=== PATIENT | male | born 1940 | race Hispanic/Latino ===

== ENCOUNTER 2016-12-11 08:50 | Inpatient (IN) | payer BC, MEDICARE ==
[2016-12-11 08:55] VITALS: BMI 28.0
[2016-12-11] MEDS ORDERED: Sodium Chloride 0.9% 1,000 ML IV ONE (08:59)
[2016-12-11] MEDS ORDERED: Vancomycin 1gm in NS 250ml 250 ML IVPB STA (08:59)
[2016-12-11] MEDS ORDERED: Cefepime IV 2 gm in NS 100 ML IVPB STA (08:59)
[2016-12-11] MEDS ORDERED: Piperacill/Tazo 4.5gm in NS 100 ML IVPB STA (08:59)
--- NOTE | 2016-12-11 09:01 | ED PDOC ---
Arrival/HPI - General Time Seen by Provider: 12/11/16 08:55 Historian: EMS - History of Present Illness Narrative History of Present Illness (Text): 12/11/16 08:55 A 76 year old male brought into the emergency department by EMS complaining of progressively worsening shortness of breath for the past few days. History obtained through EMS. Patient was intubated for respiratory protection in the field due to hypoxia and tachypnea. HPI and ROS limited. Previous records reviewed, patient has a history of CAD with stents, hypertension and hyperlipidemia. PMD: Dr. Morales Time/Duration: Prior to Arrival Symptom Course: Unchanged Quality: Other Context: Other Past Medical History - Provider Review Nursing Documentation Reviewed: Yes - Infectious Disease Hx of Infectious Diseases: None - Tetanus Immunization Tetanus Immunization: Unknown - Cardiac Hx Cardiac Disorders: Yes Hx Hypertension: Yes - Pulmonary Hx Respiratory Disorders: Yes Hx Chronic Obstructive Pulmonary Disease (COPD): Yes - Neurological Hx Neurological Disorder: No - HEENT Hx HEENT Disorder: No - Renal Hx Renal Disorder: No - Endocrine/Metabolic Hx Endocrine Disorders: No - Hematological/Oncological Hx Blood Disorders: Yes Hx Hepatitis C: Yes - Integumentary Hx Dermatological Disorder: No - Musculoskeletal/Rheumatological Hx Musculoskeletal Disorders: No Hx Falls: No - Gastrointestinal Hx Gastrointestinal Disorders: Yes Hx Gastroesophageal Reflux: Yes - Genitourinary/Gynecological Hx Genitourinary Disorders: No - Psychiatric Hx Psychophysiologic Disorder: No Hx Substance Use: Yes - Surgical History Hx Appendectomy: Yes Hx Cardiac Catheterization: Yes Hx Coronary Stent: Yes - Anesthesia Hx Anesthesia: Yes Hx Anesthesia Reactions: No Hx Malignant Hyperthermia: No - Suicidal Assessment Feels Threatened In Home Enviroment: No Family/Social History - Physician Review Nursing Documentation Reviewed: Yes Family/Social History: No Known Family HX Smoking Status: Former Smoker Hx Alcohol Use: No Hx Substance Use: Yes Hx Substance Use Treatment: No Allergies/Home Meds Allergies/Adverse Reactions: Allergies No Known Allergies Allergy (Verified 12/11/16 13:56) Home Medications: Home Meds Medication Instructions Recorded Confirmed Aspirin [Aspir 81] 81 mg PO DAILY 03/17/13 12/11/16 Isosorbide Mononitrate [Isosorbide 30 mg PO QAM 08/15/13 12/11/16 Mononitrate ER] Albuterol 0.042% [Albuterol 0.042% 3 ml IH QID PRN 12/11/16 12/11/16 Inhal Tish (1.25mg/3ml) UD] Atorvastatin [Lipitor] 10 mg PO DIN 12/11/16 12/11/16 Budesonide/Formoterol Fumarate 2 aer IH BID 12/11/16 12/11/16 [Symbicort] Furosemide [Lasix] 40 mg PO DAILY 12/11/16 12/11/16 Gabapentin [Neurontin] 300 mg PO BID 12/11/16 12/11/16 Levocetirizine Dihydrochloride 5 mg PO DAILY 12/11/16 12/11/16 [Xyzal] Metoprolol Tartrate [Lopressor] 25 mg PO BID 12/11/16 12/11/16 Naproxen [Naprosyn Tab] 375 mg PO BID 12/11/16 12/11/16 Potassium Chloride [Klor-Con M20] 20 meq PO DAILY 12/11/16 12/11/16 Zolpidem [Ambien] 10 mg PO HS 12/11/16 12/11/16 Review of Systems - Review of Systems Systems not reviewed;Unavailable: Intubated (Unresponsive) Physical Exam - Physical Exam Narrative Physical Exam (Text): Physical exam - Systems Exam Head: Present: Atraumatic, Normocephalic Pupils: Present: PERRL Conjunctiva: Present: Normal Respiratory/Chest: Present: ET tube placement confirmed with bilateral breath sounds, absence of stomach gurgling. Cardiovascular: Present: Regular Rate and Rhythm, Normal S1, S2, Peripheral Pulses Present. No: Murmurs Abdomen: bowel sounds present, soft, non-tender Back: Present: Normal Inspection. No: Midline Tenderness, Paraspinal Tenderness Lower Extremity: Present: +1 pitting edema. No asymmetry. Skin: Present: Warm, Dry, Normal Color. No: Rashes Physical Exam Limitations: Other (intubated) Vital Signs Reviewed: Yes Vital Signs Temp Pulse Resp BP Pulse Ox 12/11/16 12:16 79 18 169/86 H 100 12/11/16 11:58 169/86 H 12/11/16 10:20 91 H 18 114/90 99 12/11/16 09:00 98.1 F 89 18 105/39 L 98 Temperature: Afebrile Blood Pressure: Hypotensive Pulse: Regular Respiratory Rate: Normal Pain Distress: None Medical Decision Making ED Course and Treatment: 12/11/16 08:55 Impression: A 76 year old male brought in for progressively worsening shortness of breath. Patient intubated in the field. Limited history and physical exam. Plan: -- Chest xray -- EKG -- Labs -- Blood and Urine culture -- Urinalysis -- Maxipime, IV fluids, Vancomycin and Zosyn -- Reassess and disposition Prior Visits: Notes and results from previous visits were reviewed. Patient admitted for chest pain on 09/15/16. He had a stress test the same day which showed a left ventricular ejection fraction of 69%. Progress Notes: Stereo Equipment Installer paged. Awaiting call back. EKG shows sinus tachycardia at [address]-segment depressions in V2-V3, no ST-segment elevations. Interpreted by me. 12/11/16 09:36 Chest X-ray read and interpreted by me, which shows ET tube above the kathy, bilateral infiltrates, right sided pleura effusion. 12/11/16 09:[address] Denton, who accepts admission under his service. 12/11/16 10:[address] Baldomero Morales, who is aware of and agrees with plan. Requests Dr. Huntley, physician office rep, for consult. pt's family aware of plan - Critical Care Critical Care Minutes: 30 minutes - Lab Interpretations Lab Results: 12/11/16 09:00 12/11/16 09:00 Lab Results 12/11/16 09:30: Urine Color Light yellow, Urine Appearance Sl cloudy, Urine pH 6.0, Ur Specific [place] >= 1.030, Urine Protein >=300 H, Urine Glucose (UA) Negative, Urine Ketones Negative, Urine Blood Large H, Urine Nitrate Negative, Urine Bilirubin Negative, Urine Urobilinogen 0.2, Ur Leukocyte Esterase Negative , Urine RBC 5 - 10, Urine WBC 0 - 2, Ur Epithelial Cells 0 - 2, Urine Bacteria Small, Hyaline Casts 0 - 2 12/11/16 09:00: WBC 12.0 H, RBC 3.76, Hgb 10.3 L, Hct 33.2 L, MCV 88.3, MCH 27.4 , MCHC 31.0, RDW 15.6 H, Plt Count 224, MPV 9.9, Gran % 84.7 H, Lymph % (Auto) 8.7 L, Angelina % (Auto) 5.2, Eos % (Auto) 1.2 L, Baso % (Auto) 0.2, Gran # 10.19 H , Lymph # 1.1 L, Angelina # 0.6, Eos # 0.2, Baso # 0.02, PT 11.3, INR 1.05, APTT 23.2 L, pO2 52, VBG pH 7.13 L*, VBG pCO2 102.0 H*, VBG HCO3 33.9 H, VBG Total CO2 37.0 H, VBG O2 Sat (Calc) 81.6 H, VBG Base Excess 1.4, VBG Potassium 5.7 H, Glucose 183 H, Lactate 0.9, FiO2 21.0, Sodium 142.0, Potassium 5.5 H, Chloride 109.0 H, Carbon Dioxide 31, Anion Gap 15, BUN 32 H, Creatinine 2.2 H, Est GFR ( Amer) 35, Est GFR (Non-Af Amer) 29, Random Glucose 176 H, Calcium 8.4, Phosphorus 5.4 H, Magnesium 1.6 L, Total Bilirubin 0.7, AST 30, ALT 24, Alkaline Phosphatase 52, Troponin I 0.05 D, NT-Pro-B Natriuret Pep 12457 H, Total Protein 6.5, Albumin 3.4, Globulin 3.1, Albumin/Globulin Ratio 1.1, Procalcitonin 0.13 L, Venous Blood Potassium 5.7 H I have reviewed the lab results: Yes - RAD Interpretation Radiology Orders: 12/11/16 09:00 CHEST PORTABLE [RAD] Stat - Medication Orders Current Medication Orders: Albuterol/Ipratropium (Duoneb 3 Mg/0.5 Mg (3 Ml) Ud) 3 ml IH [id number] Last Admin: 12/11/16 11:58 Dose: 3 ML Enoxaparin Sodium (Lovenox) 80 mg SC DAILY [facility] PRN Reason: Protocol Last Admin: 12/11/16 16:59 Dose: 80 MG Subcutaneous Administrations Document 12/11/16 16:59 CLA (Rec: 12/11/16 16:59 CLA [id number]) Injection Site MAR Injection Site Right Abdomen Charges for Administration # of Subcutaneous Administrations 1 Furosemide (Lasix) 40 mg IV DAILY [facility] Hydralazine HCl (Apresoline) 10 mg IVP Q6 PRN PRN Reason: For SBP>170 & Diastolic>100 Propofol (Diprivan) 100 mls @ 2.585 mls/hr IV .Q24H PRN; Protocol; 5 MCG/KG/MIN PRN Reason: TITRATE PER MD ORDER Last Titration: 12/11/16 14:00 Dose: 15 MCG/KG/MIN Titration Intervention Document 12/11/16 14:00 CLA (Rec: 12/11/16 17:00 CLA [id number]) Titration Dosing Titration Dose 15 IV Rate 7.756 Intake/Decrease Increase Piperacillin Sod/Tazobactam Sod (Zosyn 3.375 In Ns 100ml) 100 mls @ 200 mls/hr IVPB Q6 [facility] PRN Reason: Protocol Last Admin: 12/11/16 17:24 Dose: 200 MLS/HR eMAR Start Stop Document 12/11/16 17:24 CLA (Rec: 12/11/16 17:24 SAIGE [id number]) Intravenous Solution Start Date 12/11/16 Start Time 17:24 End Date 12/11/16 End time 18:25 Total Infusion Time 61 Vancomycin HCl (Vancomycin 1gm) 250 mls @ 167 mls/hr IVPB Q12H [facility] PRN Reason: Protocol Last Admin: 12/11/16 11:58 Dose: Methylprednisolone (Solu-Medrol) 40 mg IVP Q12 [facility] Last Admin: 12/11/16 11:58 Dose: 40 MG IVP Administration Document 12/11/16 11:58 MALKA (Rec: 12/11/16 11:58 REED [id number]) Charges for Administration # of IVP Administrations 1 Pantoprazole Sodium (Protonix Inj) 40 mg IVP DAILY [facility] Last Admin: 12/11/16 11:58 Dose: 40 MG IVP Administration Document 12/11/16 11:58 MALKA (Rec: 12/11/16 11:58 REED [id number]) Charges for Administration # of IVP Administrations 1 Discontinued Medications Furosemide (Lasix) 40 mg IVP STAT STA Stop: 12/11/16 10:54 Last Admin: 12/11/16 11:58 Dose: 40 MG MAR Blood Pressure Document 12/11/16 11:58 MALKA (Rec: 12/11/16 11:58 REED [id number]) Blood Pressure Blood Pressure (100/60-150/90 mm Hg) 169/86 IVP Administration Document 12/11/16 11:58 REED (Rec: 12/11/16 11:58 REED [id number]) Charges for Administration # of IVP Administrations 1 Furosemide (Lasix) 40 mg IVP ONCE ONE Stop: 12/11/16 18:01 Last Admin: 12/11/16 16:59 Dose: 40 MG MAR Blood Pressure Document 12/11/16 16:59 CLA (Rec: 12/11/16 16:59 [id number] Blood Pressure Blood Pressure (100/60-150/90 mm Hg) 175/69 IVP Administration Document 12/11/16 16:59 CLA (Rec: 12/11/16 16:59 CLA [id number]) Charges for Administration # of IVP Administrations 1 Cefepime HCl (Maxipime 2gm) 100 mls @ 100 mls/hr IVPB STAT STA PRN Reason: Protocol Stop: 12/11/16 09:58 Last Admin: 12/11/16 10:15 Dose: 100 MLS/HR eMAR Start Stop Document 12/11/16 10:15 REED (Rec: 12/11/16 11:35 REED [id number]) Intravenous Solution Start Date 12/11/16 Start Time 10:15 Sodium Chloride (Sodium Chloride 0.9%) 1,000 mls @ 2,000 mls/hr IV .Q30M ONE Stop: 12/11/16 09:28 Last Admin: 12/11/16 09:29 Dose: 2,000 MLS/HR eMAR Start Stop Document 12/11/16 09:29 REED (Rec: 12/11/16 09:29 REED [id number]) Intravenous Solution Start Date 12/11/16 Start Time 09:29 Piperacillin Sod/Tazobactam Sod (Zosyn 4.5 Gm In Ns 100ml) 100 mls @ 200 mls/ hr IVPB STAT STA PRN Reason: Protocol Stop: 12/11/16 09:28 Last Admin: 12/11/16 09:29 Dose: 200 MLS/HR eMAR Start Stop Document 12/11/16 09:29 REED (Rec: 12/11/16 09:29 REED [id number]) Intravenous Solution Start Date 12/11/16 Start Time 09:29 Vancomycin HCl (Vancomycin 1gm) 250 mls @ 167 mls/hr IVPB STAT STA PRN Reason: Protocol Stop: 12/11/16 10:28 Last Admin: 12/11/16 12:05 Dose: 167 MLS/HR eMAR Start Stop Document 12/11/16 12:05 REEDDutch (Rec: 12/11/16 12:06 REEDDutch [id number]) Intravenous Solution Start Date 12/11/16 Start Time 12:06 Magnesium Sulfate/Dextrose (Magnesium Sulfate 1 Gm/100 Ml D5w) 100 mls @ 100 mls/hr IVPB ONCE ONE Stop: 12/11/16 16:08 Magnesium Sulfate/Dextrose (Magnesium Sulfate 1 Gm/100 Ml D5w) 100 mls @ 100 mls/hr IVPB Q2 [facility] Stop: 12/11/16 18:59 Last Admin: 12/11/16 18:17 Dose: 100 MLS/HR eMAR Start Stop Document 12/11/16 18:17 CLA (Rec: 12/11/16 18:17 CLA [id number]) Intravenous Solution Start Date 12/11/16 Start Time 18:17 End Date 12/11/16 End time 19:18 Total Infusion Time 61 Influenza Virus Vaccine (Fluvirin) 45 mcg IM .ONCE ONE Stop: 12/11/16 17:43 Pneumococcal Polyvalent Vaccine (Pneumovax 23 Vaccine) 0.5 ml IM .ONCE ONE Stop: 12/11/16 17:43 - Scribe Statement The provider has reviewed the documentation as recorded by the Jeremiah Britt Provider Scribe Attestation: All medical record entries made by the Joseiblucy were at my direction and personally dictated by me. I have reviewed the chart and agree that the record accurately reflects my personal performance of the history, physical exam, medical decision making, and the department course for this patient. I have also personally directed, reviewed, and agree with the discharge instructions and disposition. Disposition/Present on Arrival - Present on Arrival Any Indicators Present on Arrival: No History of DVT/PE: No History of Uncontrolled Diabetes: No Urinary Catheter: No History Surgical Site Infection Following: None - Disposition Have Diagnosis and Disposition been Completed?: Yes Diagnosis: Respiratory failure Disposition: HOSPITALIZED Disposition Time: 08:55 Patient Plan: Admission Condition: CRITICAL
[2016-12-11 09:10] LABS: VENOUS BLOOD GAS BASE EXCESS 1.4 mmol/L (0.0-2.0)
[2016-12-11 09:12] LABS: ADD MANUAL DIFF? NO
[2016-12-11 09:22] LABS: VENOUS BLOOD PH 7.13 (7.32-7.43)
[2016-12-11 09:26] LABS: ALB/GLOB RATIO 1.1 (1.1-1.8); BILIRUBIN,TOTAL 0.7 mg/dL (0.2-1.3); CALCIUM 8.4 mg/dL (8.4-10.5); MAGNESIUM 1.6 mg/dL (1.7-2.2); PHOSPHOROUS 5.4 mg/dL (2.5-4.5); TOTAL PROTEIN 6.5 g/dL (5.8-8.3)
[2016-12-11 09:32] LABS: POTASSIUM 5.5 mmol/L (3.6-5.0)
[2016-12-11 09:37] LABS: TROPONIN I 0.05 ng/mL
[2016-12-11 09:42] LABS: BASO # 0.02 K/mm3 (0.0-2.0); BASO % 0.2 % (0.0-3.0); EOS # 0.2 (0.0-0.7); EOS % 1.2 % (1.5-5.0); GRAN # 10.19 (1.4-6.5); GRAN % 84.7 % (50.0-68.0); HEMATOCRIT 33.2 % (42.0-52.0); LYMPH # 1.1 (1.2-3.4); LYMPH % 8.7 % (22.0-35.0); MEAN CELL VOLUME 88.3 fL (80.0-105.0); MEAN CORPUSCULAR HEMOGLOBIN 27.4 pg (25.0-35.0); MEAN PLATELET VOLUME 9.9 fl (7.0-11.0); MONO # 0.6 (0.1-0.6); MONO % 5.2 % (1.0-6.0); PLATELET COUNT 224 10^3/uL (120.0-450.0); RED CELL DISTRIBUTION WIDTH 15.6 % (11.5-14.5)
[2016-12-11 09:50] LABS: URINE BILIRUBIN NEGATIVE (NEGATIVE); URINE BLOOD LARGE (NEGATIVE); URINE GLUCOSE (UA) NEGATIVE (NEGATIVE); URINE KETONE NEGATIVE (NEGATIVE); URINE LEUKOCYTE ESTERASE NEGATIVE Leu/uL (NEGATIVE); URINE PROTEIN >=300 mg/dL (<30 mg/dL); URINE UROBILINOGEN 0.2 E.U./dL (<1 E.U./dL)
[2016-12-11 09:50] LABS: ARTERIAL BLOOD GAS HCO3 29.1 mmol/L (21-28); ARTERIAL BLOOD GAS O2 CAPACITY 13.2 mL/dl (16-24); ARTERIAL BLOOD GAS O2 CONTENT 13.3 ML/dl (15-23); ARTERIAL BLOOD GAS PH 7.22 (7.35-7.45); ARTERIAL BLOOD HGB O2 SAT 97.1 % (95.0-98.0); CARBOXYHEMOGLOBIN 2.7 % (0.5-1.5); HHB -0.6 % (0-5); METHEMOGLOBIN 0.8 % (0.0-3.0)
[2016-12-11 09:53] LABS: INR 1.05 (0.93-1.08); PARTIAL THROMBOPLASTIN TIME 23.2 Seconds (23.7-30.8)
[2016-12-11 09:57] LABS: URINE APPEARANCE SL CLOUDY (CLEAR); URINE COLOR LIGHT YELLOW (YELLOW)
--- NOTE | 2016-12-11 10:38 | RAD ---
HISTORY: Sepsis Patient COMPARISON: 09/14/2016 FINDINGS: LUNGS: Extensive opacity in the mid right lower lung. Opacity at the left lung base. PLEURA: Small to moderate right pleural effusion. No evidence of left pleural effusion. No pneumothorax. CARDIOVASCULAR: Pulmonary vascular congestive change. Normal heart size. And approximately 5.4 cm above the tracheal shari. OSSEOUS STRUCTURES: No significant abnormalities. VISUALIZED UPPER ABDOMEN: Normal. OTHER FINDINGS: None. IMPRESSION: Bilateral pulmonary opacities with small to moderate right pleural effusion. Congestive change. ET tube.
[2016-12-11 10:56] LABS: URINE BACTERIA SMALL (NEG); URINE EPITHELIAL CELLS 0 - 2 /hpf (0-5); URINE WBC 0 - 2 /hpf (0-6)
[2016-12-11] MEDS ORDERED: Vancomycin 1gm in NS 250ml 250 ML IVPB ONE (11:07)
--- NOTE | 2016-12-11 11:33 | CP.CCUPN ---
<Jennifer Whittaker - Last Filed: 12/11/16 15:02> CCU Subjective - Physician Review Events Since Last Encounter (Free Text): 12/11/16 13:49 CC: SOB C/S: Resp failure, intubated by EMS HPI: 76 yo male w h/o CAD s/p stenting, HTN, HLD and asthma presented to ER intubated in the field by EMS. Patient is currently intubated and unable to provide any history. History is obtained from the ER records and the patient's . According to his , the patient has been progressively more SOB for the past 3-4 weeks, using his Albuterol inhaler with intermittent relief. He went to his PMD 11/07/2016 for swelling and erythema in BL LEs and was given a 7- day course of doxycycline, which he finished and erythema, edema resolved. Patient had reportedly not been complaining of any cough, CP, diarrhea, constipation, fevers, chills, abdominal pain, loss of appetite, weight loss. He did have one episode of emesis this morning while sitting after he started gasping for air, telling his daughter he could not breathe. EMS was called and the patient was intubated en route to the ER. According to the patient's patient has been essentially non-ambulatory since his August admission for CP with negative exercise nuclear stress test. PMHx: CAD s/p coronary stents x4 (2011 and 2012), HTN, HLD, asthma PSHx: Coronary stents x 4, sebaceous cysts removal FamilyHx: Noncontributory SocialHx: Former smoker. 35 years 2ppd smoker. Quit 20 years ago. No h/o EtOH or drug abuse. Allergies: NKDA Home Meds: Albuterol HFA, Ambien, Gabapentin, ASA, isorbide mononitrate, Klor- con M20, lopressor, naproxen, neurontin, ultram, zyxal Critical Care Time Spent (in minutes): 50 CCU Objective - Physical Exam Head: Positive for: Atraumatic, Other (intubated) Pupils: Positive for: PERRL Conjunctiva: Positive for: Normal Ears: Positive for: Normal Mouth: Positive for: Moist Mucous Membranes Nose (Internal): Positive for: Normal Inspection Respiratory/Chest: Positive for: Rhonchi (BL), Other (intubated). Negative for : Clear to Auscultation, Good Air Exchange (poor air movement), Respiratory Distress Abdomen: Positive for: Normal Bowel Sounds. Negative for: Tenderness, Distention, Rebound, Guarding Upper Extremity: Negative for: Edema Lower Extremity: Positive for: Edema (trace BL LE). Negative for: Normal Inspection (erythema right anterior bunch, dry, flaky skin. R lateral 1cm ankle ulcer. L medial ankle ulcer. Ulceration between Left 2nd and third toes. Onycomycosis) Neurological: Positive for: Other. Negative for: GCS=15 Skin: Positive for: Warm, Dry Psychiatric: Negative for: Alert, Oriented x 3 (sedated on propofol, intubated) - Medications Active Medications: Active Medications Generic Name Dose Route Start Last Admin Trade Name Freq PRN Reason Stop Dose Admin Albuterol/Ipratropium 3 ml 12/11/16 11:30 Duoneb 3 Mg/0.5 Mg (3 Ml) Ud IH [id number] [facility] Heparin Sodium (Porcine) 5,000 units 12/11/16 22:00 Heparin SC Q12 [facility] Propofol 100 mls @ 2.585 mls/hr 12/11/16 09:07 12/11/16 09:29 Diprivan IV 2.585 mls/hr .Q24H PRN Administration TITRATE PER MD ORDER Protocol 5 MCG/KG/MIN Piperacillin Sod/Tazobactam Sod 100 mls @ 200 mls/hr 12/11/16 12:00 Zosyn 3.375 In Ns 100ml IVPB Q6 [facility] Protocol Vancomycin HCl 250 mls @ 167 mls/hr 12/11/16 11:30 Vancomycin 1gm IVPB Q12H [facility] Protocol Methylprednisolone 40 mg 12/11/16 11:30 Solu-Medrol IVP Q12 [facility] Pantoprazole Sodium 40 mg 12/11/16 11:30 Protonix Inj IVP DAILY [facility] - Patient Studies Lab Studies: Lab Studies 12/11/16 Range/Units 09:47 pCO2 71 H* (35-45) mm/Hg pO2 371.0 H (80-100) mm/Hg HCO3 29.1 H (21-28) mmol/L ABG pH 7.22 L (7.35-7.45) ABG Total CO2 31.3 H (22-28) mmol.L ABG O2 Saturation 100.6 H (95-98) % ABG O2 Content 13.3 L (15-23) ML/dl ABG Base Excess 0.5 (-2.0-3.0) mmol/L ABG Hemoglobin 9.0 L (11.7-17.4) g/dL ABG Carboxyhemoglobin 2.7 H (0.5-1.5) % POC ABG HHb (Measured) -0.6 L (0-5) % ABG Methemoglobin 0.8 (0.0-3.0) % ABG O2 Capacity 13.2 L (16-24) mL/dl Hgb O2 Saturation 97.1 (95.0-98.0) % FiO2 100.0 % Laboratory Results - last 24 hr 12/11/16 09:47 pCO2 71 H* pO2 371.0 H HCO3 29.1 H ABG pH 7.22 L ABG Total CO2 31.3 H ABG O2 Saturation 100.6 H ABG O2 Content 13.3 L ABG Base Excess 0.5 ABG Hemoglobin 9.0 L ABG Carboxyhemoglobin 2.7 H POC ABG HHb (Measured) -0.6 L ABG Methemoglobin 0.8 ABG O2 Capacity 13.2 L Hgb O2 Saturation 97.1 FiO2 100.0 Review of Systems - Review of Systems Systems not reviewed;Unavailable: Intubated Critical Care Progress Note - Ventilator Checklist PUD Prophalyxis: Yes DVT Prophylaxis: Yes - Vent Settings MODE:: PRVC TIDAL VOLUME:: 450 RESP RATE:: 22 FIO2:: 50 PEEP:: 5 Assessment/Plan - Assessment and Plan (Free Text) Assessment: 76 yo M w h/o CAD, HTN, HLD and asthma admitted with hypoxic, hypercapnic RF intubated by EMS, found to have BL infiltrates and pulm vascular congestion on CXR Plan: Neuro: Sedated on propofol. Maintain sedation to RAAS -3 while on PRVC. Daily weaning trial. Daily CXR and ABG while intubated Maintain normothermia Pulm: Acute on chronic resp acidosis on ABG with partial metabolic compensation Asthma vs obstructive lung disease given extensive smoking history Probable PNA - Vanc and Zosyn. Procalcitonin pending Solumedrol 40mg IV Q12hr PRVC 450/22/50%/5. Repeat ABG on new setting and adjust as needed to maintain PaO2>60, SpO2>90 Duonebs Q4hr Protective lung ventilation strategy. HOB >35 degree. Aspiration precautions. Recommend outpatient PFTs when acute events are resolved and patient is medically stable Pulmonary consult noted and sincerely appreciated CV: BNP [id number]. Gave 40mg IV lasix. Monitor I&Os, renal function EKG shows new ST depression in V2, V3, slightly prolonged QTc at 469ms Continue to trend troponins Cardiac consult pending. Recs appreciated Renal: Cr 2.2, stable since August 2016. Uncertain if new baseline. Will gently diurese based on clinical picture and monitor renal function, I&Os GI: GI ppx, NPO Endo: No acute issues. Accuchecks ACHS. Maintain euglycemia 140-180 ID: Mild leukocytosis 12, BL pulmonary opacities on CXR, probable PNA Urine and blood cultures pending. Will also send sputum cultures S/p vanc, zosyn and cefepime in ER. Continue Vanc and zosyn pending cultures Wound care for LE chronic wounds Heme: Mild normocytic anemia. No signs of bleeding. Continue to monitor FEN: Hypomagnesemia 1.6 - replace. Recheck AM labs DVT/GI ppx: SQH, Protonix, NPO Dispo: Admit to ICU - Date & Time Date: 12/11/16 Time: 14:31 <Bertin CANDELARIA,Trinity H - Last Filed: 12/11/16 16:10> CCU Objective - Vital Signs / Intake & Output Vital Signs (Last 4 hours): Vital Signs Pulse Resp BP Pulse Ox 12/11/16 12:16 79 18 169/86 H 100 - Medications Active Medications: Active Medications Generic Name Dose Route Start Last Admin Trade Name Freq PRN Reason Stop Dose Admin Albuterol/Ipratropium 3 ml 12/11/16 11:30 12/11/16 11:58 Duoneb 3 Mg/0.5 Mg (3 Ml) Ud IH 3 ml [id number] [facility] Administration Enoxaparin Sodium 80 mg 12/11/16 15:30 Lovenox SC DAILY [facility] Protocol Furosemide 40 mg 12/11/16 18:00 Lasix IVP 12/11/16 18:01 ONCE ONE Furosemide 40 mg 12/12/16 10:00 Lasix IV DAILY [facility] Hydralazine HCl 10 mg 12/11/16 15:30 Apresoline IVP Q6 PRN For SBP>170 & Diastolic>100 Propofol 100 mls @ 2.585 mls/hr 12/11/16 09:07 12/11/16 09:29 Diprivan IV 2.585 mls/hr .Q24H PRN Administration TITRATE PER MD ORDER Protocol 5 MCG/KG/MIN Piperacillin Sod/Tazobactam Sod 100 mls @ 200 mls/hr 12/11/16 12:00 Zosyn 3.375 In Ns 100ml IVPB Q6 [facility] Protocol Vancomycin HCl 250 mls @ 167 mls/hr 12/11/16 11:30 12/11/16 11:58 Vancomycin 1gm IVPB Not Given Q12H [facility] Protocol Magnesium Sulfate/Dextrose 100 mls @ 100 mls/hr 12/11/16 16:00 Magnesium Sulfate 1 Gm/100 Ml D5w IVPB 12/11/16 18:59 Q2 [facility] Methylprednisolone 40 mg 12/11/16 11:30 12/11/16 11:58 Solu-Medrol IVP 40 mg Q12 [facility] Administration Pantoprazole Sodium 40 mg 12/11/16 11:30 12/11/16 11:58 Protonix Inj IVP 40 mg DAILY [facility] Administration - Patient Studies Lab Studies: Lab Studies 12/11/16 12/11/16 Range/Units 15:15 09:47 pCO2 71 H* (35-45) mm/Hg pO2 371.0 H (80-100) mm/Hg HCO3 29.1 H (21-28) mmol/L ABG pH 7.22 L (7.35-7.45) ABG Total CO2 31.3 H (22-28) mmol.L ABG O2 Saturation 100.6 H (95-98) % ABG O2 Content 13.3 L (15-23) ML/dl ABG Base Excess 0.5 (-2.0-3.0) mmol/L ABG Hemoglobin 9.0 L (11.7-17.4) g/dL ABG Carboxyhemoglobin 2.7 H (0.5-1.5) % POC ABG HHb (Measured) -0.6 L (0-5) % ABG Methemoglobin 0.8 (0.0-3.0) % ABG O2 Capacity 13.2 L (16-24) mL/dl Hgb O2 Saturation 97.1 (95.0-98.0) % FiO2 100.0 % Troponin I 0.26 H* D ng/mL Laboratory Results - last 24 hr 12/11/16 12/11/16 09:47 15:15 pCO2 71 H* pO2 371.0 H HCO3 29.1 H ABG pH 7.22 L ABG Total CO2 31.3 H ABG O2 Saturation 100.6 H ABG O2 Content 13.3 L ABG Base Excess 0.5 ABG Hemoglobin 9.0 L ABG Carboxyhemoglobin 2.7 H POC ABG HHb (Measured) -0.6 L ABG Methemoglobin 0.8 ABG O2 Capacity 13.2 L Hgb O2 Saturation 97.1 FiO2 100.0 Troponin I 0.26 H* D EKG/Cardiology Studies: Cardiology / EKG Studies 12/12/16 06:00 EKG [ELECTROCARDIOGRAM] DAILY Comment: Reason For Exam: followup Attending/Attestation - Attestation I have personally seen and examined this patient.: Yes I have fully participated in the care of the patient.: Yes I have reviewed all pertinent clinical information: Yes Notes (Text): 12/11/16 16:04 76 y/o M w/ Acute hypercapneic resp failure Pt currently not moving much air, Solumedrol, b-agonist given . Repeat ABG pending to hope for co2 removal. Keep ph > 7.3 CXR shows minimal PVC with b/l R>L consolidation . Lasix 40 mg given due to PVC. Trend troponins due to previous CAD stent hx. Cardiology consult placed and possible need for cath depending on ECHO etc. Keep PAo2> 60 . vt 6ml/kg Empiric abx started , rocephin continued . cx pending cc time 65 min
[2016-12-11] MEDS: Albuterol-Ipratrop 3 mg / 0.5 (3 ml) UD IH SCH ×3 (11:58→23:40)
[2016-12-11] MEDS: MethylPREDNISolone 40 mg Vial IVP SCH ×2 (11:58→22:04)
[2016-12-11] MEDS: Vancomycin 1gm in NS 250ml 250 ML IVPB SCH ×2 (11:58→23:03)
--- NOTE | 2016-12-11 12:45 | CON ---
DATE: 12/11/2016 REASON FOR CONSULTATION: Respiratory failure. REFERRING PHYSICIAN: Dr. Morales History is obtained via extensive discussion with Dr. Kahn (Emergency Room) . I also discussed the case with the at length. I have also reviewed the chart at length. The patient is a 76-year-old male with past medical history significant for coronary artery disease, status post multiple cardiac stents, chronic obstructive pulmonary disease, hypertension, hyperlipidemia, who presents to [facility] with worsening shortness of breath at rest and dyspnea on exertion for the past 4 days. The denies cough or sputum production. There is also no history of chest pain, coughing up of blood, or chest pain -- made worse with deep respirations. There is no history of temperatures, chills or infectious exposure. There is also no history of night sweats, weight loss or appetite change prior to the above events. No history of leg or calf pains. No history of syncope or diaphoresis. No history of recent travel or trauma. REVIEW OF SYSTEMS: No history of nausea, vomiting or diarrhea. No acute urinary symptoms. No new musculoskeletal or neurologic complaints. Rest of the review of systems negative. ALLERGIES: No known allergies. SOCIAL HISTORY: Positive for tobacco, negative for alcohol. FAMILY HISTORY: No inheritable diseases. HOME MEDICATIONS: Include Neurontin, Naprosyn, Ambien, Ultram, doxycycline, Lopressor, isosorbide mononitrate, and aspirin. PHYSICAL EXAMINATION: GENERAL: The patient is currently intubated and sedated. VITAL SIGNS: Temperature is 98.1. Pulse is 91. Respirations 18/16. blood pressure is 114/90. HEENT: Normocephalic, atraumatic. No JVD. CARDIOVASCULAR: Systolic ejection murmur at the lower left sternal border. Positive S3 gallop. LUNGS: Crackles at both bases. Minimal bilateral rhonchi. No wheezing. EXTREMITIES: Positive for edema. No cyanosis, no clubbing. GASTROINTESTINAL: Abdomen is soft, nondistended. Bowel sounds are positive. SKIN: No acute rash. NEUROLOGIC: Limited at the present time. PERTINENT LABORATORY DATA: Chest x-ray was done and reviewed. There are bilateral pulmonary infiltrates (right worse than left). There are also some small bilateral pleural effusions. Arterial blood gas was done on 16/400/100% oxygen/ventilator. Results are: PH of 7.22, pCO2 of 71, pO2 of 371. CBC: White count 12.0, hemoglobin 10.3, hematocrit 33.2, platelets of 224. Complete metabolic profile: Potassium 5.5, BUN 32, creatinine 2.2, glucose 176, phosphorus 5.4, magnesium 1.6, troponin 0.05. B-type natriuretic peptide 40893. Rest of the metabolic profile is within normal limits. IMPRESSION: 1. Respiratory failure. 2. Rule out bilateral pneumonia. 3. Congestive heart failure. 4. Chronic obstructive pulmonary disease. 5. Coronary artery disease. 6. Renal insufficiency. PLAN: Again, I did discuss the case with the Emergency Room physician (Dr. Kahn) at length. I also discussed the case with the at length. Apparently, the patient has been experiencing increasing shortness of breath at rest and dyspnea on exertion for the past 4 days. The offers no other pulmonary symptoms. When the patient arrived to the Emergency Room, he was in respiratory distress. He was subsequently intubated for ventilation and airway protection. I did review the chest x-ray as above. The x-ray reveals bilateral pulmonary infiltrates (right worse than left). The x-ray also reveals small bilateral pleural effusions. I have also reviewed the arterial blood gas. The arterial blood gas is consistent with a severe respiratory acidosis, with an increase in the alveolar arterial gradient. I will discuss ventilator management with the ICU team in the next few moments. The patient has been pancultured and placed on antibiotic therapy. A procalcitonin has been ordered. Cardiology evaluation with Dr. Yeung has also been ordered. Additional labs and x-ray will be ordered and followed. I will discuss the above with the entire ICU team again in the next few moments. I will also discuss the above with Dr. Morales. The patient is obviously critically ill at the present time. Thank you very much for the pulmonary consultation. Sebastian Huntley MD cc: [id number] TT: 12/11/2016 12:45:16 Confirmation # [id number] Dictation # [id number] HANSEL
--- NOTE | 2016-12-11 13:00 | CARD ---
APPROVED REPORT EKG Measurement Heart [id number] <Conclusion> Sinus rhythm Nonspecific T wave abnormality Prolonged QT Abnormal ECG
--- NOTE | 2016-12-11 15:55 | CON ---
DATE: 12/11/2016 REASON FOR CONSULTATION: Cardiac evaluation, admitted with shortness of breath , status post respiratory failure, history of coronary artery disease. BRIEF CLINICAL HISTORY: This is a 76-year-old male with past medical history significant for coronary artery disease status post PTCA in the past, history of a stent in the past in 2012 and 2010 possibly. Came in with complaint of progressive worsening shortness of breath, history of hypertension, hyperlipidemia, to the point got more short of breath requiring intubation. Currently being intubated in the ER, going to ICU. PAST HISTORY: Significant for coronary artery disease status post cardiac catheterization before 06/28/2000, nonobstructive coronary artery disease. Recently admitted with a fgd-MP-buaiqar myocardial infarction, anemia, right- sided pneumonia. 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 After being stabilized, patient underwent cardiac catheterization in 04/2013 and subsequently put 3 bare metal stents in LAD and one bare metal stent in ramus. Bare metal was done because of duration of the continuation of long-term dual antiplatelet therapy was doubtful because of the underlying comorbidity, because of noncompliance with medications and history of GI bleed. Stent was done on 05/19/2013. After that, the patient lost followup and now I heard that patient is mostly bedbound. PREVIOUS CARDIAC WORKUP: As follows: The patient had a stress test 09/15/2016 that shows essentially normal myocardial perfusion study, fixed defect inferior due to diaphragmatic attenuation, dated 09/15/2016. SOCIAL HISTORY: History of tobacco abuse, history of negative for alcohol abuse. FAMILY HISTORY: Not obtainable. CURRENT MEDICATIONS: The patient at home is taking tramadol, zolpidem, Naprosyn , metoprolol, levothyroxine, gabapentin, aspirin. REVIEW OF SYSTEMS: As per HPI. PHYSICAL EXAMINATION: As follows: VITAL SIGNS: Temperature afebrile, heart rate 79, blood pressure 169/86. HEENT: PERRLA, intact. NECK: Supple. No carotid bruits. No thyromegaly. CHEST: Clear to auscultation. HEART: S1, S2 regular. ABDOMEN: Soft. EXTREMITIES: Clubbing and cyanosis negative. EKG shows normal sinus, no acute ST-T changes noted. BLOOD WORKUP: As follows: WBC 12, hemoglobin 10.3, hematocrit 33.2, platelet count 224. Chemistry shows sodium 143, potassium 5.5, chloride 103, carbon dioxide 31, anion gap of 15, creatinine 2.2. Magnesium 1.6. BNP 10,900. Troponin 0.09. IMPRESSION: Acute respiratory failure, diabetes, hypertension, hyperlipidemia, renal insufficiency, history of coronary artery disease status post 3 bare metal stents in left anterior descending and one bare metal stent in ramus intermedius. Recent stress test in 08/2016 is normal fixed defect, no reversible ischemia, ejection fraction 69%. Chest x-ray shows possibly right lower lobe pneumonia. Possible right lower lobe pneumonia, sepsis, respiratory failure, renal insufficiency, diabetes, hypertension, hyperlipidemia. We will get echo to assess left ventricular function. Most likely this acute event is contributed by pneumonia and sepsis. Discussed with vaccine manager Dr. Denton. Consideration of PE will be considered, but if the oxygen saturation does not improve, he would consider V/Q versus CT. Interim, we will put Lovenox renal adjusted dose, antibiotic. Echo to assess left ventricular function, lipid profile, TSH, hemoglobin A1c. Follow serial CPK, troponin. Further recommendation, depending upon hospital course. We will follow with you. Thank you, Dr. Morales, for providing us the opportunity in taking care of the patient. Noel Bowling MD cc: Samm Morales MD [phone] TT: 12/11/2016 15:54:33 Confirmation # [id number] Dictation # [id number] [facility] Township[facility]
[2016-12-11 16:14] LABS: ABG MECHANICAL RATE 22; ARTERIAL BLOOD GAS HCO3 23.6 mmol/L (21-28); ARTERIAL BLOOD GAS PH 7.49 (7.35-7.45); ATERIAL BLOOD GAS PEEP 5
[2016-12-11] MEDS: Enoxaparin 80 mg Syringe SC SCH (16:59)
[2016-12-11] MEDS: Piperacillin/Tazobact 3.375 gm 100 ML IVPB SCH ×2 (17:24→23:01)
[2016-12-11] MEDS ORDERED: Influenza Vaccine 45 MCG/0.5 ml IM ONE (17:42)
[2016-12-11] MEDS ORDERED: Pneumococcal 23-Valent Vaccine IM ONE (17:42)
--- NOTE | 2016-12-11 20:51 | CARD ---
APPROVED REPORT EKG Measurement Heart [id number] 128P0 [id number] <Conclusion> Sinus bradycardia Nonspecific T wave abnormality Abnormal ECG
[2016-12-12] MEDS: Albuterol-Ipratrop 3 mg / 0.5 (3 ml) UD IH SCH ×6 (04:35→22:43)
[2016-12-12] MEDS: Piperacillin/Tazobact 3.375 gm 100 ML IVPB SCH ×3 (06:06→17:19)
[2016-12-12 06:14] LABS: ARTERIAL BLOOD GAS HCO3 27.8 mmol/L (21-28); ARTERIAL BLOOD GAS PH 7.39 (7.35-7.45)
[2016-12-12 06:22] LABS: ADD MANUAL DIFF? NO
[2016-12-12 06:36] LABS: GRAN # 8.75 (1.4-6.5); GRAN % 91.6 % (50.0-68.0); HEMATOCRIT 28.6 % (42.0-52.0); LYMPH # 0.7 (1.2-3.4); MEAN CELL VOLUME 84.9 fL (80.0-105.0); MEAN CORPUSCULAR HEMOGLOBIN 26.4 pg (25.0-35.0); MEAN CORPUSCULAR HGB CONC 31.1 g/dl (31.0-37.0); MEAN PLATELET VOLUME 10.1 fl (7.0-11.0); MONO # 0.1 (0.1-0.6); MONO % 1.4 % (1.0-6.0); PLATELET COUNT 188 10^3/uL (120.0-450.0); RED CELL DISTRIBUTION WIDTH 15.9 % (11.5-14.5); WHITE BLOOD COUNT 9.6 10^3/ul (4.5-11.0)
[2016-12-12 07:16] LABS: BILIRUBIN,TOTAL 0.7 mg/dL (0.2-1.3); PHOSPHOROUS 4.5 mg/dL (2.5-4.5); TOTAL PROTEIN 6.1 g/dL (5.8-8.3)
[2016-12-12 07:24] LABS: CALCIUM 8.3 mg/dL (8.4-10.5); MAGNESIUM 2.4 mg/dL (1.7-2.2); POTASSIUM 4.4 mmol/L (3.6-5.0)
[2016-12-12 07:44] LABS: TROPONIN I 0.18 ng/mL
--- NOTE | 2016-12-12 10:29 | PN ---
DATE: 12/12/2016 SUBJECTIVE: The patient remains on the ventilator. He is currently sedated. PHYSICAL EXAMINATION: VITAL SIGNS: Temperature is 98.4, pulse is 70, respirations 16/16, blood pressure 162/70. HEENT: Normocephalic, atraumatic. No JVD. CARDIOVASCULAR: Systolic ejection murmur at the lower left sternal border. Positive S3 gallop. LUNGS: Crackles at both bases. Less rhonchi. No wheezing. EXTREMITIES: Positive for edema. No cyanosis, no clubbing. GASTROINTESTINAL: Abdomen is soft, nondistended. Bowel sounds are positive. SKIN: No acute rash. NEUROLOGIC: Limited at the present time. PERTINENT LABORATORY DATA: Chest x-ray was done this morning and reviewed. The x-ray is somewhat improved with decreased pulmonary infiltrates. Arterial blood gas was done on assist control 16, tidal volume 450, FiO2 40%. Results are: PH 7.39, pCO2 46, pO2 of 96. Repeat troponin over the past 24 hours 0.26. Procalcitonin done yesterday -- negative -- 0.13. IMPRESSION: 1. Respiratory failure. 2. Rule out bilateral pneumonia. 3. Congestive heart failure. 4. Acute myocardial infarction. 5. Chronic obstructive pulmonary disease. 6. Renal insufficiency. PLAN: The patient remains on the ventilator. He is currently sedated. I did discuss the case with the night nurse and respiratory therapist at length. The night nurse and the respiratory therapist stated that the patient is doing well over the past shift. I did review the x-ray as above. The x-ray is improved with decreased pulmonary infiltrates. I have also reviewed the arterial blood. The arterial blood gas is also improved with a decrease in the alveolar- arterial gradient. As noted above, peak troponin is now 0.26. Cardiology evaluation with Dr. Bowling is noted. The patient remains on Lasix/afterload reduction. In spite of the negative procalcitonin, I would continue with the antibiotic coverage for now. There are no temperatures noted. The leukocytosis is now resolved. There is also less bronchospasm on physical exam. I will continue with the current nebulizer treatments and low-dose intravenous steroids for now. Clinical status of this patient is certainly improved -- compared to yesterday. However, the overall status/prognosis of this patient remains very guarded. I will discuss the above with the entire ICU team and the attending physician later this morning. Sebastian Huntley MD cc: [id number] TT: 12/12/2016 10:28:50 Confirmation # [id number] Dictation # [id number] mn HANSEL
[2016-12-12] MEDS: MethylPREDNISolone 40 mg Vial IVP SCH ×2 (11:00→21:51)
[2016-12-12] MEDS: Vancomycin 1gm in NS 250ml 250 ML IVPB SCH (11:00)
[2016-12-12] MEDS: Enoxaparin 80 mg Syringe SC SCH (11:01)
--- NOTE | 2016-12-12 11:27 | RAD ---
HISTORY: f/u COMPARISON: Comparison is made to the previous study dated 12/11/2016 FINDINGS: LUNGS: Interval mild improvement in the lungs particularly in the right compared to the previous exam. PLEURA: Blunting of both costophrenic angles suggestive of bilateral pleural effusion larger on the right. CARDIOVASCULAR: The cardiac silhouette is mildly enlarged. OSSEOUS STRUCTURES: No significant abnormalities. VISUALIZED UPPER ABDOMEN: Normal. OTHER FINDINGS: None. IMPRESSION: Interval mild improvement in the lungs. Otherwise no significant change.
--- NOTE | 2016-12-12 11:47 | PN ---
DATE: 12/12/2016 REASON FOR CONSULTATION AND FOLLOWUP: Cardiac evaluation with shortness of breath, status post respi ratory failure, history of coronary artery disease. BRIEF CLINICAL HISTORY: This is a 76-year-old male with past medical history significant for coronar y artery disease, status post PTCA in the past, history of stent in 04/2013 with 3 bare metal stents in the LAD and 1 bare metal stent in the ramus intermedius; history of noncompliance, history of GI b leejean-claude, admitted with shortness of breath, intubated, possible pneumonia. Currently, the patient is on vent. PHYSICAL EXAMINATION: VITAL SIGNS: Temperature afebrile, heart rate 65, blood pressure 125/41. HEENT: PERRLA. Extraocular muscles intact. NECK: Supple. No carotid bruits. No thyromegaly. CHEST: Clear to auscultation. HEART: S1, S2 regular. ABDOMEN: Soft. EXTREMITIES: Clubbing and cyanosis negative. LABORATORY DATA: WBC 9.6, hemoglobin 8.9, hematocrit 28.6, platelet count 188. Chemistry shows sodi um 141, potassium 4.4, chloride 104, carbon dioxide ____, anion gap of 20, BUN 42, creatinine 2.2. T roponin 0.05 then 0.26. Now, the trend is 0.18. IMPRESSION: Coronary artery disease, status post 4 bare metal stents in 04/2013; three in left anter ior descending and one in ramus. Recent stress test 09/15/2016: Essentially normal myocardial perfu ese study, fixed defect, diaphragmatic attenuation. Positive troponin this time is secondary to eit her hemodynamic instability versus true hip-JD-arjkstj myocardial infarction versus patient has basel ine renal insufficiency with creatinine clearance 15-20 mL. Doubt this is myocardial infarction, but cannot rule out for sure because the patient had underlying coronary artery disease with bare metal stents. Respiratory failure, intubated, rule out pneumonia, chronic obstructive pulmonary disease, r enal insufficiency. RECOMMENDATION: Continue the renally adjusted dose for Lovenox. Continue broad-spectrum antibiotic. Continue Lasix. Follow up ____ broad spectrum antibiotic. Once the patient gets extubated, will r eassess. Depending upon the troponin trend and the renal function, consider cardiac catheterization possibly. As the patient had a stress test in 08/2016 that was negative, so no need to do a stress t est. Either whether to treat medically or consider cardiac catheterization, depending upon the renal function and the patient status post extubation. Will follow with you. Thank you, Dr. Morales, for providing the opportunity in taking care of the patient. Noel Bowling MD cc: [id number] TT: 12/12/2016 11:46:34 Confirmation # [id number] Dictation # [id number] mn
--- NOTE | 2016-12-12 12:00 | PN ---
DATE: 12/12/2016 The patient seen and examined at bedside. He is comfortable. 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 He is on pressure support 5/5 with FIO2 40%. He is pulling about 600 mL of tidal volume and his rapid shallow breathing index is 17. PHYSICAL EXAMINATION: VITAL SIGNS: On that setting, his blood pressure 140/94, heart rate 75, oxygen saturation 98%, end-tidal CO2 on the monitor of 41. Propofol was just stopped. HEAD AND NECK: Atraumatic. LUNGS: Clear to auscultation bilaterally. HEART: Regular rate and rhythm. S1, S2 normal. ABDOMEN: Soft, nontender, nondistended. MUSCULOSKELETAL: No C/C/E. NEUROLOGIC: The patient moves all extremities spontaneously. SKIN: Moist. PSYCHIATRIC: The patient is alert and awake. LABORATORY DATA: WBC 9.6, hemoglobin 8.9, platelet 188. Sodium 141, potassium 4.4, chloride 104, carbon dioxide 21, BUN 42, creatinine 2.2, glucose 132. AST 27, ALT 20, troponin 0.8, 0.22. Procalcitonin 0.15. MEDICATIONS: Hydralazine p.r.n., DuoNeb every 4 hours, Lasix 40 mg IV daily, Lovenox 40 mg subQ daily, Protonix daily, Solu-Medrol 40 mg IV q. 12, vancomycin , Zosyn. ASSESSMENT AND PLAN: This is a 76-year-old gentleman who presented with acute hypercapnic respiratory failure, most likely secondary to chronic obstructive pulmonary disease exacerbation in the setting of ber-OY-fxkwdeug myocardial infarction vs demand/supply mismatch ischemia. The patient was seen by cardiology and private pulmonary service. Cardiology service started the patient on therapeutic anticoagulation and Lasix. The patient was started on bronchodilators, steroid taper, antibiotics. Today, the patient is doing very well. He tolerated pressure support trial and will be extubated to BiPAP. We will continue to target euvolemia, euglycemia, normothermia and oxygen saturation more than 90%. We will continue with conservative fluid and oxygen management. We will continue with gastrointestinal prophylaxis. ccm time 40 mn Artur B Litinski MD cc: [id number] TT: 12/12/2016 11:59:30 Confirmation # [id number] Dictation # [id number] tn MTDD
--- NOTE | 2016-12-12 15:14 | HP ---
HISTORY OF PRESENT ILLNESS: The patient is a 76-year-old male with a past history positive for COPD who presented to the Emergency Room with shortness of breath. He was diagnosed with COPD exacerbatio n, pneumonia, possible sepsis and congestive heart failure. He was intubated in the Emergency Room a nd is admitted to the intensive care unit. The patient was recently treated for cellulitis of the lo wer extremities. According to the patient's this had recovered and he was doing well over the eekend. However, on the morning of admission he seemed to be acutely short of breath. He was sittin g up in bed just complaining that he could not catch his breath and could not breathe. Therefore, th e squad was called. The patient was transported to the Emergency Room where he was evaluated, intuba wanda and admitted. PAST MEDICAL HISTORY: He is known to have hypertension, COPD. He is positive for hepatitis C; gastr oesophageal reflux, peptic ulcer disease, status post appendectomy, status post PTCA. SOCIAL HISTORY: He is a former smoker and nonalcoholic user. He did have a problem with overuse of pain medicines in the past; however, has been doing well avoiding this in the more recent past. MEDICATIONS: At the time of admission include aspirin 81 mg, isosorbide mononitrate 30 mg, nebulizer treatments with albuterol, Lipitor 10 mg, Symbicort twice a day, Lasix 40 mg, Neurontin 300 mg twice a day for peripheral neuropathy, 5 mg once a day, Lopressor 25 mg twice a day, Naprosyn 375 mg twice a day, Klor-Con 20 mEq daily, and zolpidem 10 mg at bedtime. When seen, the patient in intubated. He is in the intensive care unit. His is present who told me the story of his symptoms at home prior to hospitalization. PHYSICAL EXAMINATION: VITAL SIGNS: His blood pressure is 170/70, heart rate is 57. LUNGS: Clear anteriorly. HEART: Regular. LABORATORY STUDIES: Chest x-ray is consistent with congestive heart failure. EKG shows regular sinu s rhythm with prolonged QT intervals. His white blood cell count is 12.0. Hemoglobin and hematocrit are 10.3 and 33.2 respectively. Sodium is 143, potassium is 5.5, BUN is 32, creatinine is 2.2. Glu cose is 176. Troponins are 0.05. BNP is 10,900. Procalcitonin is low at 0.13. The patient is intubated in the intensive care unit. Cardiology and pulmonary consultations have bee n requested and we will be following the patient closely. Baldomero Morales MD cc: [id number] TT: 12/12/2016 15:14:00 mn
[2016-12-12] MEDS ORDERED: Metoprolol 1 mg/ml Inj IVP PRN (17:04)
--- NOTE | 2016-12-12 18:03 | CARD ---
APPROVED REPORT EKG Measurement Heart [id number] 124P12 [id number] <Conclusion> Normal sinus rhythm Nonspecific T wave abnormality Prolonged QT Abnormal ECG
[2016-12-12] MEDS ORDERED: DiphenhydrAMINE 50 mg/ml Inj IVP STA (22:32)
[2016-12-13] MEDS: Albuterol-Ipratrop 3 mg / 0.5 (3 ml) UD IH SCH ×7 (04:21→23:59)
[2016-12-13 05:32] LABS: ARTERIAL BLOOD GAS HCO3 27.2 mmol/L (21-28); ARTERIAL BLOOD GAS O2 CAPACITY 11.8 mL/dl (16-24); ARTERIAL BLOOD GAS O2 CONTENT 11.7 ML/dl (15-23); ARTERIAL BLOOD GAS PH 7.39 (7.35-7.45); ARTERIAL BLOOD HGB O2 SAT 96.4 % (95.0-98.0); CARBOXYHEMOGLOBIN 1.8 % (0.5-1.5); METHEMOGLOBIN 0.8 % (0.0-3.0)
[2016-12-13 05:32] LABS: ADD MANUAL DIFF? NO
[2016-12-13 05:39] LABS: GRAN # 9.69 (1.4-6.5); GRAN % 89.2 % (50.0-68.0); HEMATOCRIT 27.2 % (42.0-52.0); LYMPH # 0.9 (1.2-3.4); LYMPH % 7.9 % (22.0-35.0); MEAN CELL VOLUME 86.1 fL (80.0-105.0); MEAN CORPUSCULAR HEMOGLOBIN 26.9 pg (25.0-35.0); MEAN CORPUSCULAR HGB CONC 31.3 g/dl (31.0-37.0); MEAN PLATELET VOLUME 10.7 fl (7.0-11.0); MONO # 0.3 (0.1-0.6); MONO % 2.9 % (1.0-6.0); PLATELET COUNT 176 10^3/uL (120.0-450.0); RED CELL DISTRIBUTION WIDTH 16.7 % (11.5-14.5); WHITE BLOOD COUNT 10.9 10^3/ul (4.5-11.0)
[2016-12-13 05:57] LABS: ALB/GLOB RATIO 1.1 (1.1-1.8); BILIRUBIN,TOTAL 0.5 mg/dL (0.2-1.3); CALCIUM 9.1 mg/dL (8.4-10.5); MAGNESIUM 2.7 mg/dL (1.7-2.2); PHOSPHOROUS 6.4 mg/dL (2.5-4.5); POTASSIUM 4.6 mmol/L (3.6-5.0); TOTAL PROTEIN 6.1 g/dL (5.8-8.3)
[2016-12-13] MEDS: Piperacillin/Tazobact 3.375 gm 100 ML IVPB SCH ×5 (06:03→23:52)
[2016-12-13 07:15] LABS: TROPONIN I 0.65 ng/mL
--- NOTE | 2016-12-13 08:38 | RAD ---
HISTORY: f/u COMPARISON: Comparison chest 12/12/2016 FINDINGS: LUNGS: Status post removal ETT the Central pulmonary vasculature is slightly increased. Bilateral opacities may represent some combination of atelectasis/ infiltrate and bilateral effusions. Slight increased central pulmonary vasculature. PLEURA: No pneumothorax apparent. CARDIOVASCULAR: Cardiomegaly. OSSEOUS STRUCTURES: No significant abnormalities. VISUALIZED UPPER ABDOMEN: Normal. OTHER FINDINGS: None. IMPRESSION: Status post removal ETT. Bibasilar opacities could represent the some combination of atelectasis/ infiltrate and bilateral effusions. Slight increased central pulmonary vasculature. .
--- NOTE | 2016-12-13 08:39 | PN ---
DATE: 12/13/2016 PULMONARY NOTE SUBJECTIVE: The patient is now extubated and on nasal cannula. He is resting comfortably. PHYSICAL EXAMINATION: VITAL SIGNS: Temperature is 97.9, pulse 80, respirations 14, blood pressure 170 /68. Oxygen saturation on nasal cannula is 100%. HEENT: Normocephalic, atraumatic. No JVD. CARDIOVASCULAR: Systolic ejection murmur at the lower left sternal border. Positive S3 gallop. LUNGS: Less crackles at the bases. Less rhonchi. No wheezing. EXTREMITIES: Positive for edema. No cyanosis, no clubbing. Calves are nontender to palpation. GASTROINTESTINAL: Abdomen is soft, nontender, nondistended. Bowel sounds are positive. SKIN: No acute rash. NEUROLOGIC: Limited at the present time. PERTINENT LABORATORY DATA: Chest x-ray was done this morning and reviewed. The x-ray is improved with decreased pulmonary infiltrates and decreased pleural effusions. Arterial blood gas was done on nasal cannula. Results are: pH 7.39, pCO2 of 45, pO2 of 99. IMPRESSION: 1. Respiratory failure. 2. Rule out bilateral pneumonia. 3. Congestive heart failure. 4. Acute myocardial infarction. 5. Chronic obstructive pulmonary disease. 6. Renal insufficiency. PLAN: The patient is now extubated and on nasal cannula. He is currently comfortable with an oxygen saturation of 100%. I did review the x-ray as above. The x-ray continues to improve with decreased pulmonary infiltrates and decreased pleural effusions. I have also reviewed the arterial blood gas. The arterial blood gas has also significantly improved - with a decrease in the alveolar arterial gradient. I would continue with the treatment for congestive heart failure and acute myocardial infarction, as per cardiology. Input by Dr. Bowling is noted. On physical exam, there is certainly less bronchospasm noted. I will continue with the current nebulizer treatments and decrease the intravenous steroids this morning. I would also like the patient out of bed as much as possible. I did discuss this issue with the patient and nurse at length. Clinical status of the patient is significantly improved overall. I will discuss the above with the entire ICU team and the attending physician later this morning. Sebastian Huntley MD cc: [id number] TT: 12/13/2016 08:39:02 Confirmation # [id number] Dictation # [id number] jn HANSEL
[2016-12-13] MEDS: Enoxaparin 80 mg Syringe SC SCH (09:36)
[2016-12-13] MEDS: MethylPREDNISolone 40 mg Vial IVP SCH ×2 (09:37→21:36)
--- NOTE | 2016-12-13 12:13 | PN ---
DATE: 12/13/2016 The patient seen and examined at bedside. He is comfortable. He talks full sentences. He is sitting in the chair. He just ate breakfast. He is not in respiratory or otherwise distress. PHYSICAL EXAMINATION: VITAL SIGNS: Heart rate 76, blood pressure 166/73, respiratory rate 20. HEAD AND NECK: Atraumatic. LUNGS: Clear to auscultation bilaterally. HEART: Regular rate and rhythm. S1, S2 normal. ABDOMEN: Soft, nontender, nondistended. MUSCULOSKELETAL: No C/C/E. NEUROLOGIC: The patient moves all extremities spontaneously. SKIN: Moist. PSYCHIATRIC: The patient was alert and oriented x 3. LABORATORY DATA: WBC 10.9, hemoglobin 8.5, platelet count 176. Sodium 146, potassium 4.6, chloride 106, carbon dioxide 28, BUN 52, creatinine 2.7, glucose 144. Troponin 0.65, up from 0.18 (it does correspond slightly to the increasing creatinine though. The patient does not have chest pain or shortness of breath). ABG today shows 7.39/45/99. MEDICATIONS: Hydralazine p.r.n., DuoNeb every 4, isosorbide mononitrate, Lasix 40 mg IV daily, Lopressor p.r.n., metoprolol, Lovenox 80 mg subQ daily, Protonix , Solu-Medrol 40 mg IV q. 12, vancomycin 1 gram given yesterday. ASSESSMENT AND PLAN: This is a 76-year-old gentleman who initially presented with hypercarbic respiratory failure requiring intubation. At present time, patient is extubated. He did well overnight. He is off of BiPAP. He is not in respiratory or otherwise distress. He is speaking in full sentences. The patient has acute kidney injury. At present time, I would be careful with aggressive diuresis in the setting of worsening RIVERA and, especially as cardiology service is considering cardiac catheterization at some point after initial stabilization. I would get nephrology service onboard. I would avoid nephrotoxic medication, but not at the expense of treating underlying disease. Would continue with Abx, steroids taper and bronchodilators. I will continue with euvolemia and euglycemia for additional nephroprotection. DVT/GI prophylaxis. Troponin rise may also be related to worsening of a renal function as patient doesnt have chest pain. Upon d/c from ICU he would benefit from BPAP at night, OOB to chair, pulm rehab, infection prophylaxis with vaccination, "triple" inhaler therapy, pulm follow up ccm time 40 min Artur Naranjo MD cc: [id number] TT: 12/13/2016 12:13:13 Confirmation # [id number] Dictation # [id number] helen HAMM
--- NOTE | 2016-12-13 13:58 | CP.CCUPN ---
<Jennifer Whittaker - Last Filed: 12/13/16 16:15> CCU Subjective - Physician Review Events Since Last Encounter (Free Text): 12/13/16 13:55 Patient seen and examined bedside. No acute events overnight. S/p extubation yesterday to BiPAP currently comfortable on NC. Satting high 90s-100%. Patient denies CP, SOB, abd pain, n/v. States his SOB is resolved and feels at baseline. 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 States he usually has to strain to urinate and it takes him a long time to do so. Critical Care Time Spent (in minutes): 40 CCU Objective - Vital Signs / Intake & Output Vital Signs (Last 4 hours): Vital Signs Temp Pulse Resp BP Pulse Ox 12/13/16 12:00 98.3 F 87 32 H 12/13/16 11:42 79 21 12/13/16 11:00 76 15 166/73 H 97 12/13/16 10:00 77 16 164/68 H 96 Intake and Output (Last 8hrs): Intake & Output 12/12/16 12/13/16 12/13/16 22:59 06:59 14:59 Intake Total 450 450 Output Total 1100 850 Balance -650 -400 Weight 190 lb Intake: IV 200 Right Wrist 200 Oral 250 Other 450 Output: Urine 1100 850 Urethral (Brody) 1100 850 Other: Voiding Method Indwelling Catheter Indwelling Catheter # Bowel Movements 0 - Physical Exam Head: Positive for: Atraumatic, Normocephalic Pupils: Positive for: PERRL Extroacular Muscles: Positive for: EOMI Conjunctiva: Positive for: Normal Ears: Positive for: Normal Mouth: Positive for: Moist Mucous Membranes Respiratory/Chest: Positive for: Clear to Auscultation. Negative for: Respiratory Distress Abdomen: Positive for: Normal Bowel Sounds. Negative for: Tenderness, Distention, Rebound, Guarding Upper Extremity: Negative for: Normal Inspection (chronic venous stasis, PVD changes), Edema Lower Extremity: Negative for: Normal Inspection (erythema right anterior bunch, dry, flaky skin. R lateral 1cm ankle ulcer. L medial ankle ulcer. Ulceration between Left 2nd and third toes. Onycomycosis), CALF TENDERNESS Neurological: Positive for: CN II-XII Intact, Speech Normal, Other. Negative for: GCS=15 Skin: Positive for: Warm, Dry Psychiatric: Positive for: Oriented x 3, Normal Concentration. Negative for: Alert - Medications Active Medications: Active Medications Generic Name Dose Route Start Last Admin Trade Name Freq PRN Reason Stop Dose Admin Albuterol/Ipratropium 3 ml 12/11/16 11:30 12/13/16 11:21 Duoneb 3 Mg/0.5 Mg (3 Ml) Ud IH 3 ml [id number] DULCE Administration Enoxaparin Sodium 80 mg 12/11/16 15:30 12/13/16 09:36 Lovenox SC 80 mg DAILY DULCE Administration Protocol Hydralazine HCl 10 mg 12/11/16 15:30 12/12/16 14:12 Apresoline IVP 10 mg Q6 PRN Administration For SBP>170 & Diastolic>100 Piperacillin Sod/Tazobactam Sod 100 mls @ 200 mls/hr 12/11/16 12:00 12/13/16 12 :12 Zosyn 3.375 In Ns 100ml IVPB 200 mls/hr Q6 DULCE Administration Protocol Isosorbide Mononitrate 30 mg 12/13/16 10:00 12/13/16 09:35 Imdur PO 30 mg QAM DULCE Administration Methylprednisolone 30 mg 12/13/16 10:00 12/13/16 09:37 Solu-Medrol IVP 30 mg Q12 DULCE Administration Metoprolol Tartrate 5 mg 12/12/16 17:04 12/12/16 17:19 Lopressor IVP 5 mg Q6 PRN Administration bp Metoprolol Tartrate 25 mg 12/13/16 10:00 12/13/16 09:36 Lopressor PO 25 mg BID DULCE Administration Pantoprazole Sodium 40 mg 12/11/16 11:30 12/13/16 09:36 Protonix Inj IVP 40 mg DAILY DULCE Administration - Patient Studies Lab Studies: Lab Studies 12/13/16 12/13/16 12/12/16 Range/Units 05:30 05:00 21:57 WBC 10.9 (4.5-11.0) 10^3/ul RBC 3.16 L (3.5-6.1) 10^6/uL Hgb 8.5 L (14.0-18.0) gm/dL Hct 27.2 L (42.0-52.0) % MCV 86.1 (80.0-105.0) fL MCH 26.9 (25.0-35.0) pg MCHC 31.3 (31.0-37.0) g/dl RDW 16.7 H (11.5-14.5) % Plt Count 176 (120.0-450.0) 10^3/uL MPV 10.7 (7.0-11.0) fl Gran % 89.2 H (50.0-68.0) % Lymph % (Auto) 7.9 L (22.0-35.0) % [place] % (Auto) 2.9 (1.0-6.0) % Eos % (Auto) 0.0 L (1.5-5.0) % Baso % (Auto) 0.0 (0.0-3.0) % Gran # 9.69 H (1.4-6.5) Lymph # 0.9 L (1.2-3.4) [place] # 0.3 (0.1-0.6) Eos # 0.0 (0.0-0.7) Baso # 0.00 (0.0-2.0) K/mm3 pCO2 45 (35-45) mm/Hg pO2 99.0 (80-100) mm/Hg HCO3 27.2 (21-28) mmol/L ABG pH 7.39 (7.35-7.45) ABG Total CO2 28.6 H (22-28) mmol.L ABG O2 Saturation 99.0 H (95-98) % ABG O2 Content 11.7 L (15-23) ML/dl ABG Base Excess 1.9 (-2.0-3.0) mmol/L ABG Hemoglobin 8.5 L (11.7-17.4) g/dL ABG Carboxyhemoglobin 1.8 H (0.5-1.5) % POC ABG HHb (Measured) 1.0 (0-5) % ABG Methemoglobin 0.8 (0.0-3.0) % ABG O2 Capacity 11.8 L (16-24) mL/dl Hgb O2 Saturation 96.4 (95.0-98.0) % FiO2 32.0 % Sodium 146 (132-148) mmol/L Potassium 4.6 (3.6-5.0) mmol/L Chloride 106 (98-107) mmol/L Carbon Dioxide 28 (21-33) mmol/L Anion Gap 17 (10-20) BUN 52 H (7-21) mg/dL Creatinine 2.7 H (0.5-1.4) mg/dL Est GFR ( Amer) 28 Est GFR (Non-Af Amer) 23 POC Glucose (mg/dL) 180 H (65-110) mg/dL Random Glucose 144 H (70-110) mg/dL Calcium 9.1 (8.4-10.5) mg/dL Phosphorus 6.4 H (2.5-4.5) mg/dL Magnesium 2.7 H (1.7-2.2) mg/dL Total Bilirubin 0.5 (0.2-1.3) mg/dL AST 25 (15-59) U/L ALT 21 (7-56) U/L Alkaline Phosphatase 35 L (38-133) U/L Lactate Dehydrogenase 455 (333-699) U/L Total Creatine Kinase 70 (35-230) U/L Troponin I 0.65 H* D ng/mL Total Protein 6.1 (5.8-8.3) g/dL Albumin 3.2 (3.0-4.8) g/dL Globulin 2.9 gm/dL Albumin/Globulin Ratio 1.1 (1.1-1.8) 12/12/16 Range/Units 16:22 WBC (4.5-11.0) 10^3/ul RBC (3.5-6.1) 10^6/uL Hgb (14.0-18.0) gm/dL Hct (42.0-52.0) % MCV (80.0-105.0) fL MCH (25.0-35.0) pg MCHC (31.0-37.0) g/dl RDW (11.5-14.5) % Plt Count (120.0-450.0) 10^3/uL MPV (7.0-11.0) fl Gran % (50.0-68.0) % Lymph % (Auto) (22.0-35.0) % [place] % (Auto) (1.0-6.0) % Eos % (Auto) (1.5-5.0) % Baso % (Auto) (0.0-3.0) % Gran # (1.4-6.5) Lymph # (1.2-3.4) [place] # (0.1-0.6) Eos # (0.0-0.7) Baso # (0.0-2.0) K/mm3 pCO2 (35-45) mm/Hg pO2 (80-100) mm/Hg HCO3 (21-28) mmol/L ABG pH (7.35-7.45) ABG Total CO2 (22-28) mmol.L ABG O2 Saturation (95-98) % ABG O2 Content (15-23) ML/dl ABG Base Excess (-2.0-3.0) mmol/L ABG Hemoglobin (11.7-17.4) g/dL ABG Carboxyhemoglobin (0.5-1.5) % POC ABG HHb (Measured) (0-5) % ABG Methemoglobin (0.0-3.0) % ABG O2 Capacity (16-24) mL/dl Hgb O2 Saturation (95.0-98.0) % FiO2 % Sodium (132-148) mmol/L Potassium (3.6-5.0) mmol/L Chloride (98-107) mmol/L Carbon Dioxide (21-33) mmol/L Anion Gap (10-20) BUN (7-21) mg/dL Creatinine (0.5-1.4) mg/dL Est GFR ( Amer) Est GFR (Non-Af Amer) POC Glucose (mg/dL) 151 H (65-110) mg/dL Random Glucose (70-110) mg/dL Calcium (8.4-10.5) mg/dL Phosphorus (2.5-4.5) mg/dL Magnesium (1.7-2.2) mg/dL Total Bilirubin (0.2-1.3) mg/dL AST (15-59) U/L ALT (7-56) U/L Alkaline Phosphatase (38-133) U/L Lactate Dehydrogenase (333-699) U/L Total Creatine Kinase (35-230) U/L Troponin I ng/mL Total Protein (5.8-8.3) g/dL Albumin (3.0-4.8) g/dL Globulin gm/dL Albumin/Globulin Ratio (1.1-1.8) Laboratory Results - last 24 hr 12/12/16 12/12/16 12/13/16 16:22 21:57 05:00 WBC RBC Hgb Hct MCV MCH MCHC RDW Plt Count MPV Gran % Lymph % (Auto) [place] % (Auto) Eos % (Auto) Baso % (Auto) Gran # Lymph # [place] # Eos # Baso # pCO2 45 pO2 99.0 HCO3 27.2 ABG pH 7.39 ABG Total CO2 28.6 H ABG O2 Saturation 99.0 H ABG O2 Content 11.7 L ABG Base Excess 1.9 ABG Hemoglobin 8.5 L ABG Carboxyhemoglobin 1.8 H POC ABG HHb (Measured) 1.0 ABG Methemoglobin 0.8 ABG O2 Capacity 11.8 L Hgb O2 Saturation 96.4 FiO2 32.0 Sodium Potassium Chloride Carbon Dioxide Anion Gap BUN Creatinine Est GFR ( Amer) Est GFR (Non-Af Amer) POC Glucose (mg/dL) 151 H 180 H Random Glucose Calcium Phosphorus Magnesium Total Bilirubin AST ALT Alkaline Phosphatase Lactate Dehydrogenase Total Creatine Kinase Troponin I Total Protein Albumin Globulin Albumin/Globulin Ratio 12/13/16 05:30 WBC 10.9 RBC 3.16 L Hgb 8.5 L Hct 27.2 L MCV 86.1 MCH 26.9 MCHC 31.3 RDW 16.7 H Plt Count 176 MPV 10.7 Gran % 89.2 H Lymph % (Auto) 7.9 L [place] % (Auto) 2.9 Eos % (Auto) 0.0 L Baso % (Auto) 0.0 Gran # 9.69 H Lymph # 0.9 L [place] # 0.3 Eos # 0.0 Baso # 0.00 pCO2 pO2 HCO3 ABG pH ABG Total CO2 ABG O2 Saturation ABG O2 Content ABG Base Excess ABG Hemoglobin ABG Carboxyhemoglobin POC ABG HHb (Measured) ABG Methemoglobin ABG O2 Capacity Hgb O2 Saturation FiO2 Sodium 146 Potassium 4.6 Chloride 106 Carbon Dioxide 28 Anion Gap 17 BUN 52 H Creatinine 2.7 H Est GFR ( Amer) 28 Est GFR (Non-Af Amer) 23 POC Glucose (mg/dL) Random Glucose 144 H Calcium 9.1 Phosphorus 6.4 H Magnesium 2.7 H Total Bilirubin 0.5 AST 25 ALT 21 Alkaline Phosphatase 35 L Lactate Dehydrogenase 455 Total Creatine Kinase 70 Troponin I 0.65 H* D Total Protein 6.1 Albumin 3.2 Globulin 2.9 Albumin/Globulin Ratio 1.1 EKG/Cardiology Studies: Cardiology / EKG Studies 12/13/16 EKG [ELECTROCARDIOGRAM] Routine Comment: Reason For Exam: followup, new trop elev Fingerstick Blood Sugar Results: 170 Review of Systems - Constitutional Constitutional: absent: Fever, Chills - EENT Eyes: absent: Blurred Vision, Change in Vision, Diplopia Ears: absent: Dizziness - Cardiovascular Cardiovascular: absent: Chest Pain, Dyspnea - Respiratory Respiratory: absent: Cough, Dyspnea, Pain on Inspiration - Gastrointestinal Gastrointestinal: absent: Abdominal Pain, Diarrhea, Nausea, Vomiting - Genitourinary Genitourinary: absent: Dysuria - Neurological Neurological: absent: Dizziness, Headaches Critical Care Progress Note - Ventilator Checklist PUD Prophalyxis: Yes DVT Prophylaxis: Yes - Prophylaxis GI Prophylaxis GI: PPI - Prophylaxis DVT Prophylaxis DVT: Lovenox - Nutrition Nutrition: Nutrition Category Date Time Status Heart Healthy Diet [DIET] Diets 12/12/16 Dinner Ordered Assessment/Plan - Assessment and Plan (Free Text) Assessment: 76 yo M w h/o CAD s/o cardiac stens, CAD, HTN, HLD, asthma, probable COPD admitted to ICU with hypercarbic RF 2/2 AECOPD, VDRF s/p successful extubation to BiPAP now comfortable on NC. Plan: Neuro: AAOx3, NAD. Able to protect airway. Speaking full sentences, No active issues Maintain normothermia Pulm: s/p extubation. Tolerating NC. Saturating in high 90s-100%. Maintain spo2> 90%. Duonebs Q4hr Acute on chronic resp acidosis on ABG resolved Asthma vs obstructive lung disease given extensive smoking history Possible PNA on CXR. Procalcitonin negative. Zosyn as per pulm. s/p one dose vanc Solumedrol 30mg IV Q12hr as per pulmonary service Recommend outpatient PFTs for official assessment of COPD CV: ST depressions seen on EKG in ER resolved on second EKG. Troponins repeaked at 0.65 this AM - likely Type 2 [place]. Therapeutic SubQ Lovenox as per cardio Renal: RIVERA. DC Lasix. Nephro consult pending. Recs appreciated Cr 2.2 at admission since August 2016. Uncertain if new baseline Hypomagnesemia resolved s/p replacement GI: GI ppx, NPO Endo: No acute issues. Accuchecks ACHS. Maintain euglycemia 140-180 ID: Mild leukocytosis 12 resolved Blood cultures negative at 48 hours Zosyn as per ID Wound care for LE chronic wounds Heme: 2-point drop in Hb since admission. Patient has not received significant amount of fluids. Does, however, have large blood on UA and h/o difficulty urinating. Urology consult as per primary team DVT/GI ppx: SQH, Protonix, HHD Dispo: Transfer to telemetry - Date & Time Date: 12/13/16 Time: 13:58 <Artur Naranjo - Last Filed: 12/13/16 19:28> CCU Objective - Vital Signs / Intake & Output Vital Signs (Last 4 hours): Vital Signs Temp Pulse Resp BP 12/13/16 18:00 69 12/13/16 17:42 66 164/67 H 12/13/16 16:00 97.6 F 73 24 Intake and Output (Last 8hrs): Intake & Output 12/13/16 12/13/16 12/13/16 06:59 14:59 22:59 Intake Total 450 920 Output Total 850 700 Balance -400 220 Weight 190 lb Intake: IV 200 200 Right Wrist 200 200 Oral 250 720 Output: Urine 850 700 Urethral (Brody) 850 500 Urine, Voided 200 Other: Voiding Method Indwelling Catheter # Voids Urine, Voided 1 # Bowel Movements 1 - Medications Active Medications: Active Medications Generic Name Dose Route Start Last Admin Trade Name Freq PRN Reason Stop Dose Admin Albuterol/Ipratropium 3 ml 12/11/16 11:30 12/13/16 15:32 Duoneb 3 Mg/0.5 Mg (3 Ml) Ud IH 3 ml [id number] DULCE Administration Enoxaparin Sodium 80 mg 12/11/16 15:30 12/13/16 09:36 Lovenox SC 80 mg DAILY DULCE Administration Protocol Hydralazine HCl 10 mg 12/11/16 15:30 12/12/16 14:12 Apresoline IVP 10 mg Q6 PRN Administration For SBP>170 & Diastolic>100 Piperacillin Sod/Tazobactam Sod 100 mls @ 200 mls/hr 12/11/16 12:00 12/13/16 17 :44 Zosyn 3.375 In Ns 100ml IVPB 200 mls/hr Q6 DULCE Administration Protocol Isosorbide Mononitrate 30 mg 12/13/16 10:00 12/13/16 09:35 Imdur PO 30 mg QAM DULCE Administration Methylprednisolone 30 mg 12/13/16 10:00 12/13/16 09:37 Solu-Medrol IVP 30 mg Q12 DULCE Administration Metoprolol Tartrate 25 mg 12/13/16 10:00 12/13/16 17:42 Lopressor PO 25 mg BID DULCE Administration Pantoprazole Sodium 40 mg 12/11/16 11:30 12/13/16 09:36 Protonix Inj IVP 40 mg DAILY DULCE Administration - Patient Studies Lab Studies: Microbiology Studies 12/11/16 14:40 MRSA Culture (Admit) - Final Naris MRSA NOT DETECTED Lab Studies 12/13/16 12/13/16 12/13/16 Range/Units 07:14 05:30 05:00 WBC 10.9 (4.5-11.0) 10^3/ul RBC 3.16 L (3.5-6.1) 10^6/uL Hgb 8.5 L (14.0-18.0) gm/dL Hct 27.2 L (42.0-52.0) % MCV 86.1 (80.0-105.0) fL MCH 26.9 (25.0-35.0) pg MCHC 31.3 (31.0-37.0) g/dl RDW 16.7 H (11.5-14.5) % Plt Count 176 (120.0-450.0) 10^3/uL MPV 10.7 (7.0-11.0) fl Gran % 89.2 H (50.0-68.0) % Lymph % (Auto) 7.9 L (22.0-35.0) % [place] % (Auto) 2.9 (1.0-6.0) % Eos % (Auto) 0.0 L (1.5-5.0) % Baso % (Auto) 0.0 (0.0-3.0) % Gran # 9.69 H (1.4-6.5) Lymph # 0.9 L (1.2-3.4) [place] # 0.3 (0.1-0.6) Eos # 0.0 (0.0-0.7) Baso # 0.00 (0.0-2.0) K/mm3 pCO2 45 (35-45) mm/Hg pO2 99.0 (80-100) mm/Hg HCO3 27.2 (21-28) mmol/L ABG pH 7.39 (7.35-7.45) ABG Total CO2 28.6 H (22-28) mmol.L ABG O2 Saturation 99.0 H (95-98) % ABG O2 Content 11.7 L (15-23) ML/dl ABG Base Excess 1.9 (-2.0-3.0) mmol/L ABG Hemoglobin 8.5 L (11.7-17.4) g/dL ABG Carboxyhemoglobin 1.8 H (0.5-1.5) % POC ABG HHb (Measured) 1.0 (0-5) % ABG Methemoglobin 0.8 (0.0-3.0) % ABG O2 Capacity 11.8 L (16-24) mL/dl Hgb O2 Saturation 96.4 (95.0-98.0) % FiO2 32.0 % Sodium 146 (132-148) mmol/L Potassium 4.6 (3.6-5.0) mmol/L Chloride 106 (98-107) mmol/L Carbon Dioxide 28 (21-33) mmol/L Anion Gap 17 (10-20) BUN 52 H (7-21) mg/dL Creatinine 2.7 H (0.5-1.4) mg/dL Est GFR ( Amer) 28 Est GFR (Non-Af Amer) 23 POC Glucose (mg/dL) 170 H (65-110) mg/dL Random Glucose 144 H (70-110) mg/dL Calcium 9.1 (8.4-10.5) mg/dL Phosphorus 6.4 H (2.5-4.5) mg/dL Magnesium 2.7 H (1.7-2.2) mg/dL Total Bilirubin 0.5 (0.2-1.3) mg/dL AST 25 (15-59) U/L ALT 21 (7-56) U/L Alkaline Phosphatase 35 L (38-133) U/L Lactate Dehydrogenase 455 (333-699) U/L Total Creatine Kinase 70 (35-230) U/L Troponin I 0.65 H* D ng/mL Total Protein 6.1 (5.8-8.3) g/dL Albumin 3.2 (3.0-4.8) g/dL Globulin 2.9 gm/dL Albumin/Globulin Ratio 1.1 (1.1-1.8) 12/12/16 12/12/16 Range/Units 21:57 12:56 WBC (4.5-11.0) 10^3/ul RBC (3.5-6.1) 10^6/uL Hgb (14.0-18.0) gm/dL Hct (42.0-52.0) % MCV (80.0-105.0) fL MCH (25.0-35.0) pg MCHC (31.0-37.0) g/dl RDW (11.5-14.5) % Plt Count (120.0-450.0) 10^3/uL MPV (7.0-11.0) fl Gran % (50.0-68.0) % Lymph % (Auto) (22.0-35.0) % [place] % (Auto) (1.0-6.0) % Eos % (Auto) (1.5-5.0) % Baso % (Auto) (0.0-3.0) % Gran # (1.4-6.5) Lymph # (1.2-3.4) [place] # (0.1-0.6) Eos # (0.0-0.7) Baso # (0.0-2.0) K/mm3 pCO2 (35-45) mm/Hg pO2 (80-100) mm/Hg HCO3 (21-28) mmol/L ABG pH (7.35-7.45) ABG Total CO2 (22-28) mmol.L ABG O2 Saturation (95-98) % ABG O2 Content (15-23) ML/dl ABG Base Excess (-2.0-3.0) mmol/L ABG Hemoglobin (11.7-17.4) g/dL ABG Carboxyhemoglobin (0.5-1.5) % POC ABG HHb (Measured) (0-5) % ABG Methemoglobin (0.0-3.0) % ABG O2 Capacity (16-24) mL/dl Hgb O2 Saturation (95.0-98.0) % FiO2 % Sodium (132-148) mmol/L Potassium (3.6-5.0) mmol/L Chloride (98-107) mmol/L Carbon Dioxide (21-33) mmol/L Anion Gap (10-20) BUN (7-21) mg/dL Creatinine (0.5-1.4) mg/dL Est GFR ( Amer) Est GFR (Non-Af Amer) POC Glucose (mg/dL) 180 H 153 H (65-110) mg/dL Random Glucose (70-110) mg/dL Calcium (8.4-10.5) mg/dL Phosphorus (2.5-4.5) mg/dL Magnesium (1.7-2.2) mg/dL Total Bilirubin (0.2-1.3) mg/dL AST (15-59) U/L ALT (7-56) U/L Alkaline Phosphatase (38-133) U/L Lactate Dehydrogenase (333-699) U/L Total Creatine Kinase (35-230) U/L Troponin I ng/mL Total Protein (5.8-8.3) g/dL Albumin (3.0-4.8) g/dL Globulin gm/dL Albumin/Globulin Ratio (1.1-1.8) Laboratory Results - last 24 hr 12/12/16 12/12/16 12/13/16 12:56 21:57 05:00 WBC RBC Hgb Hct MCV MCH MCHC RDW Plt Count MPV Gran % Lymph % (Auto) [place] % (Auto) Eos % (Auto) Baso % (Auto) Gran # Lymph # [place] # Eos # Baso # pCO2 45 pO2 99.0 HCO3 27.2 ABG pH 7.39 ABG Total CO2 28.6 H ABG O2 Saturation 99.0 H ABG O2 Content 11.7 L ABG Base Excess 1.9 ABG Hemoglobin 8.5 L ABG Carboxyhemoglobin 1.8 H POC ABG HHb (Measured) 1.0 ABG Methemoglobin 0.8 ABG O2 Capacity 11.8 L Hgb O2 Saturation 96.4 FiO2 32.0 Sodium Potassium Chloride Carbon Dioxide Anion Gap BUN Creatinine Est GFR ( Amer) Est GFR (Non-Af Amer) POC Glucose (mg/dL) 153 H 180 H Random Glucose Calcium Phosphorus Magnesium Total Bilirubin AST ALT Alkaline Phosphatase Lactate Dehydrogenase Total Creatine Kinase Troponin I Total Protein Albumin Globulin Albumin/Globulin Ratio 12/13/16 12/13/16 05:30 07:14 WBC 10.9 RBC 3.16 L Hgb 8.5 L Hct 27.2 L MCV 86.1 MCH 26.9 MCHC 31.3 RDW 16.7 H Plt Count 176 MPV 10.7 Gran % 89.2 H Lymph % (Auto) 7.9 L [place] % (Auto) 2.9 Eos % (Auto) 0.0 L Baso % (Auto) 0.0 Gran # 9.69 H Lymph # 0.9 L [place] # 0.3 Eos # 0.0 Baso # 0.00 pCO2 pO2 HCO3 ABG pH ABG Total CO2 ABG O2 Saturation ABG O2 Content ABG Base Excess ABG Hemoglobin ABG Carboxyhemoglobin POC ABG HHb (Measured) ABG Methemoglobin ABG O2 Capacity Hgb O2 Saturation FiO2 Sodium 146 Potassium 4.6 Chloride 106 Carbon Dioxide 28 Anion Gap 17 BUN 52 H Creatinine 2.7 H Est GFR ( Amer) 28 Est GFR (Non-Af Amer) 23 POC Glucose (mg/dL) 170 H Random Glucose 144 H Calcium 9.1 Phosphorus 6.4 H Magnesium 2.7 H Total Bilirubin 0.5 AST 25 ALT 21 Alkaline Phosphatase 35 L Lactate Dehydrogenase 455 Total Creatine Kinase 70 Troponin I 0.65 H* D Total Protein 6.1 Albumin 3.2 Globulin 2.9 Albumin/Globulin Ratio 1.1 EKG/Cardiology Studies: Cardiology / EKG Studies 12/13/16 EKG [ELECTROCARDIOGRAM] Routine Comment: Reason For Exam: followup, new trop [facility] Critical Care Progress Note - Nutrition Nutrition: Nutrition Category Date Time Status Heart Healthy Diet [DIET] Diets 12/12/16 Dinner Ordered Addendum Addendum: 12/13/16 19:28 patient was seen and examined at bedside with Dr. Whittaker. Please see Dr. Naranjo note
--- NOTE | 2016-12-13 18:55 | CARD ---
APPROVED REPORT EXAM: Two-dimensional and M-mode echocardiogram with Doppler and color Doppler. INDICATION RESP. FAILURE 2D DIMENSIONS Left Atrium (2D)4.5 (1.6-4.0cm)IVSd1.0 (0.7-1.1cm) LVDd5.7 (3.9-5.9cm)LVOT Diameter1.9 (1.8-2.4cm) PWd1.1 (0.7-1.1cm)LVDs4.0 (2.5-4.0cm) FS (%) 28.5 %LVEF (%)54.3 (>50%) M-Mode DIMENSIONS Aortic Root2.90 (2.2-3.7cm)Aortic Cusp Exc.1.10 (1.5-2.0cm) Aortic Valve AoV Peak Xdzjejxb986.0cm/sAoV VTI40.5cmAO Peak GR.24mmHg LVOT Peak Zcbbavdg876.0cm/sLVOT VTI21.00cmAO Mean GR.11mmHg SY (VMAX)1.18bx7EIT (VTI)1.47cm2 Mitral Valve MV E Rbtkvqyx63.8cm/sMV A Gbtjhlww870.0cm/sMV EER60qf E/A ratio0.7MVA (PHT)2.93cm2 TDI E/Lateral E'0.0E/Medial E'0.0 Tricuspid Valve TR Peak Popewpvt800fp/sRAP BLXOSHIU48syMzXG Peak Gr.52mmHg [id number] LEFT VENTRICLE The left ventricle is normal size. There is borderline concentric left ventricular hypertrophy. The systolic function is mildly impaired.EF35-40% There is mild to moderate hypokinesis in the apical anterior wall. Transmitral Doppler flow pattern is Grade II-pseudonormal filling dynamics. No left ventricle thrombus noted on this study. There is no ventricular septal defect visualized. RIGHT VENTRICLE The right ventricle is mildly dilated. There is normal right ventricular wall thickness. Systolic function is mildly reduced. ATRIA The left atrium is moderately dilated. The right atrium is borderline dilated. The interatrial septum is intact with no evidence for an atrial septal defect. AORTIC VALVE The aortic valve is thickened but opens well. There is trace aortic regurgitation. There is no aortic valvular stenosis. There is no aortic valvular vegetation. MITRAL VALVE The mitral valve is thickened but opens well. Mitral regurgitation is moderate. There is no mitral valve stenosis. There is no evidence of mitral valve prolapse. TRICUSPID VALVE The tricuspid valve leaflets are thickened , but open well. There is moderate tricuspid regurgitation.RVSP-62 mmof hg. There is moderate pulmonary hypertension. There is no tricuspid valve stenosis. There is no tricuspid valve prolapse or vegetation. PULMONIC VALVE The pulmonic valve is mildly thickened. There is trace to mild pulmonic valvular regurgitation. There is no pulmonic valvular stenosis. GREAT VESSELS The aortic root is normal in size. The ascending aorta is normal in size. The pulmonary artery is normal. The IVC is dilated. PERICARDIAL EFFUSION There is no pleural effusion. There is a trace pericardial effusion. <Conclusion> The left ventricle is normal size. There is borderline concentric left ventricular hypertrophy. The systolic function is mildly impaired.EF35-40% There is trace aortic regurgitation. Mitral regurgitation is moderate. There is moderate tricuspid regurgitation.RVSP-62 mmof hg. There is moderate pulmonary hypertension. There is trace to mild pulmonic valvular regurgitation. The IVC is dilated. There is a trace pericardial effusion.
--- NOTE | 2016-12-13 19:18 | PN ---
DATE: 12/13/2016 REASON FOR CONSULTATION AND FOLLOWUP: Cardiac evaluation, shortness of breath, status post respirato ry failure, coronary artery disease, [id number] myocardial infarction. BRIEF CLINICAL HISTORY: A 76-year-old male with past medical history significant for coronary artery disease, status post PTCA in the past, history of 3 bare metal stents in LAD and 1 bare metal stent in the ramus intermedius in 04/2013, history of noncompliance, history of GI bleed, admitted with shor tness of breath, multilobar pneumonia, intubated, hypercapnia, now patient successfully extubated, no w patient has acute kidney injury, admitted with a creatinine 2.2. Denies any chest pain, shortness of breath, any palpitation. Awake and alert. Discussed with the patient ____ cardiac catheterizatio n when the patient stabilizes. PHYSICAL EXAMINATION: VITAL SIGNS: Temperature afebrile, heart rate 65, blood pressure 147/61. HEENT: PERRLA. Extraocular muscles intact. NECK: Supple. No carotid bruits. No thyromegaly. CHEST: Clear to auscultation. HEART: S1, S2 regular. ABDOMEN: Soft. EXTREMITIES: Clubbing and cyanosis negative. LABORATORY DATA: Blood workup as follows: WBC 10.8, hemoglobin ____, hematocrit 27.2, platelet coun t 176. Chemistry shows sodium ____, potassium 4.6, chloride 106, carbon dioxide 28, anion gap of 17, BUN 52, creatinine 2.7. IMPRESSION AND PLAN: Worsening renal insufficiency, acute kidney injury, chronic renal insufficiency , non-ST myocardial infarction, status post respiratory failure, intubated and now successfully extub ated, multilobar pneumonia, history of coronary artery disease, gastrointestinal bleed, history of 3 bare metal stents in LAD and 1 bare metal stent in the ramus intermedius in 04/2013. This little leak of troponin could be secondary to hemodynamic instability as well as worsening of renal insufficienc y, acute kidney injury, but cannot rule out underlying coronary artery disease versus true non-ST-seg ment myocardial infarction. Continue renally adjusted dose of Lovenox. Avoid nephrotoxic medication . Monitor renal function closely, broad spectrum antibiotic, p.r.n. diuretics, consider cardiac cath eterization when the patient stabilizes and renal function remains stable. The patient's last cardia c catheterization in 08/2016 was negative, so no need to do further stress test. Either will treat p atient medically or do the cardiac catheterization. Follow up echo. Will start aspirin. Will lilliana nue Plavix. Continue Lovenox. We will start aspirin, Plavix, continue beta-fortino. We will follow with you. Possibly by Sunday, cardiac catheterization. Avoid nephrotoxic medication. Continue beta fortino fo r now. Follow up echo once it is done. We will follow with you. Discussed with the patient ____ ca rdiac catheterization once the patient is stable. Thank you, Dr. Morales, for providing the opportunity in taking care of this patient. Noel Bowling MD cc: [id number] TT: 12/13/2016 19:17:46 Confirmation # [id number] Dictation # [id number] bill
--- NOTE | 2016-12-13 19:59 | CARD ---
APPROVED REPORT EKG Measurement Heart [id number] <Conclusion> Normal sinus rhythm Nonspecific T wave abnormality Prolonged QT Abnormal ECG
[2016-12-14] MEDS: Albuterol-Ipratrop 3 mg / 0.5 (3 ml) UD IH SCH ×4 (03:58→20:05)
[2016-12-14 05:36] LABS: ARTERIAL BLOOD GAS HCO3 27.7 mmol/L (21-28); ARTERIAL BLOOD GAS O2 CAPACITY 11.4 mL/dl (16-24); ARTERIAL BLOOD GAS O2 CONTENT 11.3 ML/dl (15-23); ARTERIAL BLOOD GAS PH 7.36 (7.35-7.45); ARTERIAL BLOOD HGB O2 SAT 96.5 % (95.0-98.0); CARBOXYHEMOGLOBIN 1.9 % (0.5-1.5); HHB 0.7 % (0-5); METHEMOGLOBIN 0.9 % (0.0-3.0)
[2016-12-14] MEDS: Piperacillin/Tazobact 3.375 gm 100 ML IVPB SCH ×4 (05:50→23:38)
[2016-12-14 06:40] LABS: ADD MANUAL DIFF? NO
[2016-12-14 06:48] LABS: BASO # 0.01 K/mm3 (0.0-2.0); BASO % 0.1 % (0.0-3.0); GRAN # 12.96 (1.4-6.5); GRAN % 88.7 % (50.0-68.0); HEMATOCRIT 29.2 % (42.0-52.0); LYMPH # 1.1 (1.2-3.4); LYMPH % 7.4 % (22.0-35.0); MEAN CORPUSCULAR HEMOGLOBIN 27.1 pg (25.0-35.0); MEAN CORPUSCULAR HGB CONC 30.8 g/dl (31.0-37.0); MEAN PLATELET VOLUME 10.8 fl (7.0-11.0); MONO # 0.6 (0.1-0.6); MONO % 3.8 % (1.0-6.0); PLATELET COUNT 219 10^3/uL (120.0-450.0); RED CELL DISTRIBUTION WIDTH 16.7 % (11.5-14.5); WHITE BLOOD COUNT 14.6 10^3/ul (4.5-11.0)
[2016-12-14 07:04] LABS: ALB/GLOB RATIO 1.1 (1.1-1.8); BILIRUBIN,TOTAL 0.4 mg/dL (0.2-1.3); CALCIUM 8.9 mg/dL (8.4-10.5); MAGNESIUM 2.3 mg/dL (1.7-2.2); POTASSIUM 4.7 mmol/L (3.6-5.0); TOTAL PROTEIN 6.5 g/dL (5.8-8.3)
[2016-12-14 07:22] LABS: TROPONIN I 0.47 ng/mL
--- NOTE | 2016-12-14 08:54 | CON ---
DATE: 12/13/2016 CONSULTATION REQUESTED BY: Dr. Samm Morales. REASON FOR CONSULTATION: Acute renal failure, anemia, acute coronary syndrome, uncontrolled hyperten ese. HISTORY OF PRESENT ILLNESS: This is a patient previously unknown to me. This 76-year-old gentleman was brought to [facility]'s Emergency Department by EMS on 12/11/2016 with a complaint of increasing shortness of breath for several days. Of note, in the field he required intubation becau se of hypoxia with tachypnea, and the patient was subsequently admitted to the intensive care unit. On arrival, he was noted to have a blood pressure of 105/39 with a heart rate of 89, breathing at 18 breaths per minute. Oxygen saturation had initially been 98% with an oral temperature of 98.1 degree s. EKG had revealed sinus tachycardia at 95 beats per minute with ST depressions in the precordial l mare of V2 to V3 without any ST segment elevations. Chest x-ray performed after the patient had been intubated revealed bilateral pulmonary opacities with a moderate right-sided pleural effusion and co ngestive changes. The patient had mild leukocytosis of 12,000 with 85% neutrophils, and on presentat ion his venous pH was 7.13 with a pCO2 of 102. Lactic acid level had been within normal limits. Jacquelin soumya panel on presentation had a BUN/creatinine of 32/2.2 with an elevated potassium of 5.5, N-term inal proBNP of 10,900, and a troponin-I that increased from 0.05 to 0.26 later in the day. In review ing the patient's prior labs, it is noted that his baseline creatinine appears to be in the low 2's, corresponding to stage IV chronic kidney disease. While hospitalized, the patient was placed on intr avenous diuretics such that he was able to be extubated; however, his creatinine is noted to have inc reased up to 2.7 this morning. A review of his vital signs show that his blood pressure was as high as 201/72 yesterday, but since then has decreased somewhat. He is uncertain what his baseline blood pressure is. He does admit, however, to having numerous dietary indiscretions with respect to salty foods prior to admission, and it is unclear how compliant he had been with his outpatient medications . Of note, prior to admission he was supposed to be on furosemide but was not on any prescribed EFRAÍN inhibitor or angiotensin receptor fortino. He was also taking naproxen on a twice daily basis for pa in associated with degenerative joint disease. He denied any decreased oral intake and he also denie d any diarrhea. Since having been admitted, the patient has not had any IV contrast studies. At pre sent, he is extubated and mentating and has no complaints. REVIEW OF SYSTEMS: Taken across all 10 systems and 14 points and is negative unless stated otherwise above. PAST MEDICAL HISTORY: Significant for hepatitis C, gastroesophageal reflux disease with peptic ulcer disease, hypertension, history of percutaneous coronary intervention as well as COPD. He did have a stress test in 2016 that was essentially normal. MEDICATIONS: That the patient had been taking at home and prior to admission included Ambien 10 mg o rally nightly, Klor-Con 20 mEq orally daily, naproxen 375 mg orally twice daily, metoprolol tartrate 25 mg orally twice daily, Xyzal 5 mg orally daily, isosorbide mononitrate 30 mg orally daily, gabapen tin 300 mg orally twice daily, furosemide 40 mg orally daily, Symbicort inhaled twice daily, atorvast atin 10 mg orally daily, aspirin 81 mg orally daily. ALLERGIES: The patient had no known drug allergies. SOCIAL HISTORY: Notable for the patient having been a smoker in the past, although he no longer smok es. He has a prior history of opiate abuse; however, he no longer does this either. There is no his tory of alcohol abuse. There is no illicit drug use at present. FAMILY HISTORY: Negative for any inheritable renal or electrolyte disorders and was otherwise noncon tributory. PHYSICAL EXAMINATION: GENERAL APPEARANCE: I saw the patient in the intensive care unit. He appeared to be fairly comforta ble and was mentating well and able to carry on a conversation without difficulty. VITAL SIGNS: Blood pressure is 161/60 with a minimum blood pressure of approximately 138/78 in the l ast 24-hour period and a maximum of 201/72. Heart rate is currently 70, but has ranged from the 70s to approximately 93 beats per minute in the last 24-hour period with monitoring showing sinus rhythm. Oral temperature is 97.6 degrees and the patient has been afebrile for the last 24-hour period. Re spiratory rate is 16, but has ranged from 14-32 breaths per minute in the last 24-hour period. Oxyge n saturation is 98%, but has ranged from 97-100% in the last 24-hour period on 3 liters via nasal can nula. I's and O's are documented as 1300/1500. HEENT: The patient was normocephalic and atraumatic. There was no sinus tenderness. Conjunctivae a ppear to be mildly pale. NECK: He did have some jugular venous distention. CHEST: Lung lópez on my exam had some faint rales at both bases, but breath sounds were distant. T here was no wheezing or rhonchi. Diaphragmatic excursion as well as airflow into both lungs lópez a ppeared to be bilaterally symmetrical. CARDIAC: Had a regular rate and rhythm without any rubs or gallops. There were no heaves, and the P LA did not appear to be displaced. ABDOMEN: Soft, centrally obese, distended, but nontender. There was no rebounding, guarding or rigi dity. There was no hepatosplenomegaly that I could appreciate. There were no masses, pulsatile or o therwise. GENITOURINARY: Did not have any suprapubic tenderness, nor was there any CVA tenderness. EXTREMITIES: Had chronic stasis changes over both lower extremities. NEUROLOGIC: He was nonfocal. LABORATORY STUDIES: White count today is 10.9, H and H is 8.5/27.2 with a platelet count of 176,000. There are 89% neutrophils, 8% lymphocytes, 3% monocytes. ABG today had a pH of 7.39 with a pCO2 of 45, PaO2 of 99 and an oxygen saturation of 99%. Sodium today is 146, potassium 4.6, chloride 106, b icarbonate 28, BUN/creatinine is 52/2.7 with glucose 144. Hemoglobin A1c was noted to be 6%. Total protein/albumin is 6.1/3.2, calcium is 9.1, phosphorus is elevated at 6.4, magnesium is 2.7. CPK is 70. Troponin-I had increased to 0.65 today. Urinalysis was light yellow, slightly cloudy with a pH of 6, specific gravity of greater than 1.030, protein of greater than 300 with large blood but only 5 -10 RBCs per high power field. Of note, CPK has been measured twice and is normal on both occasions. Chest x-ray from today, post extubation, revealed bibasilar opacities as well as slightly increased p ulmonary vasculature. Echocardiogram from yesterday revealed borderline LVH with decreased left vent ricular systolic function of 35-40%, moderate pulmonary hypertension and a dilated inferior vena cava as well as trace pericardial effusion. IMPRESSION AND PLAN: The patient is 76-year-old gentleman with a prior history of tobacco use and op iate dependence, coronary artery disease with 4 prior stents but noncompliant with therapy, history o f gastroesophageal reflux disease also with peptic ulcer disease and a fungal esophageal ulceration, and also with stage IV chronic kidney disease and a baseline creatinine in the low 2's, originally ad mitted with shortness of breath for which he is intubated. He was noted to have mild leukocytosis on presentation with slight neutrophilia, although procalcitonin level was not elevated despite the pre sence of chronic kidney disease. Of note, urinalysis revealed both proteinuria as well as microscopi c hematuria, and since having been admitted the patient has developed stage I acute kidney injury sup erimposed on his early stage IV chronic kidney disease. With respect to his acute kidney injury, in reviewing the patient's ins and outs, it does not seem that he has been in markedly negative fluid ba beltran to suspect that he was over diuresed. Initial N-terminal proBNP was 10,900, and we will rechec k it tomorrow with the knowledge, however, that it may be higher because the patient has acute kidney injury and, thus, will have decreased clearance of BNP rather than representing worsening heart fail ure. Given the bilateral infiltrates on his chest x-ray, however, as well as a urinalysis with prote inuria as well as microscopic hematuria and acute kidney injury, it would be prudent to rule out pulm onary renal syndrome and so we will check ANCA on this patient including anti-proteinase 3 and anti-m yeloperoxidase antibodies as well. Because he is also noted to have trace pericardial effusion on ec hocardiography, I will also check an CLAYTON as well as complements (C3 and C4) and anti-double stranded DNA with his next labs as well. For now, given the fact that the patient appears to have an acute co ronary syndrome as marked by the increase in his troponin and his known history of coronary artery di sease, he is on dual antiplatelet therapy with aspirin as well as clopidogrel and also Lovenox at a d ose of 1 mg/kg subcutaneously daily, and I agree with this dosing since the patient does have acute k idney injury. Additionally, he is on metoprolol as well and, given his known history of coronary art vladislav disease as well as the fact that he had been on atorvastatin prior to admission, we will resume a torvastatin also at high intensity strength (40 mg daily). Since having been admitted, the patient's hemoglobin has decreased from 10.3 to 8.5 and his platelets have decreased from 224 to 176. There i s no a priori reason why the patient would have thrombotic microangiopathy but, since he does also seymour ve acute kidney injury, we will also check haptoglobin and LDH with his next set of labs as well. Co ntributing to his current presentation of acute kidney injury is likely the fact that he was on Napro syn prior to admission also, and we will avoid any further use of NSAIDs in this patient. It is inte resting that his urinalysis does reveal "large" blood, but only 5-10 RBCs per high power field, and kristin hudson this accounts for the "large blood" without a large number of RBCs in the urine and this too j ustifies checking labs for LDH and haptoglobin to rule out hemolysis. Infectious disease followup is also appreciated in this patient and for possible multilobar pneumonia (although procalcitonin level is low in the setting of chronic kidney disease and acute kidney injury). He is currently on Zosyn. For possible chronic obstructive pulmonary disease exacerbation, he remains on Solu-Medrol and sinc e he is on Lovenox and Solu-Medrol for gastrointestinal prophylaxis, we will continue pantoprazole. Blood pressure has been noted to be elevated; however, since then it has decreased somewhat, but cert ainly, given the fact that he has an acute coronary syndrome, we can increase his beta fortino therap y and place him on standing hydralazine given his decreased left ventricular systolic function. Sinc e he has acute kidney injury and since he was admitted with hyperkalemia, I would not add an EFRAÍN inhi bitor or an angiotensin receptor fortino at this time, despite the fact that he has decreased left ve ntricular systolic function. I will be following this complex patient closely for the above complex medical problems. More than 35 minutes were spent in the care of this ICU patient today. Hipolito Hayes MD cc: [id number] TT: 12/14/2016 08:53:11 Confirmation # [id number] Dictation # [id number] mn
--- NOTE | 2016-12-14 09:24 | PN ---
DATE: 12/14/2016 SUBJECTIVE: The patient appears very comfortable this morning. He is not short of breath at rest. PHYSICAL EXAMINATION: VITAL SIGNS: Temperature is 97.7, pulse 90, respirations 14/16, blood pressure 179/88. Oxygen saturation on nasal cannula is 98%. HEENT: Normocephalic, atraumatic. No JVD. CARDIOVASCULAR: Systolic ejection murmur at the lower left sternal border. Positive S3 gallop. LUNGS: Minimal/less crackles at the bases. Minimal/less rhonchi. No wheezing. EXTREMITIES: Positive for edema. No cyanosis, no clubbing. Calves are nontender to palpation. GASTROINTESTINAL: Abdomen is soft, nontender, nondistended. Bowel sounds are positive. SKIN: No acute rash. NEUROLOGIC: Limited at the present time. PERTINENT LABORATORY DATA: Chest x-ray was done this morning and reviewed. There is continued improvement with decreased pulmonary infiltrates and decreased pleural effusions. Arterial blood gas was also done on nasal cannula. Results are: pH 7.36, pCO2 of 49, pO2 of 104. Peak troponin over the past 24 hours 0.65. IMPRESSION: 1. Respiratory failure. 2. Rule out underlying pneumonia. 3. Congestive heart failure. 4. Acute myocardial infarction. 5. Chronic obstructive pulmonary disease. 6. Renal insufficiency. PLAN: The patient remains extubated. He is very comfortable this morning and not short of breath at rest. He states he is feeling much better overall. Oxygen saturation on nasal cannula is now 98%. I did review the x-ray as above. The x-ray shows continued improvement with decreased pulmonary infiltrates. I have also reviewed the arterial blood gas. The arterial blood gas reveals a very mild respiratory acidosis with a decrease in the alveolar arterial gradient. I will continue with the current nebulizer treatments and low-dose intravenous steroids for now. I would continue with the treatment for acute myocardial infarction and congestive heart failure as per cardiology. Input by Dr. Bowling is noted. Clinical status of the patient is significantly improved -- compared to the initial presentation. However, again, the overall status/prognosis of this patient remains very guarded. I will discuss the above with the attending physician. Sebastian Huntley MD cc: [id number] TT: 12/14/2016 09:24:10 Confirmation # [id number] Dictation # [id number] jn HANSEL
--- NOTE | 2016-12-14 09:27 | RAD ---
HISTORY: f/u COMPARISON: Comparison is made to the previous study dated 12/13/2016 FINDINGS: LUNGS: Interval mild improvement in the mid and lower lungs since the previous exam. Persistent pulmonary vascular congestion and prominent lung markings. PLEURA: Bilateral pleural effusions are again noted. CARDIOVASCULAR: The cardiac silhouette is enlarged. OSSEOUS STRUCTURES: No significant abnormalities. VISUALIZED UPPER ABDOMEN: Normal. OTHER FINDINGS: None. IMPRESSION: Interval mild improvement in the mid and lower lungs since the previous exam. Otherwise no interval change.
[2016-12-14] MEDS: Enoxaparin 80 mg Syringe SC SCH (10:26)
[2016-12-14] MEDS: MethylPREDNISolone 40 mg Vial IVP SCH ×2 (10:27→21:02)
--- NOTE | 2016-12-14 12:43 | PN ---
DATE: 12/14/2016 REASON FOR CONSULTATION: Cardiac evaluation, pvq-PR-fmzwoxp myocardial infarction, status post respi ratory failure, pneumonia, history of coronary artery disease, 4 bare metal stents in the past. BRIEF CLINICAL HISTORY: A 76-year-old male with a past medical history significant for coronary maynor ry disease, status post PTCA in the past, history of 3 bare metal stents in LAD, 1 bare mental stent in the ramus intermedius in 04/2013, history of noncompliance, history of GI bleed, history of shortne ss of breath, multilobar pneumonia. Admitted with multilobar pneumonia, intubated, hypercapnia. Now , patient successfully extubated. Acute kidney injury, creatinine 2.2. Denies any chest pain, short ness of breath, any palpitation. Sitting at the bedside. PHYSICAL EXAMINATION: VITAL SIGNS: Temperature afebrile, heart rate 72, blood pressure 182/84. HEENT: PERRLA. Extraocular muscles intact. NECK: Supple. No carotid bruits. No thyromegaly. CHEST: Clear to auscultation. HEART: S1, S2 regular. ABDOMEN: Soft. EXTREMITIES: Clubbing, cyanosis negative. BLOOD WORKUP: WBC 14.6, hemoglobin 9, hematocrit 29.2, platelet count 219. Chemistry shows sodium _ ____, potassium 4.7, chloride 106, carbon dioxide 25, anion gap of 19, BUN 60, creatinine 2.4. Tropo tremaine 0.47. BNP 10,700. IMPRESSION: Ptq-PR-sealqpl myocardial infarction, renal insufficiency, stage III-IV chronic kidney d isease, coronary artery disease, status post bare metal stents, 3 in left anterior descending and 1 i n ramus in 04/2013, obesity, noncompliance with medication, gastrointestinal bleed, multilobar pneumon ia, rqa-[id number] myocardial infarction this admission, recent echo shows ejection fraction 35%-40%, ischemic cardiomyopathy, moderate tricuspid regurgitation, moderate pulmonary hypertension, trace to mild pulmonary insufficiency, moderate mitral and trace aortic regurgitation. RECOMMENDATION: Avoid nephrotoxic medication. Hypertension, continue hydralazine, continue atorvast atin, continue Imdur. We will start Norvasc 10 mg, first dose now and continue p.r.n. hydralazine. Continue renal adjusted dose for tjy-XC-klyujzz myocardial infarction. Monitor BUN and creatinine cl osely. Once the patient's respiratory status stabilizes, pneumonia improved, consider cardiac cathet erization, possibly on Sunday because now doing the cardiac catheterization is high risk of acute gaurang al failure when the patient has acute kidney injury. Let the kidney function improve as well as pneu monia improve, so patient can lie back possibly on Sunday. Discussed with the patient. We will foll ow with you. Chest x-ray shows interval improvement in the lungs. Chest x-ray consistent with mild congestive heart failure changes. We will continue to diurese, continue antibiotic. We will give 1 dose of Lasix. We will follow with you. Congestive heart failure secondary to acute on chronic, sec ondary to systolic dysfunction as well. We will follow with you. Noel Bowling MD cc: [id number] TT: 12/14/2016 12:43:12 Confirmation # [id number] Dictation # [id number] en
--- NOTE | 2016-12-15 00:25 | PN ---
DATE: 12/14/2016 SUBJECTIVE: The patient was seen in intensive care unit earlier today. Since then, he has been perales sferred to telemetry. OBJECTIVE: VITAL SIGNS: Blood pressure remains elevated and is now 167/69, heart rate is 65, respiratory rate i s 15, oxygen saturation was 98% on 2 liters via nasal cannula. HEENT: The patient is afebrile. I's and O's were documented as 1400/1650. The remainder of the exam was as follows. HEENT: The patient was normocephalic and atraumatic without any sinus tenderness. NECK: Supple with full range of motion. Trachea was midline and freely movable. Thyroid was nonten brigida nor was it enlarged. There was mild jugular venous distention, but this had decreased quite nice ly compared to yesterday. CHEST: Lungs lópez on my exam were grossly clear without any rales, rhonchi or wheezing. CARDIAC: Had a regular rate and rhythm without any rubs. ABDOMEN: Soft and distended, but nontender without any rebound, guarding or rigidity. EXTREMITIES: Trace edema with chronic stasis changes. NEUROLOGIC: The patient was nonfocal. VASCULAR: No bruits. SKIN: As described above. LABORATORY STUDIES: White count is 14.6, H and H is 9/29.2 with a platelet count of 219,000. There are 89% neutrophils, 7% lymphocytes, 4% monocytes. Sodium is 145, potassium is 4.7, chloride is 106, bicarbonate 25, BUN/creatinine 60/2.4 with a glucose of 117. Troponin I continues to trend down and is 0.47. N-terminal proBNP remains elevated at 10,700. There is no new microbiology data to report . Chest x-ray from today reveals mild improvement in the mid and lower lung since previous exam. Ec ho revealed an ejection fraction of 35% -40% with moderate mitral regurgitation, moderate pulmonary h ypertension. IMPRESSION AND PLAN: The patient is a 76-year-old gentleman with history of tobacco use and opiate d ependency with 4 prior stents, but noncompliant with therapy, history of gastroesophageal reflux dise ase with peptic ulcer disease and fungal esophageal ulceration, stage IV chronic kidney disease with a baseline creatinine in the low 2s, admitted with shortness of breath for which he was intubated. H e was diuresed and developed acute kidney injury. Of note, he was being treated for congestive heart failure, but was also noted to have bilateral infiltrates on chest x-ray as well. 1. Clinically, the patient appears fairly well compensated and his volume status is markedly improve d. His congestive heart failure is currently compensated in my opinion. 2. Given the fact that the patient has acute coronary syndrome, cardiac catheterization is being chantel nned for Sunday. In light of that, we will start the patient on Mucomyst 1200 mg orally twice daily for a total of 4 doses beginning on Sunday. We will determine whether the patient receives intraveno us fluids or diuretics on Sunday depending on his physical exam and volume status. 3. Since the patient did have acute kidney injury with infiltrates on chest x-ray, ANCA as well as A NA have been sent to rule out a pulmonary renal syndrome. 4. For the acute coronary syndrome, the patient remains on Lovenox renally dosed at 80 mg subcutaneo usly daily. 5. For the acute coronary syndrome, the patient also remains on dual antiplatelet therapy with aspir in, as well as clopidogrel and is also on atorvastatin and metoprolol. 6. Pulmonary followup is appreciated as well. The patient remains on nebulizer therapy as well as s teroids. 7. The patient may be more or less near his baseline renal function since his creatinine 3 months e arlier was also at approximately the current level and corresponds to early stage IV chronic kidney d isease. 8. Because the patient has been increasingly anemic and with acute kidney injury, LDH and haptoglobi n were checked to rule out thrombotic microangiopathy. The LDH is within normal limits, haptoglobin is still pending. 9. For the empiric treatment of his pneumonia, he remains on Zosyn as well. Review of systems, past medical history, social history and family history were all reviewed and ther e were no new changes. Hipolito Hayes MD cc: [id number] TT: 12/15/2016 00:25:05 Confirmation # [id number] Dictation # [id number] mn
[2016-12-15] MEDS: Albuterol-Ipratrop 3 mg / 0.5 (3 ml) UD IH SCH ×4 (01:41→20:14)
[2016-12-15] MEDS: Piperacillin/Tazobact 3.375 gm 100 ML IVPB SCH ×3 (05:22→17:39)
[2016-12-15 07:41] LABS: ADD MANUAL DIFF? NO
[2016-12-15 07:43] LABS: BASO # 0.01 K/mm3 (0.0-2.0); BASO % 0.1 % (0.0-3.0); GRAN # 11.32 (1.4-6.5); GRAN % 85.1 % (50.0-68.0); LYMPH # 1.5 (1.2-3.4); LYMPH % 10.9 % (22.0-35.0); MEAN CORPUSCULAR HEMOGLOBIN 26.6 pg (25.0-35.0); MEAN PLATELET VOLUME 10.2 fl (7.0-11.0); MONO # 0.5 (0.1-0.6); MONO % 3.9 % (1.0-6.0); PLATELET COUNT 219 10^3/uL (120.0-450.0); RED CELL DISTRIBUTION WIDTH 16.4 % (11.5-14.5); WHITE BLOOD COUNT 13.3 10^3/ul (4.5-11.0)
[2016-12-15 08:35] LABS: ALB/GLOB RATIO 1.1 (1.1-1.8); BILIRUBIN,TOTAL 0.5 mg/dL (0.2-1.3); CALCIUM 9.4 mg/dL (8.4-10.5); MAGNESIUM 2.3 mg/dL (1.7-2.2); PHOSPHOROUS 4.3 mg/dL (2.5-4.5); POTASSIUM 4.5 mmol/L (3.6-5.0); TOTAL PROTEIN 6.7 g/dL (5.8-8.3)
[2016-12-15] MEDS: MethylPREDNISolone 40 mg Vial IVP SCH ×2 (09:11→21:48)
[2016-12-15] MEDS: Enoxaparin 80 mg Syringe SC SCH (09:13)
[2016-12-15 09:22] LABS: TROPONIN I 0.28 ng/mL
--- NOTE | 2016-12-15 09:47 | PN ---
DATE: 12/15/2016 SUBJECTIVE: The patient appears comfortable this morning. He is not short of breath at rest. PHYSICAL EXAMINATION: VITAL SIGNS: Temperature is 98.3, pulse 68, respirations 18/20, blood pressure 155/69. Oxygen saturation on nasal cannula is 98%. HEENT: Normocephalic, atraumatic. No JVD. CARDIOVASCULAR: Systolic ejection murmur at the lower left sternal border. Positive S3 gallop. LUNGS: Minimal crackles at the bases. Much less rhonchi. No wheezing. EXTREMITIES: Positive for edema. No cyanosis, no clubbing. Calves are nontender to palpation. GASTROINTESTINAL: Abdomen is soft, nontender, nondistended. Bowel sounds are positive. SKIN: No acute rash. NEUROLOGIC: Limited at the present time. IMPRESSION: 1. Respiratory failure. 2. Rule out underlying pneumonia. 3. Congestive heart failure. 4. Acute myocardial infarction. 5. Chronic obstructive pulmonary disease. 6. Renal insufficiency. PLAN: The patient appears very comfortable this morning. He is not short of breath at rest. He states he is feeling much, much better overall. On physical exam, his bronchospasm is certainly less. In addition, there is no significant alveolar arterial gradient. Oxygen saturation on nasal cannula is now 98%. I will continue with the current nebulizer treatments and decrease the intravenous steroids this morning. I would continue with the treatment for congestive heart failure and acute myocardial infarction as per cardiology. Input by Dr. Bowling is noted. Input by Dr. Hayes (renal) is also noted. Clinical status of the patient is significantly improved -- compared to the initial presentation. However, again, the overall status/prognosis of this patient does remain guarded. I will discuss the above with Dr. Morales. Sebastian Huntley MD cc: [phone] TT: 12/15/2016 09:47:02 Confirmation # [id number] Dictation # [id number] tn MTDD
[2016-12-15] MEDS ORDERED: Acetylcysteine 20% Inhal Soln (4ml) PO SCH (10:00)
--- NOTE | 2016-12-15 10:42 | PN ---
DATE: 12/15/2016 REASON FOR CONSULTATION AND FOLLOWUP: Cardiac evaluation, [id number]-puuiapr myocardial infarction, stat us post respiratory failure, multilobar pneumonia, history of coronary artery disease, acute kidney i njury, status post 4 bare metal stents in the past. BRIEF CLINICAL HISTORY: This is a 76-year-old male with a past medical history significant for coron gera artery disease, status post PTCA in the past, 3 bare mental stents in LAD, 1 bare metal stent in the ramus intermedius in 04/2013, history of noncompliance, history of GI bleed. Admitted with shortn ess of breath, multilobar pneumonia, respiratory failure, acute kidney injury. Denies any chest pain , shortness of breath, any palpitation. PHYSICAL EXAMINATION: VITAL SIGNS: Temperature afebrile, heart rate 71, blood pressure 180/75. HEENT: PERRLA. Extraocular muscles intact. NECK: Supple. No carotid bruits. No thyromegaly. CHEST: Clear to auscultation. HEART: S1, S2 regular. ABDOMEN: Soft. EXTREMITIES: Clubbing, cyanosis negative. BLOOD WORKUP: WBC 13.3, hemoglobin 9. , hematocrit 30.0, platelet count 219. Chemistry shows so dium 143, potassium 4.5, chloride , carbon dioxide 17, BUN 58, creatinine 2.2. Troponin 0.28. BNP 12,100. IMPRESSION: Acute kidney injury, [id number]-thdnbxe myocardial infarction, multilobar pneumonia, coronar y artery disease, status post 4 bare metal stents in 04/2013, diabetes, hypertension, hyperlipidemia. The patient had echocardiography done that showed decreased left ventricular function, cardiomyopath y, ejection fraction 35%-40%, moderate mitral regurgitation, moderate tricuspid regurgitation, right ventricular systolic pressure 52. RECOMMENDATION: Avoid nephrotoxic medication. Aggressive control of blood pressure. We will change metoprolol to Coreg 25 mg b.i.d. Continue p.r.n. hydralazine. Continue Imdur. Continue gentle diu retics. We will follow with you. Continue Plavix. Monitor renal function. Possible cardiac cathet erization on Sunday depending upon the renal function. We will start hydrating on Sunday morning and give the Mucomyst from Sunday. We will follow with you. Thank you, Dr. Morales, for providing us the opportunity in taking care of the patient. The patien t is going Sunday for cardiac catheterization because patient can lie flat as well as renal function to improve. Now, high risk of going into renal failure while the patient's kidney is still recoverin g, so we will try renal function improves better before the cardiac catheterization, before the dye load. Noel Bowling MD cc: [id number] TT: 12/15/2016 10:41:51 Confirmation # [id number] Dictation # [id number] en
--- NOTE | 2016-12-15 22:14 | PN ---
DATE: 12/14/2016 The patient remains in intensive care unit, bed 2. Extubated just 2 days ago on CPAP, and continues to improve slowly. He is being treated with antibiotics. He is being followed by pulmonary, as wel l as by the hospital store protection specialist. His breathing is better. He is out of bed today, and hopefully wi ll be transferred to the med/surg floor, or a monitored bed tomorrow. Samm Morales MD cc: [phone] TT: 12/15/2016 22:13:49 Confirmation # [id number] Dictation # [id number] jn
--- NOTE | 2016-12-15 22:32 | PN ---
DATE: 12/15/2016 The patient was seen this Sunday morning in room 269, bed 1. He is sitting up in bed, awake, alert, clear, comfortable, and in good spirits. He was seen earlier by pulmonology customer care voice consultant, Dr. Huntley, who was pleased with his progress so. He is afebrile. Labs are acceptable. Ambulatory, in good sp irits. On physical exam: HEAD AND NECK: Unremarkable. Conjunctivae are pink. Mucous membranes are moist. Neck: Supple wit hout masses. LUNGS: Show good aeration, right and left, with a few scattered wheezes, but overall markedly improv ed from his initial presentation. HEART: Irregular, but not tachycardic. ABDOMEN: Soft, nontender. EXTREMITIES: Show minimal trace ankle edema. I spoke with patient at length. He was very concerned at the time having heard that he may need a ca rdiac catheterization and stent placement, and was uncertain as to why and when this would happened. I reassured him that it would not happen now in the setting of his acute pneumonia, as he would need time to recover. I will talk with Dr. Bowling about this in greater detail. As I mentioned, this woul d mostly be related to his positive troponin at the time of admission, but note well that the patient has been asymptomatic with no history of angina or chest pain with exertion. PLAN: Will continue antibiotics and aerosol treatments for now. I explained to patient there is a s mall chance that he would be ready for discharge to home as early as tomorrow, or more likely on . Will follow closely. Check with pulmonary and cardiology in the later today. Case was discussed with Dr. Huntley, who is pleased with the patient's progress, and he is near ready for discharge to home with continued aerosol treatments and low dose of oral prednisone until follow up in the office in a week or so. Samm Morales MD cc: [phone] TT: 12/15/2016 22:31:02 Confirmation # [id number] Dictation # [id number] dwain
[2016-12-16] MEDS: Piperacillin/Tazobact 3.375 gm 100 ML IVPB SCH ×5 (00:14→17:39)
[2016-12-16] MEDS: Albuterol-Ipratrop 3 mg / 0.5 (3 ml) UD IH SCH ×4 (02:02→19:25)
--- NOTE | 2016-12-16 07:47 | PN ---
DATE: 12/16/2016 SUBJECTIVE: The patient is very comfortable at rest. He is not short of breath. PHYSICAL EXAMINATION: VITAL SIGNS: Temperature is 97.5, pulse 62, respirations 18/20, blood pressure 156/72. Oxygen saturation on nasal cannula is 99%. HEENT: Normocephalic, atraumatic. No JVD. CARDIOVASCULAR: Systolic ejection murmur at the lower left sternal border. Positive S3 gallop. LUNGS: Minimal crackles at the bases. Minimal/less rhonchi. No wheezing. EXTREMITIES: Less edema. No cyanosis, no clubbing. Calves are nontender to palpation. GASTROINTESTINAL: Abdomen is soft, nontender, nondistended. Bowel sounds are positive. SKIN: No acute rash. NEUROLOGIC: Limited at the present time. IMPRESSION: 1. Respiratory failure. 2. Rule out underlying pneumonia. 3. Congestive heart failure. 4. Acute myocardial infarction. 5. Chronic obstructive pulmonary disease. 6. Renal insufficiency. PLAN: The patient appears very comfortable this morning. He is not short of breath at rest. He states to feeling much, much better overall. On physical exam, his bronchospasm continues to resolve. In addition, the alveolar arterial gradient also continues to resolve. Oxygen saturation on nasal cannula is now 99%. I will continue with the current nebulizer treatments and low-dose intravenous steroids (decreased yesterday) for now. I would continue with the current antibiotic therapy for now. I would continue with the treatment for congestive heart failure and acute myocardial infarction as per cardiology. Input by Dr. Bowling is noted. Clinical status of the patient is significantly improved overall--compared to last week. However, the patient's future status status/prognosis does remain guarded. I did discuss the case with Dr. Morales at length yesterday. I will discuss the above with the attending physician this morning. Sebastian Huntley MD cc: [phone] TT: 12/16/2016 07:47:00 Confirmation # [id number] Dictation # [id number] tena HAMM
[2016-12-16] MEDS: MethylPREDNISolone 40 mg Vial IVP SCH ×2 (09:43→21:08)
[2016-12-16] MEDS: Enoxaparin 80 mg Syringe SC SCH (09:43)
--- NOTE | 2016-12-16 15:49 | PN ---
DATE: 12/16/2016 The patient was seen this Sunday morning in room 269, bed 1 with his son and at the bedside. The patient is awake, alert, clear, and appropriate, very much wanting to go home and not understandi ng why he is being recommended for him to go for cardiac catheterization on Sunday. He denies chest pain, shortness of breath, but somewhat uncomfortable with movement about the bed and prolonged speak ing. He said he has been out of bed, walking to the bathroom about the room on his own with no compl aints. PHYSICAL EXAMINATION: LUNGS: Show good aeration, right and left, with decreased breath sounds of COPD. There is really mi nimal crackles or rales to noted. HEART: Regular, not tachycardic. EXTREMITIES: Show +1 chronic brawny edema of the lower extremities. IMPRESSION: 1. Respiratory failure. 2. Congestive heart failure. 3. Pleural effusions 4. Suspected pneumonia. 5. Chronic obstructive pulmonary disease. 6. Known history of coronary artery disease. 7. Status post coronary stent placement several years ago. PLAN: I spoke with the patient at length. I too am concerned about his chronic renal insufficiency and dye load from a cardiac catheterization, I am also concerned about this recent episode of CHF and his going for catheterization as early as Sunday. We will discuss with cardiology later today or to cyndi and then with the patient. Because of a small amount of worsening CHF, I would tend to increa se his diuresis to IV Lasix 40 mg twice a day, but since we may be hydrating him tomorrow and proceed ing with catheterization I will hold off and discuss with cardiology. Samm Morales MD cc: 439 TT: 12/16/2016 15:48:19 Confirmation # [id number] Dictation # [id number] dwain
[2016-12-16] MEDS: Silver Sulfadiazine 1% Cream (20 gm) TOP SCH (18:21)
[2016-12-17] MEDS: Piperacillin/Tazobact 3.375 gm 100 ML IVPB SCH ×3 (00:15→12:44)
[2016-12-17] MEDS: Albuterol-Ipratrop 3 mg / 0.5 (3 ml) UD IH SCH ×4 (01:14→20:20)
--- NOTE | 2016-12-17 06:44 | PN ---
DATE: 12/17/2016 SUBJECTIVE: The patient appears comfortable this morning. He is not short of breath at rest. OBJECTIVE: VITAL SIGNS: Temperature is 98.4, pulse 61, respirations 19, blood pressure 169 /71. Oxygen saturation on nasal cannula is 98%. HEENT: Normocephalic, atraumatic. No JVD. CARDIOVASCULAR: Systolic ejection murmur at the lower left sternal border. Positive S3 gallop. LUNGS: Minimal crackles at the bases. Minimal, less rhonchi. No wheezing. EXTREMITIES: Minimal edema. No cyanosis, no clubbing. Calves are nontender to palpation. GASTROINTESTINAL: Abdomen is soft, nontender, nondistended. Bowel sounds are positive. SKIN: No acute rash. NEUROLOGIC: Limited at the present time. IMPRESSION: 1. Respiratory failure. 2. Rule out underlying pneumonia. 3. Congestive heart failure. 4. Acute myocardial infarction. 5. Chronic obstructive pulmonary disease. 6. Renal insufficiency. PLAN: The patient appears very comfortable this morning. He is not short of breath at rest. He states he is feeling much, much better overall. On physical exam, his bronchospasm continues to resolve. In addition, the alveolar arterial gradient also continues to resolve. Oxygen saturation on nasal cannula is now 98%. I will continue with the current nebulizer treatments and low-dose intravenous steroids for now. The patient remains on antibiotic therapy. There are no temperatures noted. The leukocytosis is decreased. I would continue with the treatment for acute congestive heart failure and acute myocardial infarction as per cardiology. Their input is noted. Clinical status of the patient is significantly improved -- compared to last week. However, again, the patient's future status status/prognosis status does remain guarded. I will discuss the above with the attending physician. Sebastian Huntley MD cc: [phone] TT: 12/17/2016 06:43:21 Confirmation # [id number] Dictation # [id number] jn HANSEL
[2016-12-17 08:03] LABS: ADD MANUAL DIFF? NO
[2016-12-17 08:06] LABS: BASO # 0.01 K/mm3 (0.0-2.0); BASO % 0.1 % (0.0-3.0); GRAN % 81.5 % (50.0-68.0); HEMATOCRIT 28.5 % (42.0-52.0); LYMPH # 1.3 (1.2-3.4); LYMPH % 13.2 % (22.0-35.0); MEAN CELL VOLUME 87.4 fL (80.0-105.0); MEAN CORPUSCULAR HEMOGLOBIN 26.7 pg (25.0-35.0); MEAN CORPUSCULAR HGB CONC 30.5 g/dl (31.0-37.0); MONO # 0.5 (0.1-0.6); MONO % 5.2 % (1.0-6.0); PLATELET COUNT 182 10^3/uL (120.0-450.0); RED CELL DISTRIBUTION WIDTH 16.1 % (11.5-14.5); WHITE BLOOD COUNT 9.7 10^3/ul (4.5-11.0)
[2016-12-17 08:24] LABS: POTASSIUM 4.4 mmol/L (3.6-5.0)
[2016-12-17] MEDS ORDERED: Acetylcysteine 20% Inhal Sol (30ml) PO SCH (10:00)
[2016-12-17] MEDS: MethylPREDNISolone 40 mg Vial IVP SCH ×2 (10:57→21:36)
[2016-12-17] MEDS: Enoxaparin 80 mg Syringe SC SCH (11:03)
--- NOTE | 2016-12-17 12:12 | RAD ---
HISTORY: f/u on chf, effusion, ?infiltrate COMPARISON: 09/14/2016 TECHNIQUE: Chest PA and lateral FINDINGS: LUNGS: There is bilateral lower lobe airspace disease, dense on the right.The lungs are hyperinflated and there is peribronchial thickening with chronic changes in both lungs. PLEURA: There are probable bilateral pleural effusions. No pneumothorax apparent. CARDIOVASCULAR: Normal. OSSEOUS STRUCTURES: There is diffuse bone demineralization and multilevel degenerative changes in the spine. VISUALIZED UPPER ABDOMEN: Normal. OTHER FINDINGS: None. IMPRESSION: Suspect bilateral lower lobe pneumonia and pleural effusions. Follow-up to resolution is advised. COPD.
[2016-12-17] MEDS: Silver Sulfadiazine 1% Cream (20 gm) TOP SCH (12:46)
[2016-12-17] MEDS: Acetylcysteine 20% Inhal Soln (4ml) PO SCH ×2 (17:20→20:13)
--- NOTE | 2016-12-17 23:27 | PN ---
DATE: 12/15/2016 SUBJECTIVE: The patient was seen on telemetry. He had no complaints. There was no chest pain, shor tness of breath or palpitations. He was trying his best to ambulate more than he had in the past. OBJECTIVE: VITAL SIGNS: Blood pressure 156/70, heart rate 55, oral temperature 98 degrees, respiratory rate is 18, oxygen saturation 97% on 2 liters via nasal cannula. I's and O's in the last 24-hour period are 600/1100. HEENT: The patient is noted to be normocephalic, atraumatic without any sinus tenderness. NECK: He has only mild jugular venous distention on exam. CHEST: Lungs lópez were grossly clear to auscultation, but breath sounds were quite distant. CARDIAC: Had a regular rate and rhythm. There were no rubs or gallops. ABDOMEN: Soft, centrally obese, distended, but nontender. There was no rebounding, guarding or rigi dity. EXTREMITIES: Had greater than trace, but less than 1+ dependent edema with chronic stasis changes ov er both lower extremities. NEUROLOGIC: He was nonfocal. GENITOURINARY: Had no CVA tenderness. There was no suprapubic tenderness either. LABORATORY STUDIES: White count is 9.7, H and H is 8.7/28.5 with platelet count of 182,000. There a re 82% neutrophils, 13% lymphocytes, and 5% monocytes. Sodium is 142, potassium 4.4, chloride 104, b icarbonate 27, BUN/creatinine 65/2.2 with a glucose of 111. N-terminal proBNP was most recently 12,1 00 with a troponin-I of 0.28. Chest x-ray reveals bilateral lower lobe airspace disease, dense on th e right with suspected bilateral pleural effusions and bilateral lower lobe pneumonia. C4 is noted t o be low at less than 8. C3 is within normal limits. Anti-double stranded DNA is 1, ANCA are pendin g. IMPRESSION AND PLAN: The patient is a 76-year-old gentleman with history of tobacco use and opiate d ependency in the past, coronary artery disease with 4 prior stents, but noncompliant with therapy, hi story of gastroesophageal reflux disease with peptic ulcer disease and fungal esophageal ulcerations, stage IV chronic kidney disease with a baseline creatinine in the low 2s, was admitted with shortnes s of breath, for which he was intubated. After being appropriately diuresed, he developed acute kidn ey injury, which is now improved. He is noted to have bilateral infiltrates on chest x-ray as well. 1. For his acute coronary syndrome, the patient remains on dual antiplatelet therapy with aspirin, a s well as clopidogrel. He is also on atorvastatin 40 mg daily and carvedilol 25 mg orally twice sharif y. 2. For component of chronic obstructive pulmonary disease, given his smoking history, he also remain s on Solu-Medrol and, along with this, he is on gastrointestinal prophylaxis with pantoprazole, espec ially since he is also on dual antiplatelet therapy. 3. For his acute coronary syndrome, the patient is scheduled to undergo cardiac catheterization on M on and, therefore, was started on Mucomyst 1200 mg orally twice daily beginning today, as well as intravenous fluids and is receiving normal saline at 100 mL per hour. He is at his baseline renal fu nction. 4. For anticoagulation for his acute coronary syndrome, he remains on Lovenox 80 mg subcutaneously d aily. 5. Since he is to receive intra-arterial contrast tomorrow, he is not on an EFRAÍN inhibitor or an melissa otensin receptor fortino. 6. The patient is noted to have a low C4 level and we will check rheumatoid factor, cryoglobulins, A NA, as well as hepatitis C antibody to help work this up. Additionally, I will repeat his urinalysis since his last one had proteinuria as well as microscopic hematuria. He may ultimately require kidn ey biopsy, but we will see the results of the outstanding labs. A low C4 can be seen with cryoglobul inemic glomerulonephritis, as well as immune complex disease to the kidneys and his urine sediment is noted to be active. Review of systems, past medical history, social history and family history were all reviewed and ther e were no new changes. Hipolito Hayes MD cc: [id number] TT: 12/17/2016 23:26:44 Confirmation # [id number] Dictation # [id number] mn
[2016-12-18 00:20] VITALS: O2SAT 99
[2016-12-18] MEDS: Albuterol-Ipratrop 3 mg / 0.5 (3 ml) UD IH SCH ×2 (04:00→07:53)
[2016-12-18] MEDS ORDERED: Sodium Chloride 0.9% 1,000 ML IV SCH (06:00)
[2016-12-18 07:09] LABS: ADD MANUAL DIFF? NO
[2016-12-18 07:17] LABS: BASO # 0.01 K/mm3 (0.0-2.0); BASO % 0.1 % (0.0-3.0); GRAN # 8.46 (1.4-6.5); GRAN % 86.8 % (50.0-68.0); HEMATOCRIT 26.9 % (42.0-52.0); LYMPH % 9.8 % (22.0-35.0); MEAN CELL VOLUME 87.9 fL (80.0-105.0); MEAN CORPUSCULAR HEMOGLOBIN 27.1 pg (25.0-35.0); MEAN CORPUSCULAR HGB CONC 30.9 g/dl (31.0-37.0); MEAN PLATELET VOLUME 11.2 fl (7.0-11.0); MONO # 0.3 (0.1-0.6); MONO % 3.3 % (1.0-6.0); PLATELET COUNT 168 10^3/uL (120.0-450.0); RED CELL DISTRIBUTION WIDTH 16.3 % (11.5-14.5); WHITE BLOOD COUNT 9.7 10^3/ul (4.5-11.0)
[2016-12-18] MEDS ORDERED: Pantoprazole 40 mg EC Tab PO SCH (07:30)
[2016-12-18 07:58] LABS: ALB/GLOB RATIO 1.1 (1.1-1.8); BILIRUBIN,TOTAL 0.4 mg/dL (0.2-1.3); CALCIUM 8.8 mg/dL (8.4-10.5); POTASSIUM 4.7 mmol/L (3.6-5.0)
--- NOTE | 2016-12-18 08:25 | PN ---
DATE: 12/18/2016 SUBJECTIVE: The patient appears comfortable at rest. He is not short of breath. PHYSICAL EXAMINATION: VITAL SIGNS: Temperature is 97.9, pulse 64, respirations 18/20, blood pressure 126/58. Oxygen saturation on nasal cannula is 99%. HEENT: Normocephalic, atraumatic. No JVD. CARDIOVASCULAR: Systolic ejection murmur at the lower left sternal border. Positive S3 gallop. LUNGS: Minimal, less crackles at the bases. Very minimal/less rhonchi. No wheezing. EXTREMITIES: Minimal edema. No cyanosis, no clubbing. Calves are nontender to palpation. GASTROINTESTINAL: Abdomen is soft, nontender, nondistended. Bowel sounds are positive. SKIN: No acute rash. NEUROLOGIC: Limited at the present time. PERTINENT LABORATORY DATA: Chest x-ray was done yesterday and reviewed. There are bibasilar changes remaining. However, overall, the infiltrates are significantly decreased from the original films. IMPRESSION: 1. Respiratory failure. 2. Rule out underlying pneumonia. 3. Congestive heart failure. 4. Acute myocardial infarction. 5. Chronic obstructive pulmonary disease. 6. Renal insufficiency. PLAN: The patient appears very comfortable this morning. He is not short of breath at rest. He states he is feeling much better overall. On physical exam , his bronchospasm continues to resolve. In addition, the alveolar-arterial gradient also continues to resolve. Oxygen saturation on nasal cannula is now 99%. I will continue with the current nebulizer treatments and change to oral steroids this morning. I did review the last x-ray as above. Bibasilar changes remain. However, again, the infiltrates are significantly decreased -- from the original films. I will continue with the antibiotic therapy for now. I would continue with the treatment for congestive heart failure and acute myocardial infarction -- as per cardiology. Renal evaluation is also ongoing. Clinical status of the patient is significantly improved overall. However, again, the future status/prognosis of this patient does remain guarded. I would like to see him increase his activity as tolerated. I will discuss the above with Dr. Morales to this morning. Sebastian Huntley MD cc: [phone] TT: 12/18/2016 08:24:47 Confirmation # [id number] Dictation # [id number] MTDD
--- NOTE | 2016-12-18 08:34 | PN ---
DATE: 12/17/2016 The patient was seen this Sunday morning in room 269, bed 1. I spoke to him at length regarding his pending cardiac catheterization tomorrow as recommended by cardiology. The patient is very hesitant to proceed with catheterization fearing risks and concerns. My concern involves his elevated BUN and creatinine, now in the 65 and 2.6 range. The patient denies chest pain, shortness of breath, nausea , vomiting, dyspnea. He is ambulating about the room. PHYSICAL EXAMINATION: LUNGS: Show good aeration, right and left. HEART: Regular, not tachycardic. EXTREMITIES: There is soft +1 chronic brawny edema of the lower extremities. IMPRESSION: 1. Coronary artery disease. 2. Chronic obstructive pulmonary disease. 3. Renal insufficiency. 4. Positive troponin this hospitalization with congestive heart failure and respiratory failure. PLAN: Continue diuresis at this time with increase if leg edema worsens. We will discuss with james muniz in the morning regarding my concerns regarding risk of catheterization as well as the patient's fears. The other alternative would be discharge to home on medication regimens with close followup. The patient is agreeable to close weekly and then monthly followup in the office and perhaps outpat ient stress testing as an alternative to catheterization. Samm Morales MD cc: [id number] TT: 12/18/2016 08:33:02 Confirmation # [id number] Dictation # [id number]
[2016-12-18] MEDS ORDERED: cefTRIAXone 1 gm 100 ML IVPB SCH (10:00)
--- NOTE | 2016-12-18 10:00 | PN ---
DATE: 12/18/2016 REASON FOR CONSULTATION AND FOLLOWUP: Cardiac evaluation, orm-VI-sapwwxr myocardial infarction, status post respiratory failure, multilobar pneumonia, coronary artery disease, acute kidney disease, status post 4 bare metal stents in the past. BRIEF CLINICAL HISTORY: A 76-year-old male with a past medical history significant for coronary artery disease status post PTCA in the past, 3 bare metal stents in LAD and 1 bare metal stent in ramus intermedius in 04/2013, history of noncompliance, history of GI bleed. Admitted with shortness of breath, multilobar pneumonia requiring intubation, also acute kidney injury. Now, patient is successfully extubated. The patient is scheduled for cardiac catheterization today and was kept n.p.o., but patient was hesitant to go and reluctant initially. Now refused and wanted to come back as outpatient. The patient is asymptomatic. Discuss with Dr. Morales. PHYSICAL EXAMINATION: VITAL SIGNS: Temperature afebrile, heart rate 64, blood pressure 146/58. HEENT: PERRLA. Extraocular muscles intact. NECK: Supple. No carotid bruits. No thyromegaly. CHEST: Clear to auscultation. HEART: S1, S2 regular. ABDOMEN: Soft. EXTREMITIES: Clubbing, cyanosis negative. BLOOD WORKUP: WBC 9.7, hemoglobin 8.3, hematocrit 26.9, platelet count 168. Chemistry shows sodium 140, potassium 4, chloride 104, carbon dioxide 20, anion gap of 18, BUN 63, creatinine 2.1. IMPRESSION: Acute kidney injury, maximum troponin, ecf-AW-yarbeju myocardial infarction, maximum troponin 0.65, possible mlq-SO-auzasjk myocardial infarction versus secondary to hemodynamic instability. The patient denies any chest pain. Very noncompliant patient. Anemia, history of gastrointestinal bleed in the past. The patient was scheduled for cardiac catheterization, but patient was reluctant and now is refusing. Since the patient is asymptomatic, discussed with Dr. Morales and patient is opting for medical treatment for now , so we will discharge him today. Avoid nephrotoxic medication. Continue baby aspirin, continue Plavix. Discontinue Mucomyst as patient is not going. Discontinue IV fluid since the patient is not going for cardiac catheterization. Continue Coreg, continue aspirin, continue gentle Lasix, continue Imdur. Discontinue Lovenox and discontinue IV fluids as the patient is not going for cardiac cath.. Continue Imdur, continue beta-fortino, aspirin , Plavix and discharge home today possibly. Follow up in 1-2 weeks. Outpatient , monitor renal function. Consider stress test versus cardiac catheterization because the patient is reluctant to go for cardiac catheterization, is concerned and wanted to have a stress test before because he is concerned about renal failure. We will follow with you. We will discuss with Dr. Morales and possible discharge home today. Thank you, Dr. Morales, for providing us the opportunity in taking care of the patient. Again, we will discontinue IV fluid, discontinue Mucomyst and discontinue Lovenox . Noel Bowling MD cc: [id number] TT: 12/18/2016 09:59:43 Confirmation # [id number] Dictation # [id number] HAMM
[2016-12-18 12:45] VITALS: PULSE 84; RESP 19; TEMP 98.7
[2016-12-18 13:07] VITALS: BP 180/70
[2016-12-18] MEDS ORDERED: Pneumococcal 23-Valent Vaccine IM ONE (15:40)
== END 2016-12-18 17:50 | disposition home or self-care (01) | DRG 871 ==
LOC: ED 08:50 → ERH 09:45 → CCU 14:28 → 2RNO 12-14 21:15
PROVIDERS: ADMIT Internal Medicine; ATTEND Internal Medicine
PROC: 5A1935Z Respiratory Ventilation, Less than 24 Consecutive Hours (ICD-10-PCS; principal; 2016-12-11)
DX: A41.9 Sepsis, unspecified organism (principal); J96.01 Acute respiratory failure with hypoxia; I21.4 Non-ST elevation (NSTEMI) myocardial infarction; J18.9 Pneumonia, unspecified organism; I50.23 Acute on chronic systolic (congestive) heart failure; N18.4 Chronic kidney disease, stage 4 (severe); J96.02 Acute respiratory failure with hypercapnia; N17.9 Acute kidney failure, unspecified; E87.2 Acidosis; I13.0 Hypertensive heart and chronic kidney disease with heart failure and stage 1 through stage 4 chronic kidney disease, or unspecified chronic kidney disease; I27.2 Other secondary pulmonary hypertension; J44.0 Chronic obstructive pulmonary disease with (acute) lower respiratory infection; J44.1 Chronic obstructive pulmonary disease with (acute) exacerbation; L97.329 Non-pressure chronic ulcer of left ankle with unspecified severity; L97.319 Non-pressure chronic ulcer of right ankle with unspecified severity; E11.22 Type 2 diabetes mellitus with diabetic chronic kidney disease; I08.1 Rheumatic disorders of both mitral and tricuspid valves; E87.5 Hyperkalemia; D64.9 Anemia, unspecified; I25.10 Atherosclerotic heart disease of native coronary artery without angina pectoris; J45.909 Unspecified asthma, uncomplicated; E78.5 Hyperlipidemia, unspecified; I25.5 Ischemic cardiomyopathy; I49.3 Ventricular premature depolarization; K21.9 Gastro-esophageal reflux disease without esophagitis; M19.90 Unspecified osteoarthritis, unspecified site; R31.29 Other microscopic hematuria; Z77.090 Contact with and (suspected) exposure to asbestos; Z79.82 Long term (current) use of aspirin; Z79.899 Other long term (current) drug therapy; Z87.11 Personal history of peptic ulcer disease; Z87.19 Personal history of other diseases of the digestive system; Z87.891 Personal history of nicotine dependence; Z90.49 Acquired absence of other specified parts of digestive tract; Z91.14 Patient's other noncompliance with medication regimen; Z95.5 Presence of coronary angioplasty implant and graft; G62.9 Polyneuropathy, unspecified; Z74.01 Bed confinement status; B18.2 Chronic viral hepatitis C; E83.42 Hypomagnesemia; L97.529 Non-pressure chronic ulcer of other part of left foot with unspecified severity; R40.2413 Glasgow coma scale score 13-15, at hospital admission; Z78.1 Physical restraint status

== ENCOUNTER 2016-12-25 08:32 | Inpatient (IN) | payer BC, MEDICARE ==
[2016-12-25 08:33] VITALS: BMI 28.0
[2016-12-25] MEDS ORDERED: Albuterol-Ipratrop 3 mg / 0.5 (3 ml) UD IH STA (09:18)
--- NOTE | 2016-12-25 09:38 | RAD ---
HISTORY: Shortness of breath COMPARISON: 12/17/2016 FINDINGS: LUNGS: There is worsening pulmonary venous congestion and development of interstitial pulmonary edema. There is also right basilar airspace disease. PLEURA: There is a small right pleural effusion. No significant left pleural effusion identified, no pneumothorax apparent. CARDIOVASCULAR: Normal. OSSEOUS STRUCTURES: No significant abnormalities. VISUALIZED UPPER ABDOMEN: Normal. OTHER FINDINGS: None. IMPRESSION: Worsening pulmonary venous congestion, interstitial pulmonary edema and persistent small pleural effusion concerning for developing congestive heart failure. Suspect right basilar pneumonia.
--- NOTE | 2016-12-25 09:46 | ED PDOC ---
Arrival/HPI - General Chief Complaint: Shortness Of Breath Time Seen by Provider: 12/25/16 08:40 Historian: Patient - History of Present Illness Narrative History of Present Illness (Text): 12/25/16 09:04 A 76 year old male, whose past medical history hypertension, COPD, Hepatitis C, GERD, PUD, CAD with 4 stents, neuropathy, and appendectomy, presents to the emergency department complaining of worsening shortness of breath for the past week. Patient reports he has been experiencing the symptoms since being discharged from the hospital after being evaluated for pneumonia. Patient notes shortness of breath is worse on exertion and better at rest. Patient also has a productive cough. He states 2 days ago he had a brief pain to the chest but denies any fever, abdominal pain, nausea, vomiting or any other complaints at this time. PMD: Dr. Morales Time/Duration: > week (2 weeks) Symptom Onset: Gradual Symptom Course: Worsening Quality: Other Activities at Onset: Rest Context: Home Past Medical History - Provider Review Nursing Documentation Reviewed: Yes - Infectious Disease Hx of Infectious Diseases: None - Tetanus Immunization Tetanus Immunization: Unknown - Cardiac Hx Cardiac Disorders: Yes Hx Hypertension: Yes - Pulmonary Hx Chronic Obstructive Pulmonary Disease (COPD): Yes - Neurological Hx Neurological Disorder: No - HEENT Hx HEENT Disorder: No - Renal Hx Renal Disorder: No - Endocrine/Metabolic Hx Endocrine Disorders: No - Hematological/Oncological Hx Blood Disorders: Yes Hx Hepatitis C: Yes - Integumentary Hx Dermatological Disorder: No - Musculoskeletal/Rheumatological Hx Musculoskeletal Disorders: No Hx Falls: No - Gastrointestinal Hx Gastrointestinal Disorders: Yes Hx Gastroesophageal Reflux: Yes - Genitourinary/Gynecological Hx Genitourinary Disorders: No - Psychiatric Hx Psychophysiologic Disorder: No Hx Substance Use: Yes - Surgical History Hx Appendectomy: Yes Hx Cardiac Catheterization: Yes Hx Coronary Stent: Yes - Anesthesia Hx Anesthesia: Yes Hx Anesthesia Reactions: No Hx Malignant Hyperthermia: No - Suicidal Assessment Feels Threatened In Home Enviroment: No Family/Social History - Physician Review Nursing Documentation Reviewed: Yes Family/Social History: Unknown Family HX Smoking Status: Former Smoker Hx Alcohol Use: No Hx Substance Use: Yes Hx Substance Use Treatment: No Allergies/Home Meds Allergies/Adverse Reactions: Allergies No Known Allergies Allergy (Verified 12/11/16 13:56) Home Medications: Home Meds Medication Instructions Recorded Confirmed Aspirin [Aspir 81] 81 mg PO DAILY 03/17/13 12/11/16 Isosorbide Mononitrate [Isosorbide 30 mg PO QAM 08/15/13 12/11/16 Mononitrate ER] Albuterol 0.042% [Albuterol 0.042% 3 ml IH QID PRN 12/11/16 12/11/16 Inhal Tish (1.25mg/3ml) UD] Atorvastatin [Lipitor] 10 mg PO DIN 12/11/16 12/11/16 Budesonide/Formoterol Fumarate 2 aer IH BID 12/11/16 12/11/16 [Symbicort 160-4.5 Mcg Inhaler] Furosemide [Lasix] 40 mg PO DAILY 12/11/16 12/11/16 Gabapentin [Neurontin] 300 mg PO BID 12/11/16 12/11/16 Levocetirizine Dihydrochloride 5 mg PO DAILY 12/11/16 12/11/16 [Xyzal] Metoprolol Tartrate [Lopressor] 25 mg PO BID 12/11/16 12/11/16 Naproxen [Naprosyn Tab] 375 mg PO BID 12/11/16 12/11/16 Potassium Chloride [Klor-Con M20] 20 meq PO DAILY 12/11/16 12/11/16 Zolpidem [Ambien] 10 mg PO HS 12/11/16 12/11/16 Review of Systems - Physician Review All systems were reviewed & negative as marked: Yes - Review of Systems Constitutional: absent: Fevers Respiratory: SOB, Cough, Sputum Cardiovascular: Chest Pain, BYRNES Gastrointestinal: absent: Abdominal Pain, Nausea, Vomiting Physical Exam Vital Signs Reviewed: Yes Vital Signs Temp Pulse Resp BP Pulse Ox 12/25/16 11:12 79 155/71 H 98 12/25/16 09:01 18 12/25/16 08:57 98 F 85 16 168/76 H 98 12/25/16 08:40 98 F 85 16 168/76 H 98 Temperature: Afebrile Blood Pressure: Hypertensive Pulse: Regular Respiratory Rate: Normal Appearance: Positive for: Well-Appearing, Non-Toxic, Comfortable Pain Distress: None Mental Status: Positive for: Alert and Oriented X 3 - Systems Exam Head: Present: Atraumatic, Normocephalic Pupils: Present: PERRL Extroacular Muscles: Present: EOMI Conjunctiva: Present: Normal Mouth: Present: Moist Mucous Membranes Neck: Present: Normal Range of Motion Respiratory/Chest: Present: Decreased Breath Sounds (bilaterally). No: Respiratory Distress, Accessory Muscle Use, Wheezes, Rales, Rhonchi Cardiovascular: Present: Regular Rate and Rhythm, Normal S1, S2. No: Murmurs Abdomen: Present: Normal Bowel Sounds. No: Tenderness, Distention, Peritoneal Signs Back: Present: Normal Inspection Upper Extremity: Present: Normal Inspection. No: Cyanosis, Edema Lower Extremity: Present: Edema (2-3+ pitting edema bilaterally) Neurological: Present: GCS=15, CN II-XII Intact, Speech Normal Skin: Present: Warm, Dry, Normal Color. No: Rashes Psychiatric: Present: Alert, Oriented x 3, Normal Insight, Normal Concentration Medical Decision Making ED Course and Treatment: EKG: Ordered, reviewed, and independently interpreted the EKG. Rate : 89 BPM Rhythm : NSR Interpretation : Normal axis, normal interval, no acute ischemia. 12/25/16 09:40 Chest X-ray: Creator : Angle Jacobson MD FINDINGS: LUNGS: There is worsening pulmonary venous congestion and development of interstitial pulmonary edema. There is also right basilar airspace disease. PLEURA: There is a small right pleural effusion. No significant left pleural effusion identified, no pneumothorax apparent. CARDIOVASCULAR: Normal. OSSEOUS STRUCTURES: No significant abnormalities. VISUALIZED UPPER ABDOMEN: Normal. OTHER FINDINGS: None. IMPRESSION: Worsening pulmonary venous congestion, interstitial pulmonary edema and persistent small pleural effusion concerning for developing congestive heart failure. Suspect right basilar pneumonia. 12/25/16 11:08 Patient has an elevated D-Dimer. Will obtain VQ scan. 12/25/16 11:[address] Morales, who is aware and agrees with the plan to admit the patient to Med/Surg under his services for Pneumonia, COPD and CHF. I have discussed the results and plan with the patient, who expresses understanding. Patient given the opportunity to ask question, all questions were answered and there is agreement with the plan to be admitted to the hospital. - Lab Interpretations Lab Results: 12/25/16 05:30 12/25/16 05:30 Lab Results 12/25/16 09:18: D-Dimer, Quantitative 3.83 H 12/25/16 05:30: WBC 7.8, RBC 3.22 L, Hgb 8.7 L, Hct 27.7 L, MCV 86.0, MCH 27.0, MCHC 31.4, RDW 17.3 H, Plt Count 145, MPV 11.5 H, Gran % 89.9 H, Lymph % (Auto) 5.4 L, Rains % (Auto) 4.6, Eos % (Auto) 0.0 L, Baso % (Auto) 0.1, Gran # 6.98 H, Lymph # 0.4 L, Rains # 0.4, Eos # 0.0, Baso # 0.01, pO2 186 H, VBG pH 7.32, VBG pCO2 50.0, VBG HCO3 25.8, VBG Total CO2 27.3, VBG O2 Sat (Calc) 99.6 H, VBG Base Excess -0.9 L, VBG Potassium 4.8, Glucose 118 H, Lactate 1.8, FiO2 21.0, Sodium 143.0, Potassium 4.8, Chloride 113.0 H, Carbon Dioxide 26, Anion Gap 20, BUN 53 H, Creatinine 2.2 H, Est GFR ( Amer) 35, Est GFR (Non-Af Amer) 29 , Random Glucose 114 H, Calcium 9.0, Total Bilirubin 0.6, AST 30, ALT 33, Alkaline Phosphatase 46, Troponin I 0.08 D, NT-Pro-B Natriuret Pep 85942 H, Total Protein 6.4, Albumin 3.3, Globulin 3.1, Albumin/Globulin Ratio 1.1, Venous Blood Potassium 4.8 I have reviewed the lab results: Yes - RAD Interpretation Radiology Orders: 12/25/16 09:18 CHEST PORTABLE [RAD] Stat 12/25/16 11:08 LUNG PERF & VENT SCAN [NM] Stat - Medication Orders Current Medication Orders: Discontinued Medications Albuterol/Ipratropium (Duoneb 3 Mg/0.5 Mg (3 Ml) Ud) 3 ml IH ONCE STA Stop: 12/25/16 09:19 Last Admin: 12/25/16 10:10 Dose: 3 ML Azithromycin (Zithromax 500mg In Ns) 250 mls @ 167 mls/hr IVPB STAT STA PRN Reason: Protocol Stop: 12/25/16 12:54 Last Admin: 12/25/16 13:09 Dose: 167 MLS/HR eMAR Start Stop Document 12/25/16 13:09 HI (Rec: 12/25/16 13:10 HI [facility] [id number]) Intravenous Solution Start Date 12/25/16 Start Time 13:10 Ceftriaxone Sodium (Rocephin 1 Gram Ivpb) 100 mls @ 200 mls/hr IVPB STAT STA PRN Reason: Protocol Stop: 12/25/16 11:53 Last Admin: 12/25/16 12:00 Dose: 200 MLS/HR eMAR Start Stop Document 12/25/16 12:00 HI (Rec: 12/25/16 12:01 HI [facility] [id number]) Intravenous Solution Start Date 12/25/16 Start Time 12:00 Methylprednisolone (Solu-Medrol) 80 mg IVP STAT STA Stop: 12/25/16 09:19 Last Admin: 12/25/16 12:00 Dose: 80 MG IVP Administration Document 12/25/16 12:00 HI (Rec: 12/25/16 12:00 HI [facility] [id number]) Charges for Administration # of IVP Administrations 1 - Scribe Statement The provider has reviewed the documentation as recorded by the Jeremiah Soliman Provider Scribe Attestation: All medical record entries made by the Joseiblucy were at my direction and personally dictated by me. I have reviewed the chart and agree that the record accurately reflects my personal performance of the history, physical exam, medical decision making, and the department course for this patient. I have also personally directed, reviewed, and agree with the discharge instructions and disposition. Disposition/Present on Arrival - Present on Arrival Any Indicators Present on Arrival: No History of DVT/PE: No History of Uncontrolled Diabetes: No Urinary Catheter: No History of Decub. Ulcer: No History Surgical Site Infection Following: None - Disposition Have Diagnosis and Disposition been Completed?: Yes Diagnosis: Pneumonia, COPD (chronic obstructive pulmonary disease), CHF (congestive heart failure) Disposition: HOSPITALIZED Disposition Time: 11:27 Patient Problems: Current Active Problems Problem Status Diagnosed CHF (congestive heart failure) Acute COPD (chronic obstructive pulmonary disease) Acute Pneumonia Acute Condition: STABLE
[2016-12-25 10:16] LABS: ADD MANUAL DIFF? NO
[2016-12-25 10:19] LABS: VENOUS BLOOD GAS BASE EXCESS -0.9 mmol/L (0.0-2.0); VENOUS BLOOD PH 7.32 (7.32-7.43)
[2016-12-25 10:28] LABS: ALB/GLOB RATIO 1.1 (1.1-1.8); BASO # 0.01 K/mm3 (0.0-2.0); BASO % 0.1 % (0.0-3.0); BILIRUBIN,TOTAL 0.6 mg/dL (0.2-1.3); GRAN # 6.98 (1.4-6.5); GRAN % 89.9 % (50.0-68.0); HEMATOCRIT 27.7 % (42.0-52.0); LYMPH # 0.4 (1.2-3.4); LYMPH % 5.4 % (22.0-35.0); MEAN CORPUSCULAR HGB CONC 31.4 g/dl (31.0-37.0); MEAN PLATELET VOLUME 11.5 fl (7.0-11.0); MONO # 0.4 (0.1-0.6); MONO % 4.6 % (1.0-6.0); PLATELET COUNT 145 10^3/uL (120.0-450.0); POTASSIUM 4.8 mmol/L (3.6-5.0); RED CELL DISTRIBUTION WIDTH 17.3 % (11.5-14.5); TOTAL PROTEIN 6.4 g/dL (5.8-8.3); WHITE BLOOD COUNT 7.8 10^3/ul (4.5-11.0)
[2016-12-25 10:42] LABS: TROPONIN I 0.08 ng/mL
[2016-12-25] MEDS ORDERED: cefTRIAXone 1 gm 100 ML IVPB STA (11:24)
[2016-12-25] MEDS ORDERED: Azithromycin 500MG/NS 250ml 250 ML IVPB STA (11:25)
--- NOTE | 2016-12-25 18:31 | NM ---
COMPARISON: Comparison made with chest radiograph obtained earlier same day as well as prior CTA of the chest dated 12/06/2013. TECHNIQUE: 30 high doctors back for mCi technetium 99-m DTPA. 4.4 MCI technetium 99-m MAA administered intravenously. FINDINGS: VENTILATION COMPONENT: Significant clumping of radiotracer seen centrally within the hilar the and perihilar regions bilaterally on the left greater than right. Poor Um radiotracer seen throughout most of the remaining right lung and the left upper and left lower lobes consistent with significant centrilobular emphysematous changes right greater than left seen to better advantage on prior CT scan PERFUSION COMPONENT: . Diminished perfusion throughout the right lung particularly in the right lung base and peripherally. Better perfusion seen throughout the left lung. IMPRESSION: Significant changes related to emphysema on as above. Findings consistent with indeterminate probability for perfused pulmonary embolism. Consider followup CTA of the chest
--- NOTE | 2016-12-25 18:59 | CARD ---
APPROVED REPORT EKG Measurement Heart [id number] CT [id number] <Conclusion> Normal sinus rhythm Normal ECG
[2016-12-25] MEDS ORDERED: Morphine 2 mg/ml ISec IVP STA (19:08)
[2016-12-25] MEDS ORDERED: Morphine 4 mg/ml ISec IVP STA (19:08)
[2016-12-26] MEDS ORDERED: Labetalol 5 mg/ml Inj 20ML IV STA ×2 (01:07→05:32)
[2016-12-26] MEDS ORDERED: Morphine 4 mg/ml ISec IVP STA (01:07)
--- NOTE | 2016-12-26 01:39 | CP.PCM.PN ---
Subjective - Date & Time of Evaluation Date of Evaluation: 12/26/16 Time of Evaluation: 01:38 - Subjective Subjective: Nurse Anna informs me that BP is 222/105 mmHg. Patient is asymptomatic. Seen at bedside. Complains of both legs neuropathic pain. States that he received morphine 2 mg IV in the ER for same pain but it seems to have not helped for pain. Pertinent medical record was reviewed. This 76 year old white male was admitted COPD,PNA,Sepsis,CHF. Has PMH of HTN, COPD,Cellulitis of lower extremities, Hepatitis C,GERD, PUD, S/ P PTCA, appendectomy. Objective - Vital Signs/Intake and Output Vital Signs (last 24 hours): Temp Pulse Resp BP Pulse Ox 97.8 F 88 18 222/105 H 96 12/25/16 23:15 12/26/16 01:13 12/25/16 23:15 12/26/16 01:13 12/25/16 23:15 - Medications Medications: Current Medications Furosemide (Lasix) 40 mg IVP BID DULCE - Constitutional Appears: Well, In Acute Distress - Head Exam Head Exam: ATRAUMATIC, NORMAL INSPECTION, NORMOCEPHALIC - Eye Exam Eye Exam: Normal appearance - ENT Exam ENT Exam: Normal External Ear Exam - Neck Exam Neck Exam: Normal Inspection - Respiratory Exam Respiratory Exam: NORMAL BREATHING PATTERN - Cardiovascular Exam Cardiovascular Exam: absent: JVD - GI/Abdominal Exam GI & Abdominal Exam: absent: Distended - Rectal Exam Rectal Exam: Deferred - Extremities Exam Extremities Exam: Normal Inspection - Back Exam Back Exam: NORMAL INSPECTION - Neurological Exam Neurological Exam: Alert, Oriented x3 - Psychiatric Exam Psychiatric exam: Normal Affect, Normal Mood - Skin Skin Exam: Normal Color Assessment and Plan - Assessment and Plan (Free Text) Assessment: A/P:Hypertensive emergency. Neuropathic legs pain. HTN. COPD. Sepsis. CHF. Labetolol 20 mg IV x 1. Morphine sulfate 4 mg IV x 1. Continue present management.
--- NOTE | 2016-12-26 11:08 | HP ---
The patient is a 76-year-old male who presented to the Emergency Room complaining of shortness of belle ath and dyspnea on exertion. He is known to have a history of COPD, congestive heart failure, cabrera ry artery disease. He was recently discharged from the hospital after being in respiratory distress. He was intubated for a short time in the intensive care unit. During that hospitalization, he kale grant, did well, and was discharged about a week ago. However, this morning, he was short of breath once again. There was no relief from his medications. He, therefore, presented to the Emergency [facility], and once again is admitted. PAST MEDICAL HISTORY: Positive for hypertension, COPD, positive for hepatitis C, gastroesophageal re flux, peptic ulcer disease, status post appendectomy, coronary artery disease status post PTCA. He is a former smoker. He is a nonalcoholic drinker. He did have problem with overuse of opioid med ications in the past, however, had been doing well avoiding them over the past several years. He had no other complaints as far as chest pain, nausea, vomiting, diarrhea. ALLERGIES: He has no known medical allergies. MEDICATIONS: At the time of admission included aspirin 81 mg once a day, isosorbide mononitrate 30 m g once a day, albuterol via nebulizer 4 times a day as needed, Lipitor 10 mg with dinner, Symbicort 2 inhalations twice a day, Lasix 40 mg once a day, gabapentin 300 mg twice a day for peripheral neurop athy, Xyzal 5 mg once a day, Lopressor 25 mg twice a day, Naprosyn 375 mg twice a day, Klor-Con 20 mE q once a day, and zolpidem 10 mg at bedtime. SOCIAL HISTORY: He is . He has 1 son. REVIEW OF SYSTEMS: Otherwise, negative. PHYSICAL EXAMINATION: VITAL SIGNS: His blood pressure is 168/76. Heart rate is 85, and he is afebrile. HEAD, EYES, EARS, NOSE, AND THROAT: Unremarkable. NECK: Supple, with no lymphadenopathy, no goiter. LUNGS: On pulmonary auscultation, there are wheezes, rales, and rhonchi throughout both lung lópez. The patient appears to be in respiratory distress in the Emergency Room. HEART: Regular. No murmurs are appreciated. ABDOMEN: Flat, soft, nontender with no organomegaly. EXTREMITIES: Show +2 edema in the pretibial area bilaterally. NEUROLOGIC: He is awake, alert, and oriented. There are no focal neurological signs. SKIN: Warm and dry with no active lesions. EKG showed regular sinus rhythm. Chest x-ray showed worsening congestive heart failure. LABORATORY STUDIES: Show the white blood cell count to be 7.8. Hemoglobin and hematocrit are 8.7 an d 27.7 respectively. Platelet count is 145. Sodium is 147, potassium 4.8, blood urea nitrogen 53. Creatinine is 2.2. BNP is elevated at 16,900. D-dimers were elevated. Therefore, a VQ scan was req uested, and this was equivocal for pulmonary embolus. So the patient is admitted. This appears to be more congestive heart failure to me than and COPD. W e will be requesting consultation from cardiology as well as from pulmonology, and the patient will b e followed closely. Baldomero Morales MD cc: [phone] TT: 12/26/2016 11:07:40 jn
--- NOTE | 2016-12-26 12:28 | CON ---
DATE: 12/26/2016 REASON FOR CONSULTATION: Chronic obstructive pulmonary disease. REFERRING PHYSICIAN: Dr. MICHELLE Morales. HISTORY OF PRESENT ILLNESS: The patient is a 76-year-old male with past medical history significant for recent congestive heart failure, recent myocardial infarction, chronic obstructive pulmonary disease, renal insufficiency, status post recent episode of respiratory failure, who presents back to [facility] with increasing shortness of breath at rest, dyspnea on exertion, and cough for the past 4 days. The patient denies sputum production. The patient also denies chest pain, coughing up of blood or chest pain -- made worse with deep respirations. There is no history of temperatures , chills or infectious exposure. There is no history of night sweats, weight loss or appetite change prior to the above events. No history of leg or calf pains. No history of syncope or diaphoresis. No history of recent travel or trauma. REVIEW OF SYSTEMS: No history of nausea, vomiting or diarrhea. The patient does have occasional episodes of trouble urinating. No new musculoskeletal or neurologic complaints. Rest of review of systems negative. ALLERGIES: No known allergies. SOCIAL HISTORY: Positive for tobacco. Negative for alcohol. FAMILY HISTORY: No inheritable diseases. HOME MEDICATIONS: Include Xyzal, isosorbide mononitrate, Neurontin, Naprosyn, Lopressor, Lasix, Symbicort, Lipitor, aspirin, Ambien. PHYSICAL EXAMINATION: GENERAL: The patient appears comfortable at rest. He is not short of breath. VITAL SIGNS: Temperature is 97.4, pulse 65, respirations 18, blood pressure 187 /75. Oxygen saturation on nasal cannula is 97%. HEENT: Normocephalic, atraumatic. NECK: No JVD. CARDIOVASCULAR: Systolic ejection murmur at the lower left sternal border. Positive S3 gallop. LUNGS: Crackles at the bases. Minimal bilateral rhonchi. No wheezing. EXTREMITIES: Positive for edema. No cyanosis, no clubbing. Calves are nontender to palpation. GASTROINTESTINAL: Abdomen is soft, nontender, nondistended. Bowel sounds are positive. SKIN: No acute rash. NEUROLOGIC: Limited at the present time. PERTINENT LABORATORY DATA: Chest x-ray was done yesterday and reviewed. There is an increase in the pulmonary vascular congestive changes -- compared to the last film. There are chronic bibasilar changes -- unchanged from previous exams. CBC: White count 7.8, hemoglobin 8.7, hematocrit 27.7, platelets of 145. Complete metabolic profile: BUN 53, creatinine 2.2, glucose 114. Troponin 0.08. B-type natriuretic peptide 16,900. IMPRESSION: 1. Recurrent congestive heart failure. 2. Chronic obstructive pulmonary disease. 3. Recent myocardial infarction. 4. Renal insufficiency. 5. Anemia. PLAN: The patient presents to [facility] with a 4-day history of worsening pulmonary symptoms. I did review the chest x-ray as above. Compared to the previous film, there are increased pulmonary vascular congestive changes noted. Again, there are chronic basilar changes -- seen on many of the previous x-rays. I have also reviewed the laboratory data. Significant increase in the B-type natriuretic peptide is noted. The patient has been placed on Lasix therapy. Cardiology evaluation with Dr. Bowling has been ordered. On physical exam, there is only mild bronchospasm noted. In addition, there is no significant alveolar arterial gradient. Oxygen saturation on nasal cannula is 97%. I will start the patient on half strength Xopenex nebulizer treatments and budesonide. He is on Symbicort at home. Repeat a.m. labs are pending. The patient does feel better this morning, and is clinically improved. Additional pulmonary intervention will be based on the clinical status of the patient. I will discuss the above with Dr. Morales. Thank you very much for this pulmonary consultation. Sebastian Huntley MD cc: [phone] TT: 12/26/2016 12:27:31 Confirmation # [id number] Dictation # [id number] sn HAMM
[2016-12-26] MEDS: Levalbuterol 0.63 MG/3 ML Inhal Soln UD IH PRN (12:44)
[2016-12-26] MEDS ORDERED: MethylPREDNISolone 40 mg Vial ONE ×2 (12:46→12:47)
--- NOTE | 2016-12-26 12:46 | CON ---
DATE: 12/26/2016 REASON FOR CONSULTATION AND FOLLOWUP: Shortness of breath, cough. BRIEF CLINICAL HISTORY: A 76-year-old male with past medical history of hypertension, COPD, hepatiti s C, gastroesophageal reflux, peptic ulcer disease, coronary artery disease, status post 4 bare metal stents in the past, recently admitted with pneumonia and discharged home, scheduled for cardiac cath eterization, but patient opted for medical treatment and wanted to defer the cardiac catheterization for 4-6 weeks, admitted with a productive cough and shortness of breath. Denies any chest pain. PAST MEDICAL HISTORY: Significant for coronary artery disease, status post 4 bare metal stents done in 04/2013, 3 in LAD, 1 stent in ramus, history of GI bleed, history of multilobar pneumonia in the pa st, recently on 12/11, history of yqg-VC-tmmicyd myocardial infarction in the past. Cardiac workup as follows: The patient had echo done on 12/12/2016 that showed ejection fraction 35%- 40%, moderate mitral regurgitation, moderate tricuspid regurg, RV systolic pressure 62, moderate pulm onary hypertension, trace to mild pulmonary insufficiency, dilated IVC. The patient's stress test on 09/15/2016 was essentially normal myocardial perfusion, fixed defect, dated 09/15/2016. History of tobacco abuse, negative for alcohol abuse. FAMILY HISTORY: Noncontributory. CURRENT MEDICATIONS: The patient at home was taking Ambien, Naprosyn, metoprolol, isosorbide mononit rate, gabapentin, aspirin, albuterol inhaler. REVIEW OF SYSTEMS: As per HPI. PHYSICAL EXAMINATION: VITAL SIGNS: Temperature afebrile, heart rate ____, blood pressure 138/72. HEENT: PERRLA. Extraocular muscles intact. NECK: Supple. No carotid bruits. No thyromegaly. CHEST: Clear to auscultation. HEART: S1, S2 regular. ABDOMEN: Soft. EXTREMITIES: Clubbing and cyanosis negative. BLOOD WORKUP: WBC 7.8, hemoglobin 8.7, hematocrit 27.7, platelet count 145. Chemistry: Sodium 140, potassium ____, chloride 106, carbon dioxide 26, anion gap of 20, BUN ____, creatinine 2.2. IMPRESSION: Renal insufficiency, creatinine clearance 30 mL an hour, anemia, history of gastrointest inal bleed, history of peptic ulcer disease, history of multilobar pneumonia in the past, history of respiratory failure recently, history of 4 bare metal stents, 3 in LAD, 1 in ramus intermedius in 04/25 013, history of chronic kidney disease. Last admission, catheterization was offered, but patient ref used and opted for medical treatment, very noncompliant patient. Recurrent pneumonia. VQ scan, inte rmediate possibility. CAT scan was suggested for right lower lobe pneumonia. RECOMMENDATION: Continue aggressive medical treatment. Since stool guaiac, continue broad-spectrum antibiotic. Continue gentle diuretics. We will follow with you. Pulmonary evaluation to rule out a ny space occupying disease for recurrent pneumonia. We will follow with you. In the interim, continue IV Lasix. Continue broad spectrum antibiotic. We will follow with you. Wi ll adjust antihypertensive medication. Avoid nephrotoxic medication and avoid beta-fortino. Will pu t low dose of beta fortino. Thank you, Dr. Morales, for providing the opportunity in taking care of this patient. Noel Bowling MD cc: [id number] TT: 12/26/2016 12:45:33 Confirmation # [id number] Dictation # [id number] bill
[2016-12-26 13:06] LABS: ARTERIAL BLOOD GAS HCO3 29.1 mmol/L (21-28); ARTERIAL BLOOD GAS O2 CAPACITY 13.7 mL/dl (16-24); ARTERIAL BLOOD GAS O2 CONTENT 13.3 ML/dl (15-23); ARTERIAL BLOOD HGB O2 SAT 93.6 % (95.0-98.0); CARBOXYHEMOGLOBIN 2.6 % (0.5-1.5); HHB 2.7 % (0-5); METHEMOGLOBIN 1.1 % (0.0-3.0)
[2016-12-26 13:07] LABS: ARTERIAL BLOOD GAS PH 7.03 (7.35-7.45)
[2016-12-26 13:26] LABS: HEMATOCRIT 32.6 % (42.0-52.0); MEAN CELL VOLUME 90.3 fL (80.0-105.0); MEAN CORPUSCULAR HEMOGLOBIN 27.4 pg (25.0-35.0); MEAN CORPUSCULAR HGB CONC 30.4 g/dl (31.0-37.0); MEAN PLATELET VOLUME 10.9 fl (7.0-11.0); PLATELET COUNT 232 10^3/uL (120.0-450.0); RED CELL DISTRIBUTION WIDTH 17.5 % (11.5-14.5); WHITE BLOOD COUNT 22.5 10^3/ul (4.5-11.0)
[2016-12-26 13:33] LABS: ADD MANUAL DIFF? YES
[2016-12-26 13:50] LABS: TROPONIN I 0.07 ng/mL
--- NOTE | 2016-12-26 13:50 | CP.PCM.PN ---
<Ivett Price - Last Filed: 12/26/16 14:08> Subjective - Date & Time of Evaluation Date of Evaluation: 12/26/16 Time of Evaluation: 13:49 - Subjective Subjective: PGY-1 Rapid response note Rapid response was called at 12:40 pm on 76 yo male for difficulty breathing, SpO2 was less than 90, RR greater then 24. Patient was admitted for pneumonia, COPD, CHF. Denies chest pain, and calf pain. PMH of HTN, COPD, hep C positive, GERD, PUD, CAD s/p PTCA. Initially patients vitals were Temp 98.1, BP 157/87, HR 80, RR 24, SpO2 91, co2 was 66 repeat BP was 145/96, SpO2 was 98% after xopenex neb treatment Objective - Vital Signs/Intake and Output Vital Signs (last 24 hours): Temp Pulse Resp BP Pulse Ox 98.1 F 115 H 19 167/78 H 97 12/26/16 12:00 12/26/16 12:00 12/26/16 12:00 12/26/16 12:00 12/26/16 06:00 Intake and Output: 12/26/16 12/26/16 06:59 18:59 Output Total 200 Balance -200 - Medications Medications: Current Medications Amlodipine Besylate (Norvasc) 10 mg PO DAILY [facility] Last Admin: 12/26/16 11:31 Dose: 10 mg Aspirin (Ecotrin) 81 mg PO DAILY [facility] Atorvastatin Calcium (Lipitor) 10 mg PO DIN [facility] Budesonide (Pulmicort Respules) 0.5 mg IH [id number] [facility] Furosemide (Lasix) 40 mg IVP BID [facility] Last Admin: 12/26/16 10:02 Dose: 40 mg Hydralazine HCl (Apresoline) 10 mg PO QID PRN PRN Reason: FOR sBP>170 & Diastolic>100 Levalbuterol HCl (Xopenex) 0.63 mg IH Q2 PRN PRN Reason: Shortness of Breath Last Admin: 12/26/16 12:44 Dose: 0.63 mg Levalbuterol HCl (Xopenex) 0.63 mg IH [id number] [facility] Metoprolol Tartrate (Lopressor) 25 mg PO BID [facility] - Labs Labs: 12/26/16 13:15 - Constitutional Appears: In Acute Distress (noted to have difficulty breathing ) - Head Exam Head Exam: ATRAUMATIC, NORMOCEPHALIC - Eye Exam Eye Exam: Normal appearance - ENT Exam ENT Exam: Mucous Membranes Moist - Respiratory Exam Respiratory Exam: Decreased Breath Sounds (at bases, R>L), Wheezes (bilat, occasional ), Respiratory Distress. absent: NORMAL BREATHING PATTERN - Cardiovascular Exam Cardiovascular Exam: REGULAR RHYTHM - GI/Abdominal Exam GI & Abdominal Exam: Soft, Normal Bowel Sounds. absent: Tenderness - Extremities Exam Extremities Exam: absent: Calf Tenderness Additional comments: pitting edema of lower extremities; multiple bandages on lower legs - Neurological Exam Neurological Exam: Awake Additional comments: some what lethargic, answers questions relatively - Psychiatric Exam Psychiatric exam: Anxious - Skin Skin Exam: Dry, Normal Color, Warm Additional comments: multiple bandages of lower legs Assessment and Plan - Assessment and Plan (Free Text) Assessment: SOB Plan: - patient was on O2 initially via nasal and then later placed on 100% on non- breather face mask. - xopenex nebulizer treatment was given stat, spO2 improved to 96% - patient was given solumedrol 40mg and lasix 40mg IV stat - hep lock inserted into left EJ #20 angiocath used and hep lock inserted into right hand #22 line was placed. - CBC, trops, EKG, CXR, ABG were ordered stat - ABG showed pCO of 110, pH of 7.03, decided to intubate patient stat - propofol given IV pre intubation - patient was intubated by anesthesiologist Dr. Maier, # 7.5 ET tube used. - post intubation position was confirmed with auscultation, good breath sound heard equally and well on both sides, post CO2 of 22, and CXR. - PT, INR ordered stat - patient was transferred to ICU by Rapid response team while being bagged and with master certified rv technician in place. - In ICU placed on vent, settings as ordered and sedated lightly with propofol drip - Dr. Liborio Morales was notified, he agreed with transfer to ICU - patient was endorsed to fitness sales associate Dr. Bertin Tavares, Dr. Huntley was notified <Sonia Ulrich - Last Filed: 12/26/16 15:49> Objective - Vital Signs/Intake and Output Vital Signs (last 24 hours): Temp Pulse Resp BP Pulse Ox 98.1 F 115 H 19 146/94 H 97 12/26/16 12:00 12/26/16 12:00 12/26/16 12:00 12/26/16 14:20 12/26/16 06:00 Intake and Output: 12/26/16 12/26/16 06:59 18:59 Output Total 200 Balance -200 - Medications Medications: Current Medications Amlodipine Besylate (Norvasc) 10 mg PO DAILY [facility] Last Admin: 12/26/16 11:31 Dose: 10 mg Aspirin (Ecotrin) 81 mg PO DAILY [facility] Atorvastatin Calcium (Lipitor) 10 mg PO DIN [facility] Budesonide (Pulmicort Respules) 0.5 mg IH [id number] [facility] Furosemide (Lasix) 40 mg IVP BID [facility] Last Admin: 12/26/16 10:02 Dose: 40 mg Hydralazine HCl (Apresoline) 10 mg PO QID PRN PRN Reason: FOR sBP>170 & Diastolic>100 Propofol (Diprivan) 100 mls @ 2.651 mls/hr IV .Q24H PRN; Protocol; 5 MCG/KG/MIN PRN Reason: TITRATE PER MD ORDER Last Titration: 12/26/16 14:55 Dose: 20 mcg/kg/min Heparin Sodium/Sodium Chloride (Heparin 41218 Units/250ml 1/2 Normal Saline) 250 mls @ 15.905 mls/hr IV .[id number] PRN; Protocol; 18 UNITS/KG/HR PRN Reason: ADJUST RATE PER PROTOCOL Levalbuterol HCl (Xopenex) 0.63 mg IH Q2 PRN PRN Reason: Shortness of Breath Last Admin: 12/26/16 12:44 Dose: 0.63 mg Levalbuterol HCl (Xopenex) 0.63 mg IH [id number] [facility] Last Admin: 12/26/16 14:56 Dose: Not Given Metoprolol Tartrate (Lopressor) 25 mg PO BID [facility] - Labs Labs: 12/26/16 13:15 PT 11.6 Seconds (9.9-11.8) 12/26/16 14:20 INR 1.07 (0.93-1.08) 12/26/16 14:20 APTT 23.1 Seconds (23.7-30.8) L 12/26/16 14:20 Attending/Attestation - Attestation I have personally seen and examined this patient.: Yes I have fully participated in the care of the patient.: Yes I have reviewed all pertinent clinical information, including history, physical exam and plan: Yes Notes (Text): 12/26/16 15:45 Total critical care time spent on this patient was 45 mins 12/26/16 15:49
[2016-12-26 14:03] LABS: BAND 3 % (0-2); NEUTROPHIL 81 % (50.0-70.0)
[2016-12-26 14:04] LABS: PLATELET ESTIMATE NORMAL (NORMAL)
--- NOTE | 2016-12-26 14:04 | RAD ---
HISTORY: sob COMPARISON: 12/25/2016 FINDINGS: LUNGS: The endotracheal tube is in satisfactory position. There is a patchy infiltrate at the right lung base. Interstitial infiltrates are seen bilaterally PLEURA: No significant pleural effusion identified, no pneumothorax apparent. CARDIOVASCULAR: Normal. OSSEOUS STRUCTURES: No significant abnormalities. VISUALIZED UPPER ABDOMEN: Normal. OTHER FINDINGS: None. IMPRESSION: Endotracheal tube in satisfactory position
--- NOTE | 2016-12-26 14:41 | CP.PCM.PN ---
Subjective - Date & Time of Evaluation Date of Evaluation: 12/26/16 Time of Evaluation: 12:30 - Subjective Subjective: Briefly, 76y/o male with history COPD. Called by floor nurses for help with intubation. Upon arrival, patient mask ventilated by hospitalist with nursing staff and respiratory therapy administering assistance. SpO2 low 90's, SBP 150's , ordered 30mg propofol and intubated with MAC 4 blade and 7.0 ETT. One attempt , atraumatic, grade 2 view, EtC02 confirmed with disposable capnograph device and bilateral breath sounds ausculatated (no sounds in the epigastrum). ETT secured at 23cms at the lip. Resuscitation continued by hospitalist. Objective - Vital Signs/Intake and Output Vital Signs (last 24 hours): Temp Pulse Resp BP Pulse Ox 98.1 F 115 H 19 146/94 H 97 12/26/16 12:00 12/26/16 12:00 12/26/16 12:00 12/26/16 14:20 12/26/16 06:00 Intake and Output: 12/26/16 12/26/16 06:59 18:59 Output Total 200 Balance -200 - Medications Medications: Current Medications Amlodipine Besylate (Norvasc) 10 mg PO DAILY [facility] Last Admin: 12/26/16 11:31 Dose: 10 mg Aspirin (Ecotrin) 81 mg PO DAILY [facility] Atorvastatin Calcium (Lipitor) 10 mg PO DIN [facility] Budesonide (Pulmicort Respules) 0.5 mg IH [id number] [facility] Furosemide (Lasix) 40 mg IVP BID [facility] Last Admin: 12/26/16 10:02 Dose: 40 mg Hydralazine HCl (Apresoline) 10 mg PO QID PRN PRN Reason: FOR sBP>170 & Diastolic>100 Propofol (Diprivan) 100 mls @ 2.651 mls/hr IV .Q24H PRN; Protocol; 5 MCG/KG/MIN PRN Reason: TITRATE PER MD ORDER Levalbuterol HCl (Xopenex) 0.63 mg IH Q2 PRN PRN Reason: Shortness of Breath Last Admin: 12/26/16 12:44 Dose: 0.63 mg Levalbuterol HCl (Xopenex) 0.63 mg IH [id number] [facility] Metoprolol Tartrate (Lopressor) 25 mg PO BID [facility] - Labs Labs: 04/04/17 13:15
[2016-12-26 14:46] LABS: INR 1.07 (0.93-1.08); PARTIAL THROMBOPLASTIN TIME 23.1 Seconds (23.7-30.8)
[2016-12-26] MEDS ORDERED: Heparin25000 units/250ml 1/2NS 250 ML IV PRN (14:50)
[2016-12-26] MEDS: Levalbuterol 0.63 MG/3 ML Inhal Soln UD IH SCH ×2 (14:56→19:43)
--- NOTE | 2016-12-26 16:50 | CARD ---
APPROVED REPORT EKG Measurement Heart [id number] [id number] <Conclusion> Normal sinus rhythm Normal ECG
--- NOTE | 2016-12-26 17:25 | CP.CCUPN ---
CCU Subjective - Physician Review Events Since Last Encounter (Free Text): 12/26/16 17:13I was called from House Doctor due to the patient having increased respiratory distress and increased work of breathing. The patient was seen to be lethargic and not following much commands, He was emergently intubated and then brought to the ICU. Pt was recently in the ICU due to copd exacerbation and seems was admitted this time due to copd once again . CCU Objective - Vital Signs / Intake & Output Vital Signs (Last 4 hours): Vital Signs Temp Pulse BP Pulse Ox 12/26/16 16:00 97.9 F 54 L 117/48 L 100 12/26/16 15:00 59 L 117/45 L 100 12/26/16 14:44 62 100 12/26/16 14:20 146/94 H Intake and Output (Last 8hrs): Intake & Output 12/26/16 12/26/16 12/26/16 06:59 14:59 22:59 Output Total 200 Balance -200 Weight 190 lb 194 lb 12.8 oz Output: Urine 200 Urine, Voided 200 Other: Voiding Method Urinal - Physical Exam Head: Positive for: Atraumatic, Normocephalic Pupils: Positive for: PERRL Extroacular Muscles: Positive for: EOMI Conjunctiva: Positive for: Normal Mouth: Positive for: Moist Mucous Membranes (ett in place) Pharnyx: Positive for: Normal Neck: Positive for: Normal Range of Motion Respiratory/Chest: Positive for: Decreased Breath Sounds (bilaterally, poor air entry ). Negative for: Respiratory Distress, Accessory Muscle Use, Wheezes, Rales, Rhonchi Cardiovascular: Positive for: Regular Rate and Rhythm, Normal S1, S2. Negative for: Murmurs Abdomen: Positive for: Normal Bowel Sounds. Negative for: Tenderness, Distention, Peritoneal Signs Back: Positive for: Normal Inspection Upper Extremity: Positive for: Normal Inspection. Negative for: Cyanosis, Edema Lower Extremity: Positive for: Normal Inspection, Edema (2-3+ pitting edema bilaterally) Neurological: Positive for: GCS=15, CN II-XII Intact, Speech Normal, Other ( intubated and on sedation ) Skin: Positive for: Warm, Dry, Normal Color. Negative for: Rashes Psychiatric: Positive for: Alert, Oriented x 3, Normal Insight, Normal Concentration - Medications Active Medications: Active Medications Generic Name Dose Route Start Last Admin Trade Name Freq PRN Reason Stop Dose Admin Amlodipine Besylate 10 mg 12/26/16 10:45 12/26/16 11:31 Norvasc PO 10 mg DAILY [facility] Administration Aspirin 81 mg 12/27/16 10:00 Ecotrin PO DAILY [facility] Atorvastatin Calcium 10 mg 12/26/16 17:00 Lipitor PO DIN [facility] Budesonide 0.5 mg 12/26/16 20:00 Pulmicort Respules IH [id number] [facility] Furosemide 40 mg 12/26/16 10:00 12/26/16 10:02 Lasix IVP 40 mg BID [facility] Administration Hydralazine HCl 10 mg 12/26/16 10:41 Apresoline PO QID PRN FOR sBP>170 & Diastolic>100 Propofol 100 mls @ 2.651 mls/hr 12/26/16 13:54 12/26/16 14:55 Diprivan IV 20 mcg/kg/min .Q24H PRN Titration TITRATE PER MD ORDER Protocol 5 MCG/KG/MIN Heparin Sodium/Sodium Chloride 250 mls @ 15.905 mls/hr 12/26/16 14:50 12/26/16 16:11 Heparin 75996 Units/250ml 1/2 Normal Saline IV 15.905 mls/hr .[id number] PRN Administration ADJUST RATE PER PROTOCOL Protocol 18 UNITS/KG/HR Levalbuterol HCl 0.63 mg 12/26/16 09:43 12/26/16 12:44 Xopenex IH 0.63 mg Q2 PRN Administration Shortness of Breath Levalbuterol HCl 0.63 mg 12/26/16 14:00 12/26/16 14:56 Xopenex IH Not Given [id number] [facility] Metoprolol Tartrate 25 mg 12/26/16 18:00 Lopressor PO BID [facility] - Patient Studies Lab Studies: Lab Studies 12/26/16 12/26/16 12/26/16 Range/Units 14:20 13:15 13:00 WBC 22.5 H D (4.5-11.0) 10^3/ul RBC 3.61 (3.5-6.1) 10^6/uL Hgb 9.9 L (14.0-18.0) gm/dL Hct 32.6 L (42.0-52.0) % MCV 90.3 (80.0-105.0) fL MCH 27.4 (25.0-35.0) pg MCHC 30.4 L (31.0-37.0) g/dl RDW 17.5 H (11.5-14.5) % Plt Count 232 (120.0-450.0) 10^3/uL MPV 10.9 (7.0-11.0) fl Neutrophils % (Manual) 81 H (50.0-70.0) % Band Neutrophils % 3 H (0-2) % Lymphocytes % (Manual) 11 L (22.0-35.0) % Monocytes % (Manual) 5 (1.0-6.0) % Platelet Evaluation Normal (NORMAL) PT 11.6 (9.9-11.8) Seconds INR 1.07 (0.93-1.08) APTT 23.1 L (23.7-30.8) Seconds pCO2 110 H* (35-45) mm/Hg pO2 91.0 (80-100) mm/Hg HCO3 29.1 H (21-28) mmol/L ABG pH 7.03 L* (7.35-7.45) ABG Total CO2 32.5 H (22-28) mmol.L ABG O2 Saturation 97.2 (95-98) % ABG O2 Content 13.3 L (15-23) ML/dl ABG Base Excess -3.3 L (-2.0-3.0) mmol/L ABG Hemoglobin 10.0 L (11.7-17.4) g/dL ABG Carboxyhemoglobin 2.6 H (0.5-1.5) % POC ABG HHb (Measured) 2.7 (0-5) % ABG Methemoglobin 1.1 (0.0-3.0) % ABG O2 Capacity 13.7 L (16-24) mL/dl Hgb O2 Saturation 93.6 L (95.0-98.0) % FiO2 100.0 % Lactate Dehydrogenase 787 H (333-699) U/L Total Creatine Kinase 35 (35-230) U/L Troponin I 0.07 ng/mL Laboratory Results - last 24 hr 12/26/16 12/26/16 12/26/16 13:00 13:15 14:20 WBC 22.5 H D RBC 3.61 Hgb 9.9 L Hct 32.6 L MCV 90.3 MCH 27.4 MCHC 30.4 L RDW 17.5 H Plt Count 232 MPV 10.9 Neutrophils % (Manual) 81 H Band Neutrophils % 3 H Lymphocytes % (Manual) 11 L Monocytes % (Manual) 5 Platelet Evaluation Normal PT 11.6 INR 1.07 APTT 23.1 L pCO2 110 H* pO2 91.0 HCO3 29.1 H ABG pH 7.03 L* ABG Total CO2 32.5 H ABG O2 Saturation 97.2 ABG O2 Content 13.3 L ABG Base Excess -3.3 L ABG Hemoglobin 10.0 L ABG Carboxyhemoglobin 2.6 H POC ABG HHb (Measured) 2.7 ABG Methemoglobin 1.1 ABG O2 Capacity 13.7 L Hgb O2 Saturation 93.6 L FiO2 100.0 Lactate Dehydrogenase 787 H Total Creatine Kinase 35 Troponin I 0.07 EKG/Cardiology Studies: Cardiology / EKG Studies 12/26/16 12:52 EKG [ELECTROCARDIOGRAM] Stat Comment: Reason For Exam: sob Review of Systems - Review of Systems Systems not reviewed;Unavailable: Acuity of Condition - EENT Eyes: UNREMARKABLE Ears: UNREMARKABLE Nose/Mouth/Throat: UNREMARKABLE - Cardiovascular Cardiovascular: UNREMARKABLE Critical Care Progress Note - Ventilator Checklist Daily Assessment of Readiness to Wean: Yes Daily Spontaneous Breathing Trial: Yes PUD Prophalyxis: Yes DVT Prophylaxis: Yes - Vent Settings MODE:: ASSIST CONTROL - Nutrition Nutrition: Nutrition Category Date Time Status Heart Healthy Diet [DIET] Diets 12/26/16 Breakfast Ordered Assessment/Plan - Assessment and Plan (Free Text) Assessment: 76 y/o M w/ COPD who was found to have hypercarbic respiratory failure COPD Was intubated acutely to help with the CO2 clearance . Repeat abg to be done . Steroids w/ solumedrol given and albuterol neubulizers q4hrs prn Elevation in WBC overnight noted, possibly due to multifocal infiltrates seen chest xray. Leukocytosis CXR shows multifocal infiltrates HCAP treatment empiric Vanco and zosyn to start CX pending V/Q scan on previous admission indeterminate primary team started on empiric Heparin drip. Follow ptt cc time 65 min
[2016-12-26] MEDS: Piperacillin/Tazobact 3.375 gm 100 ML IVPB SCH (17:56)
[2016-12-26] MEDS ORDERED: Vancomycin 1.5 GM in Sodium Chloride 0.9% 500 ML IVPB ONE (18:23)
[2016-12-26 18:45] LABS: ARTERIAL BLOOD GAS HCO3 24.8 mmol/L (21-28); ARTERIAL BLOOD GAS O2 CONTENT 12.1 ML/dl (15-23); ARTERIAL BLOOD GAS PH 7.38 (7.35-7.45); ARTERIAL BLOOD HGB O2 SAT 97.9 % (95.0-98.0); CARBOXYHEMOGLOBIN 1.9 % (0.5-1.5); HHB -0.5 % (0-5); METHEMOGLOBIN 0.7 % (0.0-3.0)
[2016-12-26] MEDS: Budesonide 0.5 mg/2 ml Inhal Susp UD IH SCH (19:45)
[2016-12-27] MEDS: Piperacillin/Tazobact 3.375 gm 100 ML IVPB SCH (00:14)
[2016-12-27] MEDS: Levalbuterol 0.63 MG/3 ML Inhal Soln UD IH SCH ×3 (01:36→19:31)
[2016-12-27 05:23] LABS: ARTERIAL BLOOD GAS HCO3 23.5 mmol/L (21-28); ARTERIAL BLOOD GAS O2 CAPACITY 10.4 mL/dl (16-24); ARTERIAL BLOOD GAS O2 CONTENT 10.4 ML/dl (15-23); ARTERIAL BLOOD GAS PH 7.46 (7.35-7.45); ARTERIAL BLOOD HGB O2 SAT 97.1 % (95.0-98.0); CARBOXYHEMOGLOBIN 1.9 % (0.5-1.5); HHB 0.2 % (0-5); METHEMOGLOBIN 0.9 % (0.0-3.0)
[2016-12-27 06:27] LABS: ADD MANUAL DIFF? NO
[2016-12-27 06:31] LABS: BASO # 0.01 K/mm3 (0.0-2.0); BASO % 0.1 % (0.0-3.0); GRAN # 5.71 (1.4-6.5); GRAN % 84.8 % (50.0-68.0); HEMATOCRIT 24.9 % (42.0-52.0); LYMPH # 0.7 (1.2-3.4); LYMPH % 9.8 % (22.0-35.0); MEAN CELL VOLUME 86.2 fL (80.0-105.0); MEAN CORPUSCULAR HEMOGLOBIN 27.3 pg (25.0-35.0); MEAN CORPUSCULAR HGB CONC 31.7 g/dl (31.0-37.0); MEAN PLATELET VOLUME 10.9 fl (7.0-11.0); MONO # 0.4 (0.1-0.6); MONO % 5.3 % (1.0-6.0); PLATELET COUNT 112 10^3/uL (120.0-450.0); RED CELL DISTRIBUTION WIDTH 17.4 % (11.5-14.5); WHITE BLOOD COUNT 6.7 10^3/ul (4.5-11.0)
[2016-12-27 06:50] LABS: BILIRUBIN,TOTAL 0.6 mg/dL (0.2-1.3); CALCIUM 8.3 mg/dL (8.4-10.5); PHOSPHOROUS 6.6 mg/dL (2.5-4.5); POTASSIUM 5.2 mmol/L (3.6-5.0); TOTAL PROTEIN 5.5 g/dL (5.8-8.3)
[2016-12-27 06:56] LABS: INR 1.15 (0.93-1.08)
--- NOTE | 2016-12-27 07:21 | CP.CCUPN ---
<Jennifer Whittaker - Last Filed: 12/27/16 13:33> CCU Subjective - Physician Review Events Since Last Encounter (Free Text): 12/27/16 13:33 Patient seen and examined bedside. No acute events overnight. Weaned vent this AM after weaning sedation, was successfully extubated to PA. Patient tolerating , SpO2 in 90s. Patient currently denies CP, abd pain, nausea, chills. Critical Care Time Spent (in minutes): 40 CCU Objective - Vital Signs / Intake & Output Vital Signs (Last 4 hours): Vital Signs Pulse BP Pulse Ox 12/27/16 06:00 57 L 158/62 H 93 L 12/27/16 05:00 52 L 140/74 100 12/27/16 04:00 50 L 129/47 L 100 12/27/16 03:42 67 12/27/16 03:24 48 L 139/57 L 100 Intake and Output (Last 8hrs): Intake & Output 12/26/16 12/27/16 12/27/16 22:59 06:59 14:59 Intake Total 0 384 Output Total 400 Balance 0 -16 Intake: IV 0 384 Left Wrist 384 Output: Urine 400 Urine, Voided 400 - Physical Exam Head: Positive for: Atraumatic, Normocephalic Pupils: Positive for: PERRL Extroacular Muscles: Positive for: EOMI Conjunctiva: Positive for: Normal Mouth: Positive for: Moist Mucous Membranes Pharnyx: Positive for: Normal Neck: Positive for: Normal Range of Motion Respiratory/Chest: Positive for: Rhonchi. Negative for: Respiratory Distress, Accessory Muscle Use, Wheezes, Rales Cardiovascular: Positive for: Regular Rate and Rhythm, Normal S1, S2. Negative for: Murmurs Abdomen: Positive for: Normal Bowel Sounds. Negative for: Tenderness, Distention, Peritoneal Signs Back: Positive for: Normal Inspection Upper Extremity: Positive for: Normal Inspection. Negative for: Cyanosis, Edema Lower Extremity: Positive for: Normal Inspection, Edema (2-3+ pitting edema bilaterally) Neurological: Positive for: GCS=15, CN II-XII Intact, Speech Normal, Other ( intubated and on sedation ) Skin: Positive for: Warm, Dry, Normal Color. Negative for: Rashes Psychiatric: Positive for: Alert, Oriented x 3, Normal Insight, Normal Concentration - Medications Active Medications: Active Medications Generic Name Dose Route Start Last Admin Trade Name Freq PRN Reason Stop Dose Admin Amlodipine Besylate 10 mg 12/26/16 10:45 12/26/16 11:31 Norvasc PO 10 mg DAILY DULCE Administration Aspirin 81 mg 12/27/16 10:00 Ecotrin PO DAILY DULCE Atorvastatin Calcium 10 mg 12/26/16 17:00 12/26/16 17:47 Lipitor PO Not Given DIN DULCE Budesonide 0.5 mg 12/26/16 20:00 12/26/16 19:45 Pulmicort Respules IH 0.5 mg [id number] DULCE Administration Furosemide 40 mg 12/26/16 10:00 12/26/16 17:57 Lasix IVP 40 mg BID DULCE Administration Hydralazine HCl 10 mg 12/26/16 10:41 Apresoline PO QID PRN FOR sBP>170 & Diastolic>100 Propofol 100 mls @ 2.651 mls/hr 12/26/16 13:54 12/27/16 03:48 Diprivan IV 30 mcg/kg/min .Q24H PRN Titration TITRATE PER MD ORDER Protocol 5 MCG/KG/MIN Heparin Sodium/Sodium Chloride 250 mls @ 15.905 mls/hr 12/26/16 14:50 12/27/16 07:04 Heparin 60141 Units/250ml 1/2 Normal Saline IV 13 units/kg/hr .[id number] PRN Titration ADJUST RATE PER PROTOCOL Protocol 18 UNITS/KG/HR Levalbuterol HCl 0.63 mg 12/26/16 09:43 12/26/16 12:44 Xopenex IH 0.63 mg Q2 PRN Administration Shortness of Breath Levalbuterol HCl 0.63 mg 12/26/16 14:00 12/27/16 01:36 Xopenex IH 0.63 mg [id number] DULCE Administration Metoprolol Tartrate 25 mg 12/26/16 18:00 12/26/16 17:47 Lopressor PO Not Given BID DULCE - Patient Studies Lab Studies: Lab Studies 12/27/16 12/27/16 12/26/16 Range/Units 06:15 05:00 22:54 WBC 6.7 D (4.5-11.0) 10^3/ul RBC 2.89 L (3.5-6.1) 10^6/uL Hgb 7.9 L D (14.0-18.0) gm/dL Hct 24.9 L (42.0-52.0) % MCV 86.2 (80.0-105.0) fL MCH 27.3 (25.0-35.0) pg MCHC 31.7 (31.0-37.0) g/dl RDW 17.4 H (11.5-14.5) % Plt Count 112 L (120.0-450.0) 10^3/uL MPV 10.9 (7.0-11.0) fl Gran % 84.8 H (50.0-68.0) % Lymph % (Auto) 9.8 L (22.0-35.0) % Bee % (Auto) 5.3 (1.0-6.0) % Eos % (Auto) 0.0 L (1.5-5.0) % Baso % (Auto) 0.1 (0.0-3.0) % Gran # 5.71 (1.4-6.5) Lymph # 0.7 L (1.2-3.4) Bee # 0.4 (0.1-0.6) Eos # 0.0 (0.0-0.7) Baso # 0.01 (0.0-2.0) K/mm3 Neutrophils % (Manual) (50.0-70.0) % Band Neutrophils % (0-2) % Lymphocytes % (Manual) (22.0-35.0) % Monocytes % (Manual) (1.0-6.0) % Platelet Evaluation (NORMAL) PT 12.4 H (9.9-11.8) Seconds INR 1.15 H (0.93-1.08) APTT 85.0 H* 126.6 H* (23.7-30.8) Seconds pCO2 33 L (35-45) mm/Hg pO2 173.0 H (80-100) mm/Hg HCO3 23.5 (21-28) mmol/L ABG pH 7.46 H (7.35-7.45) ABG Total CO2 24.5 (22-28) mmol.L ABG O2 Saturation 99.8 H (95-98) % ABG O2 Content 10.4 L (15-23) ML/dl ABG Base Excess -0.2 (-2.0-3.0) mmol/L ABG Hemoglobin 7.3 L (11.7-17.4) g/dL ABG Carboxyhemoglobin 1.9 H (0.5-1.5) % POC ABG HHb (Measured) 0.2 (0-5) % ABG Methemoglobin 0.9 (0.0-3.0) % ABG O2 Capacity 10.4 L (16-24) mL/dl Hgb O2 Saturation 97.1 (95.0-98.0) % FiO2 40.0 % Sodium 143 (132-148) mmol/L Potassium 5.2 H (3.6-5.0) mmol/L Chloride 108 H (98-107) mmol/L Carbon Dioxide 24 (21-33) mmol/L Anion Gap 16 (10-20) BUN 81 H (7-21) mg/dL Creatinine 3.0 H (0.5-1.4) mg/dL Est GFR ( Amer) 25 Est GFR (Non-Af Amer) 20 Random Glucose 116 H (70-110) mg/dL Calcium 8.3 L (8.4-10.5) mg/dL Phosphorus 6.6 H (2.5-4.5) mg/dL Magnesium 2.0 (1.7-2.2) mg/dL Total Bilirubin 0.6 (0.2-1.3) mg/dL AST 19 (15-59) U/L ALT 37 (7-56) U/L Alkaline Phosphatase 33 L (38-133) U/L Lactate Dehydrogenase (333-699) U/L Total Creatine Kinase (35-230) U/L Troponin I ng/mL Total Protein 5.5 L (5.8-8.3) g/dL Albumin 2.7 L (3.0-4.8) g/dL Globulin 2.8 gm/dL Albumin/Globulin Ratio 1.0 L (1.1-1.8) 12/26/16 12/26/16 12/26/16 Range/Units 18:30 14:20 13:15 WBC 22.5 H D (4.5-11.0) 10^3/ul RBC 3.61 (3.5-6.1) 10^6/uL Hgb 9.9 L (14.0-18.0) gm/dL Hct 32.6 L (42.0-52.0) % MCV 90.3 (80.0-105.0) fL MCH 27.4 (25.0-35.0) pg MCHC 30.4 L (31.0-37.0) g/dl RDW 17.5 H (11.5-14.5) % Plt Count 232 (120.0-450.0) 10^3/uL MPV 10.9 (7.0-11.0) fl Gran % (50.0-68.0) % Lymph % (Auto) (22.0-35.0) % Bee % (Auto) (1.0-6.0) % Eos % (Auto) (1.5-5.0) % Baso % (Auto) (0.0-3.0) % Gran # (1.4-6.5) Lymph # (1.2-3.4) Bee # (0.1-0.6) Eos # (0.0-0.7) Baso # (0.0-2.0) K/mm3 Neutrophils % (Manual) 81 H (50.0-70.0) % Band Neutrophils % 3 H (0-2) % Lymphocytes % (Manual) 11 L (22.0-35.0) % Monocytes % (Manual) 5 (1.0-6.0) % Platelet Evaluation Normal (NORMAL) PT 11.6 (9.9-11.8) Seconds INR 1.07 (0.93-1.08) APTT 23.1 L (23.7-30.8) Seconds pCO2 42 (35-45) mm/Hg pO2 347.0 H (80-100) mm/Hg HCO3 24.8 (21-28) mmol/L ABG pH 7.38 (7.35-7.45) ABG Total CO2 26.1 (22-28) mmol.L ABG O2 Saturation 100.5 H (95-98) % ABG O2 Content 12.1 L (15-23) ML/dl ABG Base Excess -0.3 (-2.0-3.0) mmol/L ABG Hemoglobin 8.1 L (11.7-17.4) g/dL ABG Carboxyhemoglobin 1.9 H (0.5-1.5) % POC ABG HHb (Measured) -0.5 L (0-5) % ABG Methemoglobin 0.7 (0.0-3.0) % ABG O2 Capacity 12.0 L (16-24) mL/dl Hgb O2 Saturation 97.9 (95.0-98.0) % FiO2 100.0 % Sodium (132-148) mmol/L Potassium (3.6-5.0) mmol/L Chloride (98-107) mmol/L Carbon Dioxide (21-33) mmol/L Anion Gap (10-20) BUN (7-21) mg/dL Creatinine (0.5-1.4) mg/dL Est GFR ( Amer) Est GFR (Non-Af Amer) Random Glucose (70-110) mg/dL Calcium (8.4-10.5) mg/dL Phosphorus (2.5-4.5) mg/dL Magnesium (1.7-2.2) mg/dL Total Bilirubin (0.2-1.3) mg/dL AST (15-59) U/L ALT (7-56) U/L Alkaline Phosphatase (38-133) U/L Lactate Dehydrogenase 787 H (333-699) U/L Total Creatine Kinase 35 (35-230) U/L Troponin I 0.07 ng/mL Total Protein (5.8-8.3) g/dL Albumin (3.0-4.8) g/dL Globulin gm/dL Albumin/Globulin Ratio (1.1-1.8) 12/26/16 Range/Units 13:00 WBC (4.5-11.0) 10^3/ul RBC (3.5-6.1) 10^6/uL Hgb (14.0-18.0) gm/dL Hct (42.0-52.0) % MCV (80.0-105.0) fL MCH (25.0-35.0) pg MCHC (31.0-37.0) g/dl RDW (11.5-14.5) % Plt Count (120.0-450.0) 10^3/uL MPV (7.0-11.0) fl Gran % (50.0-68.0) % Lymph % (Auto) (22.0-35.0) % Bee % (Auto) (1.0-6.0) % Eos % (Auto) (1.5-5.0) % Baso % (Auto) (0.0-3.0) % Gran # (1.4-6.5) Lymph # (1.2-3.4) Bee # (0.1-0.6) Eos # (0.0-0.7) Baso # (0.0-2.0) K/mm3 Neutrophils % (Manual) (50.0-70.0) % Band Neutrophils % (0-2) % Lymphocytes % (Manual) (22.0-35.0) % Monocytes % (Manual) (1.0-6.0) % Platelet Evaluation (NORMAL) PT (9.9-11.8) Seconds INR (0.93-1.08) APTT (23.7-30.8) Seconds pCO2 110 H* (35-45) mm/Hg pO2 91.0 (80-100) mm/Hg HCO3 29.1 H (21-28) mmol/L ABG pH 7.03 L* (7.35-7.45) ABG Total CO2 32.5 H (22-28) mmol.L ABG O2 Saturation 97.2 (95-98) % ABG O2 Content 13.3 L (15-23) ML/dl ABG Base Excess -3.3 L (-2.0-3.0) mmol/L ABG Hemoglobin 10.0 L (11.7-17.4) g/dL ABG Carboxyhemoglobin 2.6 H (0.5-1.5) % POC ABG HHb (Measured) 2.7 (0-5) % ABG Methemoglobin 1.1 (0.0-3.0) % ABG O2 Capacity 13.7 L (16-24) mL/dl Hgb O2 Saturation 93.6 L (95.0-98.0) % FiO2 100.0 % Sodium (132-148) mmol/L Potassium (3.6-5.0) mmol/L Chloride (98-107) mmol/L Carbon Dioxide (21-33) mmol/L Anion Gap (10-20) BUN (7-21) mg/dL Creatinine (0.5-1.4) mg/dL Est GFR ( Amer) Est GFR (Non-Af Amer) Random Glucose (70-110) mg/dL Calcium (8.4-10.5) mg/dL Phosphorus (2.5-4.5) mg/dL Magnesium (1.7-2.2) mg/dL Total Bilirubin (0.2-1.3) mg/dL AST (15-59) U/L ALT (7-56) U/L Alkaline Phosphatase (38-133) U/L Lactate Dehydrogenase (333-699) U/L Total Creatine Kinase (35-230) U/L Troponin I ng/mL Total Protein (5.8-8.3) g/dL Albumin (3.0-4.8) g/dL Globulin gm/dL Albumin/Globulin Ratio (1.1-1.8) Laboratory Results - last 24 hr 12/26/16 12/26/16 12/26/16 13:00 13:15 14:20 WBC 22.5 H D RBC 3.61 Hgb 9.9 L Hct 32.6 L MCV 90.3 MCH 27.4 MCHC 30.4 L RDW 17.5 H Plt Count 232 MPV 10.9 Gran % Lymph % (Auto) Bee % (Auto) Eos % (Auto) Baso % (Auto) Gran # Lymph # Bee # Eos # Baso # Neutrophils % (Manual) 81 H Band Neutrophils % 3 H Lymphocytes % (Manual) 11 L Monocytes % (Manual) 5 Platelet Evaluation Normal PT 11.6 INR 1.07 APTT 23.1 L pCO2 110 H* pO2 91.0 HCO3 29.1 H ABG pH 7.03 L* ABG Total CO2 32.5 H ABG O2 Saturation 97.2 ABG O2 Content 13.3 L ABG Base Excess -3.3 L ABG Hemoglobin 10.0 L ABG Carboxyhemoglobin 2.6 H POC ABG HHb (Measured) 2.7 ABG Methemoglobin 1.1 ABG O2 Capacity 13.7 L Hgb O2 Saturation 93.6 L FiO2 100.0 Sodium Potassium Chloride Carbon Dioxide Anion Gap BUN Creatinine Est GFR ( Amer) Est GFR (Non-Af Amer) Random Glucose Calcium Phosphorus Magnesium Total Bilirubin AST ALT Alkaline Phosphatase Lactate Dehydrogenase 787 H Total Creatine Kinase 35 Troponin I 0.07 Total Protein Albumin Globulin Albumin/Globulin Ratio 12/26/16 12/26/16 12/27/16 18:30 22:54 05:00 WBC RBC Hgb Hct MCV MCH MCHC RDW Plt Count MPV Gran % Lymph % (Auto) Bee % (Auto) Eos % (Auto) Baso % (Auto) Gran # Lymph # Bee # Eos # Baso # Neutrophils % (Manual) Band Neutrophils % Lymphocytes % (Manual) Monocytes % (Manual) Platelet Evaluation PT INR APTT 126.6 H* pCO2 42 33 L pO2 347.0 H 173.0 H HCO3 24.8 23.5 ABG pH 7.38 7.46 H ABG Total CO2 26.1 24.5 ABG O2 Saturation 100.5 H 99.8 H ABG O2 Content 12.1 L 10.4 L ABG Base Excess -0.3 -0.2 ABG Hemoglobin 8.1 L 7.3 L ABG Carboxyhemoglobin 1.9 H 1.9 H POC ABG HHb (Measured) -0.5 L 0.2 ABG Methemoglobin 0.7 0.9 ABG O2 Capacity 12.0 L 10.4 L Hgb O2 Saturation 97.9 97.1 FiO2 100.0 40.0 Sodium Potassium Chloride Carbon Dioxide Anion Gap BUN Creatinine Est GFR ( Amer) Est GFR (Non-Af Amer) Random Glucose Calcium Phosphorus Magnesium Total Bilirubin AST ALT Alkaline Phosphatase Lactate Dehydrogenase Total Creatine Kinase Troponin I Total Protein Albumin Globulin Albumin/Globulin Ratio 12/27/16 06:15 WBC 6.7 D RBC 2.89 L Hgb 7.9 L D Hct 24.9 L MCV 86.2 MCH 27.3 MCHC 31.7 RDW 17.4 H Plt Count 112 L MPV 10.9 Gran % 84.8 H Lymph % (Auto) 9.8 L Bee % (Auto) 5.3 Eos % (Auto) 0.0 L Baso % (Auto) 0.1 Gran # 5.71 Lymph # 0.7 L Bee # 0.4 Eos # 0.0 Baso # 0.01 Neutrophils % (Manual) Band Neutrophils % Lymphocytes % (Manual) Monocytes % (Manual) Platelet Evaluation PT 12.4 H INR 1.15 H APTT 85.0 H* pCO2 pO2 HCO3 ABG pH ABG Total CO2 ABG O2 Saturation ABG O2 Content ABG Base Excess ABG Hemoglobin ABG Carboxyhemoglobin POC ABG HHb (Measured) ABG Methemoglobin ABG O2 Capacity Hgb O2 Saturation FiO2 Sodium 143 Potassium 5.2 H Chloride 108 H Carbon Dioxide 24 Anion Gap 16 BUN 81 H Creatinine 3.0 H Est GFR ( Amer) 25 Est GFR (Non-Af Amer) 20 Random Glucose 116 H Calcium 8.3 L Phosphorus 6.6 H Magnesium 2.0 Total Bilirubin 0.6 AST 19 ALT 37 Alkaline Phosphatase 33 L Lactate Dehydrogenase Total Creatine Kinase Troponin I Total Protein 5.5 L Albumin 2.7 L Globulin 2.8 Albumin/Globulin Ratio 1.0 L EKG/Cardiology Studies: Cardiology / EKG Studies 12/26/16 12:52 EKG [ELECTROCARDIOGRAM] Stat Comment: Reason For Exam: sob Critical Care Progress Note - Ventilator Checklist PUD Prophalyxis: Yes DVT Prophylaxis: Yes - Prophylaxis GI Prophylaxis GI: PPI - Prophylaxis DVT Prophylaxis DVT: Heparin SQ - Nutrition Nutrition: Nutrition Category Date Time Status Heart Healthy Diet [DIET] Diets 12/26/16 Breakfast Ordered Assessment/Plan - Assessment and Plan (Free Text) Assessment: 76yo M w h/o COPD, CHF, CAD, [place] admitted to ICU from floor with acute hypercarbic RF requiring intubation 2/2 AECOPD, currently extubated since this morning Plan: Neuro: AAOx3, NAD Maintain normothermia CV: h/o CHF, CAD, recent NSTEMI s/p PTCA. Continue ASA, lipitor. Cardio following Norvasc, Lopressor, PRN hydralazine. Maintain MAP >65 Pulm: Intubated due to hypercarbic RF 2/2 AECOPD and lethargy concern for ability to protect airway Successfully extubated this morning. Tolerating NC, titrate to maintain spo2> 90, pao2>60 Pulmicort, Xopenex Q6hr and Q2hr PRN, Solumedrol 40mg IV Q12hr V/Q scan read as indeterminate probability for PE. Will hold heparin drip for now given drop in Hb, platelets. Cardio and Nephro recs appreciated Conservative fluid management GI: GI ppx, HHD Renal: RIVERA Cr today 3.0. Will hold Lasix and request nephro evaluation. Recs appreciated Endo: No acute issues. Maintain euglycemia 140-180 ID: Multifocal infiltrates. Leukocytosis improved. Continue vanc and zosyn empirically for HCAP. ID eval requested. Recs appreciated. Heme: Slight drop in Hb, platelets. Will hold heparin drip. No signs of overt bleeding. DVT/GI ppx: Protonix, HHD, SQH - Date & Time Date: 12/27/16 Time: 07:20 <Trinity Denton MD - Last Filed: 12/27/16 16:06> CCU Objective - Vital Signs / Intake & Output Intake and Output (Last 8hrs): Intake & Output 12/27/16 12/27/16 12/27/16 06:59 14:59 22:59 Intake Total 384 Output Total 400 Balance -16 Intake: IV 384 Left Wrist 384 Output: Urine 400 Urine, Voided 400 - Medications Active Medications: Active Medications Generic Name Dose Route Start Last Admin Trade Name Freq PRN Reason Stop Dose Admin Amlodipine Besylate 10 mg 12/26/16 10:45 12/27/16 10:00 Norvasc PO Not Given DAILY DULCE Aspirin 81 mg 12/27/16 10:00 12/27/16 10:00 Ecotrin PO Not Given DAILY DULCE Atorvastatin Calcium 10 mg 12/26/16 17:00 12/26/16 17:47 Lipitor PO Not Given DIN DULCE Budesonide 0.5 mg 12/26/16 20:00 12/27/16 08:00 Pulmicort Respules IH 0.5 mg [id number] DULCE Administration Furosemide 40 mg 12/26/16 10:00 12/26/16 17:57 Lasix IVP 40 mg BID DULCE Administration Hydralazine HCl 10 mg 12/26/16 10:41 Apresoline PO QID PRN FOR sBP>170 & Diastolic>100 Heparin Sodium/Sodium Chloride 250 mls @ 15.905 mls/hr 12/26/16 14:50 12/27/16 10:00 Heparin [id number] Units/250ml 1/2 Normal Saline IV 0 units/kg/hr .[id number] PRN Titration ADJUST RATE PER PROTOCOL Protocol 18 UNITS/KG/HR Doxycycline Hyclate 100 mg/ 100 mls @ 100 mls/hr 12/27/16 22:00 Sodium Chloride IVPB Q12 DULCE Protocol Levalbuterol HCl 0.63 mg 12/26/16 09:43 12/27/16 10:40 Xopenex IH 0.63 mg Q2 PRN Administration Shortness of Breath Levalbuterol HCl 0.63 mg 12/26/16 14:00 12/27/16 08:00 Xopenex IH 0.63 mg [id number] DULCE Administration Methylprednisolone 40 mg 12/27/16 10:00 12/27/16 09:50 Solu-Medrol IVP 40 mg Q12 DULCE Administration Metoprolol Tartrate 25 mg 12/26/16 18:00 12/27/16 10:00 Lopressor PO Not Given BID DULCE Pantoprazole Sodium 40 mg 12/27/16 13:45 12/27/16 14:48 Protonix Inj IVP 40 mg DAILY DULCE Administration - Patient Studies Lab Studies: Lab Studies 12/27/16 12/27/16 12/27/16 Range/Units 10:00 09:37 06:15 WBC 13.1 H D 6.7 D (4.5-11.0) 10^3/ul RBC 3.18 L 2.89 L (3.5-6.1) 10^6/uL Hgb 8.5 L 7.9 L D (14.0-18.0) gm/dL Hct 27.5 L 24.9 L (42.0-52.0) % MCV 86.5 86.2 (80.0-105.0) fL MCH 26.7 27.3 (25.0-35.0) pg MCHC 30.9 L 31.7 (31.0-37.0) g/dl RDW 17.5 H 17.4 H (11.5-14.5) % Plt Count 93 L 112 L (120.0-450.0) 10^3/uL MPV 10.6 10.9 (7.0-11.0) fl Gran % 80.1 H 84.8 H (50.0-68.0) % Lymph % (Auto) 10.0 L 9.8 L (22.0-35.0) % Bee % (Auto) 9.4 H 5.3 (1.0-6.0) % Eos % (Auto) 0.2 L 0.0 L (1.5-5.0) % Baso % (Auto) 0.3 0.1 (0.0-3.0) % Gran # 10.52 H 5.71 (1.4-6.5) Lymph # 1.3 0.7 L (1.2-3.4) Bee # 1.2 H 0.4 (0.1-0.6) Eos # 0.0 0.0 (0.0-0.7) Baso # 0.04 0.01 (0.0-2.0) K/mm3 PT 12.4 H (9.9-11.8) Seconds INR 1.15 H (0.93-1.08) APTT 85.0 H* (23.7-30.8) Seconds pCO2 (35-45) mm/Hg pO2 (80-100) mm/Hg HCO3 (21-28) mmol/L ABG pH (7.35-7.45) ABG Total CO2 (22-28) mmol.L ABG O2 Saturation (95-98) % ABG O2 Content (15-23) ML/dl ABG Base Excess (-2.0-3.0) mmol/L ABG Hemoglobin (11.7-17.4) g/dL ABG Carboxyhemoglobin (0.5-1.5) % POC ABG HHb (Measured) (0-5) % ABG Methemoglobin (0.0-3.0) % ABG O2 Capacity (16-24) mL/dl Hgb O2 Saturation (95.0-98.0) % FiO2 % Sodium 143 (132-148) mmol/L Potassium 5.2 H (3.6-5.0) mmol/L Chloride 108 H (98-107) mmol/L Carbon Dioxide 24 (21-33) mmol/L Anion Gap 16 (10-20) BUN 81 H (7-21) mg/dL Creatinine 3.0 H (0.5-1.4) mg/dL Est GFR ( Amer) 25 Est GFR (Non-Af Amer) 20 Random Glucose 116 H (70-110) mg/dL Calcium 8.3 L (8.4-10.5) mg/dL Phosphorus 6.6 H (2.5-4.5) mg/dL Magnesium 2.0 (1.7-2.2) mg/dL Total Bilirubin 0.6 (0.2-1.3) mg/dL AST 19 (15-59) U/L ALT 37 (7-56) U/L Alkaline Phosphatase 33 L (38-133) U/L Total Protein 5.5 L (5.8-8.3) g/dL Albumin 2.7 L (3.0-4.8) g/dL Globulin 2.8 gm/dL Albumin/Globulin Ratio 1.0 L (1.1-1.8) Ur Random Creatinine 90 mg/dL Ur Random Sodium 50 meq/L Ur Random Potassium 46.0 meq/L 12/27/16 12/26/16 12/26/16 Range/Units 05:00 22:54 18:30 WBC (4.5-11.0) 10^3/ul RBC (3.5-6.1) 10^6/uL Hgb (14.0-18.0) gm/dL Hct (42.0-52.0) % MCV (80.0-105.0) fL MCH (25.0-35.0) pg MCHC (31.0-37.0) g/dl RDW (11.5-14.5) % Plt Count (120.0-450.0) 10^3/uL MPV (7.0-11.0) fl Gran % (50.0-68.0) % Lymph % (Auto) (22.0-35.0) % Bee % (Auto) (1.0-6.0) % Eos % (Auto) (1.5-5.0) % Baso % (Auto) (0.0-3.0) % Gran # (1.4-6.5) Lymph # (1.2-3.4) Bee # (0.1-0.6) Eos # (0.0-0.7) Baso # (0.0-2.0) K/mm3 PT (9.9-11.8) Seconds INR (0.93-1.08) APTT 126.6 H* (23.7-30.8) Seconds pCO2 33 L 42 (35-45) mm/Hg pO2 173.0 H 347.0 H (80-100) mm/Hg HCO3 23.5 24.8 (21-28) mmol/L ABG pH 7.46 H 7.38 (7.35-7.45) ABG Total CO2 24.5 26.1 (22-28) mmol.L ABG O2 Saturation 99.8 H 100.5 H (95-98) % ABG O2 Content 10.4 L 12.1 L (15-23) ML/dl ABG Base Excess -0.2 -0.3 (-2.0-3.0) mmol/L ABG Hemoglobin 7.3 L 8.1 L (11.7-17.4) g/dL ABG Carboxyhemoglobin 1.9 H 1.9 H (0.5-1.5) % POC ABG HHb (Measured) 0.2 -0.5 L (0-5) % ABG Methemoglobin 0.9 0.7 (0.0-3.0) % ABG O2 Capacity 10.4 L 12.0 L (16-24) mL/dl Hgb O2 Saturation 97.1 97.9 (95.0-98.0) % FiO2 40.0 100.0 % Sodium (132-148) mmol/L Potassium (3.6-5.0) mmol/L Chloride (98-107) mmol/L Carbon Dioxide (21-33) mmol/L Anion Gap (10-20) BUN (7-21) mg/dL Creatinine (0.5-1.4) mg/dL Est GFR ( Amer) Est GFR (Non-Af Amer) Random Glucose (70-110) mg/dL Calcium (8.4-10.5) mg/dL Phosphorus (2.5-4.5) mg/dL Magnesium (1.7-2.2) mg/dL Total Bilirubin (0.2-1.3) mg/dL AST (15-59) U/L ALT (7-56) U/L Alkaline Phosphatase (38-133) U/L Total Protein (5.8-8.3) g/dL Albumin (3.0-4.8) g/dL Globulin gm/dL Albumin/Globulin Ratio (1.1-1.8) Ur Random Creatinine mg/dL Ur Random Sodium meq/L Ur Random Potassium meq/L Laboratory Results - last 24 hr 12/26/16 12/26/16 12/27/16 18:30 22:54 05:00 WBC RBC Hgb Hct MCV MCH MCHC RDW Plt Count MPV Gran % Lymph % (Auto) Bee % (Auto) Eos % (Auto) Baso % (Auto) Gran # Lymph # Bee # Eos # Baso # PT INR APTT 126.6 H* pCO2 42 33 L pO2 347.0 H 173.0 H HCO3 24.8 23.5 ABG pH 7.38 7.46 H ABG Total CO2 26.1 24.5 ABG O2 Saturation 100.5 H 99.8 H ABG O2 Content 12.1 L 10.4 L ABG Base Excess -0.3 -0.2 ABG Hemoglobin 8.1 L 7.3 L ABG Carboxyhemoglobin 1.9 H 1.9 H POC ABG HHb (Measured) -0.5 L 0.2 ABG Methemoglobin 0.7 0.9 ABG O2 Capacity 12.0 L 10.4 L Hgb O2 Saturation 97.9 97.1 FiO2 100.0 40.0 Sodium Potassium Chloride Carbon Dioxide Anion Gap BUN Creatinine Est GFR ( Amer) Est GFR (Non-Af Amer) Random Glucose Calcium Phosphorus Magnesium Total Bilirubin AST ALT Alkaline Phosphatase Total Protein Albumin Globulin Albumin/Globulin Ratio Ur Random Creatinine Ur Random Sodium Ur Random Potassium 12/27/16 12/27/16 12/27/16 06:15 09:37 10:00 WBC 6.7 D 13.1 H D RBC 2.89 L 3.18 L Hgb 7.9 L D 8.5 L Hct 24.9 L 27.5 L MCV 86.2 86.5 MCH 27.3 26.7 MCHC 31.7 30.9 L RDW 17.4 H 17.5 H Plt Count 112 L 93 L MPV 10.9 10.6 Gran % 84.8 H 80.1 H Lymph % (Auto) 9.8 L 10.0 L Bee % (Auto) 5.3 9.4 H Eos % (Auto) 0.0 L 0.2 L Baso % (Auto) 0.1 0.3 Gran # 5.71 10.52 H Lymph # 0.7 L 1.3 Bee # 0.4 1.2 H Eos # 0.0 0.0 Baso # 0.01 0.04 PT 12.4 H INR 1.15 H APTT 85.0 H* pCO2 pO2 HCO3 ABG pH ABG Total CO2 ABG O2 Saturation ABG O2 Content ABG Base Excess ABG Hemoglobin ABG Carboxyhemoglobin POC ABG HHb (Measured) ABG Methemoglobin ABG O2 Capacity Hgb O2 Saturation FiO2 Sodium 143 Potassium 5.2 H Chloride 108 H Carbon Dioxide 24 Anion Gap 16 BUN 81 H Creatinine 3.0 H Est GFR ( Amer) 25 Est GFR (Non-Af Amer) 20 Random Glucose 116 H Calcium 8.3 L Phosphorus 6.6 H Magnesium 2.0 Total Bilirubin 0.6 AST 19 ALT 37 Alkaline Phosphatase 33 L Total Protein 5.5 L Albumin 2.7 L Globulin 2.8 Albumin/Globulin Ratio 1.0 L Ur Random Creatinine 90 Ur Random Sodium 50 Ur Random Potassium 46.0 Critical Care Progress Note - Nutrition Nutrition: Nutrition Category Date Time Status Heart Healthy Diet [DIET] Diets 12/26/16 Breakfast Ordered Attending/Attestation - Attestation I have personally seen and examined this patient.: Yes I have fully participated in the care of the patient.: Yes I have reviewed all pertinent clinical information: Yes Notes (Text): 12/27/16 16:02 76 y/o M Hypercapneic Respiratory Failure s/p Intubation and extubation Extubated today after SBt trial . Placed back on inhalers, bronchodilators and steroids to help with his obstructive lung disease . RIVERA- Urine output maintained on Lasix . But on hold due to increased creatnine. Nephrology consulted Yamile nice passed. Out of bed to chair On empiric abx for elevated WBC and New multifocal infiltrates on cxr. Possible HCAP. ON vancomycin and Zosyn . CX pending. I.D following. Presumed VTE with indeterminate V/Q . On heparin ggt. HGB and platelets dropped overnight. heparin stopped. SCD placed. Monitor cbc. cc time 65 min
[2016-12-27] MEDS: Budesonide 0.5 mg/2 ml Inhal Susp UD IH SCH ×2 (08:00→19:31)
--- NOTE | 2016-12-27 08:53 | PN ---
DATE: 12/27/2016(630am--720am) SUBJECTIVE: The patient is currently in the ICU and intubated. He is currently sedated. PHYSICAL EXAMINATION: VITAL SIGNS: Temperature is 98.3, pulse 57, respirations 20/20, blood pressure 158/62. HEENT: Normocephalic, atraumatic. No JVD. CARDIOVASCULAR: Systolic ejection murmur at the lower left sternal border. Positive S3 gallop. LUNGS: Crackles at both bases. Less rhonchi. No wheezing. EXTREMITIES: Positive for edema. No cyanosis, no clubbing. GASTROINTESTINAL: Abdomen is soft, nondistended. Bowel sounds are positive. SKIN: No acute rash. NEUROLOGIC: Limited at the present time. PERTINENT LABORATORY DATA: Chest x-ray was done this morning and reviewed. There are chronic changes noted at the bases. There remains a mild to moderate increase in pulmonary vascular congestive changes. There is no official reading on this chest x-ray. Arterial blood gas was done on assist control 20, tidal volume 500, FiO2 40%. Results are: PH 7.46, pCO2 of 33, pO2 of 173. IMPRESSION: 1. Respiratory failure. 2. Recurrent congestive heart failure. 3. Chronic obstructive pulmonary disease. 4. Recent myocardial infarction. 5. Renal insufficiency. 6. Anemia. PLAN: I did discuss the case with the night nurse at length. I also discussed the case with Dr. Ulrich yesterday afternoon - while I was in the office. Apparently, in the early afternoon hours, the patient began to experience worsening shortness of breath. Arterial blood gas was done-- which revealed a severe respiratory acidosis. The patient was then transferred to the medical ICU and intubated. I did review the x-ray as above. The x-ray remains with mild to moderate pulmonary edema. I have also reviewed the arterial blood gas. The arterial blood gas is significantly improved - with resolution of the respiratory acidosis and a decrease in the alveolar arterial gradient. I will discuss possible weaning trials with the ICU team in the next few moments. I would continue with the treatment for congestive heart failure as per cardiology. Input by Dr. Bowling is noted. I will continue with the current nebulizer treatments and inhaled steroids for now. There is less bronchospasm noted. The patient's clinical status is improved - compared to yesterday afternoon. However, again, the overall prognosis of this elderly gentleman remains very guarded at best. I will discuss the above with the entire ICU team in the next few moments. I will also discuss the above with the attending physician. Sebastian Huntley MD cc: [id number] TT: 12/27/2016 08:52:03 Confirmation # [id number] Dictation # [id number] mn MTDD
[2016-12-27] MEDS: MethylPREDNISolone 40 mg Vial IVP SCH ×2 (09:50→21:33)
[2016-12-27] MEDS ORDERED: Vancomycin 1gm in NS 250ml 250 ML IVPB SCH (10:00)
[2016-12-27 10:09] LABS: ADD MANUAL DIFF? NO
[2016-12-27 10:10] LABS: BASO # 0.04 K/mm3 (0.0-2.0); BASO % 0.3 % (0.0-3.0); EOS % 0.2 % (1.5-5.0); GRAN # 10.52 (1.4-6.5); GRAN % 80.1 % (50.0-68.0); HEMATOCRIT 27.5 % (42.0-52.0); LYMPH # 1.3 (1.2-3.4); MEAN CELL VOLUME 86.5 fL (80.0-105.0); MEAN CORPUSCULAR HEMOGLOBIN 26.7 pg (25.0-35.0); MEAN CORPUSCULAR HGB CONC 30.9 g/dl (31.0-37.0); MEAN PLATELET VOLUME 10.6 fl (7.0-11.0); MONO # 1.2 (0.1-0.6); MONO % 9.4 % (1.0-6.0); PLATELET COUNT 93 10^3/uL (120.0-450.0); RED CELL DISTRIBUTION WIDTH 17.5 % (11.5-14.5); WHITE BLOOD COUNT 13.1 10^3/ul (4.5-11.0)
[2016-12-27] MEDS: Levalbuterol 0.63 MG/3 ML Inhal Soln UD IH PRN (10:40)
[2016-12-27] MEDS ORDERED: Piperacillin/Tazobact 2.25gm 100 ML IVPB SCH (12:00)
--- NOTE | 2016-12-27 12:50 | RAD ---
HISTORY: followup COMPARISON: 12/26/2016 FINDINGS: LUNGS: No active pulmonary disease. PLEURA: No significant pleural effusion identified, no pneumothorax apparent. CARDIOVASCULAR: There is moderate vascular congestion. There is a patchy infiltrate at the right lung base. OSSEOUS STRUCTURES: No significant abnormalities. VISUALIZED UPPER ABDOMEN: Normal. OTHER FINDINGS: Endotracheal tube in satisfactory position IMPRESSION: Moderate vascular congestion. Patchy infiltrate at the right lung base
[2016-12-27] MEDS ORDERED: Meropenem 1g/NS 100mL IVPB 100 ML IVPB SCH (14:45)
--- NOTE | 2016-12-27 16:03 | CON ---
DATE: 12/27/2016 CONSULTATION REQUESTED BY: Dr. Samm Morales REASON FOR CONSULTATION: Acute renal failure, stage IV chronic kidney disease, hyperkalemia, and anemia. HISTORY OF PRESENT ILLNESS: The patient is a 76-year-old gentleman. He presented to [facility]'s Emergency Department on 12/25 with a complaint of increasing shortness of breath for the last week or so since having been recently discharged from here after being treated for community- acquired pneumonia. In particular, he stated he was having dyspnea on exertion. On arrival to the ED, the patient was noted to have a blood pressure of 168/76 with a heart rate of 86, breathing at 16 breaths per minute with an oxygen saturation of 98%. Oral temperature was 98 degrees. Chest x-ray was consistent with congestive heart failure as well as possible right basilar pneumonia. Additionally, the patient was noted to have an elevated D-dimer as well for which he underwent a VQ scan that is intermediate probability for pulmonary embolism. Of note, on presentation to the ED, the patient's BUN/ creatinine were 53/2.2. When he was discharged from [facility] on , his creatinine had been 2.1 and this corresponds to early stage IV chronic kidney disease. Other laboratory studies revealed an N-terminal proBNP that was elevated at 16,900, but troponin I was only 0.08. The patient was noted to have a normocytic anemia with hemoglobin of 8.7. However, upon discharge from [facility] 1 week earlier, it had been approximately 8.3. Initial venous blood gas revealed a pH of 7.32. The patient was admitted to telemetry with a diagnosis of acute decompensated congestive heart failure as well as COPD exacerbation. While on telemetry, he was noted to have a blood pressure as high as 222/105 for which he required intravenous administration of labetalol. His dyspnea persisted, however, and subsequent blood gas revealed acute respiratory acidosis with a pH of 7.03 and pCO2 of 110 for which the patient was intubated and transferred to the intensive care unit. As I see him today, he is currently extubated, although he still appears to be somewhat dyspneic. Since having been admitted, his creatinine has increased from 2.2 up to 3.0 and today he is noted to be hyperkalemic at 5.2. He remains anemic. Lactic acid level was not elevated on presentation and his most recent chest x- ray from this morning while he was still intubated revealed persistent moderate vascular congestion, but a patchy infiltrate at the right lung base. In speaking with the patient, he admits to having had dietary indiscretions at home. He states he was compliant with his medications, but although he was told not to, he continued to take Naprosyn at home even upon discharge from the hospital last time around. He was noted to have been on Lasix 40 mg daily as well. The patient denied any decrease in urine output. He also denied any decreased oral intake and denied any obvious volume loss by history. There is no history of bleeding, either. REVIEW OF SYSTEMS: Taken across all 10 systems in 14 points and was negative unless stated otherwise above. PAST MEDICAL HISTORY: Significant for prior history of tobacco use and opiate dependence, coronary artery disease with 4 prior stents, history of GERD with peptic ulcer disease as well as fungal esophageal ulcerations and stage IV chronic kidney disease with a baseline creatinine in the low 2s. Additionally, he was recently hospitalized at [facility] last month where he was also intubated for acute decompensated congestive heart failure as well as chronic obstructive pulmonary disease exacerbation and that hospitalization was complicated by the development of acute kidney injury as well, thought to be secondary to aggressive use of diuretics MEDICATIONS: The patient had been taking at home and prior to admission include the following: Ambien 10 mg orally nightly, Naprosyn 375 mg orally twice daily, metoprolol tartrate 25 mg orally twice daily, Xyzal 5 mg orally daily, isosorbide mononitrate 30 mg daily, gabapentin 300 mg orally twice daily , furosemide 40 mg orally daily, Symbicort 2 puffs inhaled twice daily, atorvastatin 10 mg orally daily, aspirin 81 mg orally daily and albuterol every 6 hours as needed. ALLERGIES: The patient had no known drug allergies. SOCIAL HISTORY: Notable for the patient having a prior history of tobacco use as well as opiate dependence. He states he no longer smokes. However, there is no illicit drug use and no ongoing tobacco use. FAMILY HISTORY: Negative for any inheritable renal or electrolyte disorders and was otherwise noncontributory. PHYSICAL EXAMINATION: GENERAL APPEARANCE: I saw the patient in the intensive care unit after he had been extubated. He was lying in bed at a 30-degree angle and did appear to have some dyspnea as stated above. VITAL SIGNS: Blood pressure is 158/62 with a minimum blood pressure of 117/15 and a maximum of 222/105 in the last 24-hour period. Heart rate is 57, but has ranged from the 40s to approximately 74 beats per minute in the last 24-hour period. Oral temperature is 98.3 and the patient has been afebrile for the last 24-hour period. Respiratory rate is 19, but has ranged from 15-24 in the last 24-hour period. Oxygen saturation is currently 93%, but has ranged from 93 % to 100% in the last 24-hour period. He is currently on 2 liters via nasal cannula. I's and O's are documented as 384/600, but they appear to be incomplete. HEENT: The patient was somewhat plethoric in appearance. He did have some mild jugular venous distention as well. Conjunctivae were pale, but they were anicteric. LUNGS: Boone were auscultated anteriorly and he did have some rales at both bases, but breath sounds were also somewhat distant. CARDIAC: Showed a regular rate and rhythm without any rubs or gallops. He did have some premature ventricular contractions that were evident on his telemetry monitoring. Air flow through both lung boone as well as diaphragmatic excursion appeared to be bilaterally symmetrical. ABDOMEN: Soft, mildly distended, but nontender. There was no rebounding, guarding or rigidity. He did have some mild hepatomegaly that I could appreciate, but there were no masses pulsatile or otherwise. EXTREMITIES: Had 1+ sacral edema as well as chronic stasis changes over both shins and hyperpigmentation over both shins. NEUROLOGIC: The patient was mildly confused, but otherwise nonfocal. VASCULAR: No bruits. SKIN: Notable for chronic stasis changes as described above over both shins. LABORATORY STUDIES: White count is 13.1, H and H is 8.5/27.5 with a platelet count of 93,000 having decreased from 182,000. There were 80% neutrophils, 10% lymphocytes, and 9% monocytes. Sodium is 143, potassium 5.2, chloride 108, bicarbonate 24, BUN/creatinine is 81/3.0 with glucose of 116. Calcium is 8.3, but after adjusting the albumin at 2.7, corrects to 9.3, phosphorus is elevated at 6.6. CPK was only 35. LDH is 787. Troponin I is negative for 2 sets. N- terminal proBNP 16,900. Total protein/albumin 5.5/2.7. Urinalysis was light yellow, cloudy with a pH of 6, specific gravity of greater than 1.030, protein of greater than 300 with large blood. Urine sodium was 50, but it is noted that he had been on diuretic therapy. Review of labs from his prior hospitalization shows that his rheumatoid factor had been elevated at 457 (the patient has a known history of hepatitis C) with a C4 that was low at less than 8 and a C3 that was normal at 105. Cryoglobulins were not detected. CLAYTON was negative, anti-double stranded DNA was negative, ANCA were negative. Imaging is as stated above. There is no microbiology data. IMPRESSION AND PLAN: The patient is a 76-year-old gentleman with a prior history of tobacco use as well as opiate dependence, coronary artery disease with 4 prior stents, history of gastroesophageal reflux disease with peptic ulcer disease and fungal esophageal ulcerations, stage IV chronic kidney disease with a baseline creatinine in the low 2s. Recent hospitalization here at [facility] for shortness of breath secondary to acute decompensated congestive heart failure as well as chronic obstructive pulmonary disease exacerbation for which he had been intubated and was complicated by the development of acute kidney injury secondary to aggressive diuresis, presents with increasing dyspnea on exertion and once again noted to have acute decompensated congestive heart failure in the setting of uncontrolled hypertension. Since being hospitalized, the patient has developed an acute respiratory acidosis for which he was intubated, but has since been extubated. Of note, the patient's creatinine has increased from 2.2 to 3.0 since having been admitted, meeting criteria for stage I acute kidney injury superimposed on stage IV chronic kidney disease. He is also noted to be hyperkalemic as well. The hyperkalemia is certainly secondary to his acute kidney injury. With respect to the acute kidney injury, however, in reviewing the patient's vital signs since having been admitted, his blood pressure has decreased from as high as 222/105 to as low as the 120s/50s and therefore there may have been a component of relative hypotension with decreased renal perfusion causing his acute kidney injury. Certainly, the patient was on Naprosyn prior to admission , although having been told not to take it and this too has contributed to his acute kidney injury. Of note, in reviewing some of his laboratory studies that returned after he was discharged, he is noted to have a positive rheumatoid factor on labs. The patient does have a known history of hepatitis C and although his cryoglobulins were not detectable, the fact that his C4 is low does raise the possibility of cryoglobulinemic glomerulonephritis as well given the fact that his urine does reveal proteinuria as well as microscopic hematuria. CLAYTON as well as anti-double stranded DNA are noted to be negative as are ANCA. I will check an anti-CCP antibody with his next set of labs, but I doubt that a positive rheumatoid factor represents rheumatoid arthritis. 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 We will also repeat his serum cryoglobulins as well as check hepatitis C PCR. 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 Given the fact that his blood pressure continues to remain uncontrolled at present, the patient is not a candidate for a kidney biopsy. His renal function may worsen if this is in fact cryoglobulinemic glomerulonephritis, and if that is the case, then he would require not only antiviral therapy, but consideration of rituximab and possibly even plasmapheresis as well. But, prior to initiating those aggressive therapies, I would want a kidney biopsy of this patient. I am concerned about the patient's worsening thrombocytopenia since having been admitted as well. Given the fact that he has acute kidney injury with thrombocytopenia, we will also check a haptoglobin with his next set of labs to rule out thrombotic microangiopathy. His LDH was noted to have been elevated. Given the fact that his chest x-ray continues to reveal congestive heart failure, I agree with continuing him on diuretic therapy with furosemide 40 mg intravenously twice daily. For a component of COPD exacerbation, he also remains on Solu-Medrol 40 mg intravenously twice daily as well. Since he is thrombocytopenic and has acute kidney injury and is in the intensive care unit and is on steroids which are ulcerogenic and had been on a heparin infusion based on V/Q scan with intermediate probability for pulmonary embolism, we will continue pantoprazole 40 mg intravenously twice daily as well. For DVT prophylaxis given his thrombocytopenia, I would use SCDs and not heparin or Lovenox. For his thrombocytopenia, we will also check anti-heparin platelet factor 4 antibodies to rule out heparin-induced thrombocytopenia in this patient. Given the fact that the patient was extubated today, I would continue to have BiPAP and continue to monitor him closely in the intensive care unit. With respect to management of his hypertension, at present the patient's blood pressure is reasonable and we can continue him on furosemide 40 mg intravenously twice daily as well as amlodipine 10 orally daily, but because he has acute kidney injury, he does not to receive an EFRAÍN inhibitor or angiotensin receptor fortino. I will be following this complex patient closely for the above complex medical problems. I thank you very much for the courtesy of this consultation. More than 35 minutes were spent in the care of this ICU patient today. Hipolito Hayes MD, DENG cc: [id number] TT: 12/27/2016 16:02:40 Confirmation # [id number] Dictation # [id number] jarvis HAMM
[2016-12-27] MEDS ORDERED: Silver Sulfadiazine 1% Cream (20 gm) TOP SCH (18:30)
--- NOTE | 2016-12-27 19:41 | PN ---
DATE: 12/27/2016 REASON FOR CONSULTATION AND FOLLOWUP: Status post intubated, sedated, cardiac evaluation. BRIEF CLINICAL HISTORY: A 76-year-old male with a past medical history of hypertension, COPD, hepati tis C, gastroesophageal reflux, peptic ulcer disease, coronary artery disease, status post 4 bare men nabil stents, 3 in LAD, 1 in ramus intermedius in probably 2012, who was admitted 4 weeks ago with pneu mikhail, yesterday admitted again with pneumonia, respiratory distress. Later on in the course of hosp italization, the patient's respiratory status deteriorated, lethargic, intubated, moved to the ICU. Currently, the patient is intubated, sedated. As mentioned, history of 4 bare metal stents in 04/2013 . PHYSICAL EXAMINATION: VITAL SIGNS: Temperature afebrile, heart rate 57, blood pressure 140/74. HEENT: PERRLA. Extraocular muscles intact. NECK: Supple. No carotid bruits. No thyromegaly. CHEST: Clear to auscultation. HEART: S1, S2 regular. ABDOMEN: Soft. EXTREMITIES: Clubbing and cyanosis negative. LABORATORY DATA: WBC 13.1, hemoglobin , hematocrit 27.5, platelet count 93. Chemistry shows so dium 140, potassium 5.2, chloride 108, carbon dioxide 24, anion gap of 16, BUN 81, creatinine 3. Tro ponin 0.88, 0.07, no evidence of acute coronary syndrome. ASSESSMENT: Acute kidney injury, chronic renal insufficiency, stage IV chronic kidney disease, statu s post respiratory failure, intubated, sedated, pneumonia, active tobacco abuse, history of coronary artery disease, stage IV chronic kidney disease, history of Candidal esophagitis, history of ga strointestinal bleed, history of non-ST elevated myocardial infarction in the past, catheterization w as arranged, but patient refused and wanted to be treated medically, rule out early pneumonia, respir atory failure. The patient's last echo shows ejection fraction 35%-40%, moderate mitral regurgitatio n, moderate tricuspid regurgitation, systolic pressure of 62, moderate pulmonary hypertension. The p atient's last stress test 09/15/2016 essentially normal myocardial perfusion study, fixed defect, rashad ed 09/15/2016. RECOMMENDATION: Continue aggressive medical treatment. Monitor H and H. Stool guaiac positive. Mo nitor renal function. Try to wean off vent as tolerated. Broad spectrum antibiotic. Once the patie nt is extubated and remains stable H and H, we can consider a cardiac catheterization if the renal fu nction allows, otherwise aggressively treat now. If does not show any sign of further acute coronary syndrome or unstable angina, will suggest to treat medically because of underlying comorbidity and r enal insufficiency would throw the patient into complete renal failure, unless the patient's conditio n changes or develops non-STEMI. We will follow. In the interim, continue beta fortino and nitrate as blood pressures tolerate, diuretics, antibiotic. We will follow with you. Thank you, Dr. Morales, for providing us the opportunity in taking care of this patient. We will fo llow with you. Will start p.r.n. hydralazine. Avoid nephrotoxic medication. We will change hydralaz ine to p.r.n. IV from p.o. Noel Bowling MD cc: [id number] TT: 12/27/2016 19:41:32 Confirmation # [id number] Dictation # [id number] bill
[2016-12-28] MEDS: Levalbuterol 0.63 MG/3 ML Inhal Soln UD IH SCH ×4 (02:42→20:06)
[2016-12-28 06:33] LABS: HEMATOCRIT 27.9 % (42.0-52.0); MEAN CELL VOLUME 86.6 fL (80.0-105.0); MEAN CORPUSCULAR HGB CONC 31.2 g/dl (31.0-37.0); MEAN PLATELET VOLUME 10.5 fl (7.0-11.0); PLATELET COUNT 139 10^3/uL (120.0-450.0); RED CELL DISTRIBUTION WIDTH 17.4 % (11.5-14.5)
[2016-12-28 06:35] LABS: ARTERIAL BLOOD GAS HCO3 22.6 mmol/L (21-28); ARTERIAL BLOOD GAS O2 CAPACITY 11.9 mL/dl (16-24); ARTERIAL BLOOD GAS O2 CONTENT 11.4 ML/dl (15-23); ARTERIAL BLOOD GAS PH 7.36 (7.35-7.45); ARTERIAL BLOOD HGB O2 SAT 92.3 % (95.0-98.0); CARBOXYHEMOGLOBIN 2.6 % (0.5-1.5); HHB 4.2 % (0-5)
[2016-12-28 06:47] LABS: ADD MANUAL DIFF? YES; WHITE BLOOD COUNT 7.5 10^3/ul (4.5-11.0)
[2016-12-28 06:53] LABS: INR 1.05 (0.93-1.08); PARTIAL THROMBOPLASTIN TIME 26.4 Seconds (23.7-30.8)
[2016-12-28 06:54] LABS: IRON 18 ug/dL (45-180)
[2016-12-28 07:06] LABS: ALB/GLOB RATIO 1.1 (1.1-1.8); BILIRUBIN,TOTAL 0.6 mg/dL (0.2-1.3); CALCIUM 8.7 mg/dL (8.4-10.5); MAGNESIUM 2.3 mg/dL (1.7-2.2); PHOSPHOROUS 7.2 mg/dL (2.5-4.5); POTASSIUM 5.4 mmol/L (3.6-5.0)
[2016-12-28 07:09] LABS: ANISOCYTOSIS 1+; BAND 5 % (0-2); NEUTROPHIL 91 % (50.0-70.0); PLATELET ESTIMATE NORMAL (NORMAL); POIKILOCYTOSIS 1+
[2016-12-28] MEDS: Budesonide 0.5 mg/2 ml Inhal Susp UD IH SCH ×2 (07:24→20:06)
--- NOTE | 2016-12-28 08:39 | PN ---
DATE: 12/28/2016 SUBJECTIVE: The patient appears very comfortable this morning. He is not short of breath at rest. PHYSICAL EXAMINATION: VITAL SIGNS: Temperature is 98.5, pulse 66, respirations 18, blood pressure 166 /63. Oxygen saturation on nasal cannula is 96%. HEENT: Normocephalic, atraumatic. No JVD. CARDIOVASCULAR: Systolic ejection murmur at the lower left sternal border. Positive S3 gallop. LUNGS: Minimal crackles at the bases. Minimal/less rhonchi. No wheezing. EXTREMITIES: Positive for edema. No cyanosis, no clubbing. GASTROINTESTINAL: Abdomen is soft, nontender, nondistended. Bowel sounds are positive. SKIN: No acute rash. NEUROLOGIC: Limited at the present time. PERTINENT LABORATORY DATA: Chest x-ray was done this morning and reviewed. The x-ray is not significantly changed from the previous film. Arterial blood gas was done on nasal cannula. Results are: pH 7.36, pCO2 of 40, pO2 of 64. IMPRESSION: 1. Respiratory failure. 2. Recurrent congestive heart failure. 3. Chronic obstructive pulmonary disease. 4. Recent myocardial infarction. 5. Renal insufficiency. 6. Anemia. PLAN: The patient appears very comfortable this morning. He is not short of breath at rest. He states he is feeling much, much better overall. I did review the x-ray as above. I do not appreciate any new or significant changes. Official results are pending. I have also reviewed the arterial blood gas. There is now a normal pH with a mild increase in the alveolar-arterial gradient. Oxygen saturation on nasal cannula is currently 96%. On physical exam, there is certainly less bronchospasm noted. I will continue with the current nebulizer treatments and low-dose intravenous steroids for now. I would continue with the treatment for congestive heart failure and coronary artery disease as per cardiology. Input by Dr. Bowling is noted. The patient remains on Lasix/afterload reduction. Clinical status of the patient is certainly improved -- compared to a few days ago. However, again, the overall status/prognosis of this elderly, chronically ill patient remains very guarded. I will discuss the above with Dr. Morales. Sebastian Huntley MD cc: [id number] TT: 12/28/2016 08:38:49 Confirmation # [id number] Dictation # [id number] en HANSEL
[2016-12-28] MEDS: Meropenem 1g/NS 100mL IVPB 100 ML IVPB SCH ×2 (09:05→21:34)
--- NOTE | 2016-12-28 09:09 | PN ---
DATE: 12/27/2016 The patient is a 76-year-old male who was admitted with shortness of breath, dyspnea on exertion. He is known to have a history of COPD, congestive heart failure, coronary artery disease. He was recen tly hospitalized with shortness of breath. During that hospitalization, he was intubated for a short time in the intensive care unit, was successfully extubated and did well and was discharged to home about a week ago. However, the shortness of breath recurred and the patient is once again readmitted . He is known to have a positive history for hypertension, COPD, hepatitis, gastroesophageal reflux, peptic ulcer disease and coronary artery disease status post PTCA. During the hospital stay, he was followed by Dr. Huntley, the compliance spec, as well as Dr. Bowling, the medical office representative. His initial BNP was elevated at 16,900. His troponins were 0.08. When seen yesterday, the patient was breathing wel l and was much easier, in much better spirits. He was less short of breath. However, later in the a fternoon, he decompensated and once again was intubated and admitted to the intensive care unit. How ever, earlier this morning, he was successfully extubated. PHYSICAL EXAMINATION: GENERAL: When seen in the intensive care unit, he is awake, alert, and oriented. He is feeling well . LUNGS: Still show some rhonchi bilaterally. HEART: Regular. ABDOMEN: Soft and nontender. VITAL SIGNS: This morning show his blood pressure is 158/62, heart rate is 57. LABORATORY STUDIES: White blood cell count of 6.7, hemoglobin and hematocrit are 7.9 and 24.9 respec tively. BUN is 81, creatinine 3.0, sodium is 143, potassium of 5.2. So, the patient had overnight intubation because of exacerbation of what I believe to be congestive h eart failure. We are aggressively treating him with intravenous Lasix twice a day. He is also being treated with meropenem and doxycycline, hydralazine 10 mg every 6 hours, amlodipine, Protonix, Pulmi karlo Respules, 40 mg of IV Solu-Medrol every 12 hours, Xopenex nebulizer treatments. The case to be discussed with cardiology as well as pulmonology. We will continue to follow the patient closely. Baldomero Morales MD cc: [id number] TT: 12/28/2016 09:08:15 Confirmation # [id number] Dictation # [id number] en
[2016-12-28] MEDS: MethylPREDNISolone 40 mg Vial IVP SCH ×2 (09:37→21:35)
[2016-12-28] MEDS: Silver Sulfadiazine 1% Cream (20 gm) TOP SCH ×2 (09:38→18:47)
--- NOTE | 2016-12-28 10:25 | RAD ---
HISTORY: Follow-up. Technique: Single view portable semi erect @ 05:50. COMPARISON: 12/26/2016, 12/27/2016. FINDINGS: LUNGS: Improved aeration right lower lobe. Stable underlying interstitial lung disease. Greater degree of conspicuity/visualization left upper lobe infiltrate. PLEURA: No significant pleural effusion identified, no pneumothorax apparent. CARDIOVASCULAR: Normal. OSSEOUS STRUCTURES: No significant abnormalities. VISUALIZED UPPER ABDOMEN: Normal. OTHER FINDINGS: Removal of support apparatus since the prior study: Patient has been extubated in the interim. IMPRESSION: Interval decrease right lower lobe infiltrate. Otherwise stable pulmonary parenchymal findings.
--- NOTE | 2016-12-28 11:15 | CP.CCUPN ---
<Jennifer Whittaker - Last Filed: 12/28/16 15:35> CCU Subjective - Physician Review Events Since Last Encounter (Free Text): 12/28/16 15:35 Patient seen and examined bedside. No acute events overnight. Tolerating NC and PO diet. Patient denies CP, SOB, abd pain, n/v, fevers, chills. Critical Care Time Spent (in minutes): 30 CCU Objective - Vital Signs / Intake & Output Vital Signs (Last 4 hours): Vital Signs Pulse BP 12/28/16 09:36 80 177/71 H Intake and Output (Last 8hrs): Intake & Output 12/27/16 12/28/16 12/28/16 22:59 06:59 14:59 Intake Total 860 100 Output Total 700 800 Balance 160 -700 Intake: IV 380 100 Right Thumb 380 100 Oral 480 Output: Urine 700 800 Urine, Voided 700 800 Other: Voiding Method Indwelling Catheter - Physical Exam Head: Positive for: Atraumatic, Normocephalic Pupils: Positive for: PERRL Extroacular Muscles: Positive for: EOMI Conjunctiva: Positive for: Normal Mouth: Positive for: Moist Mucous Membranes Pharnyx: Positive for: Normal Neck: Positive for: Normal Range of Motion Respiratory/Chest: Positive for: Decreased Breath Sounds, Rales (mild bibasilar) , Rhonchi (mild). Negative for: Clear to Auscultation, Respiratory Distress, Accessory Muscle Use, Wheezes Cardiovascular: Positive for: Regular Rate and Rhythm, Normal S1, S2. Negative for: Murmurs Abdomen: Positive for: Normal Bowel Sounds. Negative for: Tenderness, Distention, Peritoneal Signs Back: Positive for: Normal Inspection Upper Extremity: Positive for: Normal Inspection. Negative for: Cyanosis, Edema Lower Extremity: Positive for: Normal Inspection, Edema (2+ BL LE pitting edema) Neurological: Positive for: GCS=15, CN II-XII Intact, Speech Normal Skin: Positive for: Warm, Dry, Normal Color. Negative for: Rashes Psychiatric: Positive for: Alert, Oriented x 3, Normal Insight, Normal Concentration - Medications Active Medications: Active Medications Generic Name Dose Route Start Last Admin Trade Name Freq PRN Reason Stop Dose Admin Amlodipine Besylate 10 mg 12/26/16 10:45 12/28/16 09:36 Norvasc PO 10 mg DAILY DULCE Administration Aspirin 81 mg 12/27/16 10:00 12/28/16 09:36 Ecotrin PO 81 mg DAILY DULCE Administration Atorvastatin Calcium 10 mg 12/26/16 17:00 12/27/16 18:10 Lipitor PO 10 mg DIN DULCE Administration Budesonide 0.5 mg 12/26/16 20:00 12/28/16 07:24 Pulmicort Respules IH 0.5 mg [id number] DULCE Administration Furosemide 40 mg 12/26/16 10:00 12/26/16 17:57 Lasix IVP 40 mg BID DULCE Administration Hydralazine HCl 10 mg 12/27/16 17:43 12/28/16 04:52 Apresoline IVP 10 mg Q6 PRN Administration For SBP>170 And Diastolic>100 Heparin Sodium/Sodium Chloride 250 mls @ 15.905 mls/hr 12/26/16 14:50 12/27/16 10:00 Heparin 25994 Units/250ml 1/2 Normal Saline IV 0 units/kg/hr .[id number] PRN Titration ADJUST RATE PER PROTOCOL Protocol 18 UNITS/KG/HR Doxycycline Hyclate 100 mg/ 100 mls @ 100 mls/hr 12/27/16 22:00 12/28/16 09:39 Sodium Chloride IVPB 100 mls/hr Q12 DULCE Administration Protocol Meropenem 1g/NS 100mL IVPB 100 mls @ 100 mls/hr 12/28/16 08:00 12/28/16 09:05 Meropenem 1g/Ns 100ml Ivpb IVPB 01/04/17 08:01 100 mls/hr Q12 DULCE Administration Protocol Levalbuterol HCl 0.63 mg 12/26/16 09:43 12/27/16 10:40 Xopenex IH 0.63 mg Q2 PRN Administration Shortness of Breath Levalbuterol HCl 0.63 mg 12/26/16 14:00 12/28/16 07:25 Xopenex IH 0.63 mg [id number] DULCE Administration Methylprednisolone 40 mg 12/27/16 10:00 12/28/16 09:37 Solu-Medrol IVP 40 mg Q12 DUCLE Administration Metoprolol Tartrate 25 mg 12/26/16 18:00 12/28/16 09:36 Lopressor PO 25 mg BID DULCE Administration Pantoprazole Sodium 40 mg 12/27/16 13:45 12/28/16 09:37 Protonix Inj IVP 40 mg DAILY DULCE Administration Silver Sulfadiazine 0 ea 12/27/16 18:30 12/28/16 09:38 Silvadene 1% 20 Gm TOP 1 applic BID DULCE Administration - Patient Studies Lab Studies: Microbiology Studies 12/26/16 15:04 MRSA Culture (Admit) - Final Nose MRSA NOT DETECTED Lab Studies 12/28/16 12/28/16 12/27/16 Range/Units 06:20 06:00 15:25 WBC 7.5 D (4.5-11.0) 10^3/ul RBC 3.22 L (3.5-6.1) 10^6/uL Hgb 8.7 L (14.0-18.0) gm/dL Hct 27.9 L (42.0-52.0) % MCV 86.6 (80.0-105.0) fL MCH 27.0 (25.0-35.0) pg MCHC 31.2 (31.0-37.0) g/dl RDW 17.4 H (11.5-14.5) % Plt Count 139 (120.0-450.0) 10^3/uL MPV 10.5 (7.0-11.0) fl Neutrophils % (Manual) 91 H (50.0-70.0) % Band Neutrophils % 5 H (0-2) % Lymphocytes % (Manual) 4 L (22.0-35.0) % Monocytes % (Manual) TEST NOT PERFORMED Platelet Evaluation Normal (NORMAL) Poikilocytosis (manual 1+ Anisocytosis (manual) 1+ PT 11.3 (9.9-11.8) Seconds INR 1.05 (0.93-1.08) APTT 26.4 (23.7-30.8) Seconds pCO2 40 (35-45) mm/Hg pO2 64.0 L (80-100) mm/Hg HCO3 22.6 (21-28) mmol/L ABG pH 7.36 (7.35-7.45) ABG Total CO2 23.8 (22-28) mmol.L ABG O2 Saturation 95.6 (95-98) % ABG O2 Content 11.4 L (15-23) ML/dl ABG Base Excess -2.6 L (-2.0-3.0) mmol/L ABG Hemoglobin 8.7 L (11.7-17.4) g/dL ABG Carboxyhemoglobin 2.6 H (0.5-1.5) % POC ABG HHb (Measured) 4.2 (0-5) % ABG Methemoglobin 1.0 (0.0-3.0) % ABG O2 Capacity 11.9 L (16-24) mL/dl Hgb O2 Saturation 92.3 L (95.0-98.0) % FiO2 28.0 % Sodium 146 (132-148) mmol/L Potassium 5.4 H (3.6-5.0) mmol/L Chloride 109 H (98-107) mmol/L Carbon Dioxide 24 (21-33) mmol/L Anion Gap 18 (10-20) BUN 87 H (7-21) mg/dL Creatinine 3.1 H (0.5-1.4) mg/dL Est GFR ( Amer) 24 Est GFR (Non-Af Amer) 20 Random Glucose 139 H (70-110) mg/dL Calcium 8.7 (8.4-10.5) mg/dL Phosphorus 7.2 H (2.5-4.5) mg/dL Magnesium 2.3 H (1.7-2.2) mg/dL Iron 18 L (45-180) ug/dL TIBC 219 L (261-462) ug/dL % Saturation 8 L (20-55) % Total Bilirubin 0.6 (0.2-1.3) mg/dL AST 20 (15-59) U/L ALT 39 (7-56) U/L Alkaline Phosphatase 38 (38-133) U/L Lactate Dehydrogenase 580 (333-699) U/L Total Protein 6.0 (5.8-8.3) g/dL Albumin 3.1 (3.0-4.8) g/dL Globulin 2.9 gm/dL Albumin/Globulin Ratio 1.1 (1.1-1.8) Ur L.pneumophila Ag Negative (NEGATIVE) Laboratory Results - last 24 hr 12/27/16 12/28/16 12/28/16 15:25 06:00 06:20 WBC 7.5 D RBC 3.22 L Hgb 8.7 L Hct 27.9 L MCV 86.6 MCH 27.0 MCHC 31.2 RDW 17.4 H Plt Count 139 MPV 10.5 Neutrophils % (Manual) 91 H Band Neutrophils % 5 H Lymphocytes % (Manual) 4 L Monocytes % (Manual) TEST NOT PERFORMED Platelet Evaluation Normal Poikilocytosis (manual 1+ Anisocytosis (manual) 1+ PT 11.3 INR 1.05 APTT 26.4 pCO2 40 pO2 64.0 L HCO3 22.6 ABG pH 7.36 ABG Total CO2 23.8 ABG O2 Saturation 95.6 ABG O2 Content 11.4 L ABG Base Excess -2.6 L ABG Hemoglobin 8.7 L ABG Carboxyhemoglobin 2.6 H POC ABG HHb (Measured) 4.2 ABG Methemoglobin 1.0 ABG O2 Capacity 11.9 L Hgb O2 Saturation 92.3 L FiO2 28.0 Sodium 146 Potassium 5.4 H Chloride 109 H Carbon Dioxide 24 Anion Gap 18 BUN 87 H Creatinine 3.1 H Est GFR ( Amer) 24 Est GFR (Non-Af Amer) 20 Random Glucose 139 H Calcium 8.7 Phosphorus 7.2 H Magnesium 2.3 H Iron 18 L TIBC 219 L % Saturation 8 L Total Bilirubin 0.6 AST 20 ALT 39 Alkaline Phosphatase 38 Lactate Dehydrogenase 580 Total Protein 6.0 Albumin 3.1 Globulin 2.9 Albumin/Globulin Ratio 1.1 Ur L.pneumophila Ag Negative Review of Systems - Constitutional Constitutional: absent: Fever, Chills - EENT Eyes: absent: Change in Vision - Cardiovascular Cardiovascular: Leg Edema (improving). absent: Chest Pain, Diaphoresis, Dyspnea - Respiratory Respiratory: absent: Cough, Dyspnea (improved), Pain on Inspiration - Gastrointestinal Gastrointestinal: absent: Abdominal Pain, Diarrhea, Nausea, Vomiting - Genitourinary Genitourinary: absent: Flank Pain Critical Care Progress Note - Ventilator Checklist PUD Prophalyxis: Yes DVT Prophylaxis: Yes - Prophylaxis GI Prophylaxis GI: PPI - Prophylaxis DVT Prophylaxis DVT: Heparin SQ - Nutrition Nutrition: Nutrition Category Date Time Status Heart Healthy Diet [DIET] Diets 12/26/16 Breakfast Ordered Assessment/Plan - Assessment and Plan (Free Text) Assessment: 76yo M w h/o COPD, CHF, CAD, SD admitted to ICU from floor with acute hypercarbic RF requiring intubation 2/2 AECOPD, successfully extubated yesterday Plan: Neuro: AAOx3, NAD Maintain normothermia CV: h/o CHF, CAD, recent NSTEMI s/p PTCA. Continue ASA, lipitor. Cardio following Norvasc, Lopressor, PRN hydralazine. Maintain MAP >65 Pulm: Intubated due to hypercarbic RF 2/2 AECOPD and lethargy concern for ability to protect airway s/p extubation Patient tolerating NC, clearing secretions, able to protect airway. Tolerating NC, titrate to maintain spo2>90, pao2>60 Pulmicort, Xopenex Q6hr and Q2hr PRN, Solumedrol 40mg IV Q12hr V/Q scan read as indeterminate probability for PE. Hb and Platelet count within normal limits today. Continue holding heparin drip. Obtain STAT Dopplers of BL LEs to r/o DVTs. Cardio and Nephro recs appreciated Conservative fluid management GI: GI ppx, HHD Renal: RIVERA Cr today 3.1. Nephrology following Cryoglobulinemia workup pending as per nephrology Endo: No acute issues. Maintain euglycemia 140-180 ID: Multifocal infiltrates on CXR. Leukocytosis resolved. Doxy and Meropenem as per ID Heme: Hb stable. Continue holding heparin drip. No signs of overt bleedings. Monitor H&H Iron deficiency anemia DVT/GI ppx: Protonix, HHD, SQH Dispo: Transfer to telemetry - Date & Time Date: 12/28/16 Time: 11:15 <Artur Naranjo - Last Filed: 12/28/16 16:24> CCU Objective - Vital Signs / Intake & Output Vital Signs (Last 4 hours): Vital Signs Pulse Pulse Ox 12/28/16 16:00 68 12/28/16 15:00 67 92 L 12/28/16 14:14 69 12/28/16 14:13 69 12/28/16 14:00 68 95 12/28/16 13:00 70 98 Intake and Output (Last 8hrs): Intake & Output 12/28/16 12/28/16 12/28/16 06:59 14:59 22:59 Intake Total 100 Output Total 800 Balance -700 Intake: IV 100 Right Thumb 100 Output: Urine 800 Urine, Voided 800 Other: Voiding Method Urinal - Medications Active Medications: Active Medications Generic Name Dose Route Start Last Admin Trade Name Freq PRN Reason Stop Dose Admin Amlodipine Besylate 10 mg 12/26/16 10:45 12/28/16 09:36 Norvasc PO 10 mg DAILY DULCE Administration Aspirin 81 mg 12/27/16 10:00 12/28/16 09:36 Ecotrin PO 81 mg DAILY DULCE Administration Atorvastatin Calcium 10 mg 12/26/16 17:00 12/27/16 18:10 Lipitor PO 10 mg DIN DULCE Administration Budesonide 0.5 mg 12/26/16 20:00 12/28/16 07:24 Pulmicort Respules IH 0.5 mg [id number] DULCE Administration Furosemide 40 mg 12/26/16 10:00 12/26/16 17:57 Lasix IVP 40 mg BID DULCE Administration Heparin Sodium (Porcine) 5,000 units 12/28/16 13:45 12/28/16 14:32 Heparin SC 5,000 units Q12 DULCE Administration Protocol Hydralazine HCl 10 mg 12/27/16 17:43 12/28/16 04:52 Apresoline IVP 10 mg Q6 PRN Administration For SBP>170 And Diastolic>100 Doxycycline Hyclate 100 mg/ 100 mls @ 100 mls/hr 12/27/16 22:00 12/28/16 09:39 Sodium Chloride IVPB 100 mls/hr Q12 DULCE Administration Protocol Meropenem 1g/NS 100mL IVPB 100 mls @ 100 mls/hr 12/28/16 08:00 12/28/16 09:05 Meropenem 1g/Ns 100ml Ivpb IVPB 01/04/17 08:01 100 mls/hr Q12 DULCE Administration Protocol Levalbuterol HCl 0.63 mg 12/26/16 09:43 12/27/16 10:40 Xopenex IH 0.63 mg Q2 PRN Administration Shortness of Breath Levalbuterol HCl 0.63 mg 12/26/16 14:00 12/28/16 13:07 Xopenex IH 0.63 mg [id number] DULCE Administration Methylprednisolone 40 mg 12/27/16 10:00 12/28/16 09:37 Solu-Medrol IVP 40 mg Q12 DULCE Administration Metoprolol Tartrate 25 mg 12/26/16 18:00 04/06/17 09:36 Lopressor PO 25 mg BID DULCE Administration Pantoprazole Sodium 40 mg 12/27/16 13:45 12/28/16 09:37 Protonix Inj IVP 40 mg DAILY DULCE Administration Silver Sulfadiazine 0 ea 12/27/16 18:30 12/28/16 09:38 Silvadene 1% 20 Gm TOP 1 applic BID DULCE Administration - Patient Studies Lab Studies: Microbiology Studies 12/26/16 15:04 MRSA Culture (Admit) - Final Nose MRSA NOT DETECTED Lab Studies 12/28/16 12/28/16 12/27/16 Range/Units 06:20 06:00 15:25 WBC 7.5 D (4.5-11.0) 10^3/ul RBC 3.22 L (3.5-6.1) 10^6/uL Hgb 8.7 L (14.0-18.0) gm/dL Hct 27.9 L (42.0-52.0) % MCV 86.6 (80.0-105.0) fL MCH 27.0 (25.0-35.0) pg MCHC 31.2 (31.0-37.0) g/dl RDW 17.4 H (11.5-14.5) % Plt Count 139 (120.0-450.0) 10^3/uL MPV 10.5 (7.0-11.0) fl Neutrophils % (Manual) 91 H (50.0-70.0) % Band Neutrophils % 5 H (0-2) % Lymphocytes % (Manual) 4 L (22.0-35.0) % Monocytes % (Manual) TEST NOT PERFORMED Platelet Evaluation Normal (NORMAL) Poikilocytosis (manual 1+ Anisocytosis (manual) 1+ PT 11.3 (9.9-11.8) Seconds INR 1.05 (0.93-1.08) APTT 26.4 (23.7-30.8) Seconds pCO2 40 (35-45) mm/Hg pO2 64.0 L (80-100) mm/Hg HCO3 22.6 (21-28) mmol/L ABG pH 7.36 (7.35-7.45) ABG Total CO2 23.8 (22-28) mmol.L ABG O2 Saturation 95.6 (95-98) % ABG O2 Content 11.4 L (15-23) ML/dl ABG Base Excess -2.6 L (-2.0-3.0) mmol/L ABG Hemoglobin 8.7 L (11.7-17.4) g/dL ABG Carboxyhemoglobin 2.6 H (0.5-1.5) % POC ABG HHb (Measured) 4.2 (0-5) % ABG Methemoglobin 1.0 (0.0-3.0) % ABG O2 Capacity 11.9 L (16-24) mL/dl Hgb O2 Saturation 92.3 L (95.0-98.0) % FiO2 28.0 % Sodium 146 (132-148) mmol/L Potassium 5.4 H (3.6-5.0) mmol/L Chloride 109 H (98-107) mmol/L Carbon Dioxide 24 (21-33) mmol/L Anion Gap 18 (10-20) BUN 87 H (7-21) mg/dL Creatinine 3.1 H (0.5-1.4) mg/dL Est GFR ( Amer) 24 Est GFR (Non-Af Amer) 20 Random Glucose 139 H (70-110) mg/dL Calcium 8.7 (8.4-10.5) mg/dL Phosphorus 7.2 H (2.5-4.5) mg/dL Magnesium 2.3 H (1.7-2.2) mg/dL Iron 18 L (45-180) ug/dL TIBC 219 L (261-462) ug/dL % Saturation 8 L (20-55) % Ferritin 213.0 ng/mL Total Bilirubin 0.6 (0.2-1.3) mg/dL AST 20 (15-59) U/L ALT 39 (7-56) U/L Alkaline Phosphatase 38 (38-133) U/L Lactate Dehydrogenase 580 (333-699) U/L Total Protein 6.0 (5.8-8.3) g/dL Albumin 3.1 (3.0-4.8) g/dL Globulin 2.9 gm/dL Albumin/Globulin Ratio 1.1 (1.1-1.8) Ur L.pneumophila Ag Negative (NEGATIVE) Laboratory Results - last 24 hr 12/27/16 12/28/16 12/28/16 15:25 06:00 06:20 WBC 7.5 D RBC 3.22 L Hgb 8.7 L Hct 27.9 L MCV 86.6 MCH 27.0 MCHC 31.2 RDW 17.4 H Plt Count 139 MPV 10.5 Neutrophils % (Manual) 91 H Band Neutrophils % 5 H Lymphocytes % (Manual) 4 L Monocytes % (Manual) TEST NOT PERFORMED Platelet Evaluation Normal Poikilocytosis (manual 1+ Anisocytosis (manual) 1+ PT 11.3 INR 1.05 APTT 26.4 pCO2 40 pO2 64.0 L HCO3 22.6 ABG pH 7.36 ABG Total CO2 23.8 ABG O2 Saturation 95.6 ABG O2 Content 11.4 L ABG Base Excess -2.6 L ABG Hemoglobin 8.7 L ABG Carboxyhemoglobin 2.6 H POC ABG HHb (Measured) 4.2 ABG Methemoglobin 1.0 ABG O2 Capacity 11.9 L Hgb O2 Saturation 92.3 L FiO2 28.0 Sodium 146 Potassium 5.4 H Chloride 109 H Carbon Dioxide 24 Anion Gap 18 BUN 87 H Creatinine 3.1 H Est GFR ( Amer) 24 Est GFR (Non-Af Amer) 20 Random Glucose 139 H Calcium 8.7 Phosphorus 7.2 H Magnesium 2.3 H Iron 18 L TIBC 219 L % Saturation 8 L Ferritin 213.0 Total Bilirubin 0.6 AST 20 ALT 39 Alkaline Phosphatase 38 Lactate Dehydrogenase 580 Total Protein 6.0 Albumin 3.1 Globulin 2.9 Albumin/Globulin Ratio 1.1 Ur L.pneumophila Ag Negative Critical Care Progress Note - Nutrition Nutrition: Nutrition Category Date Time Status Heart Healthy Diet [DIET] Diets 12/26/16 Breakfast Ordered Addendum Addendum: 12/28/16 16:21 patient was seen, examined, discussed shoulder to shoulder with Dr. Whittaker at bedside. Her note reflects my exam, assessment and plan, except as below. Meds/ Labs/ONE reviewed. 76 yo male with AECOPD c/w hypercapnic RF, requiring intubation. Extubated yesterday. Did well overnight, awaiting transfer to [facility]. steroids, nebs, abx, BPAP at night. Pulmonary follwo up (Dr. Huntley) ccmtime 40 min
--- NOTE | 2016-12-28 11:57 | PN ---
DATE: 12/28/2016 REASON FOR CONSULTATION AND FOLLOWUP: Cardiac evaluation, status post intubated, now successfully ex tubated. BRIEF CLINICAL HISTORY: This is a 76-year-old male with past medical history significant for hyperte nsion, COPD, hepatitis C, gastroesophageal reflux, peptic ulcer disease; coronary artery disease, sta tus post 4 bare metal stent - 3 in LAD and 1 in ramus intermedius - in 04/2013, who was here a few we eks ago with pneumonia, discharged home, admitted with recurrent pneumonia, intubated, now patient is actually extubated. Denies any chest pain, shortness of breath, any palpitation. PHYSICAL EXAMINATION: VITAL SIGNS: Temperature afebrile, heart rate 80, blood pressure 177/71. HEENT: PERRLA. Extraocular muscles intact. NECK: Supple. No carotid bruits. No thyromegaly. CHEST: Clear to auscultation. HEART: S1, S2 regular. ABDOMEN: Soft. EXTREMITIES: Clubbing, cyanosis negative. BLOOD WORKUP: WBC 7.____, hemoglobin 8.7, hematocrit 27.9, platelet count 139. Chemistry shows sodi um 143, potassium 5.4, chloride 109, carbon dioxide ____, anion gap of 15, BUN 87, creatinine 3.1, cr eatinine clearance 20 mL an hour. Troponin remains negative. IMPRESSION: Recurrent pneumonia, status post intubated; no evidence of acute coronary syndrome, trop onin remains flat; cardiomyopathy, decompensated congestive heart failure, acute on chronic systolic dysfunction; acute kidney injury on chronic renal insufficiency. Last echocardiogram shows ejection fraction 35-40%, moderate mitral regurgitation, moderate tricuspid regurgitation, right ventricular s ystolic pressure of 62. RECOMMENDATION: Monitor H and H. History of gastrointestinal bleed in the past. Monitor renal func tion closely. Broad spectrum antibiotic. We will follow with you. Thank you, Dr. Morales, for providing us the opportunity in taking care of this patient. Will foll ow with you. Avoid nephrotoxic medication. Continue atorvastatin. Continue aspirin. Continue beta fortino. We will follow with you. Noel Bowling MD cc: [id number] TT: 12/28/2016 11:57:04 Confirmation # [id number] Dictation # [id number] mn
[2016-12-28 17:42] LABS: URINE BILIRUBIN NEGATIVE (NEGATIVE); URINE BLOOD MODERATE (NEGATIVE); URINE GLUCOSE (UA) NEGATIVE (NEGATIVE); URINE KETONE NEGATIVE (NEGATIVE); URINE LEUKOCYTE ESTERASE NEGATIVE Leu/uL (NEGATIVE); URINE PROTEIN 100 mg/dL (<30 mg/dL); URINE UROBILINOGEN 0.2 E.U./dL (<1 E.U./dL)
[2016-12-28 17:45] LABS: URINE APPEARANCE SL CLOUDY (CLEAR); URINE COLOR YELLOW (YELLOW)
[2016-12-28 18:04] LABS: URINE RBC 25 - 30 /hpf (0-2)
[2016-12-28 18:05] LABS: URINE BACTERIA TRACE (NEG)
--- NOTE | 2016-12-28 19:06 | PN ---
DATE: 12/28/2016 The patient remains in intensive care unit after being hospitalized only 3 days ago. I last saw him approximately 2 weeks ago when he left [facility] after an admission for COPD, CHF and positive troponins. At that time, there was concern about his worsening renal function and the patient's hes itancy about proceeding with cardiac cath. However, with this hospitalization, our hand may be force d and when he is more stable we may need to proceed in that direction. He initially presented to tel emetry monitor floor, was intubated and came to ICU. Now, he is extubated. I will follow him on the floor with cardiology and pulmonary and as mentioned above, in spite of renal insufficiency, our marroquin d may be forced to proceed with cath this hospital stay, but that will be ultimately the patient's de cision. We will talk with him more in the morning. Samm Morales MD cc: [phone] TT: 12/28/2016 19:06:12 Confirmation # [id number] Dictation # [id number]
--- NOTE | 2016-12-28 20:33 | CP.PCM.CON ---
History of Present Illness - History of Present Illness History of Present Illness: 76 year old male with PMH of COPD, Hepatitis C, GERD, peptic ulcer diseae, CAD S /P PCI with stents placed, S/P appendectomy was initially brought in the [facility] because of respiratory distress associated with cough for the past week with worsening in the past 2 days. He denies fever or chills, no nausea or vomiting, had mild chest pain at rest the past 2 days, no diarrhea , no dysuria or hematuria, no sore throat, no dypshagia. He was intubated on admission but is now extubated. CXR showed possible right lower lobe pneumonia. Infectious Diseases consult is requested to further evaluate and manage. Review of Systems - Review of Systems All systems: reviewed and no additional remarkable complaints except (as per HPI ) Past Patient History - Infectious Disease Hx of Infectious Diseases: None - Tetanus Immunizations Tetanus Immunization: Unknown - Past Medical History & Family History Past Medical History?: Yes Past Family History: Reviewed and not pertinent - Past Social History Smoking Status: Former Smoker Alcohol: None Drugs: Denies Home Situation {Lives}: With Family - CARDIAC Hx Cardiac Disorders: Yes Hx Hypertension: Yes - PULMONARY Hx Chronic Obstructive Pulmonary Disease (COPD): Yes - NEUROLOGICAL Hx Neurological Disorder: No - HEENT Hx HEENT Problems: No - RENAL Hx Chronic Kidney Disease: No - ENDOCRINE/METABOLIC Hx Endocrine Disorders: No - HEMATOLOGICAL/ONCOLOGICAL Hx Blood Disorders: Yes Hx Hepatitis C: Yes - INTEGUMENTARY Hx Dermatological Problems: No - MUSCULOSKELETAL/RHEUMATOLOGICAL Hx Musculoskeletal Disorders: No Hx Falls: Yes - GASTROINTESTINAL Hx Gastrointestinal Disorders: Yes Hx Gastroesophageal Reflux: Yes - GENITOURINARY/GYNECOLOGICAL Hx Genitourinary Disorders: No - PSYCHIATRIC Hx Psychophysiologic Disorder: No Hx Substance Use: No - SURGICAL HISTORY Hx Appendectomy: Yes Hx Cardiac Catheterization: Yes Hx Coronary Stent: Yes - ANESTHESIA Hx Anesthesia: Yes Hx Anesthesia Reactions: No Hx Malignant Hyperthermia: No Meds Allergies/Adverse Reactions: Allergies Allergy/AdvReac Type Severity Reaction Status Date / Time No Known Allergies Allergy Verified 12/11/16 13:56 - Medications Medications: Current Medications Amlodipine Besylate (Norvasc) 10 mg PO DAILY [facility] Last Admin: 12/26/16 11:31 Dose: 10 mg Aspirin (Ecotrin) 81 mg PO DAILY [facility] Atorvastatin Calcium (Lipitor) 10 mg PO DIN [facility] Last Admin: 12/26/16 17:47 Dose: Not Given Budesonide (Pulmicort Respules) 0.5 mg IH [id number] [facility] Last Admin: 12/27/16 08:00 Dose: 0.5 mg Furosemide (Lasix) 40 mg IVP BID [facility] Last Admin: 12/26/16 17:57 Dose: 40 mg Hydralazine HCl (Apresoline) 10 mg PO QID PRN PRN Reason: FOR sBP>170 & Diastolic>100 Heparin Sodium/Sodium Chloride (Heparin 80048 Units/250ml 1/2 Normal Saline) 250 mls @ 15.905 mls/hr IV [id number] PRN; Protocol; 18 UNITS/KG/HR PRN Reason: ADJUST RATE PER PROTOCOL Last Titration: 12/27/16 07:04 Dose: 13 units/kg/hr Doxycycline Hyclate 100 mg/ (Sodium Chloride) 100 mls @ 100 mls/hr IVPB Q12 [facility] PRN Reason: Protocol Meropenem 1g/NS 100mL IVPB (Meropenem 1g/Ns 100ml Ivpb) 100 mls @ 100 mls/hr IVPB Q12 [facility] PRN Reason: Protocol Stop: 12/27/16 15:44 Levalbuterol HCl (Xopenex) 0.63 mg IH Q2 PRN PRN Reason: Shortness of Breath Last Admin: 12/27/16 10:40 Dose: 0.63 mg Levalbuterol HCl (Xopenex) 0.63 mg IH [id number] [facility] Last Admin: 12/27/16 08:00 Dose: 0.63 mg Methylprednisolone (Solu-Medrol) 40 mg IVP Q12 [facility] Last Admin: 12/27/16 09:50 Dose: 40 mg Metoprolol Tartrate (Lopressor) 25 mg PO BID [facility] Last Admin: 12/26/16 17:47 Dose: Not Given Pantoprazole Sodium (Protonix Inj) 40 mg IVP DAILY [facility] Physical Exam - Constitutional Appears: Non-toxic, No Acute Distress - Head Exam Head Exam: NORMAL INSPECTION - Neck Exam Neck exam: Negative for: Lymphadenopathy, Meningismus - Respiratory Exam Respiratory Exam: Decreased Breath Sounds - Cardiovascular Exam Cardiovascular Exam: +S1, +S2 - GI/Abdominal Exam GI & Abdominal Exam: Soft. absent: Tenderness Results - Vital Signs Recent Vital Signs: Last Vital Signs Temp 98.3 F 12/27/16 00:01 Pulse 57 L 12/27/16 06:00 Resp 19 12/26/16 12:00 BP 158/62 H 12/27/16 06:00 Pulse Ox 93 L 12/27/16 06:00 - Labs Result Diagrams: 12/28/16 06:20 12/28/16 06:20 Labs: Laboratory Results - last 24 hr 12/26/16 12/26/16 12/26/16 14:20 18:30 22:54 WBC RBC Hgb Hct MCV MCH MCHC RDW Plt Count MPV Gran % Lymph % (Auto) Sevier % (Auto) Eos % (Auto) Baso % (Auto) Gran # Lymph # Sevier # Eos # Baso # PT 11.6 INR 1.07 APTT 23.1 L 126.6 H* pCO2 42 pO2 347.0 H HCO3 24.8 ABG pH 7.38 ABG Total CO2 26.1 ABG O2 Saturation 100.5 H ABG O2 Content 12.1 L ABG Base Excess -0.3 ABG Hemoglobin 8.1 L ABG Carboxyhemoglobin 1.9 H POC ABG HHb (Measured) -0.5 L ABG Methemoglobin 0.7 ABG O2 Capacity 12.0 L Hgb O2 Saturation 97.9 FiO2 100.0 Sodium Potassium Chloride Carbon Dioxide Anion Gap BUN Creatinine Est GFR ( Amer) Est GFR (Non-Af Amer) Random Glucose Calcium Phosphorus Magnesium Total Bilirubin AST ALT Alkaline Phosphatase Total Protein Albumin Globulin Albumin/Globulin Ratio Ur Random Creatinine Ur Random Sodium Ur Random Potassium 12/27/16 12/27/16 12/27/16 05:00 06:15 09:37 WBC 6.7 D RBC 2.89 L Hgb 7.9 L D Hct 24.9 L MCV 86.2 MCH 27.3 MCHC 31.7 RDW 17.4 H Plt Count 112 L MPV 10.9 Gran % 84.8 H Lymph % (Auto) 9.8 L Sevier % (Auto) 5.3 Eos % (Auto) 0.0 L Baso % (Auto) 0.1 Gran # 5.71 Lymph # 0.7 L Sevier # 0.4 Eos # 0.0 Baso # 0.01 PT 12.4 H INR 1.15 H APTT 85.0 H* pCO2 33 L pO2 173.0 H HCO3 23.5 ABG pH 7.46 H ABG Total CO2 24.5 ABG O2 Saturation 99.8 H ABG O2 Content 10.4 L ABG Base Excess -0.2 ABG Hemoglobin 7.3 L ABG Carboxyhemoglobin 1.9 H POC ABG HHb (Measured) 0.2 ABG Methemoglobin 0.9 ABG O2 Capacity 10.4 L Hgb O2 Saturation 97.1 FiO2 40.0 Sodium 143 Potassium 5.2 H Chloride 108 H Carbon Dioxide 24 Anion Gap 16 BUN 81 H Creatinine 3.0 H Est GFR ( Amer) 25 Est GFR (Non-Af Amer) 20 Random Glucose 116 H Calcium 8.3 L Phosphorus 6.6 H Magnesium 2.0 Total Bilirubin 0.6 AST 19 ALT 37 Alkaline Phosphatase 33 L Total Protein 5.5 L Albumin 2.7 L Globulin 2.8 Albumin/Globulin Ratio 1.0 L Ur Random Creatinine 90 Ur Random Sodium 50 Ur Random Potassium 46.0 12/27/16 10:00 WBC 13.1 H D RBC 3.18 L Hgb 8.5 L Hct 27.5 L MCV 86.5 MCH 26.7 MCHC 30.9 L RDW 17.5 H Plt Count 93 L MPV 10.6 Gran % 80.1 H Lymph % (Auto) 10.0 L Sevier % (Auto) 9.4 H Eos % (Auto) 0.2 L Baso % (Auto) 0.3 Gran # 10.52 H Lymph # 1.3 Sevier # 1.2 H Eos # 0.0 Baso # 0.04 PT INR APTT pCO2 pO2 HCO3 ABG pH ABG Total CO2 ABG O2 Saturation ABG O2 Content ABG Base Excess ABG Hemoglobin ABG Carboxyhemoglobin POC ABG HHb (Measured) ABG Methemoglobin ABG O2 Capacity Hgb O2 Saturation FiO2 Sodium Potassium Chloride Carbon Dioxide Anion Gap BUN Creatinine Est GFR ( Amer) Est GFR (Non-Af Amer) Random Glucose Calcium Phosphorus Magnesium Total Bilirubin AST ALT Alkaline Phosphatase Total Protein Albumin Globulin Albumin/Globulin Ratio Ur Random Creatinine Ur Random Sodium Ur Random Potassium Assessment & Plan - Assessment and Plan (Free Text) Plan: Assessment Severe sepsis with hypoxic respiratory failure (S/P intubation, now extubated) and acute on chronic renal failure probably secondary to right lower lobe healthcare-associated pneumonia with possible gram positive cocci and/or gram negative bacilli on top of probable acute congestive heart failure COPD Hepatitis C GERD peptic ulcer diseae CAD S/P PCI with stents placed S/P appendectomy Plan Started patient on Doxycycline and Meropenem pending sputum cx, blood cx, PCT; reviewed CXR Will monitor clinical response
--- NOTE | 2016-12-28 22:39 | CP.PCM.PN ---
Subjective - Date & Time of Evaluation Date of Evaluation: 12/28/16 Time of Evaluation: 12:30 - Subjective Subjective: Patient reporting breathing improved; says he's known about hep C since ~30 years; was getting f/u at one point but then lost f/u after refusing a liver biopsy; Objective - Vital Signs/Intake and Output Vital Signs (last 24 hours): Temp Pulse Resp BP Pulse Ox 98.4 F 75 19 189/73 H 97 12/28/16 18:00 12/28/16 22:00 12/26/16 12:00 12/28/16 21:59 12/28/16 20:14 Intake and Output: 12/28/16 12/29/16 18:59 06:59 Intake Total 900 Output Total 1250 Balance -350 - Medications Medications: Current Medications Amlodipine Besylate (Norvasc) 10 mg PO DAILY [facility] Last Admin: 12/28/16 09:36 Dose: 10 mg Aspirin (Ecotrin) 81 mg PO DAILY [facility] Last Admin: 12/28/16 09:36 Dose: 81 mg Atorvastatin Calcium (Lipitor) 10 mg PO DIN [facility] Last Admin: 12/28/16 18:47 Dose: 10 mg Budesonide (Pulmicort Respules) 0.5 mg IH [id number] [facility] Last Admin: 12/28/16 20:06 Dose: 0.5 mg Furosemide (Lasix) 40 mg IVP BID [facility] Last Admin: 12/28/16 18:46 Dose: 40 mg Heparin Sodium (Porcine) (Heparin) 5,000 units SC Q12 [facility] PRN Reason: Protocol Last Admin: 12/28/16 21:36 Dose: 5,000 units Hydralazine HCl (Apresoline) 10 mg IVP Q6 PRN PRN Reason: For SBP>170 And Diastolic>100 Last Admin: 12/28/16 04:52 Dose: 10 mg Doxycycline Hyclate 100 mg/ (Sodium Chloride) 100 mls @ 100 mls/hr IVPB Q12 [facility] PRN Reason: Protocol Last Admin: 12/28/16 09:39 Dose: 100 mls/hr Meropenem 1g/NS 100mL IVPB (Meropenem 1g/Ns 100ml Ivpb) 100 mls @ 100 mls/hr IVPB Q12 [facility] PRN Reason: Protocol Stop: 01/04/17 08:01 Last Admin: 12/28/16 21:34 Dose: 100 mls/hr Levalbuterol HCl (Xopenex) 0.63 mg IH Q2 PRN PRN Reason: Shortness of Breath Last Admin: 12/27/16 10:40 Dose: 0.63 mg Levalbuterol HCl (Xopenex) 0.63 mg IH [id number] [facility] Last Admin: 12/28/16 20:06 Dose: 0.63 mg Methylprednisolone (Solu-Medrol) 40 mg IVP Q12 [facility] Last Admin: 12/28/16 21:35 Dose: 40 mg Metoprolol Tartrate (Lopressor) 25 mg PO BID [facility] Last Admin: 12/28/16 18:47 Dose: 25 mg Pantoprazole Sodium (Protonix Inj) 40 mg IVP DAILY [facility] Last Admin: 12/28/16 09:37 Dose: 40 mg Silver Sulfadiazine (Silvadene 1% 20 Gm) 0 ea TOP BID [facility] Last Admin: 12/28/16 18:47 Dose: 1 applic - Labs Labs: 12/28/16 06:20 12/28/16 06:20 PT 11.3 Seconds (9.9-11.8) 12/28/16 06:20 INR 1.05 (0.93-1.08) 12/28/16 06:20 APTT 26.4 Seconds (23.7-30.8) 12/28/16 06:20 - Constitutional Appears: Well, No Acute Distress - Head Exam Head Exam: NORMAL INSPECTION - Eye Exam Eye Exam: Normal appearance. absent: Scleral icterus - ENT Exam ENT Exam: Mucous Membranes Moist - Neck Exam Neck Exam: Normal Inspection - Respiratory Exam Respiratory Exam: NORMAL BREATHING PATTERN Additional comments: Bilateral rhales; - Cardiovascular Exam Cardiovascular Exam: REGULAR RHYTHM, +S1, +S2. absent: Gallop - GI/Abdominal Exam GI & Abdominal Exam: Soft. absent: Distended, Tenderness - Extremities Exam Extremities Exam: Normal Capillary Refill Additional comments: Marked bilateral leg edema extending to thighs; - Neurological Exam Neurological Exam: Alert, Awake - Psychiatric Exam Psychiatric exam: Normal Affect, Normal Mood - Skin Skin Exam: Warm. 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; urine sediment personally examined shows >20 RBC's (none dysmorphic) and 10-15 WBC's per high powered field; no definite cellular casts seen; mainstay of therapy would be to treat hep C, however, if this evolves into a rapidly progressive GN and/or develops alveolar hemorrhage, would need plasma exchange and/or immunosuppressive therapy; will seek renal biopsy once clinically stable; -continue diuresis to maintain adequate oxygenation -f/u HCV viral load -f/u urine random protein/creat Status: Acute (2) CHF (congestive heart failure) Assessment & Plan: With systolic dysfunction; respiratory status improved; continue diuretics; Status: Acute (3) Pneumonia Assessment & Plan: On meropenem and doxycycline; meropenem being dosed at q12h instead of q8h due to renal failure; Status: Acute (4) Anemia Assessment & Plan: Iron deficient; should give IV iron once infectious process is controlled; Status: Acute (5) HTN (hypertension) Assessment & Plan: On norvasc 10 mg daily; may benefit from adding coreg for systolic dysfunction; Status: Acute
[2016-12-29] MEDS: Levalbuterol 0.63 MG/3 ML Inhal Soln UD IH SCH ×5 (01:03→20:50)
[2016-12-29 06:17] LABS: ARTERIAL BLOOD GAS HCO3 26.3 mmol/L (21-28); ARTERIAL BLOOD GAS O2 CAPACITY 11.2 mL/dl (16-24); ARTERIAL BLOOD GAS O2 CONTENT 11.1 ML/dl (15-23); ARTERIAL BLOOD GAS PH 7.32 (7.35-7.45); ARTERIAL BLOOD HGB O2 SAT 96.2 % (95.0-98.0); CARBOXYHEMOGLOBIN 1.9 % (0.5-1.5); METHEMOGLOBIN 0.9 % (0.0-3.0)
[2016-12-29] MEDS: Budesonide 0.5 mg/2 ml Inhal Susp UD IH SCH ×2 (08:10→20:50)
[2016-12-29] MEDS: Pantoprazole 40 mg EC Tab PO SCH (08:26)
[2016-12-29 08:32] LABS: URINE APPEARANCE TURBID (CLEAR); URINE BILIRUBIN NEGATIVE (NEGATIVE); URINE BLOOD MODERATE (NEGATIVE); URINE COLOR YELLOW (YELLOW); URINE GLUCOSE (UA) NEGATIVE (NEGATIVE); URINE KETONE NEGATIVE (NEGATIVE); URINE LEUKOCYTE ESTERASE NEGATIVE Leu/uL (NEGATIVE); URINE PROTEIN 100 mg/dL (<30 mg/dL); URINE UROBILINOGEN 0.2 E.U./dL (<1 E.U./dL)
[2016-12-29 08:37] LABS: URINE BACTERIA TRACE (NEG); URINE RBC 20 - 25 /hpf (0-2)
--- NOTE | 2016-12-29 09:22 | PN ---
DATE: 12/29/2016 The patient appears comfortable this morning. He is not short of breath at rest. PHYSICAL EXAMINATION: VITAL SIGNS: Temperature is 97.8, pulse 64, respirations 18/20, blood pressure 166/71. Oxygen saturation on nasal cannula is 96%. HEENT: Normocephalic, atraumatic. No JVD. CARDIOVASCULAR: Systolic ejection murmur at the lower left sternal border. Positive S3 gallop. LUNGS: Minimal crackles at the bases. Very minimal/less rhonchi. No wheezing. EXTREMITIES: Positive for edema. No cyanosis, no clubbing. Calves are nontender to palpation. GASTROINTESTINAL: Abdomen is soft, nontender, nondistended. Bowel sounds are positive. SKIN: No acute rash. NEUROLOGIC: Limited at the present time. IMPRESSION: 1. Respiratory failure. 2. Recurrent congestive heart failure. 3. Chronic obstructive pulmonary disease. 4. Recent myocardial infarction. 5. Renal insufficiency. 6. Anemia. PLAN: The patient appears very comfortable this morning. He is not short of breath at rest. He states he is feeling much better overall. On physical exam , his bronchospasm continues to resolve. In addition, the alveolar-arterial gradient also continues to resolve. I will continue with the current nebulizer treatments and decrease the intravenous steroids this morning. The patient remains on antibiotic therapy -- as per infectious disease. There are no temperatures noted. The leukocytosis has now resolved. Cardiology evaluation is also ongoing. Input by Dr. Bowling is noted. Clinical status of the patient is significantly improved -- compared to a few days ago. However, again, the overall status/prognosis of this patient remains very guarded. I will discuss the above with the attending physician. Sebastian Huntley MD cc: [id number] TT: 12/29/2016 09:21:55 Confirmation # [id number] Dictation # [id number] MTDD
[2016-12-29 10:05] LABS: ADD MANUAL DIFF? NO
[2016-12-29] MEDS: Meropenem 1g/NS 100mL IVPB 100 ML IVPB SCH ×2 (10:08→22:21)
[2016-12-29] MEDS: MethylPREDNISolone 40 mg Vial IVP SCH ×2 (10:09→22:23)
[2016-12-29] MEDS: Silver Sulfadiazine 1% Cream (20 gm) TOP SCH ×2 (10:09→18:00)
[2016-12-29 10:10] LABS: BASO # 0.01 K/mm3 (0.0-2.0); BASO % 0.1 % (0.0-3.0); GRAN # 6.85 (1.4-6.5); GRAN % 89.2 % (50.0-68.0); HEMATOCRIT 27.6 % (42.0-52.0); LYMPH # 0.6 (1.2-3.4); LYMPH % 8.2 % (22.0-35.0); MEAN CELL VOLUME 87.6 fL (80.0-105.0); MEAN CORPUSCULAR HEMOGLOBIN 27.3 pg (25.0-35.0); MEAN CORPUSCULAR HGB CONC 31.2 g/dl (31.0-37.0); MEAN PLATELET VOLUME 10.6 fl (7.0-11.0); MONO # 0.2 (0.1-0.6); MONO % 2.5 % (1.0-6.0); PLATELET COUNT 148 10^3/uL (120.0-450.0); RED CELL DISTRIBUTION WIDTH 17.6 % (11.5-14.5); WHITE BLOOD COUNT 7.7 10^3/ul (4.5-11.0)
[2016-12-29 10:21] LABS: INR 1.06 (0.93-1.08); PARTIAL THROMBOPLASTIN TIME 26.3 Seconds (23.7-30.8)
[2016-12-29 10:22] LABS: ALB/GLOB RATIO 1.1 (1.1-1.8); BILIRUBIN,TOTAL 0.5 mg/dL (0.2-1.3); CALCIUM 8.9 mg/dL (8.4-10.5); MAGNESIUM 2.3 mg/dL (1.7-2.2); PHOSPHOROUS 5.6 mg/dL (2.5-4.5); POTASSIUM 5.3 mmol/L (3.6-5.0)
--- NOTE | 2016-12-29 11:26 | RAD ---
HISTORY: follow up COMPARISON: 12/28/2016 FINDINGS: LUNGS: Slight improvement in interstitial infiltrate especially on the left PLEURA: No significant pleural effusion identified, no pneumothorax apparent. CARDIOVASCULAR: Normal. OSSEOUS STRUCTURES: No significant abnormalities. VISUALIZED UPPER ABDOMEN: Normal. OTHER FINDINGS: None. IMPRESSION: Improved interstitial infiltrate
--- NOTE | 2016-12-29 11:57 | US ---
HISTORY: Leg pain and swelling. Evaluate for DVT PHYSICIAN(S): Alcon Michelle MD. TECHNIQUE: Duplex sonography and color-flow Doppler with graded compression were used to evaluate the deep venous systems of both lower extremities. FINDINGS: The visualized deep venous systems of both lower extremities are sonographically normal and compressible. Normal wave forms and augmentation are seen. There is no sonographic evidence for deep venous thrombosis in the visualized segments of both lower extremities. IMPRESSION: No sonographic evidence for deep venous thrombosis in the visualized segments of both lower extremities.
[2016-12-29 12:53] LABS: CCP IGG <16 Units (<20)
--- NOTE | 2016-12-29 19:56 | PN ---
DATE: 12/29/2016 REASON FOR CONSULTATION AND FOLLOWUP: Cardiac evaluation, status post intubated and successfully ext ubated. BRIEF CLINICAL HISTORY: A 76-year-old male with past medical history significant for hypertension, C OPD, hepatitis C, gastroesophageal reflux, peptic ulcer, coronary artery disease, status post 4 bare metal stents, 3 in LAD and 1 in ramus intermedius in 04/2013 who was, a few weeks ago, admitted with p neumonia, respiratory failure, successfully extubated and discharged home. The patient was offered c ardiac catheterization. The patient wanted to do as outpatient. Readmitted here with pneumonia and worsening renal insufficiency. PHYSICAL EXAMINATION: VITAL SIGNS: Temperature afebrile, heart rate 84, blood pressure 192/75. HEENT: PERRLA. Extraocular muscles intact. NECK: Supple. No carotid bruits. No thyromegaly. CHEST: Clear to auscultation. HEART: S1, S2 regular. ABDOMEN: Soft. EXTREMITIES: Clubbing and cyanosis negative. LABORATORY DATA: Blood workup as follows: WBC , hemoglobin 8.6, hematocrit 27.6, platelet coun t 148. Chemistry shows sodium 147, potassium 5.3, chloride 108, carbon dioxide 28, anion gap of 15, BUN 89, creatinine 2.6. IMPRESSION: No evidence for acute coronary syndrome, diabetes, hypertension, hyperlipidemia, chroni c renal insufficiency, stage III-IV chronic kidney disease, intubated, pneumonia, respiratory failure , successfully extubated, cardiomyopathy, decompensated congestive heart failure, acute on chronic sy stolic dysfunction, last echo ejection fraction 35%-40%, congestive heart failure, acute on chronic s econdary to systolic dysfunction, moderate mitral regurgitation, moderate tricuspid regurg, RV systol ic pressure of 62. RECOMMENDATION: Monitor H and H. History of gastrointestinal bleed in the past. Monitor renal func tion closely. Avoid nephrotoxic medication, atorvastatin, aspirin, continue beta fortino. We will i ncrease antihypertensive medication. We will put hydralazine 50 mg b.i.d. in addition to amlodipine. We will follow with you. Thank you, Dr. Morales, for providing the opportunity in taking care of the patient. Consider cardi ac cath when renal function improves. Will follow with you. Repeat the lab in the morning. Noel Bowling MD cc: [id number] TT: 12/29/2016 19:55:01 Confirmation # [id number] Dictation # [id number] rn
--- NOTE | 2016-12-29 23:22 | CP.PCM.PN ---
Subjective - Date & Time of Evaluation Date of Evaluation: 12/29/16 Time of Evaluation: 08:40 - Subjective Subjective: Comfortable in bed, not in distress, no fevers overnight, no nausea, breathing better. Objective - Vital Signs/Intake and Output Vital Signs (last 24 hours): Temp Pulse Resp BP Pulse Ox 97.1 F L 68 18 180/72 H 96 12/29/16 18:00 12/29/16 22:24 12/29/16 18:00 12/29/16 22:24 12/29/16 06:00 - Medications Medications: Current Medications Amlodipine Besylate (Norvasc) 10 mg PO DAILY [facility] Last Admin: 12/29/16 10:09 Dose: 10 mg Aspirin (Ecotrin) 81 mg PO DAILY [facility] Last Admin: 12/29/16 10:07 Dose: 81 mg Atorvastatin Calcium (Lipitor) 10 mg PO DIN [facility] Last Admin: 12/29/16 18:00 Dose: 10 mg Budesonide (Pulmicort Respules) 0.5 mg IH [id number] [facility] Last Admin: 12/29/16 20:50 Dose: 0.5 mg Furosemide (Lasix) 40 mg IVP BID [facility] Last Admin: 12/29/16 17:59 Dose: 40 mg Heparin Sodium (Porcine) (Heparin) 5,000 units SC Q12 [facility] PRN Reason: Protocol Last Admin: 12/29/16 22:21 Dose: 5,000 units Hydralazine HCl (Apresoline) 10 mg IVP Q6 PRN PRN Reason: For SBP>170 And Diastolic>100 Last Admin: 12/29/16 22:24 Dose: 10 mg Hydralazine HCl (Apresoline) 50 mg PO BID [facility] Last Admin: 12/29/16 18:00 Dose: 50 mg Doxycycline Hyclate 100 mg/ (Sodium Chloride) 100 mls @ 100 mls/hr IVPB Q12 [facility] PRN Reason: Protocol Last Admin: 12/29/16 22:20 Dose: 100 mls/hr Meropenem 1g/NS 100mL IVPB (Meropenem 1g/Ns 100ml Ivpb) 100 mls @ 100 mls/hr IVPB Q12 [facility] PRN Reason: Protocol Stop: 01/04/17 08:01 Last Admin: 12/29/16 22:21 Dose: 100 mls/hr Levalbuterol HCl (Xopenex) 0.63 mg IH Q2 PRN PRN Reason: Shortness of Breath Last Admin: 12/27/16 10:40 Dose: 0.63 mg Levalbuterol HCl (Xopenex) 0.63 mg IH [id number] [facility] Last Admin: 12/29/16 20:50 Dose: 0.63 mg Methylprednisolone (Solu-Medrol) 30 mg IVP Q12 [facility] Last Admin: 12/29/16 22:23 Dose: 30 mg Metoprolol Tartrate (Lopressor) 25 mg PO BID [facility] Last Admin: 12/29/16 18:00 Dose: 25 mg Pantoprazole Sodium (Protonix Ec Tab) 40 mg PO ACB [facility] Last Admin: 12/29/16 08:26 Dose: 40 mg Silver Sulfadiazine (Silvadene 1% 20 Gm) 0 ea TOP BID [facility] Last Admin: 12/29/16 18:00 Dose: 1 applic - Labs Labs: 12/29/16 09:30 12/29/16 09:30 PT 11.4 Seconds (9.9-11.8) 12/29/16 09:30 INR 1.06 (0.93-1.08) 12/29/16 09:30 APTT 26.3 Seconds (23.7-30.8) 12/29/16 09:30 - Constitutional Appears: Non-toxic, No Acute Distress - Head Exam Head Exam: NORMAL INSPECTION - ENT Exam ENT Exam: Mucous Membranes Moist - Neck Exam Neck Exam: absent: Lymphadenopathy, Meningismus - Respiratory Exam Respiratory Exam: Decreased Breath Sounds - Cardiovascular Exam Cardiovascular Exam: +S1, +S2 - GI/Abdominal Exam GI & Abdominal Exam: Soft. absent: Tenderness Assessment and Plan - Assessment and Plan (Free Text) Plan: Assessment Severe sepsis with hypoxic respiratory failure (S/P intubation, now extubated) and acute on chronic renal failure probably secondary to right lower lobe healthcare-associated pneumonia with possible gram positive cocci and/or gram negative bacilli on top of probable acute congestive heart failure, slowly improving COPD Hepatitis C GERD peptic ulcer diseae CAD S/P PCI with stents placed S/P appendectomy Plan continue Doxycycline and Meropenem day 2pending sputum cx, blood cx; PCT is elevated; reviewed CXR Will continue to monitor clinical response
--- NOTE | 2016-12-30 01:35 | CP.PCM.PN ---
Subjective - Date & Time of Evaluation Date of Evaluation: 12/30/16 Time of Evaluation: 01:35 - Subjective Subjective: # 24 angiocath was inserted in right pectoral area. Dx:poor venous access. Objective - Vital Signs/Intake and Output Vital Signs (last 24 hours): Temp Pulse Resp BP Pulse Ox 97.1 F L 68 18 180/72 H 96 12/29/16 18:00 12/29/16 22:24 12/29/16 18:00 12/29/16 22:24 12/29/16 06:00 - Medications Medications: Current Medications Amlodipine Besylate (Norvasc) 10 mg PO DAILY [facility] Last Admin: 12/29/16 10:09 Dose: 10 mg Aspirin (Ecotrin) 81 mg PO DAILY [facility] Last Admin: 12/29/16 10:07 Dose: 81 mg Atorvastatin Calcium (Lipitor) 10 mg PO DIN [facility] Last Admin: 12/29/16 18:00 Dose: 10 mg Budesonide (Pulmicort Respules) 0.5 mg IH [id number] [facility] Last Admin: 12/29/16 20:50 Dose: 0.5 mg Furosemide (Lasix) 40 mg IVP BID [facility] Last Admin: 12/29/16 17:59 Dose: 40 mg Heparin Sodium (Porcine) (Heparin) 5,000 units SC Q12 [facility] PRN Reason: Protocol Last Admin: 12/29/16 22:21 Dose: 5,000 units Hydralazine HCl (Apresoline) 10 mg IVP Q6 PRN PRN Reason: For SBP>170 And Diastolic>100 Last Admin: 12/29/16 22:24 Dose: 10 mg Hydralazine HCl (Apresoline) 50 mg PO BID [facility] Last Admin: 12/29/16 18:00 Dose: 50 mg Doxycycline Hyclate 100 mg/ (Sodium Chloride) 100 mls @ 100 mls/hr IVPB Q12 [facility] PRN Reason: Protocol Last Admin: 12/29/16 22:20 Dose: 100 mls/hr Meropenem 1g/NS 100mL IVPB (Meropenem 1g/Ns 100ml Ivpb) 100 mls @ 100 mls/hr IVPB Q12 [facility] PRN Reason: Protocol Stop: 01/04/17 08:01 Last Admin: 12/29/16 22:21 Dose: 100 mls/hr Levalbuterol HCl (Xopenex) 0.63 mg IH Q2 PRN PRN Reason: Shortness of Breath Last Admin: 12/27/16 10:40 Dose: 0.63 mg Levalbuterol HCl (Xopenex) 0.63 mg IH [id number] [facility] Last Admin: 12/29/16 20:50 Dose: 0.63 mg Methylprednisolone (Solu-Medrol) 30 mg IVP Q12 [facility] Last Admin: 12/29/16 22:23 Dose: 30 mg Metoprolol Tartrate (Lopressor) 25 mg PO BID [facility] Last Admin: 12/29/16 18:00 Dose: 25 mg Pantoprazole Sodium (Protonix Ec Tab) 40 mg PO ACB [facility] Last Admin: 12/29/16 08:26 Dose: 40 mg Silver Sulfadiazine (Silvadene 1% 20 Gm) 0 ea TOP BID [facility] Last Admin: 12/29/16 18:00 Dose: 1 applic - Labs Labs: 12/29/16 09:30 12/29/16 09:30 PT 11.4 Seconds (9.9-11.8) 12/29/16 09:30 INR 1.06 (0.93-1.08) 12/29/16 09:30 APTT 26.3 Seconds (23.7-30.8) 12/29/16 09:30
[2016-12-30] MEDS: Levalbuterol 0.63 MG/3 ML Inhal Soln UD IH SCH ×4 (02:20→19:30)
--- NOTE | 2016-12-30 04:07 | CP.PCM.PN ---
Subjective - Date & Time of Evaluation Date of Evaluation: 12/30/16 Time of Evaluation: 04:03 - Subjective Subjective: S:Nurse tells that BP is 187/69. Patient seen at bedside. Has no complaints. Denies headache, heaviness in head, dizziness, nausea. O:Stable. LUNGS:Normal breathing pattern. A/P:Elevated blood pressure reading. Hydralazine 10 mg po stat. Objective - Vital Signs/Intake and Output Vital Signs (last 24 hours): Temp Pulse Resp BP Pulse Ox 97.1 F L 67 18 187/69 H 96 12/29/16 18:00 12/30/16 02:00 12/29/16 18:00 12/30/16 01:38 12/29/16 06:00 - Medications Medications: Current Medications Amlodipine Besylate (Norvasc) 10 mg PO DAILY [facility] Last Admin: 12/29/16 10:09 Dose: 10 mg Aspirin (Ecotrin) 81 mg PO DAILY [facility] Last Admin: 12/29/16 10:07 Dose: 81 mg Atorvastatin Calcium (Lipitor) 10 mg PO DIN [facility] Last Admin: 12/29/16 18:00 Dose: 10 mg Budesonide (Pulmicort Respules) 0.5 mg IH [id number] [facility] Last Admin: 12/29/16 20:50 Dose: 0.5 mg Furosemide (Lasix) 40 mg IVP BID [facility] Last Admin: 12/29/16 17:59 Dose: 40 mg Heparin Sodium (Porcine) (Heparin) 5,000 units SC Q12 [facility] PRN Reason: Protocol Last Admin: 12/29/16 22:21 Dose: 5,000 units Hydralazine HCl (Apresoline) 10 mg IVP Q6 PRN PRN Reason: For SBP>170 And Diastolic>100 Last Admin: 12/29/16 22:24 Dose: 10 mg Hydralazine HCl (Apresoline) 50 mg PO BID [facility] Last Admin: 12/29/16 18:00 Dose: 50 mg Doxycycline Hyclate 100 mg/ (Sodium Chloride) 100 mls @ 100 mls/hr IVPB Q12 [facility] PRN Reason: Protocol Last Admin: 12/29/16 22:20 Dose: 100 mls/hr Meropenem 1g/NS 100mL IVPB (Meropenem 1g/Ns 100ml Ivpb) 100 mls @ 100 mls/hr IVPB Q12 [facility] PRN Reason: Protocol Stop: 01/04/17 08:01 Last Admin: 12/29/16 22:21 Dose: 100 mls/hr Levalbuterol HCl (Xopenex) 0.63 mg IH Q2 PRN PRN Reason: Shortness of Breath Last Admin: 12/27/16 10:40 Dose: 0.63 mg Levalbuterol HCl (Xopenex) 0.63 mg IH [id number] [facility] Last Admin: 12/30/16 02:20 Dose: 0.63 mg Methylprednisolone (Solu-Medrol) 30 mg IVP Q12 [facility] Last Admin: 12/29/16 22:23 Dose: 30 mg Metoprolol Tartrate (Lopressor) 25 mg PO BID [facility] Last Admin: 12/29/16 18:00 Dose: 25 mg Pantoprazole Sodium (Protonix Ec Tab) 40 mg PO ACB [facility] Last Admin: 12/29/16 08:26 Dose: 40 mg Silver Sulfadiazine (Silvadene 1% 20 Gm) 0 ea TOP BID [facility] Last Admin: 12/29/16 18:00 Dose: 1 applic - Labs Labs: 12/29/16 09:30 12/29/16 09:30 PT 11.4 Seconds (9.9-11.8) 12/29/16 09:30 INR 1.06 (0.93-1.08) 12/29/16 09:30 APTT 26.3 Seconds (23.7-30.8) 12/29/16 09:30
[2016-12-30 07:59] LABS: TOTAL PROTEIN, SERUM 5.4 g/dL (6.1-8.1)
[2016-12-30] MEDS: Budesonide 0.5 mg/2 ml Inhal Susp UD IH SCH ×2 (08:04→19:30)
[2016-12-30 08:21] LABS: CREATININE, 24 HOUR URINE 1.05 g/24 h (0.63-2.50)
[2016-12-30] MEDS: Pantoprazole 40 mg EC Tab PO SCH (08:23)
--- NOTE | 2016-12-30 08:31 | PN ---
DATE: 12/30/2016 SUBJECTIVE: The patient appears comfortable this morning. He is not short of breath at rest. PHYSICAL EXAMINATION: VITAL SIGNS: Temperature is 97.1, pulse 67, respirations 18, blood pressure 187 /69. Oxygen saturation on nasal cannula is 96%. HEENT: Normocephalic, atraumatic. NECK: No JVD. CARDIOVASCULAR: Systolic ejection murmur at the lower left sternal border. Positive S3 gallop. LUNGS: Minimal crackles at the bases. No rhonchi or wheezing this morning. EXTREMITIES: Positive for edema. No cyanosis, no clubbing. Calves are nontender to palpation. GASTROINTESTINAL: Abdomen is soft, nontender, nondistended. Bowel sounds are positive. SKIN: No acute rash. NEUROLOGIC: Limited at the present time. PERTINENT LABORATORY DATA: Chest x-ray was done yesterday and reviewed. It is improved with decreased pulmonary edema. IMPRESSION: 1. Respiratory failure. 2. Recurrent congestive heart failure. 3. Chronic obstructive pulmonary disease. 4. Recent myocardial infarction. 5. Renal insufficiency. 6. Anemia. PLAN: The patient appears very comfortable this morning. He is not short of breath at rest. He states he is feeling much better overall. On physical exam , his bronchospasm continues to resolve. In addition, the alveolar arterial gradient also continues to resolve. I will continue with the current nebulizer treatments and low-dose intravenous steroids (decreased yesterday) for now. I would continue with the antibiotic coverage as per infectious disease. There are no temperatures noted. The leukocytosis has resolved. I would continue with the cardiology evaluation. Input by Dr. Bowling is noted. The patient is for possible cardiac catheterization next week. Clinical status of the patient is significantly improved -- compared to last week. However, again, the overall status/prognosis of this patient does remain very guarded. I will discuss the above with the attending physician. Sebastian Huntley MD cc: [id number] TT: 12/30/2016 08:31:21 Confirmation # [id number] Dictation # [id number] jn HANSEL
[2016-12-30] MEDS: Silver Sulfadiazine 1% Cream (20 gm) TOP SCH ×2 (09:45→17:45)
[2016-12-30] MEDS: Meropenem 1g/NS 100mL IVPB 100 ML IVPB SCH ×2 (09:45→21:38)
[2016-12-30] MEDS: MethylPREDNISolone 40 mg Vial IVP SCH ×2 (09:46→21:37)
[2016-12-30] MEDS: Levalbuterol 0.63 MG/3 ML Inhal Soln UD IH PRN (11:34)
[2016-12-30 13:07] LABS: ADD MANUAL DIFF? NO
[2016-12-30 13:15] LABS: GRAN # 8.89 (1.4-6.5); GRAN % 90.5 % (50.0-68.0); HEMATOCRIT 28.7 % (42.0-52.0); LYMPH # 0.7 (1.2-3.4); LYMPH % 6.8 % (22.0-35.0); MEAN CELL VOLUME 87.2 fL (80.0-105.0); MEAN CORPUSCULAR HEMOGLOBIN 26.7 pg (25.0-35.0); MEAN CORPUSCULAR HGB CONC 30.7 g/dl (31.0-37.0); MEAN PLATELET VOLUME 10.6 fl (7.0-11.0); MONO # 0.3 (0.1-0.6); MONO % 2.7 % (1.0-6.0); PLATELET COUNT 177 10^3/uL (120.0-450.0); RED CELL DISTRIBUTION WIDTH 17.9 % (11.5-14.5); WHITE BLOOD COUNT 9.8 10^3/ul (4.5-11.0)
[2016-12-30 13:20] LABS: MAGNESIUM 2.2 mg/dL (1.7-2.2); PHOSPHOROUS 4.6 mg/dL (2.5-4.5); POTASSIUM 5.2 mmol/L (3.6-5.0)
--- NOTE | 2016-12-30 13:34 | CP.PCM.PN ---
Subjective - Date & Time of Evaluation Date of Evaluation: 12/30/16 Time of Evaluation: 12:55 - Subjective Subjective: Comfortable in bed, not in distress, afebrile overnight, breathing better. Objective - Vital Signs/Intake and Output Vital Signs (last 24 hours): Temp Pulse Resp BP Pulse Ox 97.3 F L 67 19 167/65 H 98 12/30/16 12:00 12/30/16 11:04 12/30/16 12:00 12/30/16 09:43 12/30/16 06:00 Intake and Output: 12/30/16 12/30/16 06:59 18:59 Intake Total 200 Balance 200 - Medications Medications: Current Medications Amlodipine Besylate (Norvasc) 10 mg PO DAILY [facility] Last Admin: 12/30/16 09:45 Dose: 10 mg Aspirin (Ecotrin) 81 mg PO DAILY [facility] Last Admin: 12/30/16 09:43 Dose: 81 mg Atorvastatin Calcium (Lipitor) 10 mg PO DIN [facility] Last Admin: 12/29/16 18:00 Dose: 10 mg Budesonide (Pulmicort Respules) 0.5 mg IH [id number] [facility] Last Admin: 12/30/16 08:04 Dose: 0.5 mg Carvedilol (Coreg) 6.25 mg PO BID [facility] Furosemide (Lasix) 40 mg IVP BID [facility] Last Admin: 12/30/16 09:43 Dose: 40 mg Heparin Sodium (Porcine) (Heparin) 5,000 units SC Q12 [facility] PRN Reason: Protocol Last Admin: 12/30/16 09:43 Dose: 5,000 units Hydralazine HCl (Apresoline) 10 mg IVP Q6 PRN PRN Reason: For SBP>170 And Diastolic>100 Last Admin: 12/30/16 12:19 Dose: 10 mg Hydralazine HCl (Apresoline) 50 mg PO BID [facility] Last Admin: 12/30/16 09:43 Dose: 50 mg Doxycycline Hyclate 100 mg/ (Sodium Chloride) 100 mls @ 100 mls/hr IVPB Q12 [facility] PRN Reason: Protocol Last Admin: 12/30/16 09:48 Dose: 100 mls/hr Meropenem 1g/NS 100mL IVPB (Meropenem 1g/Ns 100ml Ivpb) 100 mls @ 100 mls/hr IVPB Q12 [facility] PRN Reason: Protocol Stop: 01/04/17 08:01 Last Admin: 12/30/16 09:45 Dose: 100 mls/hr Levalbuterol HCl (Xopenex) 0.63 mg IH Q2 PRN PRN Reason: Shortness of Breath Last Admin: 12/30/16 11:34 Dose: 0.63 mg Levalbuterol HCl (Xopenex) 0.63 mg IH [id number] [facility] Last Admin: 12/30/16 08:04 Dose: 0.63 mg Methylprednisolone (Solu-Medrol) 30 mg IVP Q12 [facility] Last Admin: 12/30/16 09:46 Dose: 30 mg Pantoprazole Sodium (Protonix Ec Tab) 40 mg PO ACB [facility] Last Admin: 12/30/16 08:23 Dose: 40 mg Silver Sulfadiazine (Silvadene 1% 20 Gm) 0 ea TOP BID [facility] Last Admin: 12/30/16 09:45 Dose: 1 applic - Labs Labs: 12/30/16 13:00 12/29/16 09:30 PT 11.4 Seconds (9.9-11.8) 12/29/16 09:30 INR 1.06 (0.93-1.08) 12/29/16 09:30 APTT 26.3 Seconds (23.7-30.8) 12/29/16 09:30 - Constitutional Appears: Non-toxic, No Acute Distress - Head Exam Head Exam: NORMAL INSPECTION - ENT Exam ENT Exam: Mucous Membranes Moist - Neck Exam Neck Exam: absent: Lymphadenopathy, Meningismus - Respiratory Exam Respiratory Exam: Decreased Breath Sounds - Cardiovascular Exam Cardiovascular Exam: +S1, +S2 - GI/Abdominal Exam GI & Abdominal Exam: Soft. absent: Tenderness Assessment and Plan - Assessment and Plan (Free Text) Plan: Assessment Severe sepsis with hypoxic respiratory failure (S/P intubation, now extubated) and acute on chronic renal failure probably secondary to right lower lobe healthcare-associated pneumonia with possible gram positive cocci and/or gram negative bacilli on top of probable acute congestive heart failure, clinically improving COPD Hepatitis C GERD peptic ulcer diseae CAD S/P PCI with stents placed S/P appendectomy Plan continue Doxycycline and Meropenem day 3; cultures have been negative; PCT is elevated; reviewed CXR - will target 4-7 days of therapy Will continue to monitor clinical response
--- NOTE | 2016-12-30 18:03 | PN ---
DATE: 12/30/2016 REASON FOR CONSULTATION AND FOLLOWUP: Cardiac evaluation, status post intubated, now successfully ex tubated. BRIEF CLINICAL HISTORY: This is a 76-year-old male with past medical history significant for hyperte nsion, COPD, hepatitis C, gastroesophageal reflux, peptic ulcer disease, coronary artery disease, sta tus post 4 bare metal stents - 3 in LAD and 1 in ramus intermedius - on 04/2013. A few weeks ago the patient was admitted with pneumonia and discharged home, admitted with recurrent pneumonia, intubate d, now successfully extubated. Family is at the bedside. Discussed with the patient long-term plan. PHYSICAL EXAMINATION: VITAL SIGNS: Temperature afebrile, heart rate ____, blood pressure 167/65. HEENT: PERRLA. Extraocular muscles intact. NECK: Supple. No carotid bruits. No thyromegaly. CHEST: Clear to auscultation. HEART: S1, S2 regular. ABDOMEN: Soft. EXTREMITIES: Clubbing and cyanosis negative. BLOOD WORKUP: WBC 9.____, hemoglobin 8.8, hematocrit 28.7, platelet count 177. Chemistry shows sodi um 145, potassium 5.2, chloride 106, carbon dioxide 28, anion gap of 16, BUN 86, creatinine 2.2. IMPRESSION: Chronic kidney disease, diabetes, hypertension, hyperlipidemia. RECOMMENDATIONS: Intubated. On the last admission, the patient had a [id number] myocardial infa rction. Discussed with the patient's family, son and the , that we will evaluate. If the patien t's renal function remains stable, we will proceed for cardiac catheterization provided the renal fun ction does not get worse and the patient's H and H remain stable. But the patient has a history of G I bleed and that is why the patient had bare metal stents last time. This time patient did not show any evidence of pzz-GC-aqbxxri elevation myocardial infarction, but last time the patient had a NSTEM I I suggested cardiac catheterization which the patient refused and wanted to go home and come back a liter. Cardiomyopathy. Last echo shows ejection fraction 35-40%, congestive heart failure, acute o n chronic, secondary to systolic dysfunction, moderate mitral regurgitation, moderate tricuspid regur g, RV systolic pressure 62. We will continue Coreg, continue hydralazine, continue aspirin, continue Plavix 300 mg and see the patient's response. If the H and H remain stable and the renal function r emains stable, will consider cardiac catheterization; otherwise do as an outpatient later. Will disc uss with Dr. Morales. Thank you, Dr. Morales, for providing us the opportunity in taking care of the patient. We will start Plavix 300 mg now and Plavix 75 mg from tomorrow. Will give 300 mg Plavix stat. Noel Bowling MD cc: [id number] TT: 12/30/2016 18:02:47 Confirmation # [id number] Dictation # [id number] mn
--- NOTE | 2016-12-30 19:53 | PN ---
DATE: 12/30/2016 The patient is a 76-year-old male with history of hypertension, congestive heart failure with systoli c dysfunction, CAD, status post stents, hepatitis C, and CKD IIIB/IV, admitted with congestive heart failure exacerbation, chronic obstructive pulmonary disease exacerbation, pneumonia and acute renal f ailure. The patient reports breathing is improved, currently on 2 liters via nasal cannula. Tolerat ing diet. PHYSICAL EXAMINATION: VITAL SIGNS: This morning, blood pressure 167/65, heart rate 67, respirations 20, temperature 98, O2 sat 98% on 3 liters via nasal cannula. GENERAL: No distress, able to speak clearly in full sentences. HEENT: Moist mucous membranes. Nonicteric. CHEST: Poor air movement bilaterally. Mild wheezes heard. ABDOMEN: Soft, nontender, nondistended. EXTREMITIES: Moderately edematous bilateral lower legs. ASSESSMENT AND PLAN: Acute renal failure, etiology may be multifactorial, may have cardiorenal compo nent in the setting of systolic dysfunction with acute exacerbation of congestive heart failure. 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 Viral Riojas MD cc: [id number] TT: 12/30/2016 19:53:14 Confirmation # [id number] Dictation # [id number] bill
--- NOTE | 2016-12-30 23:13 | CP.PCM.CON ---
Past Patient History - Infectious Disease Hx of Infectious Diseases: None - Tetanus Immunizations Tetanus Immunization: Unknown - Past Medical History & Family History Past Medical History?: Yes Past Family History: Reviewed and not pertinent - Past Social History Smoking Status: Former Smoker Alcohol: None Drugs: Denies Home Situation {Lives}: With Family - CARDIAC Hx Cardiac Disorders: Yes Hx Hypertension: Yes - PULMONARY Hx Chronic Obstructive Pulmonary Disease (COPD): Yes - NEUROLOGICAL Hx Neurological Disorder: No - HEENT Hx HEENT Problems: No - RENAL Hx Chronic Kidney Disease: No - ENDOCRINE/METABOLIC Hx Endocrine Disorders: No - HEMATOLOGICAL/ONCOLOGICAL Hx Blood Disorders: Yes Hx Hepatitis C: Yes - INTEGUMENTARY Hx Dermatological Problems: No - MUSCULOSKELETAL/RHEUMATOLOGICAL Hx Musculoskeletal Disorders: No Hx Falls: Yes - GASTROINTESTINAL Hx Gastrointestinal Disorders: Yes Hx Gastroesophageal Reflux: Yes - GENITOURINARY/GYNECOLOGICAL Hx Genitourinary Disorders: No - PSYCHIATRIC Hx Psychophysiologic Disorder: No Hx Substance Use: No - SURGICAL HISTORY Hx Appendectomy: Yes Hx Cardiac Catheterization: Yes Hx Coronary Stent: Yes - ANESTHESIA Hx Anesthesia: Yes Hx Anesthesia Reactions: No Hx Malignant Hyperthermia: No Meds Allergies/Adverse Reactions: Allergies Allergy/AdvReac Type Severity Reaction Status Date / Time No Known Allergies Allergy Verified 12/11/16 13:56 - Medications Medications: Current Medications Amlodipine Besylate (Norvasc) 10 mg PO DAILY [facility] Last Admin: 12/30/16 09:45 Dose: 10 mg Aspirin (Ecotrin) 81 mg PO DAILY [facility] Last Admin: 12/30/16 09:43 Dose: 81 mg Atorvastatin Calcium (Lipitor) 10 mg PO DIN [facility] Last Admin: 12/30/16 17:44 Dose: 10 mg Budesonide (Pulmicort Respules) 0.5 mg IH [id number] [facility] Last Admin: 12/30/16 19:30 Dose: 0.5 mg Carvedilol (Coreg) 6.25 mg PO BID [facility] Last Admin: 12/30/16 17:43 Dose: 6.25 mg Clopidogrel Bisulfate (Plavix) 75 mg PO DAILY [facility] Furosemide (Lasix) 40 mg IVP BID [facility] Last Admin: 12/30/16 17:43 Dose: 40 mg Heparin Sodium (Porcine) (Heparin) 5,000 units SC Q12 [facility] PRN Reason: Protocol Last Admin: 12/30/16 21:37 Dose: 5,000 units Hydralazine HCl (Apresoline) 10 mg IVP Q6 PRN PRN Reason: For SBP>170 And Diastolic>100 Last Admin: 12/30/16 12:19 Dose: 10 mg Hydralazine HCl (Apresoline) 50 mg PO BID [facility] Last Admin: 12/30/16 17:43 Dose: 50 mg Doxycycline Hyclate 100 mg/ (Sodium Chloride) 100 mls @ 100 mls/hr IVPB Q12 [facility] PRN Reason: Protocol Last Admin: 12/30/16 21:32 Dose: 100 mls/hr Meropenem 1g/NS 100mL IVPB (Meropenem 1g/Ns 100ml [facility]) 100 mls @ 100 mls/hr IVPB Q12 [facility] PRN Reason: Protocol Stop: 01/04/17 08:01 Last Admin: 12/30/16 21:38 Dose: 100 mls/hr Levalbuterol HCl (Xopenex) 0.63 mg IH Q2 PRN PRN Reason: Shortness of Breath Last Admin: 12/30/16 11:34 Dose: 0.63 mg Levalbuterol HCl (Xopenex) 0.63 mg IH [id number] [facility] Last Admin: 12/30/16 19:30 Dose: 0.63 mg Methylprednisolone (Solu-Medrol) 30 mg IVP Q12 [facility] Last Admin: 12/30/16 21:37 Dose: 30 mg Pantoprazole Sodium (Protonix Ec Tab) 40 mg PO ACB [facility] Last Admin: 12/30/16 08:23 Dose: 40 mg Silver Sulfadiazine (Silvadene 1% 20 Gm) 0 ea TOP BID [facility] Last Admin: 12/30/16 17:45 Dose: 1 applic Results - Vital Signs Recent Vital Signs: Last Vital Signs Temp 98.5 F 12/30/16 18:00 Pulse 59 L 12/30/16 18:00 Resp 20 12/30/16 18:00 BP 141/51 L 12/30/16 18:00 Pulse Ox 98 12/30/16 06:00 - Labs Result Diagrams: 12/30/16 13:00 12/30/16 13:00 Labs: Laboratory Results - last 24 hr 12/29/16 12/29/16 12/30/16 09:30 17:50 13:00 WBC 9.8 D RBC 3.29 L Hgb 8.8 L Hct 28.7 L MCV 87.2 MCH 26.7 MCHC 30.7 L RDW 17.9 H Plt Count 177 MPV 10.6 Gran % 90.5 H Lymph % (Auto) 6.8 L [place] % (Auto) 2.7 Eos % (Auto) 0.0 L Baso % (Auto) 0.0 Gran # 8.89 H Lymph # 0.7 L [place] # 0.3 Eos # 0.0 Baso # 0.00 Sodium 145 Potassium 5.2 H Chloride 106 Carbon Dioxide 28 Anion Gap 16 BUN 86 H Creatinine 2.2 H Est GFR ( Amer) 35 Est GFR (Non-Af Amer) 29 Random Glucose 217 H Calcium 9.0 Phosphorus 4.6 H Magnesium 2.2 Total Protein (PEP) 5.4 L U Random Total Protein 913 H Urine Creatinine 0.43 Ur Creatinine 24 Hour 1.05 Ur Total Protein 24 Hr 2209 H Protein/Creat Ratio 24h 2035 H Urine Total Protein 879 H Assessment & Plan (1) Acute renal failure Status: Acute (2) CHF (congestive heart failure) Status: Acute (3) Pneumonia Status: Acute (4) Anemia Status: Acute (5) HTN (hypertension) Status: Acute
--- NOTE | 2016-12-30 23:16 | CP.PCM.PN ---
Subjective - Date & Time of Evaluation Date of Evaluation: 12/30/16 Time of Evaluation: 12:00 - Subjective Subjective: Reports improved breathing; Objective - Vital Signs/Intake and Output Vital Signs (last 24 hours): Temp Pulse Resp BP Pulse Ox 98.5 F 59 L 20 141/51 L 98 12/30/16 18:00 12/30/16 18:00 12/30/16 18:00 12/30/16 18:00 12/30/16 06:00 Intake and Output: 12/30/16 12/31/16 18:59 06:59 Intake Total 480 Output Total 600 Balance -120 - Medications Medications: Current Medications Amlodipine Besylate (Norvasc) 10 mg PO DAILY [facility] Last Admin: 12/30/16 09:45 Dose: 10 mg Aspirin (Ecotrin) 81 mg PO DAILY [facility] Last Admin: 12/30/16 09:43 Dose: 81 mg Atorvastatin Calcium (Lipitor) 10 mg PO DIN [facility] Last Admin: 12/30/16 17:44 Dose: 10 mg Budesonide (Pulmicort Respules) 0.5 mg IH [id number] [facility] Last Admin: 12/30/16 19:30 Dose: 0.5 mg Carvedilol (Coreg) 6.25 mg PO BID [facility] Last Admin: 12/30/16 17:43 Dose: 6.25 mg Clopidogrel Bisulfate (Plavix) 75 mg PO DAILY [facility] Furosemide (Lasix) 40 mg IVP BID [facility] Last Admin: 12/30/16 17:43 Dose: 40 mg Heparin Sodium (Porcine) (Heparin) 5,000 units SC Q12 [facility] PRN Reason: Protocol Last Admin: 12/30/16 21:37 Dose: 5,000 units Hydralazine HCl (Apresoline) 10 mg IVP Q6 PRN PRN Reason: For SBP>170 And Diastolic>100 Last Admin: 12/30/16 12:19 Dose: 10 mg Hydralazine HCl (Apresoline) 50 mg PO BID [facility] Last Admin: 12/30/16 17:43 Dose: 50 mg Doxycycline Hyclate 100 mg/ (Sodium Chloride) 100 mls @ 100 mls/hr IVPB Q12 [facility] PRN Reason: Protocol Last Admin: 12/30/16 21:32 Dose: 100 mls/hr Meropenem 1g/NS 100mL IVPB (Meropenem 1g/Ns 100ml Ivpb) 100 mls @ 100 mls/hr IVPB Q12 [facility] PRN Reason: Protocol Stop: 01/04/17 08:01 Last Admin: 12/30/16 21:38 Dose: 100 mls/hr Levalbuterol HCl (Xopenex) 0.63 mg IH Q2 PRN PRN Reason: Shortness of Breath Last Admin: 12/30/16 11:34 Dose: 0.63 mg Levalbuterol HCl (Xopenex) 0.63 mg IH [id number] [facility] Last Admin: 12/30/16 19:30 Dose: 0.63 mg Methylprednisolone (Solu-Medrol) 30 mg IVP Q12 [facility] Last Admin: 12/30/16 21:37 Dose: 30 mg Pantoprazole Sodium (Protonix Ec Tab) 40 mg PO ACB [facility] Last Admin: 12/30/16 08:23 Dose: 40 mg Silver Sulfadiazine (Silvadene 1% 20 Gm) 0 ea TOP BID [facility] Last Admin: 12/30/16 17:45 Dose: 1 applic - Labs Labs: 12/30/16 13:00 12/30/16 13:00 PT 11.4 Seconds (9.9-11.8) 12/29/16 09:30 INR 1.06 (0.93-1.08) 12/29/16 09:30 APTT 26.3 Seconds (23.7-30.8) 12/29/16 09:30 - Constitutional Appears: No Acute Distress - Extremities Exam Additional comments: markedly edematous legs; Assessment and Plan (1) CHF (congestive heart failure) Status: Acute (2) Pneumonia Status: Resolved (3) Acute renal failure Status: Acute (4) Anemia Status: Acute (5) HTN (hypertension) Status: Acute
--- NOTE | 2016-12-31 02:00 | CP.PCM.PN ---
Subjective - Date & Time of Evaluation Date of Evaluation: 12/31/16 Time of Evaluation: 01:59 - Subjective Subjective: Patient was seen because heart rate went down to as low as 30. Monitor showed bradycardia. Patient has no complaints . Denies any chest pain, sob, nausea, sweating, palpitation. Medical record was reviewed. 76 year old white male was admitted for COPD,PNA,Sepsis, CHF. PMH of HTN, COPD,Cellulitis of lower extremities, Hepatitis C,GERD, PUD, S/P PTCA, appendectomy. Objective - Vital Signs/Intake and Output Vital Signs (last 24 hours): Temp Pulse Resp BP Pulse Ox 97.9 F 61 20 165/68 H 99 12/31/16 00:00 12/31/16 00:00 12/31/16 00:00 12/31/16 00:00 12/31/16 00:00 Intake and Output: 12/30/16 12/31/16 18:59 06:59 Intake Total 480 Output Total 600 Balance -120 - Medications Medications: Current Medications Amlodipine Besylate (Norvasc) 10 mg PO DAILY [facility] Last Admin: 12/30/16 09:45 Dose: 10 mg Aspirin (Ecotrin) 81 mg PO DAILY [facility] Last Admin: 12/30/16 09:43 Dose: 81 mg Atorvastatin Calcium (Lipitor) 10 mg PO DIN [facility] Last Admin: 12/30/16 17:44 Dose: 10 mg Budesonide (Pulmicort Respules) 0.5 mg IH [id number] [facility] Last Admin: 12/30/16 19:30 Dose: 0.5 mg Carvedilol (Coreg) 6.25 mg PO BID [facility] Last Admin: 12/30/16 17:43 Dose: 6.25 mg Clopidogrel Bisulfate (Plavix) 75 mg PO DAILY [facility] Furosemide (Lasix) 40 mg IVP BID [facility] Last Admin: 12/30/16 17:43 Dose: 40 mg Heparin Sodium (Porcine) (Heparin) 5,000 units SC Q12 [facility] PRN Reason: Protocol Last Admin: 12/30/16 21:37 Dose: 5,000 units Hydralazine HCl (Apresoline) 10 mg IVP Q6 PRN PRN Reason: For SBP>170 And Diastolic>100 Last Admin: 12/30/16 12:19 Dose: 10 mg Hydralazine HCl (Apresoline) 50 mg PO BID [facility] Last Admin: 12/30/16 17:43 Dose: 50 mg Doxycycline Hyclate 100 mg/ (Sodium Chloride) 100 mls @ 100 mls/hr IVPB Q12 [facility] PRN Reason: Protocol Last Admin: 12/30/16 21:32 Dose: 100 mls/hr Meropenem 1g/NS 100mL IVPB (Meropenem 1g/Ns 100ml Ivpb) 100 mls @ 100 mls/hr IVPB Q12 [facility] PRN Reason: Protocol Stop: 01/04/17 08:01 Last Admin: 12/30/16 21:38 Dose: 100 mls/hr Levalbuterol HCl (Xopenex) 0.63 mg IH Q2 PRN PRN Reason: Shortness of Breath Last Admin: 12/30/16 11:34 Dose: 0.63 mg Levalbuterol HCl (Xopenex) 0.63 mg IH [id number] [facility] Last Admin: 12/30/16 19:30 Dose: 0.63 mg Methylprednisolone (Solu-Medrol) 30 mg IVP Q12 [facility] Last Admin: 12/30/16 21:37 Dose: 30 mg Pantoprazole Sodium (Protonix Ec Tab) 40 mg PO ACB [facility] Last Admin: 12/30/16 08:23 Dose: 40 mg Silver Sulfadiazine (Silvadene 1% 20 Gm) 0 ea TOP BID [facility] Last Admin: 12/30/16 17:45 Dose: 1 applic - Labs Labs: 12/30/16 13:00 12/30/16 13:00 PT 11.4 Seconds (9.9-11.8) 12/29/16 09:30 INR 1.06 (0.93-1.08) 12/29/16 09:30 APTT 26.3 Seconds (23.7-30.8) 12/29/16 09:30 - Constitutional Appears: Well, No Acute Distress - Head Exam Head Exam: ATRAUMATIC, NORMAL INSPECTION, NORMOCEPHALIC - Eye Exam Eye Exam: Normal appearance - ENT Exam ENT Exam: Normal External Ear Exam - Neck Exam Neck Exam: Normal Inspection - Respiratory Exam Respiratory Exam: NORMAL BREATHING PATTERN - Cardiovascular Exam Cardiovascular Exam: absent: JVD - GI/Abdominal Exam GI & Abdominal Exam: absent: Distended - Rectal Exam Rectal Exam: Deferred - Neurological Exam Neurological Exam: Alert, Oriented x3 - Psychiatric Exam Psychiatric exam: Normal Affect, Normal Mood - Skin Skin Exam: Normal Color Assessment and Plan - Assessment and Plan (Free Text) Assessment: A/P: Slow heart rate probably from [place]. HTN. GERD. COPD PUD. EKG-->NSR, no acute ST T changes. Continue present management. Instructed nurse to check with PMD/Renal peoplesoft consultant prior to giving tomorrow's AM dose of Coreg.
[2016-12-31] MEDS: Levalbuterol 0.63 MG/3 ML Inhal Soln UD IH SCH ×4 (02:30→20:01)
[2016-12-31] MEDS: Budesonide 0.5 mg/2 ml Inhal Susp UD IH SCH ×2 (07:40→20:01)
[2016-12-31] MEDS: Pantoprazole 40 mg EC Tab PO SCH (08:26)
--- NOTE | 2016-12-31 08:26 | PN ---
DATE: 12/31/2016 PULMONARY NOTE SUBJECTIVE: The patient appears very comfortable this morning. He is not short of breath at rest. OBJECTIVE: VITAL SIGNS: Temperature is 97.4, pulse 61, respirations 18/20, blood pressure 151/68. Oxygen saturation on nasal cannula is 96-99%. HEENT: Normocephalic, atraumatic. No JVD. CARDIOVASCULAR: Systolic ejection murmur at the lower left sternal border. Positive S3 gallop. LUNGS: Minimal/less crackles at the bases. No rhonchi. No wheezing. EXTREMITIES: Positive for edema. No cyanosis, no clubbing. Calves are nontender to palpation. GASTROINTESTINAL: Abdomen is soft, nontender, nondistended. Bowel sounds are positive. SKIN: No acute rash. NEUROLOGIC: Limited at the present time. IMPRESSION: 1. Respiratory failure. 2. Recurrent congestive heart failure. 3. Chronic obstructive pulmonary disease. 4. Recent myocardial infarction. 5. Renal insufficiency. 6. Anemia. PLAN: The patient appears very comfortable this morning. He is not short of breath at rest. He states he is feeling much better overall. On physical exam , his bronchospasm continues to resolve. In addition, the alveolar arterial gradient also continues to resolve. I will continue with the current nebulizer treatments and decrease the intravenous steroids this morning. The patient remains on antibiotic therapy - as per infectious disease. There are no temperatures noted. The leukocytosis has resolved. Cardiology input by Dr. Bowling is noted. The patient is for possible cardiac catheterization in the near future. Again, the clinical status of this patient is significantly improved - compared to the initial presentation. However, again, the patient's overall status/prognosis does remain very guarded. I will discuss the above with Dr. Morales. Sebastian Huntley MD cc: [phone] TT: 12/31/2016 08:25:30 Confirmation # [id number] Dictation # [id number] [email or web address]
--- NOTE | 2016-12-31 09:26 | PN ---
DATE: 12/29/2016 The patient was seen this Sunday morning in room 265, bed 2, sitting in bed, having just gotten out o f the intensive care unit yesterday. He is awake, alert, clear, and recognizes me. Still feels quit e weak and short of breath with activity about the room. PHYSICAL EXAMINATION: LUNGS: Breath sounds are markedly decreased from severe COPD. I do not hear rales or crackles. The re are some scattered wheezes. EXTREMITIES: Show +2 soft edema up to the knees. IMPRESSION: 1. Congestive heart failure with #2. 2. Chronic obstructive pulmonary disease. 3. Coronary artery disease with recent hospitalization for congestive heart failure and positive tro ponins. PLAN: We will talk to cardiology. May need to proceed with cardiac catheterization, as was proposed in the last hospitalization 2 weeks ago in spite of his renal insufficiency. Samm Morales MD cc: [phone] TT: 12/31/2016 09:26:09 Confirmation # [id number] Dictation # [id number]
--- NOTE | 2016-12-31 09:54 | PN ---
DATE: 12/30/2016 The patient was seen this Sunday morning in room 265, bed 1. He is looking much better, feels much better, sitting up at the edge of the bed, not short of breath at rest, but a bit uncomfortable with ambulating across the room. PHYSICAL EXAMINATION: HEAD AND NECK: Unremarkable. HEENT: Conjunctivae are pink. Mucous membranes are moist. NECK: Supple. There is no JVD, no bruits. HEART: Regular. LUNGS: Posterior exam of the lungs show markedly decreased breath sounds - both right and left side. I do not hear any wheezing or rales at the bases, but, as I said, the severity of COPD is such that the breath sounds are markedly diminished today. ABDOMEN: Soft. EXTREMITIES: Show a more soft +1 type of pedal edema up to the knees. This is an improvement from t he tense brawny edema noted yesterday. IMPRESSION: 1. Congestive heart failure. 2. Chronic obstructive pulmonary disease. 3. Coronary artery disease. 4. Renal insufficiency. PLAN: I spoke with the patient at length regarding cardiac catheterization perhaps on Sunday. I von l need to talk with cardiologists - Dr. Yeung and Dr. Bowling about that. Samm Morales MD cc: [phone] TT: 12/31/2016 09:54:05 Confirmation # [id number] Dictation # [id number]
[2016-12-31] MEDS: MethylPREDNISolone 40 mg Vial IVP SCH ×2 (10:11→23:51)
[2016-12-31] MEDS: Silver Sulfadiazine 1% Cream (20 gm) TOP SCH ×2 (10:11→18:05)
[2016-12-31] MEDS: Meropenem 1g/NS 100mL IVPB 100 ML IVPB SCH ×2 (10:13→22:00)
[2016-12-31] MEDS ORDERED: Acetylcysteine 20% Inhal Soln (4ml) PO SCH (11:15)
--- NOTE | 2016-12-31 12:03 | CP.PCM.PN ---
Subjective - Date & Time of Evaluation Date of Evaluation: 12/31/16 Time of Evaluation: 11:00 - Subjective Subjective: Comfortable in bed, not in distress, no fevers overnight, breathing better, no cough currently. Objective - Vital Signs/Intake and Output Vital Signs (last 24 hours): Temp Pulse Resp BP Pulse Ox 97.4 F L 86 20 191/88 H 96 12/31/16 06:00 12/31/16 10:14 12/31/16 06:00 12/31/16 10:14 12/31/16 06:00 Intake and Output: 12/31/16 12/31/16 06:59 18:59 Intake Total 920 Output Total 1300 Balance -380 - Medications Medications: Current Medications Acetylcysteine (Acetylcysteine 20%) 6 ml PO BID [facility] Amlodipine Besylate (Norvasc) 10 mg PO DAILY [facility] Last Admin: 12/31/16 10:13 Dose: 10 mg Aspirin (Ecotrin) 81 mg PO DAILY [facility] Last Admin: 12/31/16 10:14 Dose: 81 mg Atorvastatin Calcium (Lipitor) 10 mg PO DIN [facility] Last Admin: 12/30/16 17:44 Dose: 10 mg Budesonide (Pulmicort Respules) 0.5 mg IH [id number] [facility] Last Admin: 12/31/16 07:40 Dose: 0.5 mg Carvedilol (Coreg) 6.25 mg PO BID [facility] Last Admin: 12/31/16 10:14 Dose: 6.25 mg Clopidogrel Bisulfate (Plavix) 75 mg PO DAILY [facility] Last Admin: 12/31/16 10:14 Dose: 75 mg Furosemide (Lasix) 40 mg IVP BID [facility] Last Admin: 12/31/16 10:11 Dose: 40 mg Heparin Sodium (Porcine) (Heparin) 5,000 units SC Q12 [facility] PRN Reason: Protocol Last Admin: 12/31/16 10:12 Dose: 5,000 units Hydralazine HCl (Apresoline) 10 mg IVP Q6 PRN PRN Reason: For SBP>170 And Diastolic>100 Last Admin: 12/30/16 12:19 Dose: 10 mg Hydralazine HCl (Apresoline) 50 mg PO BID [facility] Last Admin: 12/31/16 10:12 Dose: 50 mg Meropenem 1g/NS 100mL IVPB (Meropenem 1g/Ns 100ml Ivpb) 100 mls @ 100 mls/hr IVPB Q12 [facility] PRN Reason: Protocol Stop: 01/04/17 08:01 Last Admin: 12/31/16 10:13 Dose: 100 mls/hr Levalbuterol HCl (Xopenex) 0.63 mg IH Q2 PRN PRN Reason: Shortness of Breath Last Admin: 12/30/16 11:34 Dose: 0.63 mg Levalbuterol HCl (Xopenex) 0.63 mg IH [id number] [facility] Last Admin: 12/31/16 07:40 Dose: 0.63 mg Methylprednisolone (Solu-Medrol) 20 mg IVP Q12 [facility] Last Admin: 12/31/16 10:11 Dose: 20 mg Pantoprazole Sodium (Protonix Ec Tab) 40 mg PO ACB [facility] Last Admin: 12/31/16 08:26 Dose: 40 mg Silver Sulfadiazine (Silvadene 1% 20 Gm) 0 ea TOP BID [facility] Last Admin: 12/31/16 10:11 Dose: 1 applic - Labs Labs: 12/30/16 13:00 12/30/16 13:00 PT 11.4 Seconds (9.9-11.8) 12/29/16 09:30 INR 1.06 (0.93-1.08) 12/29/16 09:30 APTT 26.3 Seconds (23.7-30.8) 12/29/16 09:30 - Constitutional Appears: Non-toxic, No Acute Distress - Head Exam Head Exam: NORMAL INSPECTION - ENT Exam ENT Exam: Mucous Membranes Moist - Neck Exam Neck Exam: absent: Lymphadenopathy, Meningismus - Respiratory Exam Respiratory Exam: Decreased Breath Sounds - Cardiovascular Exam Cardiovascular Exam: +S1, +S2 - GI/Abdominal Exam GI & Abdominal Exam: Soft. absent: Tenderness Assessment and Plan - Assessment and Plan (Free Text) Plan: Assessment Severe sepsis with hypoxic respiratory failure (S/P intubation, now extubated) and acute on chronic renal failure probably secondary to right lower lobe healthcare-associated pneumonia with possible gram positive cocci and/or gram negative bacilli on top of probable acute congestive heart failure, clinically improving Acute on chronic renal failure, R/O secondary to chronic active hepatitis C COPD Hepatitis C GERD peptic ulcer diseae CAD S/P PCI with stents placed S/P appendectomy Plan continue Doxycycline and Meropenem day 4; cultures have been negative; PCT is elevated; reviewed CXR - will target 4-7 days of therapy Discussed with Nephrology (Dr. 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
--- NOTE | 2016-12-31 12:15 | CARD ---
APPROVED REPORT EKG Measurement Heart [id number] <Conclusion> Normal sinus rhythm Normal ECG
--- NOTE | 2016-12-31 14:18 | PN ---
DATE: 12/31/2016 REASON FOR CONSULTATION AND FOLLOWUP: Cardiac evaluation, status post intubated, now successfully ex tubated. BRIEF CLINICAL HISTORY: A 76-year-old male with a past medical history significant for hypertension, COPD, hepatitis C, gastroesophageal reflux, peptic ulcer disease, coronary artery disease, status po st 4 bare metal stents, 3 in LAD, 1 in ramus in 04/2013. A few weeks ago, the patient was admitted wi pneumonia, discharged home. At that time, patient had non-ST segment myocardial infarction. The patient was scheduled for cardiac catheterization, but patient wanted to come as outpatient. Now, isabelle pritchett admitted again with pneumonia. Denies any chest pain, shortness of breath, any palpitation. PHYSICAL EXAMINATION: VITAL SIGNS: Temperature afebrile, heart rate 83, blood pressure 191/88. HEENT: PERRLA. Extraocular muscles intact. NECK: Supple. No carotid bruits. No thyromegaly. CHEST: Clear to auscultation. HEART: S1, S2 regular. ABDOMEN: Soft. EXTREMITIES: Clubbing, cyanosis negative. BLOOD WORKUP: WBC 9.8, hemoglobin 8.8, hematocrit 28.7, platelet count 177. Chemistry shows sodium , potassium 4.2, chloride 106, carbon dioxide 28, anion gap of 16, BUN 82, creatinine 2.2. IMPRESSION: Chronic renal insufficiency, stage III-IV chronic kidney disease, creatinine clearance 2 9 mL an hour, cardiomyopathy, non-ST segment myocardial infarction on previous admission, coronary ar demetrius disease, status post 4 bare metal stents, 3 in LAD, 1 in ramus intermedius, shortness of breath, pneumonia, ejection fraction 35%-40%. RECOMMENDATION: Monitor H and H. Continue aspirin, continue Plavix. Cardiac catheterization tomorr ow. We will do the right and left heart catheterization to assess pulmonary hypertension. Continue Coreg in between. Avoid nephrotoxic medication. Increase hydralazine to 50 mg 3 times a day and p.r .n. as well. Continue aspirin, continue Plavix. N.p.o. after midnight for cardiac catheterization t omorrow. We will start Mucomyst and start IV fluid. We will discuss with Dr. Morales. Thank you, Dr. Morales, for providing us the opportunity in taking care of the patient. Discussed at length with the patient. We will discuss with Dr. Morales in reference to cardiac catheterizati on tomorrow. If everybody agrees, we will do the cardiac catheterization. Want to keep n.p.o. after midnight for cardiac catheterization in the morning. Noel Bowling MD cc: [phone] TT: 12/31/2016 14:18:20 Confirmation # [id number] Dictation # [id number]
[2016-12-31 14:45] LABS: ADD MANUAL DIFF? NO
[2016-12-31 14:51] LABS: BASO # 0.01 K/mm3 (0.0-2.0); BASO % 0.1 % (0.0-3.0); GRAN # 7.59 (1.4-6.5); GRAN % 87.7 % (50.0-68.0); LYMPH # 0.7 (1.2-3.4); MEAN CELL VOLUME 86.6 fL (80.0-105.0); MEAN CORPUSCULAR HEMOGLOBIN 26.9 pg (25.0-35.0); MEAN PLATELET VOLUME 10.5 fl (7.0-11.0); MONO # 0.4 (0.1-0.6); MONO % 4.2 % (1.0-6.0); PLATELET COUNT 160 10^3/uL (120.0-450.0); RED CELL DISTRIBUTION WIDTH 17.6 % (11.5-14.5); WHITE BLOOD COUNT 8.7 10^3/ul (4.5-11.0)
[2016-12-31 14:59] LABS: BILIRUBIN,TOTAL 0.7 mg/dL (0.2-1.3); MAGNESIUM 2.2 mg/dL (1.7-2.2); PHOSPHOROUS 4.9 mg/dL (2.5-4.5); POTASSIUM 5.4 mmol/L (3.6-5.0); TOTAL PROTEIN 6.2 g/dL (5.8-8.3)
[2016-12-31 15:17] LABS: HEPARIN-IND PLATELET AB Negative (Negative)
[2016-12-31] MEDS: Acetylcysteine 20% Inhal Soln (4ml) PO SCH (18:05)
[2017-01-01] MEDS ORDERED: Sodium Chloride 0.9% 1,000 ML IV SCH ×4 (00:15→12:15)
[2017-01-01] MEDS: Levalbuterol 0.63 MG/3 ML Inhal Soln UD IH SCH ×4 (01:14→19:52)
[2017-01-01] MEDS: Acetylcysteine 20% Inhal Soln (4ml) PO SCH ×2 (06:30→17:09)
--- NOTE | 2017-01-01 06:56 | CP.PCM.PN ---
Subjective - Date & Time of Evaluation Date of Evaluation: 12/31/16 Time of Evaluation: 10:00 - Subjective Subjective: Patient reporting feeling well, breathing improved, tolerating diet; Objective - Vital Signs/Intake and Output Vital Signs (last 24 hours): Temp Pulse Resp BP Pulse Ox 97.9 F 63 18 179/65 H 97 01/01/17 00:00 01/01/17 06:28 01/01/17 00:00 01/01/17 06:28 01/01/17 00:00 Intake and Output: 12/31/16 01/01/17 18:59 06:59 Intake Total 450 360 Output Total 800 Balance 450 -440 - Medications Medications: Current Medications Acetylcysteine (Acetylcysteine 20%) 6 ml PO BID [facility] Stop: 01/02/17 23:59 Last Admin: 01/01/17 06:30 Dose: 6 ml Amlodipine Besylate (Norvasc) 10 mg PO DAILY [facility] Last Admin: 01/01/17 06:27 Dose: 10 mg Aspirin (Ecotrin) 81 mg PO DAILY [facility] Last Admin: 01/01/17 06:29 Dose: 81 mg Atorvastatin Calcium (Lipitor) 10 mg PO DIN [facility] Last Admin: 12/31/16 17:03 Dose: 10 mg Budesonide (Pulmicort Respules) 0.5 mg IH [id number] [facility] Last Admin: 12/31/16 20:01 Dose: 0.5 mg Carvedilol (Coreg) 6.25 mg PO BID [facility] Last Admin: 01/01/17 06:28 Dose: 6.25 mg Clopidogrel Bisulfate (Plavix) 75 mg PO DAILY [facility] Last Admin: 01/01/17 06:29 Dose: 75 mg Doxycycline Hyclate (Doryx) 100 mg PO Q12 [facility] PRN Reason: Protocol Last Admin: 12/31/16 22:00 Dose: 100 mg Furosemide (Lasix) 40 mg IVP BID [facility] Last Admin: 12/31/16 18:04 Dose: 40 mg Hydralazine HCl (Apresoline) 10 mg IVP Q6 PRN PRN Reason: For SBP>170 And Diastolic>100 Last Admin: 12/30/16 12:19 Dose: 10 mg Hydralazine HCl (Apresoline) 50 mg PO TID [facility] Last Admin: 01/01/17 06:29 Dose: 50 mg Meropenem 1g/NS 100mL IVPB (Meropenem 1g/Ns 100ml Iv[facility]) 100 mls @ 100 mls/hr IVPB Q12 [facility] PRN Reason: Protocol Stop: 01/04/17 08:01 Last Admin: 12/31/16 22:00 Dose: 100 mls/hr Sodium Chloride (Sodium Chloride 0.9%) 1,000 mls @ 75 mls/hr IV .[id number] [facility] Last Admin: 12/31/16 23:49 Dose: 75 mls/hr Levalbuterol HCl (Xopenex) 0.63 mg IH Q2 PRN PRN Reason: Shortness of Breath Last Admin: 12/30/16 11:34 Dose: 0.63 mg Levalbuterol HCl (Xopenex) 0.63 mg IH [id number] [facility] Last Admin: 01/01/17 01:14 Dose: 0.63 mg Methylprednisolone (Solu-Medrol) 20 mg IVP Q12 [facility] Last Admin: 12/31/16 23:51 Dose: 20 mg Pantoprazole Sodium (Protonix Ec Tab) 40 mg PO ACB [facility] Last Admin: 12/31/16 08:26 Dose: 40 mg Silver Sulfadiazine (Silvadene 1% 20 Gm) 0 ea TOP BID [facility] Last Admin: 12/31/16 18:05 Dose: 1 applic - Labs Labs: 12/31/16 14:30 12/31/16 14:30 PT 11.4 Seconds (9.9-11.8) 12/29/16 09:30 INR 1.06 (0.93-1.08) 12/29/16 09:30 APTT 26.3 Seconds (23.7-30.8) 12/29/16 09:30 - Constitutional Appears: Well, No Acute Distress - Head Exam Head Exam: NORMAL INSPECTION - Eye Exam Eye Exam: Normal appearance - ENT Exam ENT Exam: Mucous Membranes Moist - Neck Exam Neck Exam: Normal Inspection - Respiratory Exam Respiratory Exam: Decreased Breath Sounds, Wheezes - Cardiovascular Exam Cardiovascular Exam: RRR, +S1, +S2 - GI/Abdominal Exam GI & Abdominal Exam: Soft. absent: Distended, Tenderness - Extremities Exam Additional comments: moderate leg edema - Neurological Exam Neurological Exam: Alert, Awake - Psychiatric Exam Psychiatric exam: Normal Affect, Normal Mood - Skin Skin Exam: Warm. 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 in the setting of hep C with low C4 and elevated rheumatoid factor; urine micro directly observed last week showing significant hematuria as well as ~10 WBC's/hpf; with ~2g proteinuria by 24 hr urine; cannot rule out an interstitial nephritis either ; our recommendation is for renal biopsy in order to have an accurate diagnosis and to be able to preserve renal function; Improvement in renal function with diuretics may be consistent with a cardiorenal etiology; no objection to left and right cardiac cath as it will help in elucidating volume status and may be therapeutic for patient with known CAD; -acetylcysteine and IVF to prevent contrast induced nephropathy Status: Acute (2) CHF (congestive heart failure) Assessment & Plan: Improved, continue diuretics; Status: Acute (3) Pneumonia Assessment & Plan: On meropenem, correctly dosed for renal insufficiency; Status: Acute (4) HTN (hypertension) Assessment & Plan: Uncontrolled, coreg and hydralazine recently added; monitor; Status: Acute (5) Hepatitis C Assessment & Plan: Discussed with ID today; may be cause of underlying GN; needs outpatient f/u which ID service is willing to provide; Status: Acute
[2017-01-01 06:58] LABS: ADD MANUAL DIFF? NO
[2017-01-01 07:19] LABS: BASO # 0.01 K/mm3 (0.0-2.0); BASO % 0.1 % (0.0-3.0); GRAN # 6.54 (1.4-6.5); GRAN % 87.6 % (50.0-68.0); HEMATOCRIT 28.1 % (42.0-52.0); LYMPH # 0.7 (1.2-3.4); LYMPH % 9.8 % (22.0-35.0); MEAN CELL VOLUME 86.7 fL (80.0-105.0); MEAN CORPUSCULAR HEMOGLOBIN 26.5 pg (25.0-35.0); MEAN CORPUSCULAR HGB CONC 30.6 g/dl (31.0-37.0); MONO # 0.2 (0.1-0.6); MONO % 2.5 % (1.0-6.0); PLATELET COUNT 164 10^3/uL (120.0-450.0); RED CELL DISTRIBUTION WIDTH 17.6 % (11.5-14.5); WHITE BLOOD COUNT 7.5 10^3/ul (4.5-11.0)
[2017-01-01 07:33] LABS: BILIRUBIN,TOTAL 0.6 mg/dL (0.2-1.3); POTASSIUM 5.2 mmol/L (3.6-5.0); TOTAL PROTEIN 5.8 g/dL (5.8-8.3)
--- NOTE | 2017-01-01 07:34 | PN ---
DATE: 01/01/2017 SUBJECTIVE: The patient appears very comfortable at rest. He is not short of breath. PHYSICAL EXAMINATION: VITAL SIGNS: Temperature 97.9, pulse 63, respirations 18, blood pressure 179/ 65. Oxygen saturation on nasal cannula is 97%. HEENT: Normocephalic, atraumatic. No JVD. CARDIOVASCULAR: Systolic ejection murmur at the lower left sternal border. Positive S3 gallop. LUNGS: Minimal/less crackles at the bases. No rhonchi or wheezing this morning. EXTREMITIES: Positive for edema. No cyanosis, no clubbing. Calves are nontender to palpation. GASTROINTESTINAL: Abdomen is soft, nontender, nondistended. Bowel sounds are positive. SKIN: No acute rash. NEUROLOGIC: Limited at the present time. IMPRESSION: 1. Respiratory failure. 2. Recurrent congestive heart failure. 3. Chronic obstructive pulmonary disease. 4. Recent myocardial infarction. 5. Renal insufficiency. 6. Anemia. PLAN: The patient appears very comfortable this morning. He is not short of breath at rest. He states he is feeling much better overall. On physical exam , his bronchospasm continues to resolve. In addition, the oxygen saturation on nasal cannula is now 97%. I will continue with the current nebulizer treatments and low-dose intravenous steroids (decreased yesterday) for now. I would continue with the cardiology evaluation -- as per Dr. Bowling. His input is noted. The patient is for cardiac catheterization later today. Clinical status of the patient is significantly improved -- compared to last week. However, again, the overall status/prognosis of this elderly patient remains very guarded. I will discuss the above with Dr. Morales. Sebastian Huntley MD cc: [phone] TT: 01/01/2017 07:34:17 Confirmation # [id number] Dictation # [id number] [id number]
[2017-01-01] MEDS: Pantoprazole 40 mg EC Tab PO SCH (07:40)
[2017-01-01] MEDS: Budesonide 0.5 mg/2 ml Inhal Susp UD IH SCH ×2 (08:04→19:52)
--- NOTE | 2017-01-01 08:35 | PN ---
DATE: 12/29/2016 This is a 76-year-old male with a history of COPD, CHF with systolic dysfunction, CAD, CKD and hepati tis C, admitted with hypercapnic and hypoxemic respiratory failure. Nephrology consulted for acute r enal failure. The patient today reports his breathing has improved, but still very much concerned ab out his breathing. PHYSICAL EXAMINATION: VITAL SIGNS: This morning: Blood pressure 166/71, heart rate 71, respirations 20, temperature 97.8. GENERAL: The patient in no distress, able to speak coherently in full sentences. HEENT: Moist mucous membranes. Nonicteric. CHEST: Poor air movement, mild scattered expiratory wheezes. HEART: S1, S2 positive, no murmurs, no rubs, no gallops. ABDOMEN: Soft, nontender, nondistended. EXTREMITIES: Marked bilateral leg edema. LABORATORY DATA: WBC 7.7, hemoglobin 8.6, hematocrit 27.6, platelets 148. Chemistry panel: Sodium 147, potassium 5.3, chloride 108, bicarbonate 28, BUN 89, creatinine 2.6, glucose 203, calcium 8.9, p hosphorus 5.6, albumin 3.1. Procalcitonin level from yesterday 1.82 elevated. ABG this morning: pH 7.32, pCO2 of 51, pO2 99, bicarb 26.3. ASSESSMENT: 1. Acute renal failure on chronic kidney disease stage IIIB/IV, proteinuric kidney disease, no quant ifiable urine protein yet available, ordered. 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 Serum creatinine improved since yesterday, although diuretics were re started. Etiology of acute renal failure had thought to have been over-diuresis. Reason for improve ment may be improved cardiac output after being adequately diuresed. The patient does not appear to h ave a rapidly progressive glomerulonephritis; however, renal biopsy would be prudent for established the chronicity of disease and to see how amenable the patient may be to immunosuppressive therapy and also to accurately establish etiology of chronic kidney disease. The patient explained the risks an d benefits of a biopsy. Still awaiting a urine protein quantification because if the patient has nep hrotic range proteinuria, we should initiate treatment after obtaining a biopsy. The patient will al so need outpatient hepatitis C treatment. 2. Congestive heart failure exacerbation with systolic dysfunction. Overall respiratory status impr delvin, currently on 3 liters oxygen via nasal cannula with acceptable saturation. On Lasix 40 mg IV b .i.d.; would continue the same for now. 3. Electrolyte imbalance. The patient with mild hyperkalemia in the setting of renal insufficiency, not on any medications that would grossly exacerbate hyperkalemia. Changing diet to a low potassium diet. 4. Healthcare-associated pneumonia. Currently on meropenem 1 gram q.12 hours. Need to ensure dosin g for creatinine clearance 15-30 mL per minute. 3. Hypernatremia, mild, worsened with diuretics. Allow the patient to consume up to 1.5 liters of f ree water per day. Vrial Riojas MD cc: [id number] TT: 12/29/2016 20:02:26 Confirmation # [id number] Dictation # [id number] jarvis
--- NOTE | 2017-01-01 08:35 | PN ---
DATE: 12/31/2016 The patient was seen this Sunday morning in room 265, bed 2, resting comfortably, looking much clinic ally improved. His congestive heart failure has been getting better. I spoke at length with Dr. Bowling, consulting steam table attendant. We are scheduled for cardiac catheterizati on tomorrow morning. The patient understands and agrees, as we have been talking about this for the last day or two. This will help determine if this recurrent episode of congestive heart failure was brought on by an ischemic event in view of his [address]. I also had a conversation with renal valuation consultant this morning who surprisingly is recommending a renal biopsy, questioning whether his renal insufficiency may not be related to the obvious of hypertensio n, diabetes and hepatitis C for many years. The patient is steadfast against this idea at this point and is willing to pursue cardiac workup and get his pulmonary condition under better control. BUN i s near baseline. A review his BUN over the past several years shows that as long as 10 years ago his creatinine was at 1.1, but over the last 4 years or so has been in the 1.6 to 1.9 range. Will discu ss with renal again in the future. Cardiac catheterization tomorrow. Samm Morales MD cc: [id number] TT: 01/01/2017 08:34:56 Confirmation # [id number] Dictation # [id number] helen
--- NOTE | 2017-01-01 09:07 | PN ---
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 The patient today reporting his breathing is well, tolerating diet w ell, urinating several times overnight. PHYSICAL EXAMINATION: VITAL SIGNS: This morning, blood pressure 161/68, heart rate 60, respirations 20, temperature 97.4, O2 sat 96% on 3 liters via nasal cannula. GENERAL: No distress, able to converse coherently in full sentences. HEENT: Moist mucous membranes. No scleral icterus. CHEST: Poor air movement bilaterally. Bilateral mild wheezes, no rales. HEART: S1, S2 positive muffled heart sounds, no JVD. ABDOMEN: Soft, nontender, nondistended. EXTREMITIES: Moderate bilateral leg edema. LABORATORY DATA: This morning, WBC 8.7, hemoglobin 9.0, hematocrit 29.0, platelets 160. Chemistry p neelima: Sodium 141, potassium 5.4, chloride 105, bicarb 26, BUN 94, creatinine 2.0, glucose 145, calci um 9.1, phosphorus 4.9. ASSESSMENT: 1. Congestive heart failure exacerbation. The patient responding well to diuresis. Overall, respir atory status much improved. Continue Lasix 40 mg IV b.i.d. and Coreg 6.25 mg b.i.d.; cannot add REY blockade at this point as the patient has mild hyperkalemia, which may worsen if added. 2. Acute renal failure. Baseline creatinine about 1.9, increased to 3.1 during this admission, now down to 2.0 today. Etiology of renal failure unclear at this point. 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 Negative cryoglobulinemia assay is not always reliable as the drawn lab specimen is usuall y not transported correctly and is notorious for being falsely negative. The patient also with about 2 grams of proteinuria per 24-hour urine sample and urine microscopy showing considerable amount of hematuria. Cannot rule out interstitial nephritis either, as the patient also had about 10-15 white cells per high-powered field per urine microscopy that was directly visualized by myself. Superimpos ed cardiorenal etiology is also a possibility and may explain why renal function is improving with di uresis. At this point, we would recommend a renal biopsy as this would be the only way for us to ens ure we are doing whatever we can to preserve the patient's renal function in the long term care social worker. No objec tions to cardiac cath scheduled for tomorrow. Right heart cath pressures would be very use in assess ing the need for further diuresis, and as the patient has a known history of coronary artery disease, revascularization may be helpful. Acetylcysteine ordered by cardiology, agree with IV fluids to pre vent contrast induced nephropathy. Discussed renal biopsy with primary attending, who will discuss t he issue with the patient. 3. Coronary artery disease. The patient for cardiac cath tomorrow. See above for our recommendatio ns regarding prevention of contrast induced nephropathy. 4. Pneumonia. The patient on meropenem for healthcare-associated pneumonia. Currently getting 1 gr am q. 12 hours. ID following. Correctly dosed for creatinine clearance of about 30 mL per minute. 5. Hypertension, uncontrolled. Hydralazine dose increased to t.i.d. Coreg started yesterday. Norma tor. 6. Hepatitis C. Awaiting viral load assay. Discussed with ID the need for outpatient followup and treatment discussed with the patient, as well as this would be the mainstay after treating cryoglobul inemic glomerulonephritis. Viral Riojas MD cc: [id number] TT: 12/31/2016 20:32:12 Confirmation # [id number] Dictation # [id number] helen
[2017-01-01] MEDS ORDERED: Midazolam 2 MG/2 ML VIAL ONE (10:23)
[2017-01-01] MEDS ORDERED: Lidocaine 2% Inj (20ml) ONE (10:23)
[2017-01-01] MEDS ORDERED: Iodixanol 320 MG/ML 200 ML BOTTLE IV ONE (10:24)
[2017-01-01] MEDS ORDERED: Iohexol 350mgl/ml 50 ML ONE (10:24)
[2017-01-01] MEDS ORDERED: Iodixanol 320 MG/ML 100 ML BOTTLE IV ONE (10:24)
[2017-01-01] MEDS ORDERED: Oxycodone/Acetaminophen 5/325 mg Tab PO STA (12:41)
--- NOTE | 2017-01-01 13:15 | PN ---
DATE: 01/01/2017 REASON FOR CONSULTATION AND FOLLOWUP: Cardiac evaluation, status post cardiac catheterization. BRIEF CLINICAL HISTORY: This is a 76-year-old male with a past medical history significant for hyper tension, COPD, hepatitis C, gastroesophageal reflux, peptic ulcer disease, coronary artery disease st atus post 4 bare metal stents - 3 in the LAD, 1 in the ramus - on 04/2013. A week ago admitted with pneumonia, intubated, [id number] myocardial infarction. Cardiac catheterization was scheduled, bu t patient wanted to go home. Readmitted again with shortness of breath requiring intubation, success fully extubated. A lengthy discussion done. The patient agreed for cardiac catheterization. She is scheduled for cardiac catheterization today. Cardiac catheterization revealed left main essentially free of significant disease, patent stent in LAD, mild luminal irregularity, patent stent to ramus, proximal circ has a 40% stenosis, distal circ 50-60% stenosis, dominant large RCA which has no signif icant coronary artery disease, ejection fraction 45-50%, LVEDP was in the range of 20. Right heart c atheterization revealed RA 12-13, RV 54/19, PA 55/28, mean PA of 34, pulmonary capillary wedge pressure at 20, cardiac output 7.1, cardiac index 3.54, PVR (pulmonary vascular resistance) 2 Wood's unit. IMPRESSION: Nonobstructive coronary artery disease, patent stent in left anterior descending, patent stent in the ramus, moderate disease in circumflex, mild to moderate pulmonary hypertension. RECOMMENDATION: Aggressive medical treatment. Diuretics. Aggressive treatment for COPD and pneumon ia. Total 30 mL of contrast used; monitor renal function. Baseline creatinine is elevated. Today, c reatinine before the procedure with hydration is 2. We will monitor for the next 24-48 hours. We wi ll discuss with Dr. Morales. Thank you, Dr. Morales, for providing the opportunity in taking care of this patient. In the interim, continue Mucomyst for the next 48 hours, continue hydralazine for blood pressure, con tinue Coreg, continue aspirin. History of gastrointestinal bleed, so will discontinue Plavix since n o stent was placed. Plavix was placed for anticipating that patient needs a stent. Continue gentle hydration overnight. We will follow with you. Continue hydration for the next 12 hours, and will fo llow the BUN and creatinine for the next 24-48 hours. Thank you, Dr. Morales, for providing the opportunity in taking care of the patient. Noel Bowling MD cc: [id number] TT: 01/01/2017 13:15:04 Confirmation # [id number] Dictation # [id number] mn
[2017-01-01] MEDS: Silver Sulfadiazine 1% Cream (20 gm) TOP SCH ×2 (13:50→17:08)
[2017-01-01] MEDS: Meropenem 1g/NS 100mL IVPB 100 ML IVPB SCH ×2 (13:50→23:03)
[2017-01-01] MEDS: MethylPREDNISolone 40 mg Vial IVP SCH ×2 (13:51→23:03)
[2017-01-01 15:57] LABS: HEPATITIS C VIRAL RNA QUAL Detected (())
--- NOTE | 2017-01-01 19:38 | PN ---
DATE: 01/01/2017 This is a 76-year-old male with history of coronary artery disease status post stents, CHF with systo lic and diastolic dysfunction, chronic obstructive pulmonary disease, hepatitis C untreated, and CKD stage IIIB, admitted with congestive heart failure exacerbation, acute renal failure and pneumonia. The patient seen today after undergoing right and left heart catheterization. Reports feeling well, shortness of breath improved. PHYSICAL EXAMINATION: VITAL SIGNS: Blood pressure 173/69, heart rate 65, respirations earlier this morning 18, temperature 97.8, O2 sat 97% on 3 liters O2 via nasal cannula. GENERAL: No distress, able to communicate coherently in full sentences. HEENT: Moist mucous membranes. No scleral icterus. CHEST: Poor air movement bilaterally. No wheezes, no rhonchi, no rales. HEART: S1, S2 positive, muffled heart sounds. NECK: No JVD elevation. ABDOMEN: Soft, nontender, nondistended. EXTREMITIES: Markedly edematous legs extending to thighs. LABORATORY DATA: This morning, WBC 4.5, hemoglobin 8.6, hematocrit 28.1, platelets 164. Chemistry p neelima: Sodium 145, potassium 5.2, chloride 107, bicarbonate 31, BUN 92, creatinine 2.0, calcium 9.0, glucose 121, albumin 3.0. ASSESSMENT: 1. Congestive heart failure exacerbation. The patient underwent right heart catheterization today s howing markedly elevated right and left-sided pressures with wedge pressure of 28 and mean pulmonary artery pressure of 34, consistent with marked volume overload. The patient currently on Lasix 40 mg IV b.i.d. Continue the same. Likely, will need to increase diuretics. Need daily weights to target 2-3 pounds of weight loss daily. 2. Acute renal failure, acute kidney injury on chronic kidney disease IIIB, baseline creatinine abou t 1.9, increased to 3.1 during this admission, now down to 2.0. Etiology of renal failure still uncl ear, strong suspicion for an underlying glomerulonephritis with the patient having relatively active urine sediment, 2 gram proteinuria, low C4, elevated rheumatoid factor and hepatitis C with qualitati ve ACV, PCR returning positive. Awaiting quantitative assay. Cannot rule out interstitial nephritis at this point also as patient has 10-15 WBC on urine microscopy by my direct examination. However, at this point, the patient likely with cardiorenal etiology of acute renal failure and has responded to diuretics, right heart catheterization showing marked elevation in right and left-sided pressures, focus should be on improving hemodialysis status with diuresis. The patient would need a renal biop sy at some point in order to preserve his renal function in the best possible manner. 3. Coronary artery disease, left heart catheterization today showing patent coronary stents remainin g vessels with nonobstructive coronary artery disease. Medical management, recommended, should incre ase dose of Lipitor. 4. Pneumonia. The patient on meropenem for healthcare-associated pneumonia. Currently getting 1 gr am q. 12 hours, correctly dosed for creatinine clearance of about 30 mL per minute. 5. Hypertension, uncontrolled. We will increase Coreg dose to 12.5 mg b.i.d. 6. Hepatitis C. Needs to follow up with ID as outpatient for treatment. Viral Riojas MD cc: [id number] TT: 01/01/2017 19:37:44 Confirmation # [id number] Dictation # [id number] dwain
--- NOTE | 2017-01-01 23:13 | CARD ---
APPROVED REPORT Procedure(s) performed: Complete Heart Catheterization HISTORY The patient is a 76 year-old male with a history of : renal failure without dialysis, diabetes mellitus with oral treatment , coronary artery disease, tobacco history() , previous PCI (The PCI date was 04/2013), hypertension , dyslipidemia , Hx of four BMS, (GI bleed in the past) 3 in LAD and i in Ramus Intermedius, admitted with CHF, pneumonia, respiratory failure intubated and NSTEMI.. INDICATION The indication(s) include : non-STEMI , dyspnea. CASE TECHNIQUE The patient was brought electively to the Cardiac Catheterization Laboratory in a fasting state and was prepped and draped in a sterile manner. The right femoral groin was infiltrated with 2% Lidocaine subcutaneous anesthesia. A 6Fr Temi sheath was inserted into the right femoral artery without difficulty. Coronary angiography was performed using coronary diagnostic catheters. The left coronary system was accessed and visualized with a Diagnostic ,JL3.5 Fr catheter. The right coronary system was accessed and visualized with a Diagnostic ,JR3.5,5Fr catheter. The left ventricle was accessed and visualized with a Pig tail catheter. Left ventricular/Aortic Valve gradient assessed on pullback. Left ventriculogram was performed in FREITAS projection. A Right Heart Catheterization was performed with a 7 Fr. Pearson-Ronan catheter and pressure were recorded. A 7 sheath was inserted into the right femoral vein without difficulty. Coronary angiography was performed using coronary diagnostic catheters. Cardiac outputs were obtained by the Thermal Dilution method. Closure device was deployed with a 6 Fr Mynx in both artery and Vein without any complications. The patient tolerated the procedure well and there were no complications associated with the procedure. Vessel Analysis The patient's coronary anatomy is co-dominant. The left main coronary artery is a large size vessel with intimal irregularities. The left main bifurcates to the left anterior descending and circumflex. The left anterior descending artery is a medium size vessel with diffuse calcification noted throughout this vessel and without significant stenosis. patent three stents The first diagonal branch is a medium size vessel with diffuse calcification noted throughout this vessel and without significant stenosis. The circumflex artery is a medium size vessel . There is a 60-70% stenosis in the mid segment. The first obtuse marginal branch is a medium size vessel with diffuse calcification noted throughout this vessel and without significant stenosis. The second obtuse marginal branch is a small size vessel with diffuse calcification noted throughout this vessel and without significant stenosis. The left posterior descending artery is a medium size vessel with diffuse calcification noted throughout this vessel and without significant stenosis. The ramus intermedius artery is a medium size vessel with diffuse calcification noted throughout this vessel and without significant stenosis. patent stent The right coronary artery is a large size vessel with diffuse calcification noted throughout this vessel and without significant stenosis. There is a 40-50% stenosis in the mid segment. The right posterior descending artery is a medium size vessel with diffuse calcification noted throughout this vessel and without significant stenosis. Left Ventricle The left ventricle is normal in size with normal contractility. There was no cardiomyopathy. The left ventricular ejection fraction is estimated to be 55%. The left ventricular end diastolic pressure is 18-20 mmHg. Right Heart Cath Findings The Right Atrial Pressure is 12-13 mmHg. The Right Ventricular Pressure is 54/18 mmHg. The Pulmonary Artery Pressure is 55/28 mmHg. with a mean of 34 The Pulmonary Catheter Wedge Pressure is 20 mmHg. PVR 2-0 Wood units. The cardiac output and index were assessed using thermo dilution. The Cardiac Output is 71.00 L/min. The Cardiac index is 3.54 L/min/m2. Conclusion Non obstructive CAD Patent stent in LAD/ Ramus Intermedius Moderate Diz. in Cx Preserved LV Fx, EF-55%, EDP-20 RHC: RA-12-13, RV-54/18,PA-55/28 with a mean of 34, PCW-20, CO-7.1,CI-3.54 PVR-2 Calderon unit Recommendations Aggressive Medical TherapyCardiac Risk Reduction Program Weight Loss Reduction Program CC; T.MD Kentrell.
[2017-01-02] MEDS: Levalbuterol 0.63 MG/3 ML Inhal Soln UD IH SCH ×4 (02:02→20:07)
[2017-01-02 04:48] LABS: GAMMA GLOBULIN 8.7 Relative % (())
[2017-01-02 06:23] LABS: ADD MANUAL DIFF? NO
[2017-01-02 06:38] LABS: GRAN # 7.57 (1.4-6.5); GRAN % 87.7 % (50.0-68.0); HEMATOCRIT 28.1 % (42.0-52.0); LYMPH # 0.9 (1.2-3.4); MEAN CELL VOLUME 86.7 fL (80.0-105.0); MEAN CORPUSCULAR HEMOGLOBIN 27.2 pg (25.0-35.0); MEAN CORPUSCULAR HGB CONC 31.3 g/dl (31.0-37.0); MEAN PLATELET VOLUME 9.6 fl (7.0-11.0); MONO # 0.2 (0.1-0.6); MONO % 2.3 % (1.0-6.0); PLATELET COUNT 142 10^3/uL (120.0-450.0); RED CELL DISTRIBUTION WIDTH 17.7 % (11.5-14.5); WHITE BLOOD COUNT 8.6 10^3/ul (4.5-11.0)
[2017-01-02 06:45] LABS: ALB/GLOB RATIO 1.1 (1.1-1.8); BILIRUBIN,TOTAL 0.6 mg/dL (0.2-1.3); CALCIUM 8.7 mg/dL (8.4-10.5); MAGNESIUM 2.1 mg/dL (1.7-2.2); PHOSPHOROUS 5.5 mg/dL (2.5-4.5); TOTAL PROTEIN 5.5 g/dL (5.8-8.3)
[2017-01-02 07:13] LABS: CREATININE, RANDOM URINE 75 mg/dL (20-370)
--- NOTE | 2017-01-02 07:32 | PN ---
DATE: 01/02/2017 SUBJECTIVE: The patient appears very comfortable at rest. He is not short of breath. PHYSICAL EXAMINATION: VITAL SIGNS: Temperature is 98.1, pulse 62, respirations 18/20, blood pressure 138/68. Oxygen saturation on nasal cannula is 97%. HEENT: Normocephalic, atraumatic. No JVD. CARDIOVASCULAR: Systolic ejection murmur at the lower left sternal border. No S3 gallop. LUNGS: Clear bilaterally this morning. EXTREMITIES: Less edema. No cyanosis, no clubbing. Calves are nontender to palpation. GASTROINTESTINAL: Abdomen is soft, nontender, nondistended. Bowel sounds are positive. SKIN: No acute rash. NEUROLOGIC: Limited at the present time. IMPRESSION: 1. Respiratory failure. 2. Recurrent congestive heart failure. 3. Chronic obstructive pulmonary disease. 4. Recent myocardial infarction. 5. Renal insufficiency. 6. Anemia. PLAN: The patient appears very comfortable this morning. He is not short of breath at rest. He states he is feeling much better overall. On physical exam , his lungs are now clear. His oxygen saturation on nasal cannula is 97%. I will continue with the current nebulizer treatments and change to oral steroids this morning. I would continue with the cardiology evaluation and workup. The patient is status post cardiac catheterization. Input by Dr. Bowling is noted. Clinical status of the patient is significantly improved -- compared to last week. However, again, the overall status/prognosis of this elderly patient-- with multiple serious medical issues -- does remain guarded. I will discuss the above with Dr. Morales. Sebastian Huntley MD cc: [id number] TT: 01/02/2017 07:32:16 Confirmation # [id number] Dictation # [id number] MTDD
[2017-01-02] MEDS: Pantoprazole 40 mg EC Tab PO SCH (07:42)
[2017-01-02] MEDS: Budesonide 0.5 mg/2 ml Inhal Susp UD IH SCH ×2 (07:58→20:07)
--- NOTE | 2017-01-02 08:30 | PN ---
DATE: 01/01/2017 The patient was seen earlier today in no acute distress. No fevers and no chills, complaining of javed n. PHYSICAL EXAMINATION: VITAL SIGNS: Temperature is 97, blood pressure is 170/60, respiratory rate of 16. HEENT: Unremarkable. NECK: Supple. LUNGS: Have decreased breath sounds. HEART: Normal S1, S2. ABDOMEN: Soft, nontender. LABORATORY DATA: White count is 7.5, hemoglobin of 8, platelets of 164. Chemistries reveal the BUN of 92, creatinine of 2.0. Procalcitonin is 1.82. The urinalysis is noted. Microbiology reveals the blood cultures are negative. Review of the orders reveals the patient's medications include doxycycline and meropenem. Dr. Viral lora's note is reviewed. ____ note is reviewed. Dr. Huntley's note is also reviewed. Dr. King Morales's note is reviewed. The patient had a cardiac catheterization today. ASSESSMENT AND PLAN: This is a 76-year-old with severe sepsis, hypoxic respiratory failure, status p ost intubation, now extubated, acute on chronic renal failure, probably secondary to right lower lobe healthcare-associated pneumonia with possible ____ gram-negative enrique, pneumonia on top of acute hannah estive heart failure, clinically improving on top of acute on chronic renal failure with chronic acti ve hepatitis C, chronic obstructive pulmonary disease, on day #5 of meropenem and doxycycline with el evated procalcitonin. We will follow closely with you. The patient has been afebrile and a normal w mariangel count, negative cultures, elevated heptoglobin level, will repeat a procalcitonin. Nicolas Alcaraz MD cc: [id number] TT: 01/01/2017 21:03:07 Confirmation # [id number] Dictation # [id number] dwain
[2017-01-02] MEDS: Acetylcysteine 20% Inhal Soln (4ml) PO SCH ×2 (09:50→17:28)
[2017-01-02] MEDS: Meropenem 1g/NS 100mL IVPB 100 ML IVPB SCH (09:52)
[2017-01-02] MEDS: Silver Sulfadiazine 1% Cream (20 gm) TOP SCH ×2 (09:53→17:35)
--- NOTE | 2017-01-02 11:33 | PN ---
DATE: 01/02/2017 REASON FOR CONSULTATION AND FOLLOWUP: Cardiac evaluation, status post cardiac catheterization. BRIEF CLINICAL HISTORY: A 76-year-old male with past medical history of hypertension, hepatitis C, C OPD, and gastroesophageal reflux, peptic ulcer disease, coronary artery, status post 4 bare metal sanjay nts, 3 in LAD and 1 in RCA in 04/2013. Yesterday, underwent cardiac catheterization that revealed pa tent stent in LAD and patent stent to ramus and a 60% stenosis in the circumflex. Medical treatment recommended. The patient denies any chest pain, shortness of breath, any palpitation. PHYSICAL EXAMINATION: VITAL SIGNS: Temperature afebrile, heart rate 60, blood pressure 197/82. HEENT: PERRLA. Extraocular muscles intact. NECK: Supple. No carotid bruits. No thyromegaly. CHEST: Clear to auscultation. HEART: S1, S2 regular. ABDOMEN: Soft. EXTREMITIES: Clubbing and cyanosis negative. LABORATORY DATA: Blood workup as follows: WBC 8.6, hemoglobin 8.8, hematocrit 28.1 and platelet cou nt 142. Chemistry shows sodium 144, potassium 5, chloride 107, carbon dioxide 29, anion gap of 13, B UN 90, creatinine 1.8. IMPRESSION: Chronic kidney disease, history of [id number] myocardial infarction, coronary artery disease, status post cardiac catheterization that revealed a patent stent in left anterior descendin g, circumflex, noncompliance with medication, history of gastrointestinal bleed, hepatitis C, gastroe sophageal reflux, recurrent pneumonia, obesity. Yesterday, underwent cardiac catheterization that re vealed mild nonobstructive coronary artery disease, right heart catheterization revealed right atrium 12-13, right ventricle 54/19, pulmonary artery 54/28, mean pulmonary artery 34.8, pulmonary capillar y wedge pressure 20, cardiac output 7.1, cardiac index 3.4, pulmonary vascular resistance 2 Wood unit . RECOMMENDATION: Monitor renal function because the patient got a total of 30 mL of contrast. Monito r for contrast-induced nephropathy. Continue Mucomyst for today. Avoid nephrotoxic medication. Mon itor H and H. Monitor renal function. Discontinue Plavix, was given because anticipating the patien t may need a stent. Continue gentle hydration. Overnight was discontinued. Follow up BUN and creat inine tomorrow. We will discontinue telemetry, discharge planning, rehab, physical therapy. We will follow with you. Continue hydralazine, Coreg increased to 12.5, probably is tolerating it, increase to 25 b.i.d. We will follow with you. Thank you, Dr. Morales, for providing us the opportunity in taking care of the patient. We will ge t a MUGA scan to assess LV and RV function because before this event, the patient with decreased LV f unction. Yesterday, cardiac catheterization revealed normal LV function, so we will get LV and RV EF today. Noel Bowling MD cc: [id number] TT: 01/02/2017 11:32:37 Confirmation # [id number] Dictation # [id number] tn
--- NOTE | 2017-01-02 13:37 | PN ---
DATE: 01/02/2017 The patient is in bed in no acute distress, nontoxic. No fevers and no chills; however, chronically ill. PHYSICAL EXAMINATION: GENERAL: The patient is in bed, in no acute distress, nontoxic. VITAL SIGNS: Temperature of 98, blood pressure is 190/80, respiratory rate of 18, heart rate of 90. HEENT: Unremarkable. NECK: Supple. LUNGS: Have decreased breath sounds. HEART: Normal S1, S2. ABDOMEN: Soft, nontender. LABORATORY EXAMINATION: Reveals a white count of 8.6, hemoglobin of 8, platelets of 142. BUN of 90, creatinine of 1.8. Procalcitonin 0.10. Urinalysis is noted. Immunology is noted. Serology is det ected for hep C. Microbiology reveals the blood cultures are no growth, urine cultures no growth. Dr. Bowling's note from today is reviewed. ASSESSMENT AND PLAN: A 76-year-old male with severe sepsis, hypoxic respiratory failure, status post intubation, now extubated and chronic renal failure, probably secondary to right lower lobe healthca re-associated pneumonia, possible gram-positive cocci, possible gram-negative enrique in addition, with a cute congestive heart failure. Clinically improving with acute on top of chronic renal failure and a chronic active hepatitis C, chronic obstructive lung disease. Day #6 of meropenem and doxycycline a nd now the procalcitonin is down to 0.10. We will discontinue the antibiotics. No further need for meropenem. We will discontinue meropenem and doxycycline. The patient is on prednisone. Nicolas Alcaraz MD cc: [id number] TT: 01/02/2017 13:37:07 Confirmation # [id number] Dictation # [id number] en
[2017-01-02 20:48] LABS: BETA 1 GLOBULIN 0.3 g/dL (0.4-0.6); BETA 2 GLOBULIN 0.2 g/dL (0.2-0.5); GAMMA GLOBULIN 0.5 g/dL (0.8-1.7)
--- NOTE | 2017-01-02 23:10 | CP.PCM.PN ---
Subjective - Date & Time of Evaluation Date of Evaluation: 01/02/17 Time of Evaluation: 20:00 - Subjective Subjective: Reports breathing improved; Objective - Vital Signs/Intake and Output Vital Signs (last 24 hours): Temp Pulse Resp BP Pulse Ox 96.5 F L 57 L 20 174/62 H 97 01/02/17 18:00 01/02/17 18:00 01/02/17 18:00 01/02/17 18:00 01/01/17 06:00 Intake and Output: 01/02/17 01/03/17 18:59 06:59 Intake Total 660 180 Output Total 625 400 Balance 35 -220 - Medications Medications: Current Medications Acetylcysteine (Acetylcysteine 20%) 6 ml PO BID [facility] Stop: 01/02/17 23:59 Last Admin: 01/02/17 17:28 Dose: 6 ml Amlodipine Besylate (Norvasc) 10 mg PO DAILY [facility] Last Admin: 01/02/17 09:52 Dose: 10 mg Aspirin (Ecotrin) 81 mg PO DAILY [facility] Last Admin: 01/02/17 09:51 Dose: 81 mg Atorvastatin Calcium (Lipitor) 10 mg PO DIN [facility] Last Admin: 01/02/17 17:29 Dose: 10 mg Budesonide (Pulmicort Respules) 0.5 mg IH [id number] [facility] Last Admin: 01/02/17 20:07 Dose: 0.5 mg Carvedilol (Coreg) 12.5 mg PO BID [facility] Last Admin: 01/02/17 17:28 Dose: 12.5 mg Furosemide (Lasix) 40 mg IVP BID [facility] Last Admin: 01/02/17 17:35 Dose: 40 mg Hydralazine HCl (Apresoline) 10 mg IVP Q6 PRN PRN Reason: For SBP>170 And Diastolic>100 Last Admin: 12/30/16 12:19 Dose: 10 mg Hydralazine HCl (Apresoline) 50 mg PO TID [facility] Last Admin: 01/02/17 17:29 Dose: 50 mg Levalbuterol HCl (Xopenex) 0.63 mg IH Q2 PRN PRN Reason: Shortness of Breath Last Admin: 12/30/16 11:34 Dose: 0.63 mg Levalbuterol HCl (Xopenex) 0.63 mg IH [id number] [facility] Last Admin: 01/02/17 20:07 Dose: 0.63 mg Pantoprazole Sodium (Protonix Ec Tab) 40 mg PO ACB [facility] Last Admin: 01/02/17 07:42 Dose: 40 mg Prednisone (Prednisone Tab) 30 mg PO DAILY [facility] Last Admin: 01/02/17 09:53 Dose: 30 mg Silver Sulfadiazine (Silvadene 1% 20 Gm) 0 ea TOP BID [facility] Last Admin: 01/02/17 17:35 Dose: 1 applic - Labs Labs: 01/02/17 06:00 01/02/17 06:00 PT 11.4 Seconds (9.9-11.8) 12/29/16 09:30 INR 1.06 (0.93-1.08) 12/29/16 09:30 APTT 26.3 Seconds (23.7-30.8) 12/29/16 09:30 - Constitutional Appears: No Acute Distress Assessment and Plan (1) CHF (congestive heart failure) Status: Acute (2) Pneumonia Status: Resolved (3) Acute renal failure Status: Acute (4) HTN (hypertension) Status: Acute (5) Hepatitis C Status: Chronic
[2017-01-02] MEDS: Levalbuterol 0.63 MG/3 ML Inhal Soln UD IH PRN (23:36)
--- NOTE | 2017-01-03 00:27 | CARD ---
APPROVED REPORT INDICATION Congestive Heart Failure COPD PROCEDURE The above named patient recieved 30 millicuries of Tc99m tagged red blood cells intravenously. After achieving equilibrium, gated imaging of 16/frame/cycle was performed utillizing Gamma camera interfaced with a digital computer and gated device. Gated imaging was then performed in the left anterior oblique, anterior, and the left lateral projections. Findings Left Ventricle: The quality of the study is good. The left ventricle is mildly enlarged in size. The right ventricle is normal in size. Wall motion study shows good contractility of the left ventricle. RV wall motion is normal. The right atrium is dynamic. The remainder of the study is unremarkable. Impressions Normal gated wall motion of left ventricle wall. LVEF = 69%. Normal RV wall motion.
[2017-01-03] MEDS: Levalbuterol 0.63 MG/3 ML Inhal Soln UD IH SCH ×4 (02:03→21:50)
--- NOTE | 2017-01-03 02:55 | PN ---
DATE: 01/02/2017 SUBJECTIVE: The patient was seen this Sunday morning in room 365, bed 2. He underwent cardiac catheterization yesterday, revealing nonobstructive coronary artery disease, for which medical treatment would be the plan. He remains quite a bit volume overloaded. Renal insufficiency has, surprisingly, improved and his breathing from the perspective of COPD is being rather nicely treated with aerosol treatments and nebulizer: LABORATORY DATA: Review of his labs after yesterday's catheterization shows white count to be normal, H and H at 8.8 and 28, coags to be unremarkable with INR of 1.06. Chemistries this morning show the electrolytes stable with sodium and potassium of 144 and 5.0, BUN was elevated at 92, but creatinine down to 1.8. Sugar was 132. Bilirubin and LFTs were normal. Protein and albumin were both slightly low at 5.5 and 2.9. PHYSICAL EXAMINATION: GENERAL: He is awake, alert, clear, and appropriate, in good spirits, dyspneic with exertion, but comfortable at rest. HEAD AND NECK: Unremarkable. LUNGS: Show markedly decreased breath sounds of COPD. There were no rales or rhonchi that I could appreciate. HEART: Distant, but regular. EXTREMITIES: Still showed +1-2 hard brawny edema up to the knees. IMPRESSION: 1. Congestive heart failure. 2. Chronic obstructive pulmonary disease. 3. Coronary artery disease with [address] 4. Renal insufficiency. 5. Prerenal azotemia. 6. Hepatitis C. 7. Hypertension. PLAN: We will continue diuresis. I spoke with Dr. Valladares, an associate of Dr. Hayes. We spoke about their consideration of a kidney biopsy and the realistic possibility as to whether the patient's renal insufficiency as related to his years of hypertension and tobacco use, versus a steroid- treatable reversible cause. In any event, the patient feels strongly against a kidney biopsy and, at this point, from a cardiopulmonary standpoint, he is too unstable to proceed. This may be something we will consider later. Samm Morales MD cc: [phone] TT: 01/03/2017 02:54:26 Confirmation # [id number] Dictation # [id number] helen HAMM
[2017-01-03] MEDS: Budesonide 0.5 mg/2 ml Inhal Susp UD IH SCH ×2 (07:06→21:51)
--- NOTE | 2017-01-03 08:39 | PN ---
DATE: 01/03/2017 PULMONARY NOTE SUBJECTIVE: The patient appears very comfortable at rest. He is not short of breath. PHYSICAL EXAMINATION: VITAL SIGNS: Temperature is 96.5, pulse 82, respirations 18, blood pressure 171 /64. Oxygen saturation on nasal cannula is 97%. HEENT: Normocephalic, atraumatic. No JVD. CARDIOVASCULAR: Systolic ejection murmur at the lower left sternal border. No S3 gallop. LUNGS: Very minimal rhonchi appreciated. No wheezing. EXTREMITIES: Less edema. No cyanosis, no clubbing. Calves are nontender to palpation. GASTROINTESTINAL: Abdomen is soft, nontender, nondistended. Bowel sounds are positive. SKIN: No acute rash. NEUROLOGIC: Limited at the present time. IMPRESSION: 1. Respiratory failure. 2. Recurrent congestive heart failure. 3. Chronic obstructive pulmonary disease. 4. Recent myocardial infarction. 5. Renal insufficiency. 6. Anemia. PLAN: The patient appears very comfortable this morning. He is not short of breath at rest. He states he is feeling much, much better overall. On physical exam, his bronchospasm continues to slowly resolve. In addition, the alveolar arterial gradient also continues to resolve. I will continue with the current nebulizer treatments and low-dose oral steroids for now. I would continue with the cardiology and renal evaluations. Inputs are noted. Clinical status of the patient is certainly improved - compared to last week. However, again, the overall status/prognosis of this patient remains very guarded. I will discuss the above with Dr. Morales. Sebastian Huntley MD cc: [phone] TT: 01/03/2017 08:38:57 Confirmation # [id number] Dictation # [id number] jn HANSEL
[2017-01-03] MEDS: Silver Sulfadiazine 1% Cream (20 gm) TOP SCH ×2 (09:50→17:42)
[2017-01-03] MEDS: Pantoprazole 40 mg EC Tab PO SCH (09:52)
--- NOTE | 2017-01-03 13:21 | PN ---
DATE: 01/03/2017 The patient in room 568, bed 2. REASON FOR CONSULTATION AND FOLLOWUP: Status post cardiac catheterization. HISTORY OF PRESENT ILLNESS: A 76-year-old male with past medical history of hypertension, hepatitis C, COPD, gastroesophageal reflux, peptic ulcer disease, coronary artery disease, status post 4 bare m etal stents -- 3 in LAD and 1 in RCA in 04/2013. Two days ago, patient underwent cardiac catheterizat ion and it revealed that patient had patent stent in LAD and patent stent to ramus and there was a 60 % stenosis in the circumflex for which medical treatment was recommended. The patient lying flat in bed without chest pain, shortness of breath, or palpitation. The patient had a MUGA scan yesterday w hich showed LVEF 69%, normal RV wall motion. PHYSICAL EXAMINATION: VITAL SIGNS: Blood pressure 147/48, respirations 20, pulse 54, temperature 98.1. HEAD: Normocephalic. EYES: Pupils normal. Conjunctivae slightly pale. NECK: JVP low. Carotid equal. THORAX: AP diameter normal. LUNGS: Clear. CARDIOVASCULAR: S1 and S2. ABDOMEN: Soft, no tenderness, no organomegaly. Bowel sounds normal. EXTREMITIES: No clubbing, no cyanosis. LABORATORY DATA: WBC 8.6, hemoglobin 8.8, hematocrit 28.1, platelet 142. Sodium 144, potassium 5.0, BUN 90, creatinine 1.8, calcium 8.7, phosphorous 5.5, magnesium 2.1. AST, ALT normal. Total protei n 5.5, albumin is 2.9. DIAGNOSES: Chronic kidney disease, history of non-ST segment elevation myocardial infarction in the past, coronary artery disease, status post cardiac catheterization that revealed patent stents and mi ld disease in circumflex. The patient noncompliant with medication, history of gastrointestinal blee d, hepatitis C, gastroesophageal reflux, recurrent pneumonia, obesity. Two days ago, cardiac cathete rization showed nonobstructive coronary artery disease. Right heart cardiac catheterization showed r ight atrial pressure 12-13, right ventricle 54/19, pulmonary artery 54/28, mean pulmonary artery pres sure 34.8, pulmonary capillary wedge pressure 20, cardiac output 7.1, cardiac index 3.4, pulmonary va scular resistance ____. PLAN: Monitor the lab. The patient on hydralazine 50 mg t.i.d., Coreg 12.5 b.i.d., aspirin 81 mg da devonte, Lasix 40 mg IV b.i.d., Lipitor 10 mg p.o. daily, amlodipine 10 mg daily, prednisone 30 mg p.o. d aily. We will continue present therapy. If blood pressure stays persistently high, we will adjust t he medication, so we will follow with you. Noel Yeung MD cc: [id number] TT: 01/03/2017 13:20:35 Confirmation # [id number] Dictation # [id number] sn
--- NOTE | 2017-01-03 16:33 | PN ---
DATE: 01/03/2017 The patient seen earlier this morning, awake and alert, doing well. No nausea or vomiting. PHYSICAL EXAMINATION: VITAL SIGNS: Temperature is 98, blood pressure is 140/80, respiratory rate of 16. HEENT: Unremarkable. NECK: Supple. LUNGS: Decreased breath sounds. HEART: Normal S1, S2. ABDOMEN: Soft. LABORATORY EXAMINATION: Reveals a white count of 8.6, hemoglobin of 8, platelets of 142. BUN of ___ _, creatinine of 1.8. Procalcitonin 0.10. Urinalysis is noted. Cryoglobulins are detected. Hepati tis C, RNA is also detected. Blood cultures and urine cultures are negative. ASSESSMENT AND PLAN: A 76-year-old male admitted with severe sepsis, hypoxic respiratory failure, st atus post intubation, now extubated; acute and chronic renal failure secondary to right lower lobe he althcare-associated pneumonia, possible gram-positive cocci versus gram-negative enrique pneumonia with a cute congestive heart failure and chronic active hepatitis C, chronic obstructive lung disease. Day #7 of doxycycline and ____ and meropenem with a repeat procalcitonin negative. Currently, patient is off of antibiotics. Was treated with meropenem and doxycycline and will need hepatitis C treatment as outpatient. Nicolas Alcaraz MD cc: 350 TT: 01/03/2017 16:32:51 Confirmation # [id number] Dictation # [id number] sn
--- NOTE | 2017-01-03 21:22 | PN ---
DATE: 01/03/2017 NEPHROLOGY FOLLOWUP NOTE This is a 76-year-old male with history of coronary artery disease, status post stents, CHF, COPD, un treated hepatitis C and CKD stage IIIB, admitted with congestive heart failure exacerbation, acute re nal failure and healthcare-associated pneumonia. The patient today reports breathing is improved. T olerating diet well. Urinating well, having urinated 2-3 times last night. PHYSICAL EXAMINATION: VITAL SIGNS: Blood pressure this morning 147/48, heart rate 54, respirations 20, temperature 98.1, O 2 sat 100%. GENERAL: The patient in no distress, able to speak coherently in full sentences. HEENT: Moist mucous membranes. Nonicteric. CHEST: Clear to auscultation bilaterally, improved air movement. HEART: S1, S2 positive, no murmurs, no rubs, no gallops. ABDOMEN: Soft, nontender, nondistended. EXTREMITIES: Moderately edematous. LABORATORY DATA: No new labs available today. Last serum creatinine 1.8 yesterday. ASSESSMENT: 1. Congestive heart failure exacerbation. The patient underwent MUGA scan yesterday, which showed e jection fraction was preserved at 69% despite previous echo that showed some systolic dysfunction. R ight heart cath done 2 days ago showed markedly elevated right and left-sided pressures with elevated wedge pressure and pulmonary artery pressure consistent with marked volume overload. The patient is currently on Lasix 40 mg IV push b.i.d. Weight yesterday was 189.2 pounds, increased to 190.8 pound s today despite patient being asymptomatic. We will increase frequency of Lasix to q. 8 hours with g oal of achieving 1-2 pounds weight loss daily. 2. Acute renal failure. Acute kidney injury on chronic kidney disease. The patient with last serum creatinine from yesterday at baseline of 1.8, improved from 3.1 earlier during this admission. Etio logy of renal failure still unclear. Cardiorenal etiology is likely with the patient having responde d to diuretics in the face of elevated left and right-sided pressures. Should continue with diuretic s with emphasis on improving hemodynamic status. Concern still remains for an underlying glomerulone phritis with the patient having a relatively active urine sediment 2 mg proteinuria, low C4, elevated rheumatoid factor and positive cryoglobulin assay. The patient with hep C qualitative viral load po sitive, awaiting quantitative assay. The patient also with elevated serum free light chain, kappa an d lambda ratio of 2.5, which can be seen in renal failure. Will obtain serum immunofixation for furt her assessment. 3. Coronary artery disease, left heart catheterization 2 days ago showing patent stents and nonobstr uctive coronary artery disease in remaining vessels. Continue with medical management. 4. Pneumonia. The patient is status post 7 days of meropenem. Monitor. 5. Hypertension, better controlled with increased dose of Coreg. Continue current medications. 6. Hepatitis C. Needs to follow up with ID as outpatient for treatment if patient opts not to get a renal biopsy, as he currently states. 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 Viral Riojas MD cc: [id number] TT: 01/03/2017 21:21:02 Confirmation # [id number] Dictation # [id number] bill
[2017-01-04] MEDS: Levalbuterol 0.63 MG/3 ML Inhal Soln UD IH SCH ×4 (02:09→22:12)
[2017-01-04] MEDS: Budesonide 0.5 mg/2 ml Inhal Susp UD IH SCH ×2 (08:32→22:11)
--- NOTE | 2017-01-04 08:44 | PN ---
DATE: 01/04/2017 SUBJECTIVE: The patient appears very comfortable at rest. He is not short of breath. PHYSICAL EXAMINATION: VITAL SIGNS: Temperature is 97.9, pulse 63, respirations 18/20, blood pressure 150/60. Oxygen saturation on nasal cannula is 99%. HEENT: Normocephalic, atraumatic. No JVD. CARDIOVASCULAR: Systolic ejection murmur at the lower left sternal border. No S3 gallop. LUNGS: Clear bilaterally this morning. EXTREMITIES: Less edema. No cyanosis, no clubbing. Calves are nontender to palpation. GASTROINTESTINAL: Abdomen is soft, nontender, nondistended. Bowel sounds are positive. SKIN: No acute rash. NEUROLOGIC: Limited at the present time. IMPRESSION: 1. Respiratory failure. 2. Recurrent congestive heart failure. 3. Chronic obstructive pulmonary disease. 4. Recent myocardial infarction. 5. Renal insufficiency. 6. Anemia. PLAN: The patient appears very comfortable this morning. He is not short of breath at rest. He states to feeling much better overall. On physical exam, his bronchospasm continues to resolve. In addition, the alveolar arterial gradient also continues to resolve. I will continue with the current nebulizer treatments and decrease the oral steroids this morning. Cardiology and renal evaluations are noted. Clinical status of the patient is significantly improved -- compared to last week. However, again, the overall status/ prognosis of this elderly patient--with multiple medical problems-- remains very guarded. I will discuss the above with Dr. Morales. Sebastian Huntley MD cc: [phone] TT: 01/04/2017 08:44:12 Confirmation # [id number] Dictation # [id number] tena HAMM
[2017-01-04] MEDS: Pantoprazole 40 mg EC Tab PO SCH (08:45)
[2017-01-04] MEDS: Silver Sulfadiazine 1% Cream (20 gm) TOP SCH ×2 (10:11→18:21)
--- NOTE | 2017-01-04 13:44 | PN ---
DATE: 01/04/2017 The patient is in room 568, bed 2. REASON FOR CONSULTATION AND FOLLOWUP: Coronary artery disease, history of stent insertion. HISTORY OF PRESENT ILLNESS: A 76-year-old male with past medical history significant for hypertensio n, hepatitis C, COPD, gastroesophageal reflux, peptic ulcer disease, coronary artery disease status p ost 4 bare metal stents insertion, 3 in LAD, 1 in RCA in 04/2013. The patient was admitted with cough and shortness of breath and had cardiac catheterization 3 days ago, which showed patent stent in LAD and patent stent in ramus and there was 60% stenosis in the circumflex, for which medical therapy wa s recommended. The patient's shortness of breath has improved. He still has cough, but this also is improving. The patient lying flat in bed without any shortness of breath or palpitation. The patie nt had MUGA scan 2 days ago, which showed LV of 69%, normal RV wall motion. PHYSICAL EXAMINATION: VITAL SIGNS: Blood pressure 150/60, respirations 20, pulse 63, temperature 97.9. HEAD: Normocephalic. EYES: Pupils normal. Conjunctivae slightly pale. NECK: JVP low. Carotid equal. THORAX: AP diameter normal. LUNGS: No significant rales. CARDIOVASCULAR: S1, S2. ABDOMEN: Soft, no tenderness, no organomegaly. Bowel sounds normal. EXTREMITIES: No clubbing, no cyanosis. LABORATORIES: WBC 8.6, hemoglobin 8.8, hematocrit 28.1, platelet 142. Sodium 144, potassium 5.0, BU N 90, creatinine 1.8. DIAGNOSES: Cough, shortness of breath, pneumonia, chronic kidney disease, history of non-ST segment elevation myocardial infarction in the past, coronary artery disease, status post cardiac catheteriza tion that revealed patent stents and mild disease in circumflex. The patient also has a history of h epatitis C, gastroesophageal reflux, gastrointestinal bleeding, recurrent pneumonia, obesity. Right heart catheterization showed right atrial pressure 12-13, right ventricle pressure 54/19, pulmonary a rtery pressure 54/28, mean pulmonary artery pressure 34.8, pulmonary capillary wedge pressure 20, car diac output 7.1, cardiac index 3.4. The patient is on hydralazine 50 t.i.d., carvedilol 12.5 mg p.o. b.i.d., aspirin 81 mg daily. The pa tient is getting Lasix 40 mg IV q. 8 hours, Lipitor 10 mg daily, amlodipine 10 mg daily, prednisone 2 0 mg p.o. daily. We will increase hydralazine from 50 mg t.i.d. to 50 mg p.o. q.i.d. to better contr ol the blood pressure and we will follow with you. Monitor the labs. Noel Yeung MD cc: [id number] TT: 01/04/2017 13:43:35 Confirmation # [id number] Dictation # [id number] en
[2017-01-04 13:57] LABS: ADD MANUAL DIFF? NO
[2017-01-04 14:04] LABS: EOS % 0.2 % (1.5-5.0); GRAN # 6.71 (1.4-6.5); GRAN % 82.4 % (50.0-68.0); HEMATOCRIT 25.7 % (42.0-52.0); LYMPH % 12.4 % (22.0-35.0); MEAN CELL VOLUME 88.6 fL (80.0-105.0); MEAN CORPUSCULAR HEMOGLOBIN 27.2 pg (25.0-35.0); MEAN CORPUSCULAR HGB CONC 30.7 g/dl (31.0-37.0); MEAN PLATELET VOLUME 10.4 fl (7.0-11.0); MONO # 0.4 (0.1-0.6); PLATELET COUNT 108 10^3/uL (120.0-450.0); RED CELL DISTRIBUTION WIDTH 17.6 % (11.5-14.5); WHITE BLOOD COUNT 8.2 10^3/ul (4.5-11.0)
[2017-01-04 14:09] LABS: ALB/GLOB RATIO 1.1 (1.1-1.8); BILIRUBIN,TOTAL 0.5 mg/dL (0.2-1.3); CALCIUM 8.1 mg/dL (8.4-10.5); POTASSIUM 4.4 mmol/L (3.6-5.0); TOTAL PROTEIN 5.1 g/dL (5.8-8.3)
--- NOTE | 2017-01-04 17:39 | PN ---
DATE: 01/04/2017 The patient is in bed in no acute distress, nontoxic. PHYSICAL EXAMINATION: VITAL SIGNS: Temperature is 98, blood pressure is 120/40, respiratory rate of 16. HEENT: Unremarkable. NECK: Supple. LUNGS: Decreased breath sounds. HEART: Normal S1, S2. ABDOMEN: Soft, nontender. LABORATORY EXAMINATION: Reveals a white count of 8.2, hemoglobin of 7, platelets of 108, BUN of 83, creatinine of 1.9. Microbiology is noted. Dr. Yeung's progress note is reviewed. Dr. Huntley's note is reviewed. Dr. Proctor ____ note is revie wed. ASSESSMENT AND PLAN: A 76-year-old male admitted with severe sepsis, hypoxic respiratory failure sta tus post intubation, now extubated; [id number] renal failure secondary to right lower lobe heal thcare-associated pneumonia and possible gram-positive cocci, possible gram-negative enrique in the face of acute congestive heart failure and chronic active hepatitis C, chronic obstructive lung disease. On doxycycline, meropenem. Now completed 7 days of ____ with a normal procalcitonin. At this point, patient is off of antibiotics, afebrile. The patient is on prednisone. However, he is at risk for developing nosocomial infections. The last procalcitonin is down to 0.1. Nicolas Alcaraz MD cc: [id number] TT: 01/04/2017 17:38:44 Confirmation # [id number] Dictation # [id number] sn
--- NOTE | 2017-01-04 23:04 | PN ---
DATE: 01/04/2017 HISTORY OF PRESENT ILLNESS: This is a 76-year-old male with history of CAD status post stents, CHF, C OPD, untreated hepatitis C and CKD stage IIIB, admitted with CHF exacerbation, acute renal failure an d healthcare-associated pneumonia. The patient reports breathing has improved overall. Lost IV acce ss earlier in the day. Otherwise, tolerating diet. PHYSICAL EXAMINATION: VITAL SIGNS: Blood pressure this morning 150/60, heart rate 63, respirations 20, O2 sat 99%, tempera ture 97.9. GENERAL: No distress, able to speak coherently in full sentences. HEENT: Moist mucous membranes. Nonicteric. CHEST: Diminished air movement. Otherwise clear to auscultation bilaterally. Minimal wheezes. HEART: S1, S2 positive. No murmurs, no gallops, no rubs. ABDOMEN: Soft, nontender, nondistended. EXTREMITIES: Bilateral moderately edematous lower legs. LABORATORY DATA: WBC 8.2, hemoglobin 7.9, hematocrit 25.7, platelets 108. Chemistry panel: Sodium 139, potassium 4.4, chloride 102, bicarb 30, BUN 83, creatinine 1.9, glucose 165, calcium 8.1, phosph orus 5.0. Albumin 2.7. ASSESSMENT: 1. Congestive heart failure exacerbation. MUGA scan yesterday showed EF preserved at 69% despite pre vious echo showing systolic dysfunction last month. Right heart catheterization earlier this week sh owing marked volume overload. Lasix frequency increased from b.i.d. to q. 8 hours yesterday; however , as patient lost his IV access with unsuccessful attempts to restore access; therefore, we will grijalva ge diuretics to Bumex 2 mg p.o. q. 8 hours until the patient can get IV access restored. Goal to achi margarito 1-2 pounds of weight loss daily. 2. Acute renal failure, acute kidney injury on chronic kidney disease. Serum creatinine today of 1. 9. Likely close to his baseline, improved from 3.1 earlier during admission. Cause for improvement i n renal function is not entirely clear. May have benefited from diuresis in the setting of a cardior enal etiology of renal failure. Alternatively, may have benefited from chronic obstructive pulmonary disease dose of steroids, which would indicate that patient may have an underlying interstitial nephr itis. Continue diuresis with emphasis on improving hemodynamic status. 3. Chronic kidney disease, stage IIIB. 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 Recommend renal biopsy in the near future after stabilization of heart failure status. 4. Coronary artery disease status post stents. Catheterization this week showed nonobstructive marce nary artery disease. Continue medical management with high potency statins. 5. Pneumonia, status post 7 days of meropenem. Monitor. 6. Hypertension, improved. Continue current medications. 7. Hepatitis C needs outpatient treatment, particularly if the patient is has cryoglobulinemic glome rulonephritis. Viral Riojas MD cc: [id number] TT: 01/04/2017 23:03:47 Confirmation # [id number] Dictation # [id number] ln
--- NOTE | 2017-01-04 23:19 | PCM.PROC ---
Procedures Attestation:: I certify that I have explained the specified Operation(s) or Procedure(s), risks, benefits and reasonable alternatives to the Patient and/or other person responsible. The opportunity was given to ask questions and all questions answered - Central Line Placement Right Internal Jugular Triple Lumen Catheter Aseptic technique was employed throughout the procedure: Hand Hygiene done prior to procedure, Full sterile barriers (mask, hair cover, sterile gown, sterile gloves), Full body sterile drape, Chloraprep Antiseptic: 30 second prep for IJ or SC sites CVP Time Out Performed: Yes Pt. Placed on Pulse Ox Monitor: Yes Central Line Prep: Chlorhexidine-Alcohol Combination Local Anesthesia Used: Lidocaine 1% Ultrasound Used for Placement: Yes Central Line Lumen Inserted: triple Central Line Length: 20 cm Post Procedure: Sutured in Place, Good Blood Return, All Ports Aspirated, Flushed, Capped, Sterile Dressing Applied Secured by: Suture Post procedure dressing: Gauze, Clear vapor permeable, Chlorhexidine disc ( Biopatch) Post Procedure X-Ray: Yes Patient Tolerated Procedure: Well Immediate Complications: None
--- NOTE | 2017-01-04 23:38 | PN ---
DATE: 01/04/2017 SUBJECTIVE: The patient was seen this afternoon at lunch time in room 568, bed 2. He is si tting out of bed in a chair, awake and alert, hoping for more physical therapy, feels like he needs t o just walk and ambulate more. He was hoping to get a walker, but there seems to be none available. I spoke with hospital management as they have in the past reassured me that walkers would be availab le. I explained how I do not need a doctorate level or physical therapist to evaluate the patient; I simply need someone to take him for a walk so he can be strong enough for discharge to home. LABORATORY DATA: Later in the day, morning labs were drawn, showing a drop in his hemoglobin to 7.9. PLAN: Two units of packed red blood cells will be ordered as this will help his COPD and coronary ar demetrius disease and be a good oncotic pressure for his peripheral edema and help with lowering his BUN. IV access was a problem, so, in the late evening a surgical consultation with Dr. Medellin was called . Hopefully, Dr. Medellin and surgical assistant certified will be able to acquire IV access for transfusion. Samm Morales MD cc: [phone] TT: 01/04/2017 23:17:22 Confirmation # [id number] Dictation # [id number] mn
[2017-01-05] MEDS: Levalbuterol 0.63 MG/3 ML Inhal Soln UD IH SCH ×4 (01:28→19:50)
--- NOTE | 2017-01-05 07:21 | PN ---
DATE: 01/05/2017 SUBJECTIVE: The patient appears very comfortable this morning. He is not short of breath at rest. OBJECTIVE: VITAL SIGNS: Temperature is 97.8, pulse 59, respirations 18, blood pressure 164 /62. Oxygen saturation on nasal cannula is 98%. HEENT: Normocephalic, atraumatic. No JVD. CARDIOVASCULAR: Systolic ejection murmur at the lower left sternal border. No S3 gallop. LUNGS: Very minimal rhonchi. No wheezing. EXTREMITIES: Less edema. No cyanosis, no clubbing. Calves are nontender to palpation. GASTROINTESTINAL: Abdomen is soft, nontender, nondistended. Bowel sounds are positive. SKIN: No acute rash. NEUROLOGIC: Limited at the present time. IMPRESSION: 1. Respiratory failure. 2. Recurrent congestive heart failure. 3. Chronic obstructive pulmonary disease. 4. Recent myocardial infarction. 5. Renal insufficiency. 6. Anemia. PLAN: The patient appears very comfortable this morning. He is not short of breath at rest. He states he is feeling much better overall. On physical exam , only minimal bronchospasm remains. In addition, the oxygen saturation on nasal cannula is now 98%. I will continue with the current nebulizer treatments and low-dose oral steroids (decreased yesterday) for now. Cardiology and renal evaluations are noted. Clinical status of the patient is significantly improved -- compared to last week. However, again, the overall status/prognosis of this elderly patient with multiple serious medical problems -- does remain very guarded. All are aware. I will discuss the above with the attending physician. Sebastian Huntley MD cc: [phone] TT: 01/05/2017 07:21:16 Confirmation # [id number] Dictation # [id number] jn HANSEL
[2017-01-05] MEDS: Budesonide 0.5 mg/2 ml Inhal Susp UD IH SCH ×2 (07:51→19:50)
--- NOTE | 2017-01-05 08:35 | RAD ---
HISTORY: s/p central line COMPARISON: 12/29/2016 FINDINGS: LUNGS: Patchy opacities at lung bases. Interstitial infiltrate seen in left lung appears much less prominent. . PLEURA: No significant pleural effusion identified, no pneumothorax apparent. CARDIOVASCULAR: Right IJ central venous catheter, terminates in the region of the SVC. OSSEOUS STRUCTURES: No significant abnormalities. VISUALIZED UPPER ABDOMEN: Normal. OTHER FINDINGS: None. IMPRESSION: Patchy opacities at both lung bases. New right IJ central venous catheter. No pneumothorax.
[2017-01-05] MEDS: Silver Sulfadiazine 1% Cream (20 gm) TOP SCH ×2 (09:19→19:20)
[2017-01-05] MEDS: Pantoprazole 40 mg EC Tab PO SCH (09:28)
--- NOTE | 2017-01-05 11:29 | PN ---
DATE: 01/05/2017 SUBJECTIVE: The patient is a 76-year-old male who was admitted to the [facility] on 12/25 with congestive heart failure and chronic obstructive pulmonary disease exacerbation. The patient is known to have a history positive for hypertension, COPD, hepatitis C, gastroesophageal reflux, peptic ulcer disease, coronary artery disease, status post PTCA. On admission, his BNP was elevated at 16,900. Troponins were 0.08. He was successfully treated until he suddenly decompensated, was intubated and brought to the ICU. Thankfully by the following morning, he was successfully extubated and to date continues to improve. He underwent coronary catheterization which showed nonobstructive coronary artery disease. His stent in the left anterior descending ramus intermedius was patent. He had moderate disease in the circumflex. His ejection fraction was 55%. An aggressive medical therapy and weight loss reduction was recommended at that time. The patient had a chest x- ray done yesterday, which showed patchy opacities in both lung lópez with a new right internal jugular central venous catheter and no pneumothorax. A central venous catheter was placed for IV access. His hemoglobin yesterday dipped to 7.9, therefore blood transfusions were ordered. When seen today, the patient is awake, alert, and oriented. He says he was sitting in a chair earlier, returned to bed and is feeling a bit tired. He feels he probably does not need his nasal oxygen; however, is wearing it anyway. PHYSICAL EXAMINATION: LUNGS: Clear anteriorly and laterally. No wheezes or rales are appreciated. HEART: Sounds are regular. ABDOMEN: Soft and flat, nontender. EXTREMITIES: Free of cyanosis, clubbing or edema. LABORATORY DATA: Morning laboratories show the BUN and creatinine are 89 and 1.3, respectively. We are maintaining a negative fluid balance on the patient. CURRENT MEDICATIONS: Include: Apresoline 10 mg IV push q. 6 hours as needed as well as 50 mg orally 4 times a day, Bumex 2 mg q. 8 hours, Coreg 12.5 mg twice a day, Ecotrin 81 mg once a day, iron sucrose, which he is receiving currently through IV piggyback, Lasix 40 mg intravenously q. 8 hours, Lipitor 10 mg at dinner, Norvasc 10 mg daily, prednisone 20 mg daily, Protonix 40 mg daily, Pulmicort Respules 0.5 mg inhaled every 12 hours. He has Silvadene cream topically to the skin lesions on his legs. He is receiving Xopenex nebulizer treatments every 6 hours, in addition to Xopenex nebulizer treatments every 2 hours as needed for respiratory problems. ASSESSMENT AND PLAN: We are continuing now with the patient's medications. We will be slowly transferring over more and more to oral medications. We are encouraging physical activity with physical therapy. The patient will continue to be followed closely. Baldomero Morales MD cc: [phone] TT: 01/05/2017 11:28:11 Confirmation # [id number] Dictation # [id number] jn MTDD
--- NOTE | 2017-01-05 11:30 | PN ---
DATE: 01/05/2017 The patient is in bed, in no acute distress. The patient was seen earlier. Low-grade temperatures. PHYSICAL EXAMINATION: VITAL SIGNS: Temperature of 100.1, blood pressure is 170/60, respiratory rate of 16. HEENT: Unremarkable. NECK: Supple. LUNGS: Have decreased breath sounds. HEART: Normal S1, S2. ABDOMEN: Soft, nontender. LABORATORY DATA: Reveals a white count of 8.2, hemoglobin of 7, platelets of 108. Chemistries revea l the BUN of 83, creatinine of 1.9. Procalcitonin is 0.1. Urinalysis is noted. Cryoglobulins detec wanda. Hepatitis C RNA is detected. Microbiology reveals the blood cultures are negative. Dr. Carey arrington's note is reviewed. Chest x-ray from yesterday is reviewed. Patchy infiltrate in both lung bases. ASSESSMENT AND PLAN: This is a 76-year-old male admitted with severe sepsis with hypoxic respiratory failure, status post intubation, now extubated, acute on chronic renal failure secondary to right lo wer lobe healthcare-associated pneumonia, possible gram-positive cocci, possible gram-negative enrique in the face of acute congestive heart failure and chronic active hepatitis C, chronic obstructive lung disease. Has completed 7 days of meropenem and doxycycline. Normal procalcitonin. Did have a low-g rade temperature of 100. Will follow closely. Currently, review of the orders confirms the patient to be off of antibiotics; at risk for developing nosocomial infections. The patient is on prednisone p.o. Will follow. Nicolas Alcaraz MD cc: 350 TT: 01/05/2017 11:28:56 Confirmation # [id number] Dictation # [id number] mn
--- NOTE | 2017-01-05 14:03 | PN ---
DATE: 01/05/2017 The patient is in room 568, bed 2. REASON FOR CONSULTATION AND FOLLOWUP: Coronary artery disease, history of stent insertion. HISTORY OF PRESENT ILLNESS: A 76-year-old male with past medical history significant for hypertensio n, hepatitis C, chronic obstructive pulmonary disease, gastroesophageal reflux, peptic ulcer disease, coronary artery disease, status post 4 bare metal stent insertions, 3 in LAD, 1 in RCA in 04/2013. T he patient was admitted with cough and shortness of breath and had cardiac catheterization 4 days ago , which showed patent stent in LAD and patent stent in ramus, 60% stenosis in circumflex, for which m edical therapy was recommended. The patient's shortness of breath has improved. His cough is also g etting better. He has no chest pain. MUGA scan 3 days ago showed LV ejection fraction 69%, normal R V wall motion. The patient's Lasix is on hold because of high BUN. PHYSICAL EXAMINATION: VITAL SIGNS: Blood pressure 170/62, respirations 16, pulse 61, temperature 97.9. HEAD: Normocephalic. EYES: Pupils normal. Conjunctivae slightly pale. NECK: JVP low. Carotid equal. THORAX: AP diameter normal. LUNGS: No significant rales. CARDIOVASCULAR: S1 and S2. ABDOMEN: Soft, no tenderness, no organomegaly. Bowel sounds normal. EXTREMITIES: No clubbing, no cyanosis. LABORATORIES: WBC 8.2, hemoglobin 7.9, hematocrit 25.7, platelet 108. Sodium 139, potassium 4.4, BU N 83, creatinine 1.9, sugar 165, calcium 8.1, phosphorus 5.0, magnesium 2.0, total protein low 5.1, a lbumin is low 2.7. Chest x-ray 01/04/2017 showed patchy opacities both lung bases. DIAGNOSES: Cough, shortness of breath, pneumonia, chronic kidney disease, history of non-ST segment elevation myocardial infarction in the past, coronary artery disease, status post cardiac catheteriza tion that revealed a patent stent and mild disease in circumflex. The patient also has history of he patitis C, gastroesophageal reflux, gastrointestinal bleeding, recurrent pneumonia, obesity. Right h eart catheterization showed right atrial pressure 12-13, right ventricle pressure 54/19, pulmonary ar demetrius pressure 54/28, mean pulmonary artery pressure 34.8, pulmonary capillary wedge pressure 20, card iac output 7.1, cardiac index 3.4. PLAN: The patient's hydralazine was increased to 50 mg q.i.d. and blood pressure is still elevated. We will try to add clonidine 0.1 mg daily to try to control the blood pressure better and we will co ntinue carvedilol 12.5 b.i.d., Lasix is on hold, Lipitor 10 mg daily, amlodipine 10 mg daily, prednis one 20 mg daily. We will repeat CBC, SMA-7 in a.m. We will follow with you. Noel Yeung MD cc: [id number] TT: 01/05/2017 14:02:59 Confirmation # [id number] Dictation # [id number] en
[2017-01-06] MEDS: Levalbuterol 0.63 MG/3 ML Inhal Soln UD IH SCH ×4 (01:20→19:57)
[2017-01-06] MEDS: Budesonide 0.5 mg/2 ml Inhal Susp UD IH SCH ×2 (07:20→19:57)
[2017-01-06 08:05] LABS: ADD MANUAL DIFF? NO
[2017-01-06 08:10] LABS: EOS % 0.5 % (1.5-5.0); GRAN # 4.51 (1.4-6.5); GRAN % 72.2 % (50.0-68.0); LYMPH # 1.2 (1.2-3.4); LYMPH % 19.5 % (22.0-35.0); MEAN CELL VOLUME 86.8 fL (80.0-105.0); MEAN CORPUSCULAR HEMOGLOBIN 27.2 pg (25.0-35.0); MEAN CORPUSCULAR HGB CONC 31.4 g/dl (31.0-37.0); MEAN PLATELET VOLUME 10.9 fl (7.0-11.0); MONO # 0.5 (0.1-0.6); MONO % 7.8 % (1.0-6.0); PLATELET COUNT 103 10^3/uL (120.0-450.0); RED CELL DISTRIBUTION WIDTH 17.5 % (11.5-14.5); WHITE BLOOD COUNT 6.3 10^3/ul (4.5-11.0)
[2017-01-06 08:25] LABS: CALCIUM 8.3 mg/dL (8.4-10.5); MAGNESIUM 1.9 mg/dL (1.7-2.2)
[2017-01-06] MEDS: Pantoprazole 40 mg EC Tab PO SCH (09:33)
--- NOTE | 2017-01-06 10:47 | PN ---
DATE: 01/06/2017 The patient is a 76-year-old male with a history of hypertension, COPD, hepatitis C, gastroesophageal reflux, peptic ulcer disease, coronary artery disease, status post PTCA, who was admitted with conge stive heart failure on 12/25/2016. During his hospital stay, he suddenly decompensated, was intubated, spent the night in the intensive care unit, but fortunately, was successfully extubated and eventual ly transferred to a med/surg floor where he continues to do well. We are maintaining in negative flu id balance. We are watching his renal functions. On this morning's laboratory, the BUN is down to 80 and creatinine is slightly lower at 1.7. The pat ient showed a hemoglobin of 7.9, the other day received transfusion of packed red blood cells and rec eiving ferrous sucrose intravenously. This morning's laboratory shows hemoglobin to be 9.1, hematocr it 29.0. White blood cell count is 6.3. PHYSICAL EXAMINATION: VITAL SIGNS: His blood pressure is 171/69, heart rate is 52 and he is afebrile. GENERAL: When seen today, his and son are at bedside. The patient is sitting up in a chair. Troy ayala had a large bowel movement earlier on and is feeling good. However, he does feel that he would be a bit panicky if he went to the bathroom without his oxygen. I spoke with the field case manager yesterday and hopefully, we will be arranging transfer to an [facility] for physical therapy and at the same time, watching his pulmonary and cardiac status as the patie nt twice in the past quickly decompensated, requiring intubation. We are decreasing his Lasix from 4 0 mg every 8 hours intravenously to 20 mg every 12 hours. I would consider decreasing his prednisone . He is currently on 20 mg orally daily. We will continue to watch the patient closely and follow u p on the possibility of LTAC rehab facility. Baldomero Morales MD cc: 438 TT: 01/06/2017 10:46:47 Confirmation # [id number] Dictation # [id number] tn
--- NOTE | 2017-01-06 11:30 | PN ---
DATE: 01/06/2017 568, bed 2. SUBJECTIVE: The patient is sitting at the side of his bed looking out the window, in no acute respir atory distress. He appears to be somewhat tachypneic, but offers no complaints. OBJECTIVE: VITAL SIGNS: Stable with a temperature of 98.6, pulse is 72, respiratory rate 16, blood pressure 160 /60, O2 saturation on nasal cannula is 98%. HEENT: Normocephalic, atraumatic. NECK: No jugular venous distention. No bruit, no lymphadenopathy. CARDIOVASCULAR: Regular rhythm, S1, S2. Soft systolic ejection murmur at the lower left sternal bor brigida. LUNGS: Essentially clear at this time. There is no wheezing or rhonchi appreciated. No rales are n oted either. GASTROINTESTINAL: Soft. Bowel sounds normoactive without mass, guarding, rebound or organomegaly. EXTREMITIES: Reveal no clubbing, cyanosis or edema. There is no Homans sign. SKIN: Shows no acute rash or excoriation. Lymphadenopathy is not present in the supraclavicular are a as well as in the cervical, inguinal or axillary areas. NEUROLOGIC: Limited at this time, but there appear to be no gross abnormalities noted. CLINICAL IMPRESSION: 1. Status post respiratory failure. 2. History of chronic obstructive pulmonary disease. 3. Recurrent congestive heart failure, resolved at this time. 4. Renal insufficiency. PLAN: Continue the inhaled bronchodilators, Xopenex and Pulmicort. Decrease the oral prednisone to 10 mg daily. This can be discontinued over the next several days following discharge. I have review ed the chart as I have not been here and I am covering for Dr. Huntley. Turnovers were accomplished and there seem to be no additional problems at this time. Please note, the x-ray must be followed to complete resolution as there are still some interstitial changes. I would suggest a followup chest x-ray and CAT scan if necessary after 2 weeks of home therapy. Thank you for the opportunity to evaluate this gentleman. Que Romeo MD cc: [id number] TT: 01/06/2017 11:30:21 Confirmation # [id number] Dictation # [id number] tn
[2017-01-06] MEDS: Silver Sulfadiazine 1% Cream (20 gm) TOP SCH ×2 (12:35→17:45)
--- NOTE | 2017-01-06 16:48 | PN ---
DATE: 01/06/2017 The patient is in bed in no acute distress, nontoxic. The patient seen earlier this morning. He is comfortable sitting up. He states he is hungry. PHYSICAL EXAMINATION: VITAL SIGNS: Temperature is 97, blood pressure is 150/60, respiratory rate of 16. HEENT: Unremarkable. NECK: Supple. LUNGS: Have decreased breath sounds. HEART: Normal S1, S2. ABDOMEN: Soft, nontender. LABORATORY DATA: Reveals a white count is 6.3, hemoglobin 9, platelets of 103. Chemistries reveal t he BUN of 80, creatinine of 1.7. Procalcitonin 0.10. Review of the orders reveals the patient to be off of antibiotics. The patient is on p.o. prednisone . ASSESSMENT AND PLAN: This is a 76-year-old male with severe sepsis, hypoxic respiratory failure, sta tus post intubation, now extubated. The patient also with acute on chronic renal failure secondary t o right lower lobe healthcare-associated possible gram-positive cocci, possible gram-negative enrique pne umonia in face of acute congestive heart failure and chronic active hepatitis C, chronic obstructive lung disease. He has completed antibiotic therapy and currently off of antibiotics. Dr. Que Pemberton user's note is reviewed. Dr. Baldomero Morales's note is also reviewed. We will follow with you. Th e patient is at risk for developing nosocomial infections. Nicolas Alcaraz MD cc: 350 TT: 01/06/2017 16:47:34 Confirmation # [id number] Dictation # [id number] jn
[2017-01-07] MEDS: Levalbuterol 0.63 MG/3 ML Inhal Soln UD IH SCH ×4 (03:00→20:46)
[2017-01-07] MEDS: Budesonide 0.5 mg/2 ml Inhal Susp UD IH SCH ×2 (07:36→20:46)
[2017-01-07] MEDS: Pantoprazole 40 mg EC Tab PO SCH (10:33)
[2017-01-07] MEDS: Silver Sulfadiazine 1% Cream (20 gm) TOP SCH ×2 (10:41→17:45)
--- NOTE | 2017-01-07 12:11 | PN ---
DATE: 01/07/2017 PULMONARY PROGRESS NOTE ROOM: 568 SUBJECTIVE: I had the opportunity to spend quite a bit of time with the patient this morning. He is feeling markedly better. He still has some mild complaints, but overall he states that he is doing great and has no real major complaints at this time. On further questioning though, the patient does state that he has significant shortness of breath on exertion and walking up stairs at home. He is taking Symbicort at home, but this is insufficient in taking care of his general status. I have explained to him that evaluation by a scientific technical writer with p ulmonary function studies would be helpful as to considering alternative therapy for his general stat us. OBJECTIVE: VITAL SIGNS: Stable with a blood pressure of 140/70, afebrile 98.6, pulse 70, respiratory rate 16, o xygen saturation 98% on room air. HEENT: Normocephalic, atraumatic. NECK: Supple, no JVD, no lymphadenopathy. There is no bruit or masses. CARDIOVASCULAR: Regular rhythm, S1, S2. Soft systolic ejection murmur at the lower left sternal bor brigida. LUNGS: Clearer today. No wheezing. Occasional rhonchi are auscultated. There are no rales noted. GASTROENTEROLOGICAL: Abdomen is soft. Bowel sounds normoactive without mass, guarding, rebound or o rganomegaly. EXTREMITIES: Reveal no clubbing, cyanosis or edema. There is no Homans sign. SKIN: Shows no rash or excoriation. LYMPHATIC: Lymphadenopathy is not present. The supraclavicular area as well as the cervical, inguin al and axillary areas are free of lymph nodes. NEUROLOGIC: Shows no focal findings. The patient is awake and alert, oriented. Motor, sensory and coordination are normal. Babinskis are downgoing. Deep tendon reflexes are normal. HOSPITAL DIAGNOSTICS: Last chest x-ray done on 01/04 shows some improvement in the pulmonary infiltra ronak (after which, this must be followed as an outpatient to show complete resolution. If not, furthe r intervention will be necessary). CLINICAL IMPRESSION: 1. Status post respiratory failure. 2. History of chronic obstructive pulmonary disease. 3. Recurrent congestive heart failure, resolved presently. 4. Renal insufficiency. 5. Pneumonic infiltrates. PLAN: Must repeat a chest x-ray in 1-2 weeks to show complete resolution of the infiltrates. If not , further diagnostic intervention will be necessary. His chronic obstructive pulmonary disease is st able at this time and we will continue to decrease the prednisone if possible before discharge. The patient will need a followup chest x-ray to show complete resolution of the infiltrates seen. The pa yarely will need a pulmonary function study to evaluate the general expiratory status and make sure th at no additional bronchodilators such as a LAMA is required. Pulmonary rehabilitation may be helpful as well, but we will decide that at his future visit in our office. We have discussed this therapeu tic and diagnostic reasons for an office visit and the patient agrees. We will be happy to see him w hen discharged. Thank you for the opportunity to see this gentleman. Que Romeo MD cc: [id number] TT: 01/07/2017 12:11:12 Confirmation # [id number] Dictation # [id number] en
--- NOTE | 2017-01-07 13:26 | PN ---
DATE: 01/06/2017 The patient was seen on a general medical floor. He had no complaints. He denied any chest pain, shortness of breath or palpitations and appeared to be in fairly good spirits. PHYSICAL EXAMINATION: VITAL SIGNS: Blood pressure is 155/62, heart rate 62, oral temperature is 97.5 , respiratory rate is 18, oxygen saturation 95% on room air. I's and O's were approximately 1200/720. HEENT: The patient was normocephalic and atraumatic without any sinus tenderness. Neck was supple with a full range of motion. Trachea was midline and freely mobile. There was no jugular venous distention. Conjunctivae were mildly pale, but they were anicteric. CHEST: Lungs lópez on my exam were grossly clear to auscultation, but breath sounds were rather distant. CARDIAC: Had a regular rate and rhythm without any rubs or gallops. There were no heaves and the PMI was not displayed. ABDOMEN: Soft, protuberant, but nontender, without any rebounding, guarding or rigidity. There was no hepatosplenomegaly appreciable. EXTREMITIES: Had trace to 1+ dependent edema with chronic stasis changes over both shins. NEUROLOGIC: The patient was nonfocal. VASCULAR: Had no bruits. SKIN: Revealed erythema as stated above. LABORATORY STUDIES: White count is 6.3, H and H is 9.1/29 with a platelet count of 103,000. There were 72% neutrophils, 20% lymphocytes, 8% monocytes. Sodium is 143, potassium is 4.0, chloride 104, bicarbonate 35, BUN/creatinine is 80/1.7 with a glucose of 78. Calcium is 8.3, but corrects to 9.3. Cryoglobulins have been detected. The patient's kappa/lambda ratio is also elevated and he is noted to be viremic for hepatitis C. There is no new imaging to report. IMPRESSION AND PLAN: The patient is a 76-year-old gentleman with a history of tobacco use and opioid dependence, coronary artery disease with history of 4 prior stents, gastroesophageal reflux disease with peptic ulcer disease and fungal esophageal ulcerations, stage IV chronic kidney disease with a baseline creatinine in the low 2s, recent hospitalization for acute decompensated congestive heart failure and chronic obstructive pulmonary disease exacerbation , for which he required intubation who was readmitted with acute decompensated congestive heart failure in the setting of uncontrolled hypertension. 1. 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 2. 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 3. Infectious disease followup is appreciated and the patient has completed antibiotic therapy for right lower lobe healthcare-associated pneumonia. He is immunocompromised by virtue of his underlying hepatitis C. I agree with infectious disease on this. 4. Cardiology followup is appreciated as well and the patient's blood pressure remains elevated despite the fact that he is on hydralazine 50 mg orally every 6 hours, carvedilol 12.5 mg orally twice daily, losartan 25 mg orally daily, furosemide 20 mg intravenously twice daily, amlodipine 10 mg orally daily. Since his glomerular filtration rate is greater than 30 mL per minute, he would respond to a thiazide diuretic, which are more potent at decreasing blood pressure. Additionally, he is on a low dose of losartan. We will increase his losartan from 25 to 50 mg orally daily since his renal function has remained stable. We will repeat his chest x-ray tomorrow and if there is no evidence of pulmonary vascular congestion, then I would like to discontinue his furosemide and instead start the patient on chlorthalidone 25 mg orally daily. 5. For anemia with evidence of decreased iron stores, the patient remains on Venofer. 6. Consider discharge planning. Review of systems, past medical history, social history and family history were reviewed and there are no new changes. Hipolito Hayes MD, DENG cc: [id number] TT: 01/07/2017 13:25:29 Confirmation # [id number] Dictation # [id number] en MTDD
--- NOTE | 2017-01-07 17:55 | PN ---
DATE: 01/07/2017 The patient is in bed in no acute distress, nontoxic. PHYSICAL EXAMINATION: VITAL SIGNS: Temperature is 98, blood pressure is 130/50, respiratory rate of 16. HEENT: Unremarkable. NECK: Supple. LUNGS: Have decreased breath sounds. HEART: Normal S1, S2. ABDOMEN: Soft, nontender. LABORATORY DATA: Reveals the patient's white count is 6.3, hemoglobin of 9. BUN of 80, creatinine o f 1.7. Procalcitonin is 0.10. Urinalysis is noted. Review of the orders reveals the patient to be on prednisone, off of antibiotics. ASSESSMENT AND PLAN: This is a 76-year-old male initially admitted with severe sepsis, hypoxic respi ratory failure, status post intubation, now extubated, [id number] renal failure secondary to ri ght lower lobe healthcare-associated possible gram-positive cocci, possible gram-negative enrique with ac [place] congestive heart failure, chronic active hepatitis, chronic obstructive lung disease, who has com pleted the antibiotics and is currently off of antibiotics. The patient is on prednisone. The patie nt is at risk for developing nosocomial infections and positive cryoglobulin detected and hepatitis C detected. The patient is at risk for developing nosocomial infections. The patient does have a rajiv tral line in, would encourage to discontinue the central line if not needed at the earliest possible time. Nicolas Alcaraz MD cc: [id number] TT: 01/07/2017 17:55:02 Confirmation # [id number] Dictation # [id number] dn
[2017-01-08] MEDS: Levalbuterol 0.63 MG/3 ML Inhal Soln UD IH SCH ×4 (01:57→21:45)
[2017-01-08] MEDS: Budesonide 0.5 mg/2 ml Inhal Susp UD IH SCH ×2 (08:02→21:45)
--- NOTE | 2017-01-08 08:48 | PN ---
DATE: 01/08/2017 PULMONARY PROGRESS NOTE ROOM: 568, bed 2 SUBJECTIVE: The patient is feeling great this morning, sitting at the edge of his bed, taking an inh alation treatment. He states that he is going to rehabilitation later this morning after speaking wi social work. He is happy to get out of the hospital and even more eager to take care of himself i n the future to make sure his respiratory status is improved. I have discussed with him the possibilities of having a pulmonary product consultant in [place] and coming to the office and starting pulmonary rehabilitation. We discussed this at length and he will call me a s soon as he returns from the rehabilitation center in [place], [place]. OBJECTIVE: VITAL SIGNS: Stable. He is afebrile, pulse is 70, respiratory rate 16, blood pressure 138/68, O2 sa t 99% on room air. HEENT: Normocephalic, atraumatic. NECK: Supple. No JVD, no lymphadenopathy, no bruit or masses. CARDIOVASCULAR: Regular rhythm, S1, S2. Soft systolic ejection murmur at the lower left sternal bor brigida. LUNGS: Essentially clear today. There is no wheezing, rales or rhonchi. There is some prolonged ex piratory phase. GASTROINTESTINAL: Abdomen soft, bowel sounds normoactive without mass, guarding, rebound or organome lloyd. EXTREMITIES: Reveal no clubbing, cyanosis or edema. There is no Homans sign. SKIN: Shows no rash or excoriation. LYMPHATICS: Normal. No lymph nodes are appreciated. NEUROLOGIC: Shows no focal findings. The patient is awake and alert. Previous x-ray shows improvement of the bilateral pulmonary infiltrates seen. This needs follow up. CLINICAL IMPRESSION: 1. Status post respiratory failure. 2. History of chronic obstructive pulmonary disease. 3. Recurrent congestive heart failure. 4. Renal insufficiency. 5. Pneumonic infiltrates, resolving slowly. PLAN: The patient should have a followup chest x-ray in 1-2 weeks and can complete these and continu e x-rays until complete resolution of the infiltrates has been achieved. We suggest strongly that th e patient continue on his bronchodilators and corticosteroids. A pulmonary function study should be done to see if a LAMA is necessary for long-term treatment. As of now, he is doing great without it, but I do not know how well he will perform when ambulating and carrying on his normal activities of daily living. I will be happy to see him in the office after he gets discharged from the [facility] in [place]. Please feel free to contact me if I can be of any further help with regards to the patient's care nehal or to discharge or following discharge. Que Romeo MD cc: [id number] TT: 01/08/2017 08:48:30 Confirmation # [id number] Dictation # [id number] en
--- NOTE | 2017-01-08 09:34 | RAD ---
HISTORY: SOB and f/u of CHF COMPARISON: 01/04/2017 FINDINGS: LUNGS: Mild vascular congestion. Minimal bibasilar infiltrates PLEURA: No significant pleural effusion identified, no pneumothorax apparent. CARDIOVASCULAR: Normal. OSSEOUS STRUCTURES: No significant abnormalities. VISUALIZED UPPER ABDOMEN: Normal. OTHER FINDINGS: Right IJ line in the SVC IMPRESSION: Minimal bibasilar infiltrates
[2017-01-08] MEDS: Silver Sulfadiazine 1% Cream (20 gm) TOP SCH ×2 (10:00→18:55)
[2017-01-08] MEDS: Pantoprazole 40 mg EC Tab PO SCH (10:12)
[2017-01-08 11:54] LABS: COLLECTION TIME 24 Hours
[2017-01-08 13:09] LABS: IRON 251 ug/dL (45-180)
--- NOTE | 2017-01-08 13:57 | PN ---
DATE: 01/08/2017 The patient is in room 568, bed 2. REASON FOR CONSULTATION AND FOLLOWUP: Coronary artery disease, history of stent insertion. HISTORY OF PRESENT ILLNESS: A 76-year-old male who is known to have hypertension, hepatitis C, chron ic obstructive pulmonary disease, gastroesophageal reflux, peptic ulcer, coronary artery disease stat us post 4 bare metal stents insertion, 3 in LAD and 1 in RCA in 04/2013. The patient was admitted wit h a cough and shortness of breath and had a cardiac catheterization 4 days ago, which showed patent s tent in LAD and patent stent in ramus, 60% stenosis in circumflex, for which medical therapy is recom mended. The patient's shortness of breath has improved. Denies any chest pain, denies palpitation. The patient lying flat in bed without any shortness of breath. PHYSICAL EXAMINATION: VITAL SIGNS: Blood pressure 164/69, respirations 20, pulse 54, temperature 97.9. HEAD: Normocephalic. EYES: Pupils normal. Conjunctivae slightly pale. NECK: JVP low. Carotid equal. THORAX: AP diameter normal. LUNGS: No rales. CARDIOVASCULAR: S1, S2. ABDOMEN: Soft, no tenderness, no organomegaly. Bowel sounds normal. EXTREMITIES: No clubbing, no cyanosis. LABORATORIES: WBC 6.3, hemoglobin 9.1, hematocrit 29.0, platelets 103. Sodium 143, potassium 4.0, B UN 80, creatinine 1.7. AST, ALT normal. Chest x-ray repeated today. It shows minimal bibasilar inf iltrates. DIAGNOSES: Cough, shortness of breath, pneumonia, chronic kidney disease, history of non-ST segment elevation myocardial infarction in the past, coronary artery disease, status post cardiac catheteriza tion that revealed a patent stent and mild disease in circumflex. The patient also has a history of hepatitis C, gastroesophageal reflux, gastrointestinal bleeding, recurrent pneumonia, obesity. Right heart catheterization showed right atrial pressure of 12-13, right ventricle pressure 54/19, pulmona ry artery pressure 54/28, mean pulmonary artery pressure 34.8, pulmonary capillary wedge pressure was 20, cardiac output 7.1, cardiac index 3.4. PLAN: The patient has improved as compared to before. The patient on hydralazine 50 q.i.d., clonidi ne 0.1 p.o. daily. We will change it to b.i.d. because pressure is still high. Carvedilol 12.5 b.i. d., losartan 50 p.o. daily, aspirin 81 mg p.o. daily, furosemide 20 b.i.d., atorvastatin 10 mg p.o. d aily, amlodipine 10 mg daily, Protonix 40 mg daily, prednisone 10 mg daily. We will continue present therapy and patient now is on Lasix 20 mg b.i.d. We will follow with you. Noel Yeung MD cc: [id number] TT: 01/08/2017 13:56:50 Confirmation # [id number] Dictation # [id number] en
--- NOTE | 2017-01-08 16:41 | CP.PCM.PN ---
Subjective - Date & Time of Evaluation Date of Evaluation: 01/08/17 Time of Evaluation: 10:10 - Subjective Subjective: Comfortable, no nausea, no fevers, not in distress. Objective - Vital Signs/Intake and Output Vital Signs (last 24 hours): Temp Pulse Resp BP Pulse Ox 98.2 F 50 L 18 124/52 L 96 01/08/17 15:53 01/08/17 15:53 01/08/17 15:53 01/08/17 15:53 01/08/17 15:53 Intake and Output: 01/08/17 01/08/17 06:59 18:59 Intake Total 360 780 Output Total 300 Balance 60 780 - Medications Medications: Current Medications Amlodipine Besylate (Norvasc) 10 mg PO DAILY [facility] Last Admin: 01/08/17 10:11 Dose: 10 mg Aspirin (Ecotrin) 81 mg PO DAILY [facility] Last Admin: 01/08/17 10:13 Dose: 81 mg Atorvastatin Calcium (Lipitor) 10 mg PO DIN [facility] Last Admin: 01/07/17 17:44 Dose: 10 mg Budesonide (Pulmicort Respules) 0.5 mg IH [id number] [facility] Last Admin: 01/08/17 08:02 Dose: 0.5 mg Carvedilol (Coreg) 12.5 mg PO BID [facility] Last Admin: 01/08/17 10:12 Dose: 12.5 mg Clonidine HCl (Catapres) 0.1 mg PO BID [facility] Furosemide (Lasix) 20 mg PO BID [facility] Last Admin: 01/08/17 11:48 Dose: Not Given Hydralazine HCl (Apresoline) 10 mg IVP Q6 PRN PRN Reason: For SBP>170 And Diastolic>100 Last Admin: 12/30/16 12:19 Dose: 10 mg Hydralazine HCl (Apresoline) 50 mg PO QID [facility] Last Admin: 01/08/17 10:12 Dose: 50 mg Levalbuterol HCl (Xopenex) 0.63 mg IH Q2 PRN PRN Reason: Shortness of Breath Last Admin: 01/02/17 23:36 Dose: 0.63 mg Levalbuterol HCl (Xopenex) 0.63 mg IH [id number] [facility] Last Admin: 01/08/17 13:41 Dose: 0.63 mg Losartan Potassium (Cozaar) 50 mg PO DAILY [facility] Last Admin: 01/08/17 10:11 Dose: 50 mg Pantoprazole Sodium (Protonix Ec Tab) 40 mg PO ACB [facility] Last Admin: 01/08/17 10:12 Dose: 40 mg Prednisone (Prednisone Tab) 10 mg PO DAILY [facility] Last Admin: 01/08/17 10:13 Dose: 10 mg Silver Sulfadiazine (Silvadene 1% 20 Gm) 0 ea TOP BID [facility] Last Admin: 01/07/17 17:45 Dose: 1 applic - Labs Labs: 01/06/17 07:50 01/06/17 07:50 PT 11.4 Seconds (9.9-11.8) 12/29/16 09:30 INR 1.06 (0.93-1.08) 12/29/16 09:30 APTT 26.3 Seconds (23.7-30.8) 12/29/16 09:30 - Constitutional Appears: Non-toxic, No Acute Distress - Head Exam Head Exam: NORMAL INSPECTION - ENT Exam ENT Exam: Mucous Membranes Moist - Neck Exam Neck Exam: absent: Lymphadenopathy, Meningismus - Respiratory Exam Respiratory Exam: Decreased Breath Sounds - Cardiovascular Exam Cardiovascular Exam: +S1, +S2 - GI/Abdominal Exam GI & Abdominal Exam: Soft. 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
[2017-01-08 19:32] LABS: FOLATE 8.5 ng/mL
--- NOTE | 2017-01-08 23:55 | CP.PCM.PN ---
Subjective - Date & Time of Evaluation Date of Evaluation: 01/08/17 Time of Evaluation: 18:00 - Subjective Subjective: Patient reports feeling well; denies shortness of breath, even on ambulation to bathroom without supplemental O2; Objective - Vital Signs/Intake and Output Vital Signs (last 24 hours): Temp Pulse Resp BP Pulse Ox 98.2 F 56 L 18 137/58 L 96 01/08/17 15:53 01/08/17 22:14 01/08/17 15:53 01/08/17 22:14 01/08/17 15:53 Intake and Output: 01/08/17 01/09/17 18:59 06:59 Intake Total 780 440 Balance 780 440 - Medications Medications: Current Medications Amlodipine Besylate (Norvasc) 10 mg PO DAILY [facility] Last Admin: 01/08/17 10:11 Dose: 10 mg Aspirin (Ecotrin) 81 mg PO DAILY [facility] Last Admin: 01/08/17 10:13 Dose: 81 mg Atorvastatin Calcium (Lipitor) 10 mg PO DIN [facility] Last Admin: 01/08/17 18:54 Dose: 10 mg Budesonide (Pulmicort Respules) 0.5 mg IH [id number] [facility] Last Admin: 01/08/17 08:02 Dose: 0.5 mg Carvedilol (Coreg) 12.5 mg PO BID [facility] Last Admin: 01/08/17 18:56 Dose: 12.5 mg Clonidine HCl (Catapres) 0.1 mg PO BID [facility] Last Admin: 01/08/17 18:53 Dose: 0.1 mg Furosemide (Lasix) 20 mg PO BID [facility] Last Admin: 01/08/17 18:55 Dose: 20 mg Hydralazine HCl (Apresoline) 10 mg IVP Q6 PRN PRN Reason: For SBP>170 And Diastolic>100 Last Admin: 12/30/16 12:19 Dose: 10 mg Hydralazine HCl (Apresoline) 50 mg PO QID [facility] Last Admin: 01/08/17 22:14 Dose: 50 mg Levalbuterol HCl (Xopenex) 0.63 mg IH Q2 PRN PRN Reason: Shortness of Breath Last Admin: 01/02/17 23:36 Dose: 0.63 mg Levalbuterol HCl (Xopenex) 0.63 mg IH [id number] [facility] Last Admin: 01/08/17 13:41 Dose: 0.63 mg Losartan Potassium (Cozaar) 50 mg PO DAILY [facility] Last Admin: 01/08/17 10:11 Dose: 50 mg Pantoprazole Sodium (Protonix Ec Tab) 40 mg PO ACB [facility] Last Admin: 01/08/17 10:12 Dose: 40 mg Prednisone (Prednisone Tab) 10 mg PO DAILY [facility] Last Admin: 01/08/17 10:13 Dose: 10 mg Silver Sulfadiazine (Silvadene 1% 20 Gm) 0 ea TOP BID [facility] Last Admin: 01/08/17 18:55 Dose: Not Given - Labs Labs: 01/06/17 07:50 01/06/17 07:50 PT 11.4 Seconds (9.9-11.8) 12/29/16 09:30 INR 1.06 (0.93-1.08) 12/29/16 09:30 APTT 26.3 Seconds (23.7-30.8) 12/29/16 09:30 - Constitutional Appears: Well, No Acute Distress - Head Exam Head Exam: NORMAL INSPECTION - Eye Exam Eye Exam: Normal appearance. absent: Scleral icterus - ENT Exam ENT Exam: Mucous Membranes Moist - Neck Exam Neck Exam: Normal Inspection - Respiratory Exam Respiratory Exam: Clear to Ausculation Bilateral Additional comments: Decreased air movement bilaterally; - Cardiovascular Exam Cardiovascular Exam: REGULAR RHYTHM, +S1, +S2. absent: Gallop, Murmur - GI/Abdominal Exam GI & Abdominal Exam: Soft. absent: Distended, Tenderness - Extremities Exam Additional comments: Moderately edematous - Neurological Exam Neurological Exam: Alert, Awake - Psychiatric Exam Psychiatric exam: Normal Affect, Normal Mood - Skin Skin Exam: Normal Color, Warm Assessment and Plan (1) Acute renal failure Assessment & Plan: RIVERA on CKD IIIB; serum creatinine back to baseline after RIVERA, thought to be of cardiorenal etiology with improvement on diuretics; however, the possibility of an underlying glomerular disorder is strongly suspected as mentioned in previous notes and cannot exclude the possibility of having renal improvement due to being on steroids; -continue diuresis in the setting of elevated right and left sided pressures ( from recent cath) Status: Acute (2) CKD (chronic kidney disease) stage 3, GFR 30-59 ml/min Assessment & Plan: Needs further workup with patient having ~2g proteinuria, active urine sediment (hematuria and pyuria), known hep C, positive cryoglobulin assay and low C4; workup for possible paraproteinemia is equivocal at this time with elevated kappa/lambda free light chain ratio possibly due to renal failure (patient's ratio is 2.5:1 and can expect as high as a 3:1 kappa/lambda ratio with renal failure); serum immunofixation is showing faint IgM-kappa band and faint lambda band but this is of unclear significance; -Recommend outpatient hematology f/u -Would benefit from renal biopsy; as patient is not agreeable to this at this time, needs to at least get hep C treated Status: Acute (3) CHF (congestive heart failure) Assessment & Plan: Symptomatically improved; diuretics changed to PO lasix 20 mg bid over the weekend; need to assess daily weight changes (187.4 lb on standing scale this evening) as patient may need higher dose of diuretics in the setting of CKD; Status: Acute (4) Pneumonia Assessment & Plan: Resolved; Status: Resolved (5) HTN (hypertension) Assessment & Plan: Better controlled with increased dose of losartan and addition of clonidine; ideally would like to simplify anti-htn regimen which can be done by increasing losartan, decreasing hydralazine to twice daily and eliminating clonidine (if possible); Status: Acute (6) Hepatitis C Assessment & Plan: Needs close f/u as this may be the cause of an underlying GN, would benefit from outpatient treatment; Status: Chronic
[2017-01-09] MEDS: Levalbuterol 0.63 MG/3 ML Inhal Soln UD IH SCH ×4 (02:30→19:37)
[2017-01-09 07:15] LABS: ADD MANUAL DIFF? NO
[2017-01-09 07:19] LABS: EOS # 0.1 (0.0-0.7); EOS % 1.8 % (1.5-5.0); GRAN # 3.91 (1.4-6.5); GRAN % 72.2 % (50.0-68.0); HEMATOCRIT 27.2 % (42.0-52.0); LYMPH % 18.8 % (22.0-35.0); MEAN CELL VOLUME 88.9 fL (80.0-105.0); MEAN CORPUSCULAR HEMOGLOBIN 27.5 pg (25.0-35.0); MEAN CORPUSCULAR HGB CONC 30.9 g/dl (31.0-37.0); MEAN PLATELET VOLUME 10.9 fl (7.0-11.0); MONO # 0.4 (0.1-0.6); MONO % 7.2 % (1.0-6.0); PLATELET COUNT 102 10^3/uL (120.0-450.0); RED CELL DISTRIBUTION WIDTH 17.8 % (11.5-14.5); RETIC% 1.05 % (0.5-1.5); WHITE BLOOD COUNT 5.4 10^3/ul (4.5-11.0)
[2017-01-09] MEDS: Budesonide 0.5 mg/2 ml Inhal Susp UD IH SCH ×2 (07:30→19:37)
[2017-01-09 07:51] LABS: BILIRUBIN,TOTAL 0.6 mg/dL (0.2-1.3); CALCIUM 8.1 mg/dL (8.4-10.5); POTASSIUM 4.3 mmol/L (3.6-5.0); TOTAL PROTEIN 4.8 g/dL (5.8-8.3)
[2017-01-09] MEDS: Silver Sulfadiazine 1% Cream (20 gm) TOP SCH (10:10)
[2017-01-09] MEDS: Pantoprazole 40 mg EC Tab PO SCH (10:18)
--- NOTE | 2017-01-09 10:33 | PN ---
DATE: 01/08/2017 The patient is a 76-year-old male who was admitted to [facility] on 12/25 with COPD exacerbation and congestive heart failure. He is known to have a history of COPD, hypertension, coronary artery d isease, hepatitis C, gastroesophageal reflux, peptic ulcer disease. He is status post PTCA. The patient was doing well in this hospital stay. He did decompensate 1 day, was brought to the inte nsive care unit, intubated. However, he was quickly extubated by the following day. He underwent co ronary catheterization, which showed nonobstructive coronary disease. The stent in the left anterior descending ramus intermedius was patent. He had an ejection fraction of 55%. There was moderate di sease in the circumflex artery. The patient has been treated with diuretics. He is followed by Dr. Hayes-the goodwill representative, Dr. Alcaraz-the infectious disease specialist, Dr. Romeo-the rn coronary care unit, and Dr. Yeung-the ca rdiologist. When seen today, the patient is sitting up in a chair. He feels comfortable. He feels much better. He walked himself to the bathroom and had a decent bowel movement. VITAL SIGNS: His blood pressure is 163/69. Heart rate is 54. Recent chest x-ray showed minimal bibasilar infiltrates. We are planning to transfer the patient to LTAC. I feel this is a better subacute facility because twice this hospitalization and the previous hospitalization, the patient quickly decompensates requiring intubation. Labs are ordered for the mo rning. I am stopping his ferrous glucose intravenous drip, changing medications from intravenous to oral in preparation for his transfer. Hopefully, a bed will be available soon. The patient and his , who was at bedside, are in agreement with this, and we are hopeful of a tra nsfer soon. Baldomero Morales MD cc: [id number] TT: 01/09/2017 10:31:56 Confirmation # [id number] Dictation # [id number] dwain
--- NOTE | 2017-01-09 11:41 | PN ---
DATE: 01/09/2017 REASON FOR CONSULTATION AND FOLLOWUP: Coronary artery disease, history of PTCA, status post cardiac catheterization, nonobstructive coronary artery disease. BRIEF CLINICAL HISTORY: A 76-year-old male with known history significant for hepatitis C, chronic o bstructive pulmonary disease, gastroesophageal reflux, peptic ulcer disease, coronary artery disease, status post bare metal stent 3 in LAD, 1 in ramus intermedius in 2012, admitted with cough, shortnes s of breath, history of [id number] myocardial infarction, previous catheterization, history renal insufficiency, underwent cardiac catheterization that revealed nonobstructive coronary artery diseas e. Medical treatment recommended. The patient is 5R, getting rehab. PHYSICAL EXAMINATION: VITAL SIGNS: Temperature afebrile, heart rate 50, blood pressure 142/54. HEENT: PERRLA. Extraocular muscles intact. NECK: Supple. No carotid bruits. No thyromegaly. CHEST: Clear to auscultation. HEART: S1, S2 regular. ABDOMEN: Soft. EXTREMITIES: Clubbing and cyanosis negative. LABORATORY DATA: Blood workup as follows: WBC 5.4, hemoglobin 8.4, hematocrit 27.2, platelet count 102. Chemistry shows 143, potassium 4.3, chloride 105, carbon dioxide 30, anion gap of 9, BUN 79, cr eatinine 2.2. IMPRESSION: Renal insufficiency, baseline creatinine 2. Status post cardiac catheterization, nonobs tructive coronary artery disease, patent stent, creatinine clearance 29 mL. Baseline creatinine was 2.2 before the cardiac catheterization. With hydration, it improved to 1.7. Now, the creatinine is back to 2.2. Diabetes, hypertension, hyperlipidemia, obesity, hepatitis C, patent stent, status post percutaneous transluminal coronary angioplasty 05/01/2013, 3 bare metal stents in left anterior desc ending, 1 bare metal stent in ramus. Patent all the stents on recent cardiac catheterization. Right heart catheterization, right atrial pressure is 12/13, right ventricle 54/19, pulmonary artery press ure 54/28, mean pulmonary pressure 30, capillary wedge pressure 20, mean capillary wedge pressure 34. Cardiac output 7.1 and pulmonary vascular resistance 2. Thrombocytopenia, pancytopenia, anemia. RECOMMENDATIONS: Avoid nephrotoxic medication. Continue gentle diuretics. Continue Coreg, continue losartan. Monitor renal function closely. CVS status is stable. Monitor electrolytes. Continue a mlodipine, continue atorvastatin. Continue gentle diuretics, continue aspirin, hydralazine 50 mg and p.r.n. We will repeat the blood workup in the morning. Thank you, Dr. Morales, for providing the opportunity in taking care of the patient. Noel Bowling MD cc: [id number] TT: 01/09/2017 11:40:27 Confirmation # [id number] Dictation # [id number] tn
--- NOTE | 2017-01-09 17:57 | CP.PCM.PN ---
Subjective - Date & Time of Evaluation Date of Evaluation: 01/09/17 Time of Evaluation: 10:50 - Subjective Subjective: Comfortable in bed, not in distress, no fevers overnight. Objective - Vital Signs/Intake and Output Vital Signs (last 24 hours): Temp Pulse Resp BP Pulse Ox 97.9 F 52 L 20 158/57 H 98 01/09/17 16:00 01/09/17 17:23 01/09/17 16:00 01/09/17 17:23 01/09/17 16:00 Intake and Output: 01/09/17 01/09/17 06:59 18:59 Intake Total 440 Balance 440 - Medications Medications: Current Medications Amlodipine Besylate (Norvasc) 10 mg PO DAILY [facility] Last Admin: 01/09/17 10:09 Dose: Not Given Aspirin (Ecotrin) 81 mg PO DAILY [facility] Last Admin: 01/09/17 10:18 Dose: 81 mg Atorvastatin Calcium (Lipitor) 10 mg PO DIN [facility] Last Admin: 01/09/17 17:21 Dose: 10 mg Budesonide (Pulmicort Respules) 0.5 mg IH [id number] [facility] Last Admin: 01/09/17 07:30 Dose: 0.5 mg Carvedilol (Coreg) 12.5 mg PO BID [facility] Last Admin: 01/09/17 17:23 Dose: 12.5 mg Clonidine HCl (Catapres) 0.1 mg PO BID [facility] Last Admin: 01/09/17 17:23 Dose: 0.1 mg Furosemide (Lasix) 20 mg PO BID [facility] Last Admin: 01/09/17 17:22 Dose: 20 mg Hydralazine HCl (Apresoline) 10 mg IVP Q6 PRN PRN Reason: For SBP>170 And Diastolic>100 Last Admin: 12/30/16 12:19 Dose: 10 mg Hydralazine HCl (Apresoline) 50 mg PO QID [facility] Last Admin: 01/09/17 17:22 Dose: 50 mg Levalbuterol HCl (Xopenex) 0.63 mg IH Q2 PRN PRN Reason: Shortness of Breath Last Admin: 01/02/17 23:36 Dose: 0.63 mg Levalbuterol HCl (Xopenex) 0.63 mg IH [id number] [facility] Last Admin: 01/09/17 13:10 Dose: 0.63 mg Losartan Potassium (Cozaar) 50 mg PO DAILY [facility] Last Admin: 01/09/17 16:07 Dose: Not Given Pantoprazole Sodium (Protonix Ec Tab) 40 mg PO ACB [facility] Last Admin: 01/09/17 10:18 Dose: 40 mg Prednisone (Prednisone Tab) 10 mg PO DAILY [facility] Last Admin: 01/09/17 12:11 Dose: 10 mg Silver Sulfadiazine (Silvadene 1% 20 Gm) 0 ea TOP BID [facility] Last Admin: 01/09/17 10:10 Dose: Not Given - Labs Labs: 01/09/17 07:00 01/09/17 07:00 PT 11.4 Seconds (9.9-11.8) 12/29/16 09:30 INR 1.06 (0.93-1.08) 12/29/16 09:30 APTT 26.3 Seconds (23.7-30.8) 12/29/16 09:30 - Constitutional Appears: Non-toxic, No Acute Distress - Head Exam Head Exam: NORMAL INSPECTION - Neck Exam Neck Exam: absent: Lymphadenopathy, Meningismus - Respiratory Exam Respiratory Exam: Decreased Breath Sounds - Cardiovascular Exam Cardiovascular Exam: +S1, +S2 - GI/Abdominal Exam GI & Abdominal Exam: Soft. 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
[2017-01-09] MEDS ORDERED: Darbepoetin Alfa 40 mcg/ml Inj SC ONE (21:01)
--- NOTE | 2017-01-09 21:51 | PN ---
DATE: 01/09/2017 The patient with history of hypertension, congestive heart failure, hepatitis C, and CKD IIID, admitt ed with congestive heart failure exacerbation and acute renal failure. The patient reports feeling well, ambulating without oxygen to the bathroom without shortness of marleen th. VITALS THIS MORNING: Blood pressure 142/58, heart rate 56, respirations 20, O2 sat 99%, temperature 97.8. EXAMINATION: GENERAL: No distress. Conversing coherently in full sentences. HEENT: Moist mucous membranes. Nonicteric. CHEST: Decreased air movement bilaterally. No rales, no rhonchi, no wheezes. HEART: S1, S2 positive. No murmurs, no gallops, no rubs. ABDOMEN: Soft, nontender, nondistended. EXTREMITIES: Moderately edematous legs. LABORATORIES THIS MORNING: CBC: WBC 5.4, hemoglobin 8.4, hematocrit 27.2, platelets 102. Chemistry panel: Sodium 143, potassium 4.3, chloride 105, bicarb 33, BUN 79, creatinine 2.2, calcium 8.1, alb umin 2.4. ASSESSMENT: 1. Acute renal failure, RIVERA on CKD IIID. Serum creatinine had her current back to baseline after RIVERA , which was thought to be of cardiorenal etiology, with improvement with aggressive diuretics. New i ncrease in serum creatinine can be explained by starting losartan, and up to 30% increase in serum cr eatinine would be acceptable. Continue losartan for now; continue to monitor renal function. 2. Chronic kidney disease IIID. As stated in previous notes, the patient has about 2 g of proteinuri a, active urinary sediment, known hepatitis C positive cryoglobulin assay, and low CD4. Renal biopsy would be ideal to accurately diagnose etiology of renal failure. However, the patient is not amenab le to this at this time. Further workup for possible paraproteinemia was done in the setting of posi tive cryoglobulin assay. However, workup at this point is equivocal with elevated kappa lambda free light chain ratio, possibly due to renal failure. Serum immunofixation did show faint IgM kappa band and faint lambda band, so the patient should have hematology followup as outpatient, and at the very least, needs to have his hepatitis C treated. 3. Congestive heart failure exacerbation. MUGA scan showing preserved ejection fraction. The patien t was getting aggressively diuresed, with renal function relatively stable during this admission. Di uretics decreased over the last few days to Lasix p.o. 20 mg b.i.d. However, weight has increased fr om 187.4 pounds yesterday to 198.2 pounds today. In the setting of advanced renal insufficiency the patient has a higher threshold level diuretic needed to effectively achieve adequate diuresis. Was o n Lasix 40 mg once daily at home, and subsequently presented with severe volume overload as evidenced by right heart catheterization. The patient will at least need twice daily diuretics, increasing La six to 40 mg b.i.d. this evening. However, suspect that this will not be adequate. If the patient c ontinues to again weight will suggest to change diuretic to Bumex 2 mg p.o. b.i.d., as Bumex p.o. has much better bioavailability than Lasix p.o. 4. Hypertension has been difficult to control during this hospitalization. Currently on 5 medication s plus a diuretic. The patient will need to have his regimen simplified as an outpatient, as it woul d likely be very difficult to take any medication more than twice daily. Losartan already increased 2 days ago. Clonidine started recently also increased to b.i.d. since yesterday. Can likely decreas e hydralazine to b.i.d. 5. Hepatitis C needs close followup, as this may be the cause of an underlying glomerular disorder. Would benefit from outpatient treatment. 6. Anemia. Recent labs shows that patient is iron replete after getting IV iron. Hemoglobin still b elow desired level. Likely has erythropoietin resistance in the setting of chronic illness and renal insufficiency. Will give dose of Aranesp while the patient is still here. Viral Riojas MD cc: [id number] TT: 01/09/2017 21:50:14 Confirmation # [id number] Dictation # [id number] dwain
[2017-01-10] MEDS: Levalbuterol 0.63 MG/3 ML Inhal Soln UD IH SCH ×3 (01:17→13:38)
[2017-01-10] MEDS: Budesonide 0.5 mg/2 ml Inhal Susp UD IH SCH ×2 (07:38→20:09)
[2017-01-10] MEDS: Pantoprazole 40 mg EC Tab PO SCH (08:23)
--- NOTE | 2017-01-10 08:27 | PN ---
DATE: 01/09/2017 The patient was seen this Sunday in room 568, bed 2. He is awake, alert, comfortable, sitti ng out of bed in a chair, looking up . He is markedly improved clinically from I saw him last, prior to the . He is awake, alert, clear. Leg edema has markedly decreased. His legs are actually now soft and with +1 edema up to the mid-calf. LUNGS: Show decreased breath sounds of severe COPD. HEART: Regular, not tachycardic. PLAN: I spoke with telephonic case manager, conservation planner, and the patient on several times back and forth. Initially suspected he would need more time at an acute long-term care facility. His insurance den ied that, so we are looking for a subacute rehab at [facility]. The patient was not comfortable w ith this idea, raising questions about the excessive rehab and time at this facility. He would much rather be home with close medical followup in the office and/or at home. Therefore, we will watch hi m today, continue his diuresis, with the high probability of discharge to home in the morning. I von l see him either in a house call, or a home visit, or in the office 24-48 hours after discharge, and probably every few days thereafter for the first week or two with close medical management to allow h is family to get home and manage his medications. Samm Morales MD cc: [id number] TT: 01/10/2017 08:26:56 Confirmation # [id number] Dictation # [id number] dwain
[2017-01-10 08:55] LABS: CALCIUM 8.1 mg/dL (8.4-10.5); POTASSIUM 4.6 mmol/L (3.6-5.0)
[2017-01-10] MEDS: Silver Sulfadiazine 1% Cream (20 gm) TOP SCH ×2 (09:11→18:03)
[2017-01-10 16:36] VITALS: BP 173/69; PULSE 58; RESP 20; TEMP 97.7; O2SAT 96
--- NOTE | 2017-01-10 20:08 | PN ---
DATE: 01/10/2017 The patient with history of hypertension, congestive heart failure, hepatitis C and CKD IIIB, admitte d with congestive heart failure exacerbation and acute renal failure. The patient continues to repor t feeling well. Urinated overnight 2-3 times. Denying shortness of breath. Tolerating diet. PHYSICAL EXAMINATION: VITAL SIGNS: This morning, blood pressure 142/54, heart rate 56, respirations 18, temperature 98.1. GENERAL: No distress, conversing in full sentences coherently. HEENT: Moist mucous membranes. Nonicteric. CHEST: Clear to auscultation bilaterally. Decreased air movement. HEART: S1, S2 positive, no murmurs, no gallops, no rubs. ABDOMEN: Soft, nontender, nondistended. EXTREMITIES: Moderate lower leg edema. LABORATORY DATA: This morning, sodium 143, potassium 4.6, chloride 105, bicarbonate 32, BUN 83, crea tinine 2.2, calcium 8.1. ASSESSMENT: 1. Acute renal failure, acute kidney injury, on chronic kidney disease IIIB. Acute kidney injury se en during initial admission resolved, thought to be cardiorenal in etiology and improved with aggress duyen diuresis. Serum creatinine elevated over last couple of days, increasing from 1.7 to 2.2, curren tly stable at that level. However, increase is in the setting of having been started on ARB losartan . Dose was held yesterday in the setting of decreased diastolic blood pressures. As noted previousl y, mild increase in serum creatinine is expected with ARB administration. Continue to monitor. Cont inue standing dose of diuretics. 2. Chronic kidney disease IIIB. As stated in previous notes, patient has lab work suspicious for an underlying glomerular disorder and renal biopsy would be ideal to accurately diagnose etiology of re nal failure; however, patient has said that he is not agreeable to this currently. The patient ros d have ID followup to treat hepatitis C as well as hematology referral as outpatient due to equivocal results regarding workup for possible paraproteinemia. 3. Congestive heart failure exacerbation. MUGA scan showing preserved ejection fraction. Currently on Lasix 40 mg p.o. b.i.d. Should continue the same at home. The patient instructed that he should monitor his weight daily and if weight increases to over 190 pounds, we will need to increase dose o f diuretics to 60 mg p.o. b.i.d. Weight currently is stable, with patient's weight having decreased from 190.2 pounds to 188.6 pounds today. 4. Hypertension. Has been difficult to control during current admission. Blood pressure meds have been held intermittently due to diastolic blood pressure readings less than 60 despite elevated systo lic blood pressures. In the situation, may need to tolerate systolic blood pressures in 150s, as dec reasing diastolic blood pressure less than 60 may be associated with adverse cardiovascular events, particularly with patient with known history of coronary artery disease. For now, should continue current medication regimen, but will need simplification of regimen as outpatien t. 5. Hepatitis C. Needs outpatient followup for treatment. 6. Anemia. Currently iron replete after having received IV iron. One dose of darbepoetin given yes terday. Monitor. Viral Riojas MD cc: [id number] TT: 01/10/2017 20:08:30 Confirmation # [id number] Dictation # [id number] bill
--- NOTE | 2017-01-10 20:46 | PN ---
DATE: 01/10/2017 The patient in room 568, bed 2. REASON FOR CONSULTATION AND FOLLOWUP: Coronary artery disease, history of PTCA status post cardiac c atheterization, nonobstructive coronary artery disease. HISTORY OF PRESENT ILLNESS: A 76-year-old male with known case of hepatitis C, chronic obstructive p ulmonary disease, gastroesophageal reflux, peptic ulcer disease, coronary artery disease status post bare metal stent, 3 in LAD, 1 in ramus intermedius in 2012, was admitted with cough, shortness of belle ath, history of non-ST segment elevation myocardial infarction, renal insufficiency, had cardiac cath eterization again and found nonobstructive coronary artery disease. Patent stents were seen. The isabelle pritchett's right heart catheterization showed RV systolic pressure of 54 mmHg. The patient still has co ugh, but denies shortness of breath, denies chest pain, denies palpitation. The patient is sitting i n chair without any cardiac symptoms. The patient on examination: VITAL SIGNS: Blood pressure 173/69, respirations 20, pulse 58, temperature 97.7. HEAD: Normocephalic. EYES: Pupils normal. Conjunctivae slightly pale. NECK: JVP low. Carotid equal. THORAX: AP diameter normal. LUNGS: No significant rales. CARDIOVASCULAR: S1, S2. ABDOMEN: Soft, nontender, no organomegaly. Bowel sounds normal. EXTREMITIES: No clubbing, no cyanosis. LABORATORIES: WBC 5.4, hemoglobin 8.4, hematocrit 27.2, platelet 102. Sodium 143, potassium 4.6, BU N , creatinine 2.2, glucose 83. DIAGNOSES: Coronary artery disease, non-ST segment elevation myocardial status post catheterization, patent stents, renal dysfunction. Baseline creatinine was 2.2 before cardiac catheterization, with hydration improved to 1.7; now is back to 2.2. Diabetes, hypertension, obesity, hepatitis C, moderat e pulmonary hypertension, thrombocytopenia, pancytopenia, anemia. PLAN: Continue prednisone 10 mg daily, amlodipine 10 mg daily, Lipitor 10 mg daily, furosemide 40 mg b.i.d., Coreg 12.5 b.i.d., hydralazine 50 mg p.o. q.i.d., clonidine 0.1 mg b.i.d. Will continue pre sent therapy and will follow closely. The patient also being followed by nephrology. Noel Yeung MD cc: [id number] TT: 01/10/2017 20:45:50 Confirmation # [id number] Dictation # [id number] jn
--- NOTE | 2017-01-10 20:51 | CP.PCM.PN ---
Subjective - Date & Time of Evaluation Date of Evaluation: 01/10/17 Time of Evaluation: 20:36 - Subjective Subjective: S:It was requested to me to remove TLC as patient is going home. He has no complaints now. Pertinent medical record was reviewed. O: Last Vital Signs 3 Temp 97.7 F 01/10/17 16:00 Pulse 58 L 01/10/17 18:00 Resp 20 01/10/17 16:00 BP 173/69 H 01/10/17 18:00 Pulse Ox 96 01/10/17 16:00 Awake, alert,not in distress. LUNGS:Normal breathing pattern. Right neck TLC intact. A:S/P TLC in right neck. P:TLC removed . Manual pressure was applied for 10 minutes. An one litre bag of IV fluid was placed at site to exert pressure for about an hour. Objective - Vital Signs/Intake and Output Vital Signs (last 24 hours): Temp Pulse Resp BP Pulse Ox 97.7 F 58 L 20 173/69 H 96 01/10/17 16:00 01/10/17 18:00 01/10/17 16:00 01/10/17 18:00 01/10/17 16:00 Intake and Output: 01/10/17 01/11/17 18:59 06:59 Intake Total 1200 Output Total 1100 Balance 100 - Medications Medications: Current Medications Amlodipine Besylate (Norvasc) 10 mg PO DAILY [facility] Aspirin (Ecotrin) 81 mg PO DAILY [facility] Last Admin: 01/10/17 09:10 Dose: 81 mg Atorvastatin Calcium (Lipitor) 10 mg PO DIN [facility] Carvedilol (Coreg) 12.5 mg PO BID [facility] Last Admin: 01/10/17 18:00 Dose: 12.5 mg Clonidine HCl (Catapres) 0.1 mg PO BID [facility] Last Admin: 01/10/17 18:00 Dose: 0.1 mg Furosemide (Lasix) 40 mg PO BID [facility] Last Admin: 01/10/17 17:59 Dose: 40 mg Hydralazine HCl (Apresoline) 10 mg IVP Q6 PRN PRN Reason: For SBP>170 And Diastolic>100 Last Admin: 12/30/16 12:19 Dose: 10 mg Hydralazine HCl (Apresoline) 50 mg PO QID [facility] Last Admin: 01/10/17 17:59 Dose: 50 mg Losartan Potassium (Cozaar) 50 mg PO DAILY [facility] Last Admin: 01/10/17 09:12 Dose: Not Given Pantoprazole Sodium (Protonix Ec Tab) 40 mg PO ACB [facility] Last Admin: 01/10/17 08:23 Dose: 40 mg Prednisone (Prednisone Tab) 10 mg PO DAILY [facility] Last Admin: 01/10/17 09:10 Dose: 10 mg Silver Sulfadiazine (Silvadene 1% 20 Gm) 0 ea TOP BID [facility] Last Admin: 01/10/17 18:03 Dose: Not Given - Labs Labs: 01/09/17 07:00 01/10/17 07:00 PT 11.4 Seconds (9.9-11.8) 12/29/16 09:30 INR 1.06 (0.93-1.08) 12/29/16 09:30 APTT 26.3 Seconds (23.7-30.8) 12/29/16 09:30
--- NOTE | 2017-01-12 13:29 | DS ---
The patient is a 76-year-old male who was admitted to [facility] on 12/25 with COPD exacerbation and congestive heart failure. He is known to have a history of COPD, hypertension, coronary artery disease, status post PTCA placement, hepatitis C, gastroesophageal reflux and peptic ulcer disease. During his hospital stay, he was followed by Dr. Hayes, the stove mechanic, Dr. Alcaraz, the infectious disease specialist, Dr. Romeo, the seam sewer and Dr. Yeung, the marquetry worker. He was doing well during his hospital stay; however, one day he did decompensate, had to be intubated, admitted to the intensive care unit; however, by the following morning, he was successfully extubated and continues to do well. He underwent coronary catheterization which showed nonobstructive coronary disease. Stent in his left anterior descending ramus intermedius was patent and he had an ejection fraction of 55%. During his hospital stay, he was found with a hemoglobin of 7.9 and received a transfusion of packed red blood cells. After that, he was receiving intravenous ferrous gluconate. Other medications during his hospital stay included Apresoline 10 mg IV q. 6 hours and 50 mg as needed and 50 orally 4 times a day, Bumex 2 mg every 8 hours , Coreg 12.5 mg twice a day, Ecotrin 81 mg daily, Lasix 40 mg intravenously every 8 hours, Lipitor 10 mg at bedtime, Norvasc 10 mg, prednisone 20 mg, Protonix 40 mg, Pulmicort Respules 0.5 mg inhaled every 12 hours. He had Silvadene placed on lesions on his legs. He also received Xopenex nebulizer treatment every 6 hours. The patient improved. Arrangements were made for him to be discharged to home. We also arranged for him to have home O2 which he found helpful during his hospital stay; however, it was recommended he be changed from BiPAP to noninvasive ventilation to decreased carbon dioxide level seen when he was on BiPAP, so home O2 was arranged. The medications were changed to oral. His prednisone was decreased to 10 mg once a day. At the day of discharge, his hemoglobin had dropped from 9.1 to 8.4 with his hematocrit of 27.2 despite receiving the intravenous iron up until that day. His BUN and creatinine were 80 and 2.2. We will be following the patient closely post-discharge and closely follow his blood work for his hemostasis as well as renal functions. FINAL DIAGNOSES: 1. Chronic respiratory failure secondary to severe chronic obstructive pulmonary disease. 2. Congestive heart failure. 3. Coronary artery disease. 4. Hypertension. 5. Hepatitis C. 6. Gastroesophageal reflux. Edlidya Morales MD cc: [id number] TT: 01/12/2017 13:29:03 tn MTDD
== END 2017-01-10 23:14 | disposition home health service (06) | DRG 280 ==
LOC: ED 08:32 → ERH 11:27 → 2RNO 12-26 01:28 → CCU 12-26 13:44 → 2RNO 12-28 22:46 → 5RNO 01-02 18:52
PROVIDERS: ADMIT Internal Medicine; ATTEND Internal Medicine
PROC: 5A1935Z Respiratory Ventilation, Less than 24 Consecutive Hours (ICD-10-PCS; 2016-12-26)
PROC: 0BH17EZ Insertion of Endotracheal Airway into Trachea, Via Natural or Artificial Opening (ICD-10-PCS; 2016-12-26)
PROC: 3E0F7GC Introduction of Other Therapeutic Substance into Respiratory Tract, Via Natural or Artificial Opening (ICD-10-PCS; 2016-12-26)
PROC: 4A023N8 Measurement of Cardiac Sampling and Pressure, Bilateral, Percutaneous Approach (ICD-10-PCS; principal; 2017-01-01)
PROC: B215YZZ Fluoroscopy of Left Heart using Other Contrast (ICD-10-PCS; 2017-01-01)
PROC: B211YZZ Fluoroscopy of Multiple Coronary Arteries using Other Contrast (ICD-10-PCS; 2017-01-01)
PROC: 05HM33Z Insertion of Infusion Device into Right Internal Jugular Vein, Percutaneous Approach (ICD-10-PCS; 2017-01-04)
PROC: B543ZZA Ultrasonography of Right Jugular Veins, Guidance (ICD-10-PCS; 2017-01-04)
DX: I13.0 Hypertensive heart and chronic kidney disease with heart failure and stage 1 through stage 4 chronic kidney disease, or unspecified chronic kidney disease (principal); I50.23 Acute on chronic systolic (congestive) heart failure; I21.4 Non-ST elevation (NSTEMI) myocardial infarction; R65.20 Severe sepsis without septic shock; J18.9 Pneumonia, unspecified organism; A41.9 Sepsis, unspecified organism; J96.92 Respiratory failure, unspecified with hypercapnia; J96.91 Respiratory failure, unspecified with hypoxia; D61.818 Other pancytopenia; N18.4 Chronic kidney disease, stage 4 (severe); N17.9 Acute kidney failure, unspecified; E87.2 Acidosis; J44.0 Chronic obstructive pulmonary disease with (acute) lower respiratory infection; J44.1 Chronic obstructive pulmonary disease with (acute) exacerbation; I16.1 Hypertensive emergency; N05.9 Unspecified nephritic syndrome with unspecified morphologic changes; I42.9 Cardiomyopathy, unspecified; E11.22 Type 2 diabetes mellitus with diabetic chronic kidney disease; F11.20 Opioid dependence, uncomplicated; I27.2 Other secondary pulmonary hypertension; E87.5 Hyperkalemia; I08.1 Rheumatic disorders of both mitral and tricuspid valves; I25.10 Atherosclerotic heart disease of native coronary artery without angina pectoris; K21.9 Gastro-esophageal reflux disease without esophagitis; B18.2 Chronic viral hepatitis C; K27.9 Peptic ulcer, site unspecified, unspecified as acute or chronic, without hemorrhage or perforation; E11.42 Type 2 diabetes mellitus with diabetic polyneuropathy; D89.1 Cryoglobulinemia; E66.9 Obesity, unspecified; E78.5 Hyperlipidemia, unspecified; Y95 Nosocomial condition; Z91.14 Patient's other noncompliance with medication regimen; Z95.5 Presence of coronary angioplasty implant and graft; Z90.49 Acquired absence of other specified parts of digestive tract; Z87.891 Personal history of nicotine dependence

== ENCOUNTER 2017-04-02 06:11 | Inpatient (IN) | payer BC, MEDICARE ==
[2017-04-02] MEDS ORDERED: Albuterol-Ipratrop 3 mg / 0.5 (3 ml) UD ONE (06:17)
--- NOTE | 2017-04-02 06:18 | ED PDOC ---
Arrival/HPI - General Time Seen by Provider: 04/02/17 06:14 Historian: Patient, EMS - History of Present Illness Narrative History of Present Illness (Text): 04/02/17 06:17 Kirt Fernando is a 76 year old male, whose past medical history includes hypertension, and CAD, COPD s/p PTCA, hepatitis C, and GERD, who presents to the Emergency department brought in by EMS for respiratory distress. EMS reports patient has been experiencing progressively worsening shortness of breath for the past 2 hours with associated chest pain. EMS report patient was on home oxygen without relief. Limited HPI and ROS due to patient's respiratory distress. 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) Symptom Onset: Gradual Symptom Course: Unchanged Activities at Onset: Rest, Light Context: Home Past Medical History - Provider Review Nursing Documentation Reviewed: Yes - Infectious Disease Hx of Infectious Diseases: None - Tetanus Immunization Tetanus Immunization: Unknown - Cardiac Hx Cardiac Disorders: Yes Hx Hypertension: Yes - Pulmonary Hx Chronic Obstructive Pulmonary Disease (COPD): Yes - Neurological Hx Neurological Disorder: No - HEENT Hx HEENT Disorder: No - Renal Hx Renal Disorder: No - Endocrine/Metabolic Hx Endocrine Disorders: No - Hematological/Oncological Hx Blood Disorders: Yes Hx Hepatitis C: Yes - Integumentary Hx Dermatological Disorder: No - Musculoskeletal/Rheumatological Hx Musculoskeletal Disorders: No Hx Falls: Yes - Gastrointestinal Hx Gastrointestinal Disorders: Yes Hx Gastroesophageal Reflux: Yes - Genitourinary/Gynecological Hx Genitourinary Disorders: No - Psychiatric Hx Psychophysiologic Disorder: No Hx Substance Use: No - Surgical History Hx Appendectomy: Yes Hx Cardiac Catheterization: Yes Hx Coronary Stent: Yes - Anesthesia Hx Anesthesia: Yes Hx Anesthesia Reactions: No Hx Malignant Hyperthermia: No - Suicidal Assessment Feels Threatened In Home Enviroment: No Family/Social History - Physician Review Nursing Documentation Reviewed: Yes Family/Social History: Unknown Family HX Smoking Status: Former Smoker Hx Alcohol Use: No Hx Substance Use: No Hx Substance Use Treatment: No Allergies/Home Meds Allergies/Adverse Reactions: Allergies No Known Allergies Allergy (Verified 12/11/16 13:56) Home Medications: Home Meds Medication Instructions Recorded Confirmed Aspirin [Aspir 81] 81 mg PO DAILY 03/17/13 12/25/16 Isosorbide Mononitrate [Isosorbide 30 mg PO QAM 08/15/13 12/25/16 Mononitrate ER] Atorvastatin [Lipitor] 10 mg PO DIN 12/11/16 12/25/16 Budesonide/Formoterol Fumarate 2 aer IH BID 12/11/16 12/25/16 [Symbicort 160-4.5 Mcg Inhaler] Furosemide [Lasix] 40 mg PO DAILY 12/11/16 12/25/16 Gabapentin [Neurontin] 300 mg PO BID 12/11/16 12/25/16 Levocetirizine Dihydrochloride 5 mg PO DAILY 12/11/16 12/25/16 [Xyzal] Metoprolol Tartrate [Lopressor] 25 mg PO BID 12/11/16 12/25/16 Naproxen [Naprosyn Tab] 375 mg PO BID 12/11/16 12/25/16 Zolpidem [Ambien] 10 mg PO HS 12/11/16 12/25/16 Review of Systems - Physician Review All systems were reviewed & negative as marked: Yes - Review of Systems Systems not reviewed;Unavailable: Respiratory Distress Respiratory: SOB Cardiovascular: Chest Pain Physical Exam Vital Signs Reviewed: Yes Vital Signs Temp Pulse Resp BP Pulse Ox 04/02/17 10:14 70 16 169/70 H 100 04/02/17 10:00 66 16 159/64 H 99 04/02/17 09:30 64 16 150/58 L 100 04/02/17 09:00 97.8 F 66 16 150/58 L 100 04/02/17 08:45 74 16 161/70 H 100 04/02/17 08:30 80 16 180/92 H 99 04/02/17 08:15 80 16 201/90 H 98 04/02/17 08:00 86 16 170/116 H 99 04/02/17 07:30 70 16 180/90 H 100 04/02/17 07:18 97.5 F L 73 17 145/58 L 97 04/02/17 06:49 101 H 16 128/67 99 04/02/17 06:32 89 24 206/116 H 87 L 04/02/17 06:31 259/119 H 04/02/17 06:18 98.1 F 95 H 26 H 259/119 H 96 04/02/17 06:12 26 H 97 Temperature: Afebrile Blood Pressure: Normal Pulse: Regular Respiratory Rate: Tachypneic Appearance: Positive for: Non-Toxic, Comfortable Pain Distress: None Mental Status: Positive for: Alert and Oriented X 3 - Systems Exam Head: Present: Atraumatic, Normocephalic Pupils: Present: PERRL Extroacular Muscles: Present: EOMI Conjunctiva: Present: Normal Mouth: Present: Moist Mucous Membranes Neck: Present: Normal Range of Motion Respiratory/Chest: Present: Respiratory Distress, Accessory Muscle Use, Wheezes , Rales (Rales at bilateral bases) Cardiovascular: Present: Regular Rate and Rhythm, Normal S1, S2. No: Murmurs Abdomen: Present: Normal Bowel Sounds. No: Tenderness, Distention, Peritoneal Signs Back: Present: Normal Inspection Upper Extremity: Present: Normal Inspection. No: Cyanosis, Edema Lower Extremity: Present: Normal Inspection. No: Edema Neurological: Present: GCS=15, CN II-XII Intact, Speech Normal Skin: Present: Warm, Dry, Normal Color. No: Rashes Psychiatric: Present: Alert, Oriented x 3, Normal Insight, Normal Concentration Medical Decision Making ED Course and Treatment: 04/02/17 06:17 Impression: 76 year old male brought in for respiratory distress, c/o shortness of breath and chest pain for 2 hours. Differential Diagnosis include but are not limited to: CHF vs. COPD vs. pneumonia vs. sepsis Plan: -- EKG -- Chest X-ray -- Labs, cardiac enzymes, BNP, VBG, blood cultures -- Nitroglycerin -- Lasix -- Reassess and disposition Prior Visits: Notes and results from previous visits were reviewed. On 12/25/2016, pt was seen in the Emergency department for worsening shortness of breath, productive cough, and chest pain. Pt was admitted to the hospital for further evaluation. Progress Notes: Reviewed EKG, sinus tachycardia at 102 bpm. Non-specific ST/T wave changes. 04/02/17 06:33 Pt with labored breathing, accessory muscle use/tachypneic. Oxygen saturation in 80s. Will intubate. 04/02/17 06:38 PROCEDURE: INTUBATION Performed by the emergency provider Consent: Discussion of the risks, benefits, and alternatives to the procedure, along with informed consent was precluded by the urgency of the procedure and the patient condition. Timeout: A timeout to verify the correct patient, procedure, and site was performed. Indication: Respiratory distress Pre-oxygenation: [id number] Medications: Etomidate. See MAR for details. ETT Size: 8.0 gauge Confirmation: Cords directly visualized as tube passed, good bilateral breath sounds, positive CO2 detector color change, tube fogging, adequate chest rise, improving pulse oximetry reading, improved skin color, and absence of gastric sounds,. ETT Secured: The cuff was inflated and the tube was secured appropriately at a distance of 23 cm at the lip. Post-Procedure: There were no immediate complications. CXR Confirmation: Yes - Lab Interpretations Lab Results: 04/02/17 06:30 04/02/17 06:30 Lab Results 04/02/17 06:45: pO2 43, VBG pH 7.11 L*, VBG pCO2 129.0 H*, VBG HCO3 41.0 H, VBG Total CO2 45.0 H, VBG O2 Sat (Calc) 65.6 H, VBG Base Excess 6.7 H, VBG Potassium 3.9, Glucose 157 H, Lactate 1.7, FiO2 21.0, Sodium 145.0, Chloride 107.0, Venous Blood Potassium 3.9 04/02/17 06:30: Sodium 147, Potassium 3.8, Chloride 101, Carbon Dioxide 38 H, Anion Gap 12, BUN 48 H, Creatinine 1.7 H, Est GFR ( Amer) 48, Est GFR ( Non-Af Amer) 39, Random Glucose 153 H, Calcium 8.9, Total Bilirubin 0.9, AST 31 , ALT 31, Alkaline Phosphatase 49, Lactate Dehydrogenase 753 H, Total Creatine Kinase 26 L, Troponin I 0.07, NT-Pro-B Natriuret Pep 60297 H, Total Protein 6.8 , Albumin 3.6, Globulin 3.1, Albumin/Globulin Ratio 1.2 04/02/17 06:30: WBC 21.6 H D, RBC 3.73, Hgb 10.4 L, Hct 36.0 L, MCV 96.5, MCH 27.9, MCHC 28.9 L, RDW 16.7 H, Plt Count 291, MPV 10.6, Neutrophils % (Manual) 51, Band Neutrophils % 1, Lymphocytes % (Manual) 42 H, Monocytes % (Manual) 6, Platelet Evaluation Normal, Large Platelets Present 04/02/17 06:30: PT 10.3, INR 0.95, APTT 20.5 L - RAD Interpretation Radiology Orders: 04/02/17 06:43 CHEST PORTABLE [RAD] Stat - Medication Orders Current Medication Orders: Aspirin (Aspirin Supp) 300 mg IN DAILY [facility] Last Admin: 04/02/17 11:50 Dose: 300 mg Re-Assess: INDER Pain/Vitals Document 04/02/17 12:50 AE (Rec: 04/02/17 17:10 AE [id number]) Pain Reassessment Is This A Pain ReAssessment? No Sleep Is patient sleeping during reassessment? Yes Atorvastatin Calcium (Lipitor) 80 mg PO DIN [facility] Last Admin: 04/02/17 17:11 Dose: Not Given Non-Admin Reason: NPO Clopidogrel Bisulfate (Plavix) 75 mg PO DAILY [facility] Last Admin: 04/02/17 19:06 Dose: 75 mg Famotidine (Pepcid) 20 mg PO BID [facility] Last Admin: 04/02/17 19:05 Dose: 20 mg Furosemide (Lasix) 40 mg IVP Q12 [facility] Last Admin: 04/02/17 21:09 Dose: 40 mg Hydralazine HCl (Apresoline) 5 mg IVP Q6 [facility] Last Admin: 04/03/17 00:00 Dose: 5 mg Propofol (Diprivan) 1,000 mg in 100 mls @ 2.698 mls/hr IV .Q24H PRN; Protocol; 5 MCG/KG/MIN PRN Reason: TITRATE PER MD ORDER Last Admin: 04/03/17 05:19 Dose: 20 mcg/kg/min, 10.794 mls/hr Doxycycline Hyclate 100 mg/ (Sodium Chloride) 100 mls @ 100 mls/hr IVPB Q12 [facility] PRN Reason: Protocol Last Admin: 04/02/17 21:24 Dose: 100 mls/hr Cefepime HCl (Maxipime 1gm) 1 gm in 100 mls @ 100 mls/hr IVPB Q12 [facility] PRN Reason: Protocol Last Admin: 04/02/17 21:09 Dose: 100 mls/hr Nitroglycerin/Dextrose (Nitroglycerin 50 Mg/250 Ml D5w) 50 mg in 250 mls @ 3 mls/hr IV .Q24H PRN; Protocol; 10 MCG/MIN PRN Reason: Systolic Blood Pressure Last Admin: 04/02/17 12:42 Dose: 3 mls/hr Heparin Sodium/Dextrose (Heparin 25,000 Units/250ml In D5w) 25,000 units in 250 mls @ 10.32 mls/hr IV .Q24H [facility]; 12 UNITS/KG/HR PRN Reason: Protocol Last Admin: 04/02/17 19:46 Dose: 12 units/kg/hr, 10.32 mls/hr Discontinued Medications Albuterol/Ipratropium (Duoneb 3 Mg/0.5 Mg (3 Ml) Ud) Confirm Administered Dose 9 ml .ROUTE .STK-MED ONE Stop: 04/02/17 06:18 Last Admin: 04/02/17 07:39 Dose: Aspirin (Aspirin Chewable) 81 mg PO STAT STA Stop: 04/02/17 09:40 Last Admin: 04/02/17 15:04 Dose: Not Given Non-Admin Reason: NPO Clopidogrel Bisulfate (Plavix) 75 mg PO DAILY [facility] Etomidate (Amidate) Confirm Administered Dose 20 mg IV .STK-MED ONE Stop: 04/02/17 06:33 Last Admin: 04/02/17 07:38 Dose: Etomidate (Amidate) 10 mg IV STAT STA Stop: 04/02/17 06:45 Last Admin: 04/02/17 06:35 Dose: 10 mg Furosemide (Lasix) Confirm Administered Dose 80 mg .ROUTE .STK-MED ONE Stop: 04/02/17 06:23 Last Admin: 04/02/17 07:39 Dose: Furosemide (Lasix) 60 mg IVP STAT STA Stop: 04/02/17 06:43 Last Admin: 04/02/17 06:31 Dose: 60 mg Heparin Sodium (Porcine) (Heparin) 4,000 units IV ONCE ONE PRN Reason: Protocol Stop: 04/02/17 19:07 Last Admin: 04/02/17 19:45 Dose: 4,000 units Propofol (Diprivan) Confirm Administered Dose 1,000 mg in 100 mls @ ud .ROUTE .STK-MED ONE Stop: 04/02/17 06:45 Last Admin: 04/02/17 07:37 Dose: Nitroglycerin/Dextrose (Nitroglycerin 50 Mg/250 Ml D5w) 50 mg in 250 mls @ 1.5 mls/hr IV .Q24H PRN; Protocol; 5 MCG/MIN PRN Reason: Systolic Blood Pressure Cefepime HCl (Maxipime 1gm) 1 gm in 100 mls @ 100 mls/hr IVPB STAT STA PRN Reason: Protocol Stop: 04/02/17 09:43 Last Admin: 04/02/17 09:26 Dose: 100 mls/hr Vancomycin HCl (Vancomycin 1gm) 1 gm in 250 mls @ 167 mls/hr IVPB Q12H [facility] PRN Reason: Protocol Last Admin: 04/02/17 11:00 Dose: 167 mls/hr Vancomycin HCl (Vancomycin 1gm) 1 gm in 250 mls @ 167 mls/hr IVPB ONCE ONE PRN Reason: Protocol Stop: 04/02/17 11:57 Last Admin: 04/02/17 11:00 Dose: 167 mls/hr Lorazepam (Ativan) Confirm Administered Dose 2 mg .ROUTE .STK-MED ONE Stop: 04/02/17 08:28 Last Admin: 04/02/17 08:30 Dose: 2 mg Comments: kim Hogan ativan 2mg im/gloria khan Succinylcholine Chloride (Quelicin) Confirm Administered Dose 200 mg IV .STK- MED ONE Stop: 04/02/17 06:33 Last Admin: 04/02/17 07:35 Dose: - Transfer of Care Patient signed out to Dr:: tori labs and dispo - Scribe Statement The provider has reviewed the documentation as recorded by the Scribe Dee Swanson All medical record entries made by the Scribe were at my direction and personally dictated by me. I have reviewed the chart and agree that the record accurately reflects my personal performance of the history, physical exam, medical decision making, and the department course for this patient. I have also personally directed, reviewed, and agree with the discharge instructions and disposition. Disposition/Present on Arrival - Present on Arrival Any Indicators Present on Arrival: No History of DVT/PE: No History of Uncontrolled Diabetes: No Urinary Catheter: No History Surgical Site Infection Following: None - Disposition Have Diagnosis and Disposition been Completed?: Yes Diagnosis: Respiratory failure, Pulmonary edema Disposition: HOSPITALIZED Disposition Time: 07:00 Patient Problems: Current Active Problems Problem Status Onset Pulmonary edema Acute Respiratory failure Acute Condition: CRITICAL
[2017-04-02] MEDS ORDERED: Succinylcholine 200 mg/10 ml Inj IV ONE (06:32)
[2017-04-02] MEDS ORDERED: Etomidate 20 mg/10ml Inj IV ONE (06:32)
[2017-04-02] MEDS ORDERED: Etomidate 20 mg/10ml Inj IV STA (06:44)
[2017-04-02] MEDS ORDERED: Nitroglycerin 50mg in D5W 50 MG/250 ML BOTTLE IV PRN ×2 (06:44→10:48)
[2017-04-02] MEDS ORDERED: Propofol 10 mg/ml 1,000 MG/100 ML VIAL ONE (06:44)
[2017-04-02] MEDS: Propofol 10 mg/ml 1,000 MG/100 ML VIAL IV PRN ×2 (06:47→20:01)
--- NOTE | 2017-04-02 07:19 | ED PDOC ---
Physical Exam Vital Signs Reviewed: Yes Vital Signs Temp Pulse Resp BP Pulse Ox 04/02/17 07:18 97.5 F L 73 17 145/58 L 97 04/02/17 06:49 101 H 16 128/67 99 04/02/17 06:32 89 24 206/116 H 87 L 04/02/17 06:31 259/119 H 04/02/17 06:18 98.1 F 95 H 26 H 259/119 H 96 04/02/17 06:12 26 H 97 Temperature: Afebrile Blood Pressure: Hypertensive Pulse: Regular Respiratory Rate: Tachypneic Appearance: Positive for: Well-Appearing, Non-Toxic, Other (intubated) Pain Distress: None Mental Status: Positive for: Alert and Oriented X 3 Medical Decision Making ED Course and Treatment: 04/02/17 07:15 Change of shift, case transferred to tx. Patient in acute respiratory distress with accessory muscle use. Patient intubated on arrival. Pending all labs. Patient will require admission to ICU. On exam, patient is intubated and sedated , diffuse rhonchi. 04/02/17 07:27 Chest xray positive for pulmonary edema, ET tube in satisfactory position. Possible underlying infiltrate. 04/02/17 08:20 Central line placement done by ICU resident, supervised by me. PROCEDURE: CENTRAL LINE PLACEMENT Performed by the ICU resident. Consent: precluded by the urgency of the procedure and the patient condition. Timeout: A timeout to verify the correct patient, procedure, and site was performed. Indication: Vascular access Anesthesia: Local anesthesia: Lidocaine SQ Skin Preparation: Hand hygiene performed prior to central venous catheter insertion. Sterile field, sterile drape, sterile technique, and cap and gown were used. The area was cleansed with 2% Chlorhexidine. Patient position: Supine Location: R femoral Ultrasound guidance: YES Technique: The landmarks for the line placement were identified. The vessel was cannulated and a non-tunneled 7.0 Fr triple lumen was placed using the Seldinger technique. Successful placement: {YES / NO }YES. Line sutured with silk and appropriate dressing applied. Assessment: Good patency and blood return through all three lumens. The ports were appropriately flushed. Post-procedure: Patient tolerated the procedure well with no immediate complications. Dr. Morales accepts patient to his service. Dr. Naranjo accepts patient to ICU. - Lab Interpretations Lab Results: 04/02/17 06:30 07 06:30 Lab Results 04/02/17 06:45: pO2 43, VBG pH 7.11 L*, VBG pCO2 129.0 H*, VBG HCO3 41.0 H, VBG Total CO2 45.0 H, VBG O2 Sat (Calc) 65.6 H, VBG Base Excess 6.7 H, VBG Potassium 3.9, Glucose 157 H, Lactate 1.7, FiO2 21.0, Sodium 145.0, Chloride 107.0, Venous Blood Potassium 3.9 04/02/17 06:30: Sodium 147, Potassium 3.8, Chloride 101, Carbon Dioxide 38 H, Anion Gap 12, BUN 48 H, Creatinine 1.7 H, Est GFR ( Amer) 48, Est GFR ( Non-Af Amer) 39, Random Glucose 153 H, Calcium 8.9, Total Bilirubin 0.9, AST 31 , ALT 31, Alkaline Phosphatase 49, Lactate Dehydrogenase 753 H, Total Creatine Kinase 26 L, Troponin I 0.07, NT-Pro-B Natriuret Pep 60478 H, Total Protein 6.8 , Albumin 3.6, Globulin 3.1, Albumin/Globulin Ratio 1.2 04/02/17 06:30: WBC 21.6 H D, RBC 3.73, Hgb 10.4 L, Hct 36.0 L, MCV 96.5, MCH 27.9, MCHC 28.9 L, RDW 16.7 H, Plt Count 291, MPV 10.6, Neutrophils % (Manual) 51, Band Neutrophils % 1, Lymphocytes % (Manual) 42 H, Monocytes % (Manual) 6, Platelet Evaluation Normal, Large Platelets Present 04/02/17 06:30: PT 10.3, INR 0.95, APTT 20.5 L I have reviewed the lab results: Yes - RAD Interpretation Radiology Orders: 04/02/17 06:43 CHEST PORTABLE [RAD] Stat - Medication Orders Current Medication Orders: Nitroglycerin/Dextrose (Nitroglycerin 50 Mg/250 Ml D5w) 50 mg in 250 mls @ 1.5 mls/hr IV .Q24H PRN; Protocol; 5 MCG/MIN PRN Reason: Systolic Blood Pressure Propofol (Diprivan) 1,000 mg in 100 mls @ 2.698 mls/hr IV .Q24H PRN; Protocol; 5 MCG/KG/MIN PRN Reason: TITRATE PER MD ORDER Last Admin: 04/02/17 06:47 Dose: 2.698 mls/hr Discontinued Medications Albuterol/Ipratropium (Duoneb 3 Mg/0.5 Mg (3 Ml) Ud) Confirm Administered Dose 9 ml .ROUTE .STK-MED ONE Stop: 04/02/17 06:18 Last Admin: 04/02/17 07:39 Dose: Etomidate (Amidate) Confirm Administered Dose 20 mg IV .STK-MED ONE Stop: 04/02/17 06:33 Last Admin: 04/02/17 07:38 Dose: Etomidate (Amidate) 10 mg IV STAT STA Stop: 04/02/17 06:45 Last Admin: 04/02/17 06:35 Dose: 10 mg Furosemide (Lasix) Confirm Administered Dose 80 mg .ROUTE .STK-MED ONE Stop: 04/02/17 06:23 Last Admin: 04/02/17 07:39 Dose: Furosemide (Lasix) 60 mg IVP STAT STA Stop: 04/02/17 06:43 Last Admin: 04/02/17 06:31 Dose: 60 mg Propofol (Diprivan) Confirm Administered Dose 1,000 mg in 100 mls @ ud .ROUTE .STK-MED ONE Stop: 04/02/17 06:45 Last Admin: 04/02/17 07:37 Dose: Lorazepam (Ativan) Confirm Administered Dose 2 mg .ROUTE .STK-MED ONE Stop: 04/02/17 08:28 Succinylcholine Chloride (Quelicin) Confirm Administered Dose 200 mg IV .STK- MED ONE Stop: 04/02/17 06:33 Last Admin: 04/02/17 07:35 Dose: - Scribe Statement The provider has reviewed the documentation as recorded by the Jeremiah Krishnamurthy Provider Scribe Attestation: All medical record entries made by the Scribe were at my direction and personally dictated by me. I have reviewed the chart and agree that the record accurately reflects my personal performance of the history, physical exam, medical decision making, and the department course for this patient. I have also personally directed, reviewed, and agree with the discharge instructions and disposition. Disposition/Present on Arrival - Present on Arrival Any Indicators Present on Arrival: No History of DVT/PE: No History of Uncontrolled Diabetes: No Urinary Catheter: No History of Decub. Ulcer: No History Surgical Site Infection Following: None - Disposition Have Diagnosis and Disposition been Completed?: Yes Diagnosis: Respiratory failure, Pulmonary edema Disposition: HOSPITALIZED Disposition Time: 08:45 Patient Plan: Admission, ICU Condition: CRITICAL
[2017-04-02 07:37] LABS: VENOUS BLOOD GAS BASE EXCESS 6.7 mmol/L (0.0-2.0); VENOUS BLOOD GAS PO2 43 mm/Hg (30-55)
[2017-04-02 07:38] LABS: HEMOGLOBIN 10.4 gm/dL (14.0-18.0); MEAN CELL VOLUME 96.5 fL (80.0-105.0); MEAN CORPUSCULAR HEMOGLOBIN 27.9 pg (25.0-35.0); MEAN CORPUSCULAR HGB CONC 28.9 g/dl (31.0-37.0); MEAN PLATELET VOLUME 10.6 fl (7.0-11.0); PLATELET COUNT 291 10^3/uL (120.0-450.0); RBC 3.73 10^6/uL (3.5-6.1); RED CELL DISTRIBUTION WIDTH 16.7 % (11.5-14.5); WHITE BLOOD COUNT 21.6 10^3/ul (4.5-11.0)
[2017-04-02 07:41] LABS: VENOUS BLOOD PH 7.11 (7.32-7.43)
[2017-04-02 07:46] LABS: INR 0.95 (0.93-1.08); PARTIAL THROMBOPLASTIN TIME 20.5 Seconds (23.7-30.8); PROTHROMBIN TIME 10.3 Seconds (9.9-11.8)
[2017-04-02 07:47] LABS: ALB/GLOB RATIO 1.2 (1.1-1.8); ALBUMIN 3.6 g/dL (3.0-4.8); CALCIUM 8.9 mg/dL (8.4-10.5)
[2017-04-02 07:58] LABS: TROPONIN I 0.07 ng/mL
[2017-04-02 08:11] LABS: BAND 1 % (0-2); LARGE PLATELETS PRESENT; LYMPHOCYTE 42 % (22.0-35.0); MONOCYTE 6 % (1.0-6.0); NEUTROPHIL 51 % (50.0-70.0); PLATELET ESTIMATE NORMAL (NORMAL)
[2017-04-02] MEDS ORDERED: Cefepime 1gm in NS 100ml 1 GM/100 ML BAG IVPB STA (08:44)
--- NOTE | 2017-04-02 09:12 | RAD ---
HISTORY: sob COMPARISON: 01/08/2017 FINDINGS: LUNGS: Bilateral alveolar infiltrates are seen in a pattern consistent with pulmonary edema. PLEURA: No significant pleural effusion identified, no pneumothorax apparent. CARDIOVASCULAR: Normal. OSSEOUS STRUCTURES: No significant abnormalities. VISUALIZED UPPER ABDOMEN: Normal. OTHER FINDINGS: Endotracheal tube in satisfactory position IMPRESSION: Pulmonary edema
--- NOTE | 2017-04-02 09:16 | PCM.PROC ---
Procedures Attestation:: I certify that I have explained the specified Operation(s) or Procedure(s), risks, benefits and reasonable alternatives to the Patient and/or other person responsible. The opportunity was given to ask questions and all questions answered - Central Line Placement Right Femoral Triple Lumen Catheter Aseptic technique was employed throughout the procedure: Hand Hygiene done prior to procedure, Full sterile barriers (mask, hair cover, sterile gown, sterile gloves) CVP Time Out Performed: Yes Pt. Placed on Pulse Ox Monitor: Yes Central Line Prep: Chlorhexidine-Alcohol Combination Local Anesthesia Used: Lidocaine 1% Ultrasound Used for Placement: Yes Central Line Lumen Inserted: triple Central Line Length: 16 cm Post Procedure: Sutured in Place, Good Blood Return, All Ports Aspirated, Flushed, Capped, Sterile Dressing Applied Secured by: Suture Post procedure dressing: Chlorhexidine disc (Biopatch) Post Procedure X-Ray: No Patient Tolerated Procedure: Well, No Complications Immediate Complications: None
[2017-04-02] MEDS ORDERED: Vancomycin 1gm in NS 250ml 1 GM/250 ML BAG IVPB SCH (10:00)
[2017-04-02] MEDS ORDERED: Vancomycin 1gm in NS 250ml 1 GM/250 ML BAG IVPB ONE (10:28)
--- NOTE | 2017-04-02 11:20 | RAD ---
HISTORY: s/p ngt COMPARISON: Earlier same day FINDINGS: LUNGS: There is improvement in the pattern of pulmonary edema PLEURA: No significant pleural effusion identified, no pneumothorax apparent. CARDIOVASCULAR: Normal. OSSEOUS STRUCTURES: No significant abnormalities. VISUALIZED UPPER ABDOMEN: Normal. OTHER FINDINGS: None. IMPRESSION: Endotracheal tube and nasogastric tube in satisfactory position
[2017-04-02 11:31] LABS: ARTERIAL BLOOD GAS HCO3 38.7 mmol/L (21-28); ARTERIAL BLOOD GAS HEMOGLOBIN 8.3 g/dL (11.7-17.4); ARTERIAL BLOOD GAS O2 CAPACITY 11.5 mL/dl (16-24); ARTERIAL BLOOD GAS O2 CONTENT 11.2 ML/dl (15-23); ARTERIAL BLOOD GAS O2 SAT 97.6 % (95-98); ARTERIAL BLOOD GAS PCO2 52 mm/Hg (35-45); ARTERIAL BLOOD GAS PH 7.48 (7.35-7.45); ARTERIAL BLOOD GAS TCO2 40.3 mmol.L (22-28)
[2017-04-02 13:25] VITALS: BMI 27.1
--- NOTE | 2017-04-02 13:46 | CP.PCM.CON ---
<Ivett Price - Last Filed: 04/02/17 14:15> History of Present Illness - History of Present Illness History of Present Illness: PGY-2 Consult note 76 male with PMH of HTN, CAD, COPD, hep C and Gerd presents with SOB. Patient is currently intubated history from ED and family at bedside. Patient started complaining of SOB about 2 hours before arrival to ED. He also reports chest pain. He was on home O2 however his continued to experience SOB. Per patient did not complain of any fever, chills, n/v. Patient was intubated in ED. PMH: HTN, CAD, COPD, hep C an Gerd PSH: cardiac cath Social hx: former smoker,denies ETOH use allergies: NKDA Review of Systems - Review of Systems Systems not reviewed;Unavailable: Intubated Past Patient History - Infectious Disease Hx of Infectious Diseases: None - Tetanus Immunizations Tetanus Immunization: Unknown - Past Medical History & Family History Past Medical History?: Yes - Past Social History Smoking Status: Former Smoker - CARDIAC Hx Cardiac Disorders: Yes Hx Hypertension: Yes - PULMONARY Hx Chronic Obstructive Pulmonary Disease (COPD): Yes - NEUROLOGICAL Hx Neurological Disorder: No - HEENT Hx HEENT Problems: No - RENAL Hx Chronic Kidney Disease: No - ENDOCRINE/METABOLIC Hx Endocrine Disorders: No - HEMATOLOGICAL/ONCOLOGICAL Hx Blood Disorders: Yes Hx Hepatitis C: Yes - INTEGUMENTARY Hx Dermatological Problems: No - MUSCULOSKELETAL/RHEUMATOLOGICAL Hx Falls: No - GASTROINTESTINAL Hx Gastrointestinal Disorders: Yes Hx Gastroesophageal Reflux: Yes - GENITOURINARY/GYNECOLOGICAL Hx Genitourinary Disorders: No - PSYCHIATRIC Hx Substance Use: No - SURGICAL HISTORY Hx Appendectomy: Yes Hx Cardiac Catheterization: Yes Hx Coronary Stent: Yes - ANESTHESIA Hx Anesthesia: Yes Hx Anesthesia Reactions: No Hx Malignant Hyperthermia: No Meds Allergies/Adverse Reactions: Allergies Allergy/AdvReac Type Severity Reaction Status Date / Time No Known Allergies Allergy Verified 12/11/16 13:56 - Medications Medications: Current Medications Aspirin (Aspirin Supp) 300 mg TX DAILY [facility] Last Admin: 04/02/17 11:50 Dose: 300 mg Atorvastatin Calcium (Lipitor) 80 mg PO DIN [facility] Furosemide (Lasix) 40 mg IVP Q12 [facility] Hydralazine HCl (Apresoline) 5 mg IVP Q6 [facility] Propofol (Diprivan) 1,000 mg in 100 mls @ 2.698 mls/hr IV .Q24H PRN; Protocol; 5 MCG/KG/MIN PRN Reason: TITRATE PER MD ORDER Last Titration: 04/02/17 11:15 Dose: 30 mcg/kg/min, 16.19 mls/hr Doxycycline Hyclate 100 mg/ (Sodium Chloride) 100 mls @ 100 mls/hr IVPB Q12 [facility] PRN Reason: Protocol Last Admin: 04/02/17 12:40 Dose: 100 mls/hr Cefepime HCl (Maxipime 1gm) 1 gm in 100 mls @ 100 mls/hr IVPB Q12 [facility] PRN Reason: Protocol Nitroglycerin/Dextrose (Nitroglycerin 50 Mg/250 Ml D5w) 50 mg in 250 mls @ 3 mls/hr IV .Q24H PRN; Protocol; 10 MCG/MIN PRN Reason: Systolic Blood Pressure Last Admin: 04/02/17 12:42 Dose: 3 mls/hr Physical Exam - Head Exam Head Exam: ATRAUMATIC, NORMOCEPHALIC - Eye Exam Eye Exam: Normal appearance - Respiratory Exam Respiratory Exam: Rales. absent: Clear to Auscultation Bilateral Additional comments: patient is intubated - Cardiovascular Exam Cardiovascular Exam: REGULAR RHYTHM, +S1, +S2. absent: Tachycardia, Diastolic murmur, Systolic Murmur - GI/Abdominal Exam GI & Abdominal Exam: Normal Bowel Sounds, Soft. absent: Distended, Firm, Guarding, Tenderness - Extremities Exam Extremities exam: Positive for: pedal edema - Neurological Exam Additional comments: patient is sedated - Skin Skin Exam: Dry, Intact, Normal Color, Warm Results - Vital Signs Recent Vital Signs: Last Vital Signs Temp 98.4 F 04/02/17 11:11 Pulse 57 L 04/02/17 12:42 Resp 16 04/02/17 11:11 BP 111/55 L 04/02/17 12:42 Pulse Ox 96 04/02/17 11:20 - Labs Result Diagrams: 04/02/17 06:30 04/02/17 06:30 Labs: Laboratory Results - last 24 hr 04/02/17 11:25 pCO2 52 H pO2 69.0 L HCO3 38.7 H ABG pH 7.48 H ABG Total CO2 40.3 H ABG O2 Saturation 97.6 ABG O2 Content 11.2 L ABG Base Excess 13.7 H ABG Hemoglobin 8.3 L ABG Carboxyhemoglobin 2.1 H POC ABG HHb (Measured) 2.3 ABG Methemoglobin 0.7 ABG O2 Capacity 11.5 L Hgb O2 Saturation 94.9 L FiO2 40.0 Assessment & Plan - Assessment and Plan (Free Text) Assessment: 76 male with PMH of HTN, CAD, COPD, hep C and Gerd presents with hypercapnic respiratory failure with pulmonary edema. Plan: Neuro: Patient sedated on propofol. Will continue to monitor cardiovascular: cardiac vs non-cardiac pulmonary edema, start on nitroglycerin drip, hydralazine q6, lasix q12, lipitor and asa. Maintain MAP> 65. Trops were negative x1, will repeat. Cardiology consulted. Pulm: Patient is intubated. CXR showed pulmonary edema (cardiac vs noncardiac). Protective lung ventilations strategies GI: Stable, pepcid for GI ppx Renal: at baseline, will continue to monitor. Replace electrolytes as needed. ID: blood, urine and sputum cultures. Procalcitonin ordered. Started on vanco, cefepime, doxycycline. ID consulted. Endo: Stable cont to monitor. <Artur Naranjo - Last Filed: 04/02/17 17:24> Meds - Medications Medications: Current Medications Aspirin (Aspirin Supp) 300 mg TX DAILY [facility] Last Admin: 04/02/17 11:50 Dose: 300 mg Atorvastatin Calcium (Lipitor) 80 mg PO DIN [facility] Famotidine (Pepcid) 20 mg PO BID [facility] Furosemide (Lasix) 40 mg IVP Q12 [facility] Last Admin: 04/02/17 10:00 Dose: Not Given Heparin Sodium (Porcine) (Heparin) 5,000 units SC Q12 [facility] PRN Reason: Protocol Hydralazine HCl (Apresoline) 5 mg IVP Q6 [facility] Last Admin: 04/02/17 14:28 Dose: 5 mg Propofol (Diprivan) 1,000 mg in 100 mls @ 2.698 mls/hr IV .Q24H PRN; Protocol; 5 MCG/KG/MIN PRN Reason: TITRATE PER MD ORDER Last Titration: 04/02/17 14:17 Dose: 20 mcg/kg/min, 10.794 mls/hr Doxycycline Hyclate 100 mg/ (Sodium Chloride) 100 mls @ 100 mls/hr IVPB Q12 [facility] PRN Reason: Protocol Last Admin: 04/02/17 12:40 Dose: 100 mls/hr Cefepime HCl (Maxipime 1gm) 1 gm in 100 mls @ 100 mls/hr IVPB Q12 [facility] PRN Reason: Protocol Nitroglycerin/Dextrose (Nitroglycerin 50 Mg/250 Ml D5w) 50 mg in 250 mls @ 3 mls/hr IV .Q24H PRN; Protocol; 10 MCG/MIN PRN Reason: Systolic Blood Pressure Last Admin: 04/02/17 12:42 Dose: 3 mls/hr Results - Vital Signs Recent Vital Signs: Last Vital Signs Temp 98.4 F 04/02/17 11:11 Pulse 58 L 04/02/17 16:00 Resp 16 04/02/17 11:11 BP 151/52 H 04/02/17 14:28 Pulse Ox 97 04/02/17 14:30 - Labs Result Diagrams: 04/02/17 06:30 04/02/17 06:30 Labs: Laboratory Results - last 24 hr 04/02/17 04/02/17 11:25 13:50 pCO2 52 H pO2 69.0 L HCO3 38.7 H ABG pH 7.48 H ABG Total CO2 40.3 H ABG O2 Saturation 97.6 ABG O2 Content 11.2 L ABG Base Excess 13.7 H ABG Hemoglobin 8.3 L ABG Carboxyhemoglobin 2.1 H POC ABG HHb (Measured) 2.3 ABG Methemoglobin 0.7 ABG O2 Capacity 11.5 L Hgb O2 Saturation 94.9 L FiO2 40.0 Lactate Dehydrogenase 620 Total Creatine Kinase 21 L Troponin I Cancelled Attending/Attestation - Attestation I have personally seen and examined this patient.: Yes I have fully participated in the care of the patient.: Yes I have reviewed all pertinent clinical information: Yes Notes (Text): 04/02/17 17:07 76 yo male with hepC, COPD, CHF, who presented with acute onset of SOB and chest tightness. CXR revealed pulmonary edema and ABG confirmed hypercapnic respiratory failure. D/D includes: cardiogenic pulmonary edema due to CHF exacerbation may or may not due to NSTEMI and non-cardiogenic pulmonary edema, due to infectious etiology (wbc 21). We will proceed with septic workup, including blood, urine, sputum culture, urine for legionella and strep ag, cefepime/vanco/doxy--would be careful with microlides and fluoroquinolones in this patient with underlying heart disease and ID consult. Will proceed with afterload reduction with PPV, propofol and hydralazine, as well as pre-load reduction with lasix, nitro drip and PPV. As myocardial ischemia most common cause of CHF exacerbation, will start aspirin and statins. If seond troponin comes back elevated will add plavix and TAC with heparin. Patient's HR consistently 50-60-->will hold b-blockers. Cardio consult is pending. I have low suspicion for DAH and ILD exacerbation (whether idiopathic or due to autoimmune dx), however if no initial improvement observed--will consider rheumo screen and bronch. DVT/GI prophylaxis ccm time 40 min
--- NOTE | 2017-04-02 17:39 | CARD ---
APPROVED REPORT EKG Measurement Heart [id number] <Conclusion> Sinus tachycardia Nonspecific ST and T wave abnormality Abnormal ECG
[2017-04-02 17:42] LABS: VENOUS BLOOD GAS BASE EXCESS 14.7 mmol/L (0.0-2.0); VENOUS BLOOD GAS PO2 51 mm/Hg (30-55); VENOUS BLOOD PH 7.46 (7.32-7.43)
--- NOTE | 2017-04-02 18:02 | CP.PCM.CON ---
History of Present Illness - History of Present Illness History of Present Illness: 76 year old male with PMH of HTN, COPD, hepatitis C, GERD, CAD S/P PCI was brought in because of chest pain associated with shortness of breath and dry cough a day prior to admission. In the ED, the patient was found to be in severe respiratory distress and was intubated and sent to the ICU for closer observation and management. There was no note of fevers, no vomiting, no convulsions, no loss of consciousness, no diarrhea as per family. In the ED, CXR was done which showed bilateral alveolar infiltrates. Infectious diseases consult is requested to further evaluate and manage. Review of Systems - Review of Systems Systems not reviewed;Unavailable: Intubated Past Patient History - Infectious Disease Hx of Infectious Diseases: None - Tetanus Immunizations Tetanus Immunization: Unknown - Past Medical History & Family History Past Medical History?: Yes - Past Social History Smoking Status: Former Smoker - CARDIAC Hx Cardiac Disorders: Yes Hx Hypertension: Yes - PULMONARY Hx Chronic Obstructive Pulmonary Disease (COPD): Yes - NEUROLOGICAL Hx Neurological Disorder: No - HEENT Hx HEENT Problems: No - RENAL Hx Chronic Kidney Disease: No - ENDOCRINE/METABOLIC Hx Endocrine Disorders: No - HEMATOLOGICAL/ONCOLOGICAL Hx Blood Disorders: Yes Hx Hepatitis C: Yes - INTEGUMENTARY Hx Dermatological Problems: No - MUSCULOSKELETAL/RHEUMATOLOGICAL Hx Falls: No - GASTROINTESTINAL Hx Gastrointestinal Disorders: Yes Hx Gastroesophageal Reflux: Yes - GENITOURINARY/GYNECOLOGICAL Hx Genitourinary Disorders: No - PSYCHIATRIC Hx Substance Use: No - SURGICAL HISTORY Hx Appendectomy: Yes Hx Cardiac Catheterization: Yes Hx Coronary Stent: Yes - ANESTHESIA Hx Anesthesia: Yes Hx Anesthesia Reactions: No Hx Malignant Hyperthermia: No Meds Allergies/Adverse Reactions: Allergies Allergy/AdvReac Type Severity Reaction Status Date / Time No Known Allergies Allergy Verified 12/11/16 13:56 - Medications Medications: Current Medications Aspirin (Aspirin Supp) 300 mg LA DAILY [facility] Last Admin: 04/02/17 11:50 Dose: 300 mg Atorvastatin Calcium (Lipitor) 80 mg PO DIN [facility] Last Admin: 04/02/17 17:11 Dose: Not Given Famotidine (Pepcid) 20 mg PO BID [facility] Last Admin: 04/02/17 17:11 Dose: Not Given Furosemide (Lasix) 40 mg IVP Q12 [facility] Last Admin: 04/02/17 10:00 Dose: Not Given Heparin Sodium (Porcine) (Heparin) 5,000 units SC Q12 [facility] PRN Reason: Protocol Hydralazine HCl (Apresoline) 5 mg IVP Q6 [facility] Last Admin: 04/02/17 14:28 Dose: 5 mg Propofol (Diprivan) 1,000 mg in 100 mls @ 2.698 mls/hr IV .Q24H PRN; Protocol; 5 MCG/KG/MIN PRN Reason: TITRATE PER MD ORDER Last Titration: 04/02/17 16:00 Dose: 10 mcg/kg/min, 5.397 mls/hr Doxycycline Hyclate 100 mg/ (Sodium Chloride) 100 mls @ 100 mls/hr IVPB Q12 [facility] PRN Reason: Protocol Last Admin: 04/02/17 12:40 Dose: 100 mls/hr Cefepime HCl (Maxipime 1gm) 1 gm in 100 mls @ 100 mls/hr IVPB Q12 [facility] PRN Reason: Protocol Nitroglycerin/Dextrose (Nitroglycerin 50 Mg/250 Ml D5w) 50 mg in 250 mls @ 3 mls/hr IV .Q24H PRN; Protocol; 10 MCG/MIN PRN Reason: Systolic Blood Pressure Last Admin: 04/02/17 12:42 Dose: 3 mls/hr Physical Exam - Constitutional Appears: Other (Intubated and sedated) - Head Exam Head Exam: NORMAL INSPECTION - ENT Exam Additional comments: ET tube in place - Neck Exam Neck exam: Negative for: Meningismus - Respiratory Exam Respiratory Exam: Decreased Breath Sounds, Rales (scattered) - Cardiovascular Exam Cardiovascular Exam: +S1, +S2 - GI/Abdominal Exam GI & Abdominal Exam: Soft. absent: Tenderness Results - Vital Signs Recent Vital Signs: Last Vital Signs Temp 98.4 F 04/02/17 11:11 Pulse 58 L 04/02/17 16:00 Resp 16 04/02/17 11:11 BP 151/52 H 04/02/17 14:28 Pulse Ox 97 04/02/17 14:30 - Labs Result Diagrams: 04/02/17 06:30 04/02/17 06:30 Labs: Laboratory Results - last 24 hr 04/02/17 04/02/17 04/02/17 11:25 13:50 17:30 pCO2 52 H pO2 69.0 L 51 HCO3 38.7 H ABG pH 7.48 H ABG Total CO2 40.3 H ABG O2 Saturation 97.6 ABG O2 Content 11.2 L ABG Base Excess 13.7 H ABG Hemoglobin 8.3 L ABG Carboxyhemoglobin 2.1 H POC ABG HHb (Measured) 2.3 ABG Methemoglobin 0.7 ABG O2 Capacity 11.5 L VBG pH 7.46 H VBG pCO2 58.0 VBG HCO3 41.3 H VBG Total CO2 43.1 H VBG O2 Sat (Calc) 90.3 H VBG Base Excess 14.7 H VBG Potassium 3.7 Hgb O2 Saturation 94.9 L Sodium 144.0 Chloride 108.0 H Glucose 98 Lactate 0.8 FiO2 40.0 21.0 Lactate Dehydrogenase 620 Total Creatine Kinase 21 L Troponin I Cancelled Venous Blood Potassium 3.7 Assessment & Plan - Assessment and Plan (Free Text) Plan: Assessment Systemic Inflammatory response syndrome with ventilator-dependent respiratory failure, consider due to acute congestive heart failure, R/O sepsis due to bilateral pneumonia HTN COPD hepatitis C GERD CAD S/P PCI Plan Gave a dose of IV Vancomycin and started Cefepime and Doxycycline pending blood , sputum cx, PCT, urine Legionella Ag; reviewed CXR will monitor clinically
[2017-04-02 18:22] LABS: TROPONIN I 0.39 ng/mL
--- NOTE | 2017-04-02 19:03 | CT ---
PROCEDURE: CT HEAD WITHOUT CONTRAST. HISTORY: r/o bleed COMPARISON: None available. TECHNIQUE: Axial computed tomography images were obtained through the head/brain without intravenous contrast. Radiation dose: Total exam DLP = 948.71 print mGy-cm. This CT exam was performed using one or more of the following dose reduction techniques: Automated exposure control, adjustment of the mA and/or kV according to patient size, and/or use of iterative reconstruction technique. FINDINGS: HEMORRHAGE: No intracranial hemorrhage. BRAIN: No mass effect or edema. Cortical atrophy, periventricular small vessel disease VENTRICLES: Unremarkable. No hydrocephalus. CALVARIUM: Unremarkable. PARANASAL SINUSES: Unremarkable as visualized. No significant inflammatory changes. MASTOID AIR CELLS: Unremarkable as visualized. No inflammatory changes. OTHER FINDINGS: None. IMPRESSION: No acute intracranial abnormalities. No significant findings to account for the clinical presentation.
[2017-04-02] MEDS ORDERED: Heparin 25,000units in D5W 25,000 UNITS/250 ML BAG IV SCH (19:15)
[2017-04-02] MEDS: Cefepime 1gm in NS 100ml 1 GM/100 ML BAG IVPB SCH (21:09)
--- NOTE | 2017-04-02 21:54 | CP.PCM.CON ---
History of Present Illness - History of Present Illness History of Present Illness: Patient known CAD H/O 3 Bare metal Stents in LAD, 1 Stent in RCA inAug.2013, CHF ,Hypertension, COPD, Hepatitis C, Gerd, Peptic Ulcer Disease,,Renal Insufficiency,H/O G.I.Bleeding,H/o Non ST Elevation AR, Hyperlipidemia admitted with history that one day prior to admission had cough and expectoaration and on day of admission he went into [facility] and was brought to ER and had to be intubated.Patient still on respirator and sedated.Prior to admission there is nol history of chest pain. MUGA Scan December 2016: LV Ej.Fr: 69%. CARDIAC Catheterization showed Stents in LAD and Ramus Patent. Circ had 60% Narrowing. RIGHT HEART CATH: R/A Pressure: 13/13, RV:54/19, Pulm: 54/28, P.C.Wedge: 20.Slight Troponine Elevation. Review of Systems - Review of Systems Review of Systems: All Systems reviewed. Positive mentioned in History. Others were Negative. Past Patient History - Infectious Disease Hx of Infectious Diseases: None - Tetanus Immunizations Tetanus Immunization: Unknown - Past Medical History & Family History Past Medical History?: Yes - Past Social History Smoking Status: Former Smoker - CARDIAC Hx Cardiac Disorders: Yes Hx Hypertension: Yes - PULMONARY Hx Chronic Obstructive Pulmonary Disease (COPD): Yes - NEUROLOGICAL Hx Neurological Disorder: No - HEENT Hx HEENT Problems: No - RENAL Hx Chronic Kidney Disease: No - ENDOCRINE/METABOLIC Hx Endocrine Disorders: No - HEMATOLOGICAL/ONCOLOGICAL Hx Blood Disorders: Yes Hx Hepatitis C: Yes - INTEGUMENTARY Hx Dermatological Problems: No - MUSCULOSKELETAL/RHEUMATOLOGICAL Hx Falls: No - GASTROINTESTINAL Hx Gastrointestinal Disorders: Yes Hx Gastroesophageal Reflux: Yes - GENITOURINARY/GYNECOLOGICAL Hx Genitourinary Disorders: No - PSYCHIATRIC Hx Substance Use: No - SURGICAL HISTORY Hx Appendectomy: Yes Hx Cardiac Catheterization: Yes Hx Coronary Stent: Yes - ANESTHESIA Hx Anesthesia: Yes Hx Anesthesia Reactions: No Hx Malignant Hyperthermia: No Meds Allergies/Adverse Reactions: Allergies Allergy/AdvReac Type Severity Reaction Status Date / Time No Known Allergies Allergy Verified 12/11/16 13:56 - Medications Medications: Current Medications Aspirin (Aspirin Supp) 300 mg SC DAILY [facility] Last Admin: 04/02/17 11:50 Dose: 300 mg Atorvastatin Calcium (Lipitor) 80 mg PO DIN [facility] Last Admin: 04/02/17 17:11 Dose: Not Given Clopidogrel Bisulfate (Plavix) 75 mg PO DAILY [facility] Last Admin: 04/02/17 19:06 Dose: 75 mg Famotidine (Pepcid) 20 mg PO BID [facility] Last Admin: 04/02/17 19:05 Dose: 20 mg Furosemide (Lasix) 40 mg IVP Q12 [facility] Last Admin: 04/02/17 10:00 Dose: Not Given Hydralazine HCl (Apresoline) 5 mg IVP Q6 [facility] Last Admin: 04/02/17 17:54 Dose: 5 mg Propofol (Diprivan) 1,000 mg in 100 mls @ 2.698 mls/hr IV .Q24H PRN; Protocol; 5 MCG/KG/MIN PRN Reason: TITRATE PER MD ORDER Last Admin: 04/02/17 20:01 Dose: 20 mcg/kg/min, 10.794 mls/hr Doxycycline Hyclate 100 mg/ (Sodium Chloride) 100 mls @ 100 mls/hr IVPB Q12 [facility] PRN Reason: Protocol Last Admin: 04/02/17 12:40 Dose: 100 mls/hr Cefepime HCl (Maxipime 1gm) 1 gm in 100 mls @ 100 mls/hr IVPB Q12 [facility] PRN Reason: Protocol Nitroglycerin/Dextrose (Nitroglycerin 50 Mg/250 Ml D5w) 50 mg in 250 mls @ 3 mls/hr IV .Q24H PRN; Protocol; 10 MCG/MIN PRN Reason: Systolic Blood Pressure Last Admin: 04/02/17 12:42 Dose: 3 mls/hr Heparin Sodium/Dextrose (Heparin 25,000 Units/250ml In D5w) 25,000 units in 250 mls @ 10.32 mls/hr IV .Q24H [facility]; 12 UNITS/KG/HR PRN Reason: Protocol Last Admin: 04/02/17 19:46 Dose: 12 units/kg/hr, 10.32 mls/hr Physical Exam - Head Exam Head Exam: NORMOCEPHALIC - Eye Exam Eye Exam: EOMI, Normal appearance, PERRL Pupil Exam: NORMAL ACCOMODATION, PERRL - ENT Exam ENT Exam: Mucous Membranes Moist, Normal Exam - Neck Exam Neck exam: Positive for: Normal Inspection - Respiratory Exam Respiratory Exam: Rales - Cardiovascular Exam Cardiovascular Exam: REGULAR RHYTHM, +S1, +S2 - GI/Abdominal Exam Additional comments: Abdomen Soft. No Tenderness. No Organomegaly. - Exam Exam: Circumcision, NORMAL INSPECTION External exam: NORMAL EXTERNAL EXAM Speculum exam: NORMAL SPECULUM EXAM Bimanual exam: NORMAL BIMANUAL EXAM - Extremities Exam Additional comments: Ch. Venous Stasis Changes. Results - Vital Signs Recent Vital Signs: Last Vital Signs Temp 99.1 F 04/02/17 20:27 Pulse 66 04/02/17 20:20 Resp 16 04/02/17 20:20 BP 131/47 L 04/02/17 20:00 Pulse Ox 98 04/02/17 20:20 - Labs Result Diagrams: 04/02/17 06:30 04/02/17 06:30 Labs: Laboratory Results - last 24 hr 04/02/17 04/02/17 04/02/17 11:25 13:50 17:30 pCO2 52 H pO2 69.0 L 51 HCO3 38.7 H ABG pH 7.48 H ABG Total CO2 40.3 H ABG O2 Saturation 97.6 ABG O2 Content 11.2 L ABG Base Excess 13.7 H ABG Hemoglobin 8.3 L ABG Carboxyhemoglobin 2.1 H POC ABG HHb (Measured) 2.3 ABG Methemoglobin 0.7 ABG O2 Capacity 11.5 L VBG pH 7.46 H VBG pCO2 58.0 VBG HCO3 41.3 H VBG Total CO2 43.1 H VBG O2 Sat (Calc) 90.3 H VBG Base Excess 14.7 H VBG Potassium 3.7 Hgb O2 Saturation 94.9 L Sodium 144.0 Chloride 108.0 H Glucose 98 Lactate 0.8 FiO2 40.0 21.0 Lactate Dehydrogenase 620 Total Creatine Kinase 21 L Troponin I 0.39 H* D Venous Blood Potassium 3.7 04/02/17 17:30 pCO2 pO2 HCO3 ABG pH ABG Total CO2 ABG O2 Saturation ABG O2 Content ABG Base Excess ABG Hemoglobin ABG Carboxyhemoglobin POC ABG HHb (Measured) ABG Methemoglobin ABG O2 Capacity VBG pH VBG pCO2 VBG HCO3 VBG Total CO2 VBG O2 Sat (Calc) VBG Base Excess VBG Potassium Hgb O2 Saturation Sodium Chloride Glucose Lactate FiO2 Lactate Dehydrogenase Total Creatine Kinase Troponin I 0.34 H* Venous Blood Potassium - EKG Data EKG shows normal: Sinus rhythm - EKG Data EKG comments: Sinus Tachycardia [address] Non Specific ST-T Changes. - Imaging and Cardiology Chest x-ray Additional comment: MUGA SCAN: December 2016. LV Ej>Fr:69% Ches Xray Pulmonary Oedema and also Chronic Changes Present. Assessment & Plan - Assessment and Plan (Free Text) Assessment: ACUTE Pulm Oedema,Respiratory Failure, COPD, Hepatitis C, GERD, Peptic Ulcer, H/ O G.I.Bleeding,Renal Insufficiency, Hyperlipidemia,HTN Anaemia, Renal Dysfunction, Respiratory Infection. CAD H/O Stents, On Respirator.H/O Non ST Elevation AR. Plan: PLAN: Patinets Troponine in November 2016 was 0.28 and following that had Cath findings of which have been discussed above. Stents were patent and MUGA Scan showed LV.Ej.Fr: 69%. Now again Troponine Slightly elevated as on previous admission. Will Continue, Heparin, Lasix,Antibiotics, Plavix, Aspirin, Lipitor, Tridil Drip. Follow Up Labs and Chest Xrays.
[2017-04-03] MEDS: Propofol 10 mg/ml 1,000 MG/100 ML VIAL IV PRN (05:19)
[2017-04-03 06:26] LABS: BASO # 0.01 K/mm3 (0.0-2.0); BASO % 0.2 % (0.0-3.0); EOS # 0.2 (0.0-0.7); EOS % 2.5 % (1.5-5.0); GRAN # 4.52 (1.4-6.5); GRAN % 76.3 % (50.0-68.0); LYMPH # 0.9 (1.2-3.4); LYMPH % 15.4 % (22.0-35.0); MEAN CELL VOLUME 92.6 fL (80.0-105.0); MEAN CORPUSCULAR HEMOGLOBIN 27.9 pg (25.0-35.0); MEAN CORPUSCULAR HGB CONC 30.1 g/dl (31.0-37.0); MONO # 0.3 (0.1-0.6); MONO % 5.6 % (1.0-6.0); PLATELET COUNT 96 10^3/uL (120.0-450.0); RBC 2.44 10^6/uL (3.5-6.1); RED CELL DISTRIBUTION WIDTH 16.7 % (11.5-14.5); WHITE BLOOD COUNT 5.9 10^3/ul (4.5-11.0)
[2017-04-03 06:38] LABS: ALBUMIN 2.3 g/dL (3.0-4.8); CALCIUM 8.2 mg/dL (8.4-10.5)
[2017-04-03 06:49] LABS: HEMOGLOBIN 6.8 gm/dL (14.0-18.0)
[2017-04-03 07:24] LABS: BASO # 0.01 K/mm3 (0.0-2.0); BASO % 0.2 % (0.0-3.0); EOS # 0.1 (0.0-0.7); EOS % 1.8 % (1.5-5.0); GRAN # 4.67 (1.4-6.5); GRAN % 75.3 % (50.0-68.0); LYMPH % 16.6 % (22.0-35.0); MEAN CELL VOLUME 92.8 fL (80.0-105.0); MEAN CORPUSCULAR HEMOGLOBIN 28.4 pg (25.0-35.0); MEAN CORPUSCULAR HGB CONC 30.6 g/dl (31.0-37.0); MEAN PLATELET VOLUME 11.2 fl (7.0-11.0); MONO # 0.4 (0.1-0.6); MONO % 6.1 % (1.0-6.0); PLATELET COUNT 117 10^3/uL (120.0-450.0); RBC 2.64 10^6/uL (3.5-6.1); RED CELL DISTRIBUTION WIDTH 16.9 % (11.5-14.5); WHITE BLOOD COUNT 6.2 10^3/ul (4.5-11.0)
[2017-04-03 07:55] LABS: HEMOGLOBIN 7.5 gm/dL (14.0-18.0)
--- NOTE | 2017-04-03 07:56 | RAD ---
HISTORY: intubated COMPARISON: 04/02/2017 FINDINGS: LUNGS: The endotracheal tube and nasogastric tube are in satisfactory position. Bilateral perihilar infiltrates. There is improvement in the left lower lobe infiltrate PLEURA: No significant pleural effusion identified, no pneumothorax apparent. CARDIOVASCULAR: Mild cardiomegaly OSSEOUS STRUCTURES: No significant abnormalities. VISUALIZED UPPER ABDOMEN: Normal. OTHER FINDINGS: None. IMPRESSION: Bilateral perihilar infiltrates. The pattern is most consistent with CHF. Improvement in left lower lobe infiltrate.
[2017-04-03 07:57] LABS: ARTERIAL BLOOD GAS HCO3 39.3 mmol/L (21-28); ARTERIAL BLOOD GAS O2 SAT 99.1 % (95-98); ARTERIAL BLOOD GAS PCO2 47 mm/Hg (35-45); ARTERIAL BLOOD GAS PH 7.53 (7.35-7.45); ARTERIAL BLOOD GAS TCO2 40.7 mmol.L (22-28)
[2017-04-03] MEDS: Cefepime 1gm in NS 100ml 1 GM/100 ML BAG IVPB SCH (09:21)
--- NOTE | 2017-04-03 10:47 | CP.PCM.PN ---
Subjective - Date & Time of Evaluation Date of Evaluation: 04/03/17 Time of Evaluation: 09:30 - Subjective Subjective: Patient continues to be on the ventilator, but is more awake today. No fevers overnight. Objective - Vital Signs/Intake and Output Vital Signs (last 24 hours): Temp Pulse Resp BP Pulse Ox 99.1 F 64 16 140/57 L 97 04/03/17 00:00 04/03/17 05:49 04/03/17 02:00 04/03/17 05:49 04/03/17 02:00 Intake and Output: 04/02/17 04/03/17 18:59 06:59 Intake Total 782 562 Output Total 750 1200 Balance 32 -638 - Medications Medications: Current Medications Aspirin (Aspirin Supp) 300 mg [place] DAILY [facility] Last Admin: 04/02/17 11:50 Dose: 300 mg Atorvastatin Calcium (Lipitor) 80 mg PO DIN [facility] Last Admin: 04/02/17 17:11 Dose: Not Given Clopidogrel Bisulfate (Plavix) 75 mg PO DAILY [facility] Last Admin: 04/02/17 19:06 Dose: 75 mg Famotidine (Pepcid) 20 mg PO BID [facility] Last Admin: 04/02/17 19:05 Dose: 20 mg Furosemide (Lasix) 40 mg IVP Q12 [facility] Last Admin: 04/02/17 21:09 Dose: 40 mg Hydralazine HCl (Apresoline) 5 mg IVP Q6 [facility] Last Admin: 04/03/17 05:49 Dose: 5 mg Propofol (Diprivan) 1,000 mg in 100 mls @ 2.698 mls/hr IV .Q24H PRN; Protocol; 5 MCG/KG/MIN PRN Reason: TITRATE PER MD ORDER Last Admin: 04/03/17 05:19 Dose: 20 mcg/kg/min, 10.794 mls/hr Doxycycline Hyclate 100 mg/ (Sodium Chloride) 100 mls @ 100 mls/hr IVPB Q12 [facility] PRN Reason: Protocol Last Admin: 04/02/17 21:24 Dose: 100 mls/hr Cefepime HCl (Maxipime 1gm) 1 gm in 100 mls @ 100 mls/hr IVPB Q12 [facility] PRN Reason: Protocol Last Admin: 04/02/17 21:09 Dose: 100 mls/hr Nitroglycerin/Dextrose (Nitroglycerin 50 Mg/250 Ml D5w) 50 mg in 250 mls @ 3 mls/hr IV .Q24H PRN; Protocol; 10 MCG/MIN PRN Reason: Systolic Blood Pressure Last Admin: 04/02/17 12:42 Dose: 3 mls/hr Heparin Sodium/Dextrose (Heparin 25,000 Units/250ml In D5w) 25,000 units in 250 mls @ 10.32 mls/hr IV .Q24H [facility]; 12 UNITS/KG/HR PRN Reason: Protocol Last Admin: 04/02/17 19:46 Dose: 12 units/kg/hr, 10.32 mls/hr - Labs Labs: PT 10.3 Seconds (9.9-11.8) 04/02/17 06:30 INR 0.95 (0.93-1.08) 04/02/17 06:30 APTT 53.4 Seconds (23.7-30.8) H 04/03/17 02:25 - Constitutional Appears: Other (Intubated) - Head Exam Head Exam: NORMAL INSPECTION - ENT Exam Additional comments: ET tube in place - Neck Exam Neck Exam: absent: Meningismus - Respiratory Exam Respiratory Exam: Decreased Breath Sounds - Cardiovascular Exam Cardiovascular Exam: +S1, +S2 - GI/Abdominal Exam GI & Abdominal Exam: Soft. absent: Tenderness Assessment and Plan - Assessment and Plan (Free Text) Plan: Assessment Systemic Inflammatory response syndrome with ventilator-dependent respiratory failure, consider due to acute congestive heart failure, less likely due to bilateral pneumonia HTN COPD hepatitis C GERD CAD S/P PCI Plan cultures have been negative; awaiting PCT; reviewed repeat CXR which shows improvement in the infiltrates and the WBC count has normalized - will d/c antibiotics and observe
--- NOTE | 2017-04-03 11:16 | CP.PCM.PN ---
Subjective - Date & Time of Evaluation Date of Evaluation: 04/03/17 Time of Evaluation: 08:45 - Subjective Subjective: Remains on vent and sedated Objective - Vital Signs/Intake and Output Vital Signs (last 24 hours): Temp Pulse Resp BP Pulse Ox 98.6 F 85 26 H 176/84 H 97 04/03/17 08:00 04/03/17 09:50 04/03/17 09:40 04/03/17 09:21 04/03/17 09:50 Intake and Output: 04/03/17 04/03/17 06:59 18:59 Intake Total 562 Output Total 1200 Balance -638 - Medications Medications: Current Medications Aspirin (Aspirin Supp) 300 mg [place] DAILY [facility] Last Admin: 04/02/17 11:50 Dose: 300 mg Atorvastatin Calcium (Lipitor) 80 mg PO DIN [facility] Last Admin: 04/02/17 17:11 Dose: Not Given Clopidogrel Bisulfate (Plavix) 75 mg PO DAILY [facility] Last Admin: 04/03/17 09:22 Dose: 75 mg Famotidine (Pepcid) 20 mg PO BID [facility] Last Admin: 04/03/17 09:22 Dose: 20 mg Furosemide (Lasix) 40 mg IVP Q12 [facility] Last Admin: 04/03/17 09:21 Dose: 40 mg Hydralazine HCl (Apresoline) 5 mg IVP Q6 [facility] Last Admin: 04/03/17 05:49 Dose: 5 mg Propofol (Diprivan) 1,000 mg in 100 mls @ 2.698 mls/hr IV .Q24H PRN; Protocol; 5 MCG/KG/MIN PRN Reason: TITRATE PER MD ORDER Last Admin: 04/03/17 05:19 Dose: 20 mcg/kg/min, 10.794 mls/hr Nitroglycerin/Dextrose (Nitroglycerin 50 Mg/250 Ml D5w) 50 mg in 250 mls @ 3 mls/hr IV .Q24H PRN; Protocol; 10 MCG/MIN PRN Reason: Systolic Blood Pressure Last Admin: 04/02/17 12:42 Dose: 3 mls/hr Heparin Sodium/Dextrose (Heparin 25,000 Units/250ml In D5w) 25,000 units in 250 mls @ 10.32 mls/hr IV .Q24H [facility]; 12 UNITS/KG/HR PRN Reason: Protocol Last Admin: 04/02/17 19:46 Dose: 12 units/kg/hr, 10.32 mls/hr Nicardipine HCl (Cardene Iv Premix) 20 mg in 200 mls @ 50 mls/hr IV .Q4H PRN; Protocol; 5 MG/HR PRN Reason: TITRATE PER MD ORDER - Labs Labs: 04/03/17 07:00 04/03/17 06:05 PT 10.3 Seconds (9.9-11.8) 04/02/17 06:30 INR 0.95 (0.93-1.08) 04/02/17 06:30 APTT 53.4 Seconds (23.7-30.8) H 04/03/17 02:25 - Constitutional Appears: Well - Head Exam Head Exam: ATRAUMATIC - Eye Exam Eye Exam: Conjunctival injection - ENT Exam ENT Exam: Mucous Membranes Dry - Respiratory Exam Additional comments: decrease air entry at bases - Cardiovascular Exam Cardiovascular Exam: REGULAR RHYTHM Assessment and Plan - Assessment and Plan (Free Text) Assessment: pulmonary edema s/p respiratory failure CKD, stage III anemia, Hx of GI bleed in past Hx of Hep C Hx of CAD S/p BMS in LAD and ramus Hx of Cath 12/2016 patent PTCA sites when pt admitted with N STEMI positive troponin is possibly secidary to hemodynamic instability, anemia, CKD and underlying CAD , doubt NSTEMI.. but pt is on heparin pulomonary HTN Plan: Continue Heparin for now vent management ASa/ plavix monitor H & H low dose beta fortino as BP is tolerated wean of vent as tolerated. Will review recent Echo.
[2017-04-03] MEDS: Nicardipine 20 MG/200 ML 20 MG/200 ML BAG IV PRN ×2 (11:25→15:31)
[2017-04-03] MEDS ORDERED: Nystatin-Triamcinolone Cream(30 gm) TOP PRN (12:35)
--- NOTE | 2017-04-03 12:54 | CP.PCM.PN ---
<TONY EASLEY - Last Filed: 04/03/17 13:32> Subjective - Date & Time of Evaluation Date of Evaluation: 04/03/17 Time of Evaluation: 12:53 - Subjective Subjective: PGY1 ICU Progress Note: Pt seen and examined at bedside. Pt's hgb dropped from 10.4->6.8->7.5 overnight. Pt remained intubated, saturating well on 40% FiO2. This AM, pt awake , following commands, propofol drip discontinued, pt extubated to bipap, tolerating well. Objective - Vital Signs/Intake and Output Vital Signs (last 24 hours): Temp Pulse Resp BP Pulse Ox 98.6 F 81 26 H 200/82 H 97 04/03/17 08:00 04/03/17 11:28 04/03/17 09:40 04/03/17 11:28 04/03/17 09:50 Intake and Output: 04/03/17 04/03/17 06:59 18:59 Intake Total 562 Output Total 1200 Balance -638 - Medications Medications: Current Medications Aspirin (Aspirin Supp) 300 mg [place] DAILY [facility] Last Admin: 04/02/17 11:50 Dose: 300 mg Atorvastatin Calcium (Lipitor) 80 mg PO DIN [facility] Last Admin: 04/02/17 17:11 Dose: Not Given Clopidogrel Bisulfate (Plavix) 75 mg PO DAILY [facility] Last Admin: 04/03/17 09:22 Dose: 75 mg Famotidine (Pepcid) 20 mg PO BID [facility] Last Admin: 04/03/17 09:22 Dose: 20 mg Furosemide (Lasix) 40 mg IVP Q12 [facility] Last Admin: 04/03/17 09:21 Dose: 40 mg Hydralazine HCl (Apresoline) 10 mg IVP Q6 PRN PRN Reason: for SBP>170 and Diastolic>100 Last Admin: 04/03/17 11:21 Dose: 10 mg Nitroglycerin/Dextrose (Nitroglycerin 50 Mg/250 Ml D5w) 50 mg in 250 mls @ 3 mls/hr IV .Q24H PRN; Protocol; 10 MCG/MIN PRN Reason: Systolic Blood Pressure Last Admin: 04/02/17 12:42 Dose: 3 mls/hr Heparin Sodium/Dextrose (Heparin 25,000 Units/250ml In D5w) 25,000 units in 250 mls @ 10.32 mls/hr IV .Q24H [facility]; 12 UNITS/KG/HR PRN Reason: Protocol Last Admin: 04/02/17 19:46 Dose: 12 units/kg/hr, 10.32 mls/hr Nicardipine HCl (Cardene Iv Premix) 20 mg in 200 mls @ 50 mls/hr IV .Q4H PRN; Protocol; 5 MG/HR PRN Reason: TITRATE PER MD ORDER Last Admin: 04/03/17 11:25 Dose: 5 mg/hr, 50 mls/hr Metoprolol Tartrate (Lopressor) 25 mg PO BID [facility] Last Admin: 04/03/17 11:28 Dose: 25 mg Nystatin/Triamcinolone Acetonide (Nystatin/Triamcinolone Cream) 0 ea TOP BID PRN PRN Reason: Itching / Pruritus - Labs Labs: 04/03/17 07:00 04/03/17 06:05 PT 10.3 Seconds (9.9-11.8) 04/02/17 06:30 INR 0.95 (0.93-1.08) 04/02/17 06:30 APTT 53.4 Seconds (23.7-30.8) H 04/03/17 02:25 - Constitutional Appears: Non-toxic - Head Exam Head Exam: ATRAUMATIC, NORMOCEPHALIC - Eye Exam Eye Exam: PERRL - ENT Exam ENT Exam: Mucous Membranes Moist - Respiratory Exam Respiratory Exam: Decreased Breath Sounds - Cardiovascular Exam Cardiovascular Exam: RRR, +S1, +S2. absent: Gallop, Rubs, Murmur - GI/Abdominal Exam GI & Abdominal Exam: Soft, Normal Bowel Sounds. absent: Distended, Tenderness - Extremities Exam Extremities Exam: absent: Calf Tenderness, Pedal Edema, Tenderness - Neurological Exam Neurological Exam: Awake Additional comments: follows commands. - Psychiatric Exam Psychiatric exam: Normal Mood - Skin Skin Exam: Dry, Intact, Warm Assessment and Plan - Assessment and Plan (Free Text) Assessment: 76M with PMH COPD, CHF, admitted for hypercapneic respiratory failure with cardiogenic pulmonary edema 2/2 likely CHF exacerbation (2/2 NSTEMI?). Pt initially intubated, received ASA, statin, BB held (due to HR 60's), Lasix, hydralazine, propofol. Sedation discontinued this AM. Hgb dropped 10.4->7.5 within 24hrs, will receive 2 units prbcs, heprarin drip held in light of acute drop in hgb. Pt is s/p extubation on bipap today, tolerating well. Plan: Neuro: Awake, follows commands. Off propofol. Will continue to monitor CV: Likely cardiogenic pulmonary edema. -Hx of HTN C/w hydralazine q6, lasix q12, lipitor and asa. BP elevated 170s's/70's. Started on Cardene drip. Trops 0.07->0.39->0.34, elevated, cont to trend. Cardio c/s appreciated. elevated trops on previous admission. Cont to trend. Maintain MAP >65. Resp: extubated to bipap today. CXR showed pulmonary edema. GI: Stable. Pepcid for GI PPX. Heme: Low hgb 7.5 today, will administer 2 units prbcs. thrombotypoenic 96 today , cont to monitor. Renal: at baseline, will continue to monitor. Replace electrolytes as needed. ID: afebrile, no leukocytosis. blood, urine and sputum cultures NTD. f/u Procalcitonin. C/w on Doxycycline and Cefepime per ID. Endo: Stable cont to monitor. Case seen and discussed with PGY2 and attending, Dr. Naranjo. Tony Easley, PGY1 <Artur Naranjo - Last Filed: 04/03/17 18:24> Objective - Vital Signs/Intake and Output Vital Signs (last 24 hours): Temp Pulse Resp BP Pulse Ox 98.8 F 73 21 148/59 L 98 04/03/17 17:28 04/03/17 17:28 04/03/17 17:28 04/03/17 17:28 04/03/17 16:40 Intake and Output: 04/03/17 04/03/17 06:59 18:59 Intake Total 562 575 Output Total 1200 Balance -638 575 - Medications Medications: Current Medications Aspirin (Aspirin Supp) 300 mg [place] DAILY [facility] Last Admin: 04/03/17 13:06 Dose: Not Given Atorvastatin Calcium (Lipitor) 80 mg PO DIN [facility] Last Admin: 04/03/17 17:04 Dose: Not Given Clopidogrel Bisulfate (Plavix) 75 mg PO DAILY [facility] Last Admin: 04/03/17 09:22 Dose: 75 mg Famotidine (Pepcid) 20 mg PO BID [facility] Last Admin: 04/03/17 17:04 Dose: Not Given Furosemide (Lasix) 40 mg IVP Q12 [facility] Last Admin: 04/03/17 09:21 Dose: 40 mg Hydralazine HCl (Apresoline) 10 mg IVP Q6 PRN PRN Reason: for SBP>170 and Diastolic>100 Last Admin: 04/03/17 11:21 Dose: 10 mg Nitroglycerin/Dextrose (Nitroglycerin 50 Mg/250 Ml D5w) 50 mg in 250 mls @ 3 mls/hr IV .Q24H PRN; Protocol; 10 MCG/MIN PRN Reason: Systolic Blood Pressure Last Admin: 04/02/17 12:42 Dose: 3 mls/hr Heparin Sodium/Dextrose (Heparin 25,000 Units/250ml In D5w) 25,000 units in 250 mls @ 10.32 mls/hr IV .Q24H [facility]; 12 UNITS/KG/HR PRN Reason: Protocol Last Admin: 04/02/17 19:46 Dose: 12 units/kg/hr, 10.32 mls/hr Nicardipine HCl (Cardene Iv Premix) 20 mg in 200 mls @ 50 mls/hr IV .Q4H PRN; Protocol; 5 MG/HR PRN Reason: TITRATE PER MD ORDER Last Admin: 04/03/17 15:31 Dose: 2.5 mg/hr, 25 mls/hr Isosorbide Mononitrate (Imdur) 30 mg PO DAILY [facility] Metoprolol Tartrate (Lopressor) 25 mg PO BID [facility] Last Admin: 04/03/17 17:04 Dose: Not Given Nystatin/Triamcinolone Acetonide (Nystatin/Triamcinolone Cream) 0 ea TOP BID PRN PRN Reason: Itching / Pruritus - Labs Labs: 04/03/17 07:00 04/03/17 06:05 PT 10.3 Seconds (9.9-11.8) 04/02/17 06:30 INR 0.95 (0.93-1.08) 04/02/17 06:30 APTT 53.4 Seconds (23.7-30.8) H 04/03/17 02:25 Attending/Attestation - Attestation I have personally seen and examined this patient.: Yes I have fully participated in the care of the patient.: Yes I have reviewed all pertinent clinical information, including history, physical exam and plan: Yes Notes (Text): 04/03/17 18:20 76 yo with cardiogenic pulmonary edema due to CHF exacerbation/NSTEMI, complicated by hypoxemic and hypercapnic respiratory failure, requiring intubation. patient passed SBT and got extubated to BPAP and then to NC. Doing well. On asa/plavix, statins, bb, cardene drip for afterload reduction and nitro drip/lasix for preload reduction. Will wean off cardene drip and nitro drip. Will continue with hydralazine/isosorbide for afterload reduction. contineu with diuresis. CXR looks somewhat better. ccm time 40 min
[2017-04-03 13:02] LABS: TROPONIN I 0.13 ng/mL
--- NOTE | 2017-04-03 23:18 | CP.PCM.PN ---
Subjective - Date & Time of Evaluation Date of Evaluation: 04/03/17 Time of Evaluation: 12:00 - Subjective Subjective: dictation system down Seen this sunday at noon hour in CCU 7. extubated on cpap. awake, alert apropriate. Objective - Vital Signs/Intake and Output Vital Signs (last 24 hours): Temp Pulse Resp BP Pulse Ox 98.6 F 84 17 171/68 H 95 04/03/17 19:58 04/03/17 20:20 04/03/17 20:10 04/03/17 21:08 04/03/17 20:20 Intake and Output: 04/03/17 04/04/17 18:59 06:59 Intake Total 68352 375 Output Total 2200 Balance 8378 375 - Medications Medications: Current Medications Aspirin (Aspirin Supp) 300 mg [place] DAILY [facility] Last Admin: 04/03/17 13:06 Dose: Not Given Atorvastatin Calcium (Lipitor) 80 mg PO DIN [facility] Last Admin: 04/03/17 17:04 Dose: Not Given Clopidogrel Bisulfate (Plavix) 75 mg PO DAILY [facility] Last Admin: 04/03/17 09:22 Dose: 75 mg Famotidine (Pepcid) 20 mg PO BID [facility] Last Admin: 04/03/17 17:04 Dose: Not Given Furosemide (Lasix) 40 mg IVP Q12 [facility] Last Admin: 04/03/17 21:08 Dose: 40 mg Hydralazine HCl (Apresoline) 10 mg IVP Q6 PRN PRN Reason: for SBP>170 and Diastolic>100 Last Admin: 04/03/17 11:21 Dose: 10 mg Nitroglycerin/Dextrose (Nitroglycerin 50 Mg/250 Ml D5w) 50 mg in 250 mls @ 3 mls/hr IV .Q24H PRN; Protocol; 10 MCG/MIN PRN Reason: Systolic Blood Pressure Last Admin: 04/02/17 12:42 Dose: 3 mls/hr Heparin Sodium/Dextrose (Heparin 25,000 Units/250ml In D5w) 25,000 units in 250 mls @ 10.32 mls/hr IV .Q24H [facility]; 12 UNITS/KG/HR PRN Reason: Protocol Last Admin: 04/02/17 19:46 Dose: 12 units/kg/hr, 10.32 mls/hr Nicardipine HCl (Cardene Iv Premix) 20 mg in 200 mls @ 50 mls/hr IV .Q4H PRN; Protocol; 5 MG/HR PRN Reason: TITRATE PER MD ORDER Last Admin: 04/03/17 15:31 Dose: 2.5 mg/hr, 25 mls/hr Isosorbide Mononitrate (Imdur) 30 mg PO DAILY [facility] Metoprolol Tartrate (Lopressor) 25 mg PO BID [facility] Last Admin: 04/03/17 17:04 Dose: Not Given Nystatin/Triamcinolone Acetonide (Nystatin/Triamcinolone Cream) 0 ea TOP BID PRN PRN Reason: Itching / Pruritus - Labs Labs: 04/03/17 07:00 04/03/17 06:05 PT 10.3 Seconds (9.9-11.8) 04/02/17 06:30 INR 0.95 (0.93-1.08) 04/02/17 06:30 APTT 53.4 Seconds (23.7-30.8) H 04/03/17 02:25 - Constitutional Appears: Non-toxic, No Acute Distress - Head Exam Head Exam: ATRAUMATIC - Eye Exam Eye Exam: Normal appearance - ENT Exam ENT Exam: Mucous Membranes Moist - Neck Exam Neck Exam: Normal Inspection - Respiratory Exam Respiratory Exam: Clear to Ausculation Bilateral, Prolonged Expiratory Phase - Cardiovascular Exam Cardiovascular Exam: REGULAR RHYTHM - GI/Abdominal Exam GI & Abdominal Exam: Normal Bowel Sounds - Exam External exam: Ecchymosis
[2017-04-04 06:49] LABS: BASO # 0.01 K/mm3 (0.0-2.0); BASO % 0.1 % (0.0-3.0); EOS # 0.2 (0.0-0.7); EOS % 2.6 % (1.5-5.0); GRAN # 6.48 (1.4-6.5); GRAN % 83.9 % (50.0-68.0); HEMOGLOBIN 9.3 gm/dL (14.0-18.0); LYMPH # 0.6 (1.2-3.4); MEAN CELL VOLUME 92.2 fL (80.0-105.0); MEAN CORPUSCULAR HGB CONC 30.4 g/dl (31.0-37.0); MEAN PLATELET VOLUME 11.1 fl (7.0-11.0); MONO # 0.4 (0.1-0.6); MONO % 5.4 % (1.0-6.0); PLATELET COUNT 132 10^3/uL (120.0-450.0); RBC 3.32 10^6/uL (3.5-6.1); RED CELL DISTRIBUTION WIDTH 17.5 % (11.5-14.5); WHITE BLOOD COUNT 7.7 10^3/ul (4.5-11.0)
[2017-04-04 06:51] LABS: ALB/GLOB RATIO 1.1 (1.1-1.8); ALBUMIN 2.7 g/dL (3.0-4.8); CALCIUM 8.6 mg/dL (8.4-10.5); MAGNESIUM 1.7 mg/dL (1.7-2.2)
[2017-04-04 06:58] LABS: TROPONIN I 0.11 ng/mL
--- NOTE | 2017-04-04 09:58 | CP.PCM.PN ---
Subjective - Date & Time of Evaluation Date of Evaluation: 04/04/17 Time of Evaluation: 08:30 - Subjective Subjective: feel ok No chest pain, S/p extubted. awake and alert, gave all Hx befor intubation and respiratory distress Objective - Vital Signs/Intake and Output Vital Signs (last 24 hours): Temp Pulse Resp BP Pulse Ox 98.6 F 69 16 181/80 H 97 04/04/17 04:00 04/04/17 09:03 04/04/17 06:40 04/04/17 09:03 04/04/17 06:40 Intake and Output: 04/04/17 04/04/17 06:59 18:59 Intake Total 761 Output Total 1600 Balance -839 - Medications Medications: Current Medications Aspirin (Aspirin Supp) 300 mg [place] DAILY [facility] Last Admin: 04/03/17 13:06 Dose: Not Given Atorvastatin Calcium (Lipitor) 80 mg PO DIN [facility] Last Admin: 04/03/17 17:04 Dose: Not Given Clopidogrel Bisulfate (Plavix) 75 mg PO DAILY [facility] Last Admin: 04/04/17 09:12 Dose: 75 mg Famotidine (Pepcid) 20 mg PO BID [facility] Last Admin: 04/04/17 09:02 Dose: 20 mg Furosemide (Lasix) 40 mg IVP Q12 [facility] Last Admin: 04/04/17 09:02 Dose: 40 mg Hydralazine HCl (Apresoline) 10 mg IVP Q6 PRN PRN Reason: for SBP>170 and Diastolic>100 Last Admin: 04/03/17 11:21 Dose: 10 mg Nitroglycerin/Dextrose (Nitroglycerin 50 Mg/250 Ml D5w) 50 mg in 250 mls @ 3 mls/hr IV .Q24H PRN; Protocol; 10 MCG/MIN PRN Reason: Systolic Blood Pressure Last Admin: 04/02/17 12:42 Dose: 3 mls/hr Heparin Sodium/Dextrose (Heparin 25,000 Units/250ml In D5w) 25,000 units in 250 mls @ 10.32 mls/hr IV .Q24H [facility]; 12 UNITS/KG/HR PRN Reason: Protocol Last Admin: 04/02/17 19:46 Dose: 12 units/kg/hr, 10.32 mls/hr Nicardipine HCl (Cardene Iv Premix) 20 mg in 200 mls @ 50 mls/hr IV .Q4H PRN; Protocol; 5 MG/HR PRN Reason: TITRATE PER MD ORDER Last Admin: 04/03/17 15:31 Dose: 2.5 mg/hr, 25 mls/hr Isosorbide Mononitrate (Imdur) 30 mg PO DAILY [facility] Last Admin: 04/04/17 09:03 Dose: 30 mg Metoprolol Tartrate (Lopressor) 25 mg PO BID [facility] Last Admin: 04/04/17 09:03 Dose: 25 mg Nystatin/Triamcinolone Acetonide (Nystatin/Triamcinolone Cream) 0 ea TOP BID PRN PRN Reason: Itching / Pruritus - Labs Labs: 04/04/17 05:30 04/04/17 05:30 PT 10.3 Seconds (9.9-11.8) 04/02/17 06:30 INR 0.95 (0.93-1.08) 04/02/17 06:30 APTT 53.4 Seconds (23.7-30.8) H 04/03/17 02:25 - Constitutional Appears: Non-toxic - Head Exam Head Exam: ATRAUMATIC - Eye Exam Eye Exam: Conjunctival injection - ENT Exam ENT Exam: Mucous Membranes Dry - Neck Exam Neck Exam: Full ROM - Respiratory Exam Respiratory Exam: Clear to Ausculation Bilateral - Cardiovascular Exam Cardiovascular Exam: REGULAR RHYTHM Assessment and Plan - Assessment and Plan (Free Text) Assessment: s/p pulmonary edema anemia s/p Prbcs transfusion 2 units Hx of Gi Bleedin the past Hx of CAD S/p BMS in past ( BMS b/cof Gi bleedith past) recnet cath 12/2016 non Obst CAd, Patent stent in LAd/Ramus intermedius) Borderline positive troponin secondary to Hemodynamic stability, CKD... Doubt NSTEMI Pulmonary HTN C pap at home HTN Echyccomosis all over body. hypokaemia protein calorie malnutrition ... moderate.. Not present on admission. Plan: DC heparin... no anti coagulation. dropped H& H avoid nephrotoxic meds increase beta fortino DC IV tridil Echo to assess lV Fx and valvular fx continue diuretics. supplement lytes increase nutritional suppoort.
[2017-04-04] MEDS ORDERED: Potassium Chloride 20 mEq ER Tab PO ONE (09:59)
--- NOTE | 2017-04-04 10:16 | CP.PCM.PN ---
Subjective - Date & Time of Evaluation Date of Evaluation: 04/04/17 Time of Evaluation: 09:10 - Subjective Subjective: Patient is now extubated, not in distress, afebrile, breathing better. Objective - Vital Signs/Intake and Output Vital Signs (last 24 hours): Temp Pulse Resp BP Pulse Ox 98.6 F 68 17 172/76 H 97 04/04/17 04:00 04/04/17 05:30 04/04/17 05:30 04/04/17 05:00 04/04/17 05:30 Intake and Output: 04/03/17 04/04/17 18:59 06:59 Intake Total 24378 375 Output Total 2200 Balance 8378 375 - Medications Medications: Current Medications Aspirin (Aspirin Supp) 300 mg [place] DAILY [facility] Last Admin: 04/03/17 13:06 Dose: Not Given Atorvastatin Calcium (Lipitor) 80 mg PO DIN [facility] Last Admin: 04/03/17 17:04 Dose: Not Given Clopidogrel Bisulfate (Plavix) 75 mg PO DAILY [facility] Last Admin: 04/03/17 09:22 Dose: 75 mg Famotidine (Pepcid) 20 mg PO BID [facility] Last Admin: 04/03/17 17:04 Dose: Not Given Furosemide (Lasix) 40 mg IVP Q12 [facility] Last Admin: 04/03/17 21:08 Dose: 40 mg Hydralazine HCl (Apresoline) 10 mg IVP Q6 PRN PRN Reason: for SBP>170 and Diastolic>100 Last Admin: 04/03/17 11:21 Dose: 10 mg Nitroglycerin/Dextrose (Nitroglycerin 50 Mg/250 Ml D5w) 50 mg in 250 mls @ 3 mls/hr IV .Q24H PRN; Protocol; 10 MCG/MIN PRN Reason: Systolic Blood Pressure Last Admin: 04/02/17 12:42 Dose: 3 mls/hr Heparin Sodium/Dextrose (Heparin 25,000 Units/250ml In D5w) 25,000 units in 250 mls @ 10.32 mls/hr IV .Q24H [facility]; 12 UNITS/KG/HR PRN Reason: Protocol Last Admin: 04/02/17 19:46 Dose: 12 units/kg/hr, 10.32 mls/hr Nicardipine HCl (Cardene Iv Premix) 20 mg in 200 mls @ 50 mls/hr IV .Q4H PRN; Protocol; 5 MG/HR PRN Reason: TITRATE PER MD ORDER Last Admin: 04/03/17 15:31 Dose: 2.5 mg/hr, 25 mls/hr Isosorbide Mononitrate (Imdur) 30 mg PO DAILY [facility] Metoprolol Tartrate (Lopressor) 25 mg PO BID [facility] Last Admin: 04/03/17 17:04 Dose: Not Given Nystatin/Triamcinolone Acetonide (Nystatin/Triamcinolone Cream) 0 ea TOP BID PRN PRN Reason: Itching / Pruritus - Labs Labs: 04/03/17 07:00 04/03/17 06:05 PT 10.3 Seconds (9.9-11.8) 04/02/17 06:30 INR 0.95 (0.93-1.08) 04/02/17 06:30 APTT 53.4 Seconds (23.7-30.8) H 04/03/17 02:25 - Constitutional Appears: Non-toxic, No Acute Distress - Head Exam Head Exam: NORMAL INSPECTION - ENT Exam ENT Exam: Mucous Membranes Moist - Neck Exam Neck Exam: absent: Meningismus - Respiratory Exam Respiratory Exam: Decreased Breath Sounds, Rales (some crackles at the bases but it is improved compared to previous days) - Cardiovascular Exam Cardiovascular Exam: +S1, +S2 - GI/Abdominal Exam GI & Abdominal Exam: Soft. absent: Tenderness Assessment and Plan - Assessment and Plan (Free Text) Plan: Assessment Systemic Inflammatory response syndrome with ventilator-dependent respiratory failure, consider due to acute congestive heart failure - no evidence of pneumonia found acute on chronic renal failure HTN COPD hepatitis C GERD CAD S/P PCI Plan cultures have been negative; PCT is elevated at 4.46 but the patient has renal failure; reviewed repeat CXR which showed improvement in the infiltrates and the WBC count has normalized - which points more towards CHF will monitor off antibiotics since he is at risk for nosocomial infections
[2017-04-04] MEDS: Levalbuterol 0.63 MG/3 ML Inhal Soln UD IH SCH ×3 (10:25→21:00)
--- NOTE | 2017-04-04 13:08 | CP.PCM.PN ---
<KAMILA EASLEY - Last Filed: 04/04/17 14:23> Subjective - Date & Time of Evaluation Date of Evaluation: 04/04/17 Time of Evaluation: 13:06 - Subjective Subjective: PGY1 ICU Progress Note: Pt seen and examined at bedside. Received 2 units prbcs yesterday. Off Cardene and NTG drips. No acute events overnight. Denies sob, fever, chills, n/v/d, cough, hemoptysis, abdominal pain. Objective - Vital Signs/Intake and Output Vital Signs (last 24 hours): Temp Pulse Resp BP Pulse Ox 97.9 F 68 19 164/68 H 95 04/04/17 08:00 04/04/17 10:54 04/04/17 10:10 04/04/17 10:54 04/04/17 10:10 Intake and Output: 04/04/17 04/04/17 06:59 18:59 Intake Total 761 Output Total 1600 Balance -839 - Medications Medications: Current Medications Amlodipine Besylate (Norvasc) 10 mg PO DAILY [facility] Last Admin: 04/04/17 10:54 Dose: 10 mg Aspirin (Ecotrin) 81 mg PO DAILY [facility] Aspirin (Ecotrin) 81 mg PO DAILY ONE Stop: 04/04/17 18:01 Atorvastatin Calcium (Lipitor) 80 mg PO DIN [facility] Last Admin: 04/03/17 17:04 Dose: Not Given Budesonide (Pulmicort Respules) 0.5 mg IH BIDRESP [facility] Famotidine (Pepcid) 20 mg PO BID [facility] Last Admin: 04/04/17 09:02 Dose: 20 mg Furosemide (Lasix) 40 mg IVP Q12 [facility] Last Admin: 04/04/17 09:02 Dose: 40 mg Hydralazine HCl (Apresoline) 10 mg IVP Q6 PRN PRN Reason: for SBP>170 and Diastolic>100 Last Admin: 04/04/17 09:56 Dose: 10 mg Hydralazine HCl (Apresoline) 50 mg PO BID [facility] Last Admin: 04/04/17 10:54 Dose: 50 mg Heparin Sodium/Dextrose (Heparin 25,000 Units/250ml In D5w) 25,000 units in 250 mls @ 10.32 mls/hr IV .Q24H [facility]; 12 UNITS/KG/HR PRN Reason: Protocol Last Admin: 04/02/17 19:46 Dose: 12 units/kg/hr, 10.32 mls/hr Isosorbide Mononitrate (Imdur) 30 mg PO DAILY [facility] Last Admin: 04/04/17 09:03 Dose: 30 mg Levalbuterol HCl (Xopenex) 0.63 mg IH Q6H [facility] Last Admin: 04/04/17 10:25 Dose: 0.63 mg Metoprolol Tartrate (Lopressor) 50 mg PO BID [facility] Nystatin/Triamcinolone Acetonide (Nystatin/Triamcinolone Cream) 0 ea TOP BID PRN PRN Reason: Itching / Pruritus Tiotropium [place] (Spiriva) 18 mcg IH DAILY [facility] - Labs Labs: 04/04/17 05:30 04/04/17 05:30 PT 10.3 Seconds (9.9-11.8) 04/02/17 06:30 INR 0.95 (0.93-1.08) 04/02/17 06:30 APTT 53.4 Seconds (23.7-30.8) H 04/03/17 02:25 - Constitutional Appears: Well, In Acute Distress - Head Exam Head Exam: ATRAUMATIC, NORMOCEPHALIC - Eye Exam Eye Exam: PERRL - ENT Exam ENT Exam: Mucous Membranes Moist - Respiratory Exam Respiratory Exam: Decreased Breath Sounds Additional comments: Mild LLL crackles - Cardiovascular Exam Cardiovascular Exam: RRR, +S1, +S2. absent: Gallop, Rubs, Murmur - GI/Abdominal Exam GI & Abdominal Exam: Soft, Normal Bowel Sounds. absent: Distended, Tenderness - Extremities Exam Extremities Exam: absent: Calf Tenderness, Pedal Edema - Neurological Exam Neurological Exam: Alert, Awake, Oriented x3 - Psychiatric Exam Psychiatric exam: Normal Mood - Skin Skin Exam: Dry, Intact, Warm Assessment and Plan - Assessment and Plan (Free Text) Assessment: 76M with PMH COPD, CHF, admitted for hypercapneic respiratory failure with cardiogenic pulmonary edema 2/2 likely CHF exacerbation, NSTEMI unlikely. Pt initially intubated, received PPV, Lasix, hydralazine, propofol, ASA, statin. S/ p extubation, off sedation, NTG and Cardene drips. Pt also received 2 units prbcs, d/t acute drop in hgb, H/H improved s/p transfusion. No overt bleeding noted, will send for fobt, cont to monitor. Plan: Neuro:AAOx3. Will continue to monitor CV: Likely cardiogenic pulmonary edema. Hx of HTN Cardio c/s appreciated. Started on Norvasc. Switched to PO: hydralazine 50mg bid, lasix 20mg bid, lipitor and asa. Off Cardene drip. BP 150-160s/50-60's, cont to monitor. Trops 0.07->0.39->0.34->0.11, liklely from chf exacerbation. Elevated trops on previous admission. Maintain MAP >65. Resp: s/p extubation, tolerating NC well. Hx of COPD on home O2. Will titrate. CXR showed pulmonary edema. GI: Stable. Pepcid for GI PPX. Heme: s/p 2 units prbcs transfusion, H/H improved 7.5->9.3. Thrombocytopenia improving 96->132 today. Cont to monitor. F/u FOBT. Renal: at baseline, will continue to monitor. Replace electrolytes as needed. ID: afebrile, no leukocytosis. blood, urine and sputum cultures NTD. Procalcitonin 4.46 on admission. Discontinue Doxycycline and Cefepime as no signs of infection currently. Endo: Maintain euglycemia. Cont to monitor. DVT PPX: SCDs GI PPX: Pepcid Dispo: Palliative c/s Case seen and discussed with PGY2 and attending, Dr. Denton. Kamila Easley, PGY1 <Bertin CANDELARIA,Trinity H - Last Filed: 04/04/17 16:14> Objective - Vital Signs/Intake and Output Vital Signs (last 24 hours): Temp Pulse Resp BP Pulse Ox 99.1 F 71 20 150/73 93 L 04/04/17 12:00 04/04/17 13:40 04/04/17 13:40 04/04/17 13:30 04/04/17 13:40 Intake and Output: 04/04/17 04/04/17 06:59 18:59 Intake Total 761 Output Total 1600 Balance -839 - Medications Medications: Current Medications Amlodipine Besylate (Norvasc) 10 mg PO DAILY [facility] Last Admin: 04/04/17 10:54 Dose: 10 mg Aspirin (Ecotrin) 81 mg PO DAILY [facility] Aspirin (Ecotrin) 81 mg PO DAILY ONE Stop: 04/04/17 18:01 Atorvastatin Calcium (Lipitor) 80 mg PO DIN [facility] Last Admin: 04/03/17 17:04 Dose: Not Given Budesonide (Pulmicort Respules) 0.5 mg IH BIDRESP [facility] Famotidine (Pepcid) 20 mg PO BID [facility] Last Admin: 04/04/17 09:02 Dose: 20 mg Furosemide (Lasix) 40 mg IVP Q12 [facility] Last Admin: 04/04/17 09:02 Dose: 40 mg Hydralazine HCl (Apresoline) 10 mg IVP Q6 PRN PRN Reason: for SBP>170 and Diastolic>100 Last Admin: 04/04/17 09:56 Dose: 10 mg Hydralazine HCl (Apresoline) 50 mg PO BID [facility] Last Admin: 04/04/17 10:54 Dose: 50 mg Heparin Sodium/Dextrose (Heparin 25,000 Units/250ml In D5w) 25,000 units in 250 mls @ 10.32 mls/hr IV .Q24H [facility]; 12 UNITS/KG/HR PRN Reason: Protocol Last Admin: 04/02/17 19:46 Dose: 12 units/kg/hr, 10.32 mls/hr Isosorbide Mononitrate (Imdur) 30 mg PO DAILY [facility] Last Admin: 04/04/17 09:03 Dose: 30 mg Levalbuterol HCl (Xopenex) 0.63 mg IH Q6H [facility] Last Admin: 04/04/17 15:02 Dose: 0.63 mg Metoprolol Tartrate (Lopressor) 50 mg PO BID [facility] Nystatin/Triamcinolone Acetonide (Nystatin/Triamcinolone Cream) 0 ea TOP BID PRN PRN Reason: Itching / Pruritus Tiotropium [place] (Spiriva) 18 mcg IH DAILY [facility] - Labs Labs: 04/04/17 05:30 04/04/17 05:30 PT 10.3 Seconds (9.9-11.8) 04/02/17 06:30 INR 0.95 (0.93-1.08) 04/02/17 06:30 APTT 53.4 Seconds (23.7-30.8) H 04/03/17 02:25 Attending/Attestation - Attestation I have personally seen and examined this patient.: Yes I have fully participated in the care of the patient.: Yes I have reviewed all pertinent clinical information, including history, physical exam and plan: Yes Notes (Text): 04/04/17 16:12 76 y/o M w/ Acute CHF exacerbation s/p resp failure Extubated and off BIPAP on NC now. Severe COPD Off all vasopressors and transitioned to all p.o meds. R Groin TLC to be removed HGB stable currently , off heparin drip. Trop stable, likely type 2 leak. Pt would be a good candidate for cardiac rehab. dvt p ppi cc time 65 min
--- NOTE | 2017-04-04 18:05 | CARD ---
APPROVED REPORT EXAM: Two-dimensional and M-mode echocardiogram with Doppler and color Doppler. INDICATION Congestive Heart Failure 2D DIMENSIONS Left Atrium (2D)4.0 (1.6-4.0cm)IVSd1.5 (0.7-1.1cm) LVDd5.1 (3.9-5.9cm)PWd1.5 (0.7-1.1cm) LVDs3.5 (2.5-4.0cm)FS (%) 30.4 % LVEF (%)57.7 (>50%) Aortic Valve AoV Peak Ysivepqr498.0cm/sAoV VTI48.1cmAO Peak GR.20mmHg LVOT Peak Aadigfot907.0cm/sLVOT VTI22.00cmAO Mean GR.10mmHg Mitral Valve MV E Rbzyzikc57.8cm/sMV A Punwempd495.0cm/sMV VAD438ud E/A ratio0.7MVA (PHT)1.46cm2 TDI E/Lateral E'0.0E/Medial E'0.0 Tricuspid Valve TR Peak [id number]/sRAP [id number] Peak Gr.14mmHg [id number] LEFT VENTRICLE The left ventricle is normal size. There is mild to moderate concentric left ventricular hypertrophy. The left ventricular function is normal.EF-55% There is mild hypokinesis in the apical septal wall. Transmitral Doppler flow pattern is Grade III-reversible restrictive diastolic dysfunction. No left ventricle thrombus noted on this study. There is no ventricular septal defect visualized. There is no left ventricular aneurysm. There is no mass noted in the left ventricle. RIGHT VENTRICLE The right ventricle is normal size. There is normal right ventricular wall thickness. The right ventricular systolic function is normal. ATRIA The left atrium is mildly dilated. The right atrium size is normal. The interatrial septum is intact with no evidence for an atrial septal defect. AORTIC VALVE The aortic valve is calcified and displays decreased opening. There is trace aortic regurgitation. Aortic Sclerosis Vs Mild There is no aortic valvular vegetation. MITRAL VALVE The mitral valve is thickened but opens well. Mitral regurgitation is mild to moderate. There is no mitral valve stenosis. There is no evidence of mitral valve prolapse. TRICUSPID VALVE The tricuspid valve leaflets are thickened , but open well. There is mild tricuspid regurgitation.RVSP-24 mmof Hg There is no tricuspid valve stenosis. PULMONIC VALVE The pulmonic valve is not well visualized. GREAT VESSELS The aortic root is normal in size. The ascending aorta is normal in size. The pulmonary artery is normal. The IVC is normal in size and collapses >50% with inspiration. PERICARDIAL EFFUSION There is no pleural effusion. There is no pericardial effusion. <Conclusion> The left ventricle is normal size. There is mild to moderate concentric left ventricular hypertrophy. There is trace aortic regurgitation. Aortic Sclerosis Vs Mild Mitral regurgitation is mild to moderate. There is mild tricuspid regurgitation.RVSP-24 mmof Hg The IVC is normal in size and collapses >50% with inspiration. There is no pericardial effusion. No Vegetation or thrombus noted.
[2017-04-04] MEDS: Budesonide 0.5 mg/2 ml Inhal Susp UD IH SCH (21:00)
--- NOTE | 2017-04-04 22:58 | CP.PCM.PCO ---
Physician Communication Note - Physician Communication Note Physician Communication Note: A FOBT was performed, interpreted by myself as positive
[2017-04-05] MEDS: Levalbuterol 0.63 MG/3 ML Inhal Soln UD IH SCH ×4 (03:00→20:27)
[2017-04-05 06:33] LABS: BASO # 0.01 K/mm3 (0.0-2.0); BASO % 0.2 % (0.0-3.0); EOS # 0.2 (0.0-0.7); EOS % 2.9 % (1.5-5.0); GRAN # 5.04 (1.4-6.5); GRAN % 80.3 % (50.0-68.0); LYMPH # 0.7 (1.2-3.4); LYMPH % 10.5 % (22.0-35.0); MEAN CELL VOLUME 91.9 fL (80.0-105.0); MEAN CORPUSCULAR HGB CONC 30.5 g/dl (31.0-37.0); MEAN PLATELET VOLUME 9.6 fl (7.0-11.0); MONO # 0.4 (0.1-0.6); MONO % 6.1 % (1.0-6.0); PLATELET COUNT 99 10^3/uL (120.0-450.0); RBC 3.21 10^6/uL (3.5-6.1); RED CELL DISTRIBUTION WIDTH 17.1 % (11.5-14.5); WHITE BLOOD COUNT 6.3 10^3/ul (4.5-11.0)
[2017-04-05 06:46] LABS: ALB/GLOB RATIO 1.1 (1.1-1.8); ALBUMIN 2.6 g/dL (3.0-4.8); CALCIUM 8.4 mg/dL (8.4-10.5); MAGNESIUM 1.8 mg/dL (1.7-2.2)
[2017-04-05] MEDS: Budesonide 0.5 mg/2 ml Inhal Susp UD IH SCH ×2 (08:24→20:27)
[2017-04-05] MEDS ORDERED: Potassium Chloride 20 mEq ER Tab PO ONE (09:03)
[2017-04-05] MEDS ORDERED: Potassium Chloride 20 mEq ER Tab PO STA (09:05)
[2017-04-05] MEDS: Tiotropium 18 mcg Cap For Inhalation IH SCH ×2 (11:33→11:34)
--- NOTE | 2017-04-05 12:19 | RAD ---
HISTORY: R/O pneumonia Vs CHF COMPARISON: 04/03/2017 FINDINGS: LUNGS: There is improvement in the vascular congestion and perihilar infiltrates. There is a persistent infiltrate in the right upper lobe and left lung base PLEURA: No significant pleural effusion identified, no pneumothorax apparent. CARDIOVASCULAR: Normal. OSSEOUS STRUCTURES: No significant abnormalities. VISUALIZED UPPER ABDOMEN: Normal. OTHER FINDINGS: None. IMPRESSION: Infiltrate in the right upper lobe and left lung base. Improvement in vascular congestion
[2017-04-06] MEDS: Levalbuterol 0.63 MG/3 ML Inhal Soln UD IH SCH ×6 (02:20→20:51)
[2017-04-06] MEDS: Budesonide 0.5 mg/2 ml Inhal Susp UD IH SCH ×2 (06:43→20:51)
--- NOTE | 2017-04-06 09:10 | PN ---
DATE: 04/05/2017 SUBJECTIVE: The patient was seen earlier today in room #129, bed #7. The patient is doing well, no events last night. No fevers, no chills, no nausea. PHYSICAL EXAMINATION: VITAL SIGNS: Temperature is 97, blood pressure is 170/70, respiratory rate of 18, heart rate of 59. HEENT: Unremarkable. NECK: Supple. HEART: Normal S1 and S2. LUNGS: Decreased breath sounds. ABDOMEN: Soft, nontender. LABORATORY DATA: Reveal a white count of 6.3, hemoglobin of 9, platelets of 99, coagulation is noted. Chemistries reveals a BUN of 42, creatinine of 1.7 and the patient's procalcitonin of 4.46. Serology reveals urine for Legionella antigen is negative. Microbiology reveals blood cultures has no growth. Urine culture has no growth and his sputum has normal ondina. Review of the *------* reveals the patient to be off of antibiotics. The patient had an echo yesterday, which showed no vegetation or thrombus is seen. ASSESSMENT AND PLAN: He is a 76-year-old male who was seen earlier this morning in the CCU bed #7 with SIRS, systemic inflammatory response syndrome and with acute congestive heart failure and acute on chronic renal failure and hypertension; chronic obstructive pulmonary disease; hepatitis C; gastroesophageal reflux disease. Cultures are negative and the patient does have an elevated procalcitonin although his renal failure, currently off of antibiotics, afebrile. The patient is doing well. The patient is now off the ventilator, on nasal cannula, awake and doing well, however, he is at risk for developing nosocomial infections. Nicolas Alcaraz MD
--- NOTE | 2017-04-06 09:23 | PN ---
REASON FOR THE CONSULTATION: Coronary artery disease, status post intubated and pulmonary edema. BRIEF CLINICAL HISTORY: This is a 76-year-old male with a past medical history significant for coronary artery, status post bare metal stent, history of GI bleed, history of pulmonary hypertension, history of anemia, admitted with pulmonary edema. The patient was on CPAP at home and he got respiratory distress, got panic and brought here, later patient intubated, now successfully extubated. Denies having any chest pain, shortness of breath, any palpitations. PHYSICAL EXAMINATION: VITAL SIGNS: Temperature afebrile; heart rate 74, blood pressure 176/74. HEENT: PERRLA. Extraocular muscles intact. NECK: Supple. No carotid bruit or thyromegaly. CHEST: Clear to auscultation. HEART: S1 and S2, regular. ABDOMEN: Soft. EXTREMITIES: Clubbing and cyanosis negative. Ecchymosis noted all over the body. BLOOD WORKUP: WBC is 6.3, hemoglobin 9, hematocrit 29.5, platelet count 99. Chemistry showed sodium 145, potassium 3.4, chloride 100, carbon dioxide 40, anion gap of 8, BUN 42, creatinine 1.7; total protein 5.0, albumin 2.6, albumin to globulin ratio 1.1. IMPRESSION: 1. A 76-year-old male with a past medical history significant for coronary artery, status post bare metal stent in LAD and bare metal stent in ramus intermedius 2 to 3 years ago. Recent cardiac catheterization done that showed patent stent in LAD and patent stent in ramus intermedius. The patient has also had right heart catheterization done that showed RA pressure 13, RV 54/19, PA pressure 54/20, mean PA pressure of 28 and pulmonary capillary wedge pressure of 20. MUGA scan in 12/2016 shows ejection fraction 69%. He was admitted with acute pulmonary edema. The patient was diuresed and now successfully extubated. Denies any chest pain, shortness of breath, any palpitation. The patient had repeat echo done yesterday to rule out any significant valvular dysfunction that showed ejection fraction 55%, trace aortic regurgitation, aortic sclerosis with mild aortic stenosis, mild to moderate mitral regurgitation, mild tricuspid regurgitation, RV systolic pressure 24. 2. Gastrointestinal bleed, admitting hemoglobin 6.8, status post 2 packed units of RBC. Today's platelet count is 99. Rule out heparin induced thrombocytopenia; admitting platelet of 291. 3. Renal insufficiency, creatinine clearance 48. 4. Protein-calorie malnutrition, moderate, did not present on admission. RECOMMENDATIONS: We will avoid heparin, discontinue all heparin, send heparin-induced platelet antibody and monitor closely. If further dips down, consider *------* band. Avoid nephrotoxic medication. Started Norvasc, we will put clonidine 0.1 b.i.d. also. Continue hydralazine 50 mg b.i.d. and continue Lasix. We will follow with you closely. We will discuss with you. Thank you Dr. Morales for providing us an opportunity in taking care of this patient. HANSEL
--- NOTE | 2017-04-06 09:23 | PN ---
PULMONARY PROGRESS NOTE IN THE CCU DATE: 04/05/2017 SUBJECTIVE: Mr. Fernando was admitted yesterday to the critical care unit with acute myocardial infarction. He has a history of asthma, possibly COPD, was seen at length by Dr. Samm Morales. He was being referred to me as an outpatient to help with his need for supplemental oxygen and further pulmonary intervention. The patient never made it to my office. He sustained an episode of chest pain, came to the emergency room, was intubated and treated for an acute myocardial infarction and COPD. I had the opportunity to see the gentleman yesterday and changed his bronchodilator to Xopenex, which is less cardiac selective, more pulmonary selective, continuing his inhaled corticosteroid and adding anticholinergics. The patient is doing better today, awake and alert, oriented, able to answer questions well, and is feeling better without any further chest pain. I had the opportunity to discuss the patient's case with Dr. Samm Morales this morning. We will need to do a complete pulmonary function study and a blood gas on room air once he is feeling better. We need to ascertain the degree of COPD after doing these tests as well as a good PA and lateral chest x-ray and maybe even perhaps a high-resolution CT of the chest. PHYSICAL EXAMINATION: VITAL SIGNS: Stable. NECK: Supple. There is no jugular venous distention any longer. CARDIOPULMONARY: Heart has a regular rhythm S1, S2. Soft systolic ejection murmur at the lower left sternal border. LUNGS: Global decrease in breath sounds, prolonged expiratory phase. No wheezes noted today. ABDOMEN: Soft. Bowel sounds normoactive without mass, guarding, rebound or organomegaly. EXTREMITIES: Reveal no clubbing, cyanosis or edema. NEUROLOGIC: Reveal no focal findings. LABORATORY STUDIES: Today show that the EKG shows no changes, but the bloods show a white count down from 21,000 to 6000, hemoglobin from 10,000 to 9000. There are no new blood gases or chest x-rays, which need to be repeated. CLINICAL IMPRESSION: 1. Chronic obstructive pulmonary disease. 2. Acute myocardial infarction. 3. Smoking history. 4. Hypoxemia. PLAN: Continue with aggressive therapy to make him better. Once he is stronger and able to perform a pulmonary function study, we will do an arterial blood gas on room air, chest x-ray PA and lateral or a high-resolution CT of the chest as well as further evaluation of his status. We will decide what further medication is required and discuss once again with Dr. Morales if there is a need for home oxygen therapy, which apparently there is. I believe that his COPD is significantly worse than was originally anticipated and further attention is required. Que Romeo MD
--- NOTE | 2017-04-06 09:33 | CP.PCM.PN ---
Subjective - Date & Time of Evaluation Date of Evaluation: 04/06/17 Time of Evaluation: 09:10 - Subjective Subjective: Comfortable in bed, afebrile, not in distress. Objective - Vital Signs/Intake and Output Vital Signs (last 24 hours): Temp Pulse Resp BP Pulse Ox 98.6 F 65 17 154/50 H 96 04/05/17 00:00 04/05/17 02:09 04/05/17 02:09 04/05/17 02:00 04/04/17 20:00 Intake and Output: 04/04/17 04/05/17 18:59 06:59 Intake Total 850 Output Total 1800 Balance -950 - Medications Medications: Current Medications Amlodipine Besylate (Norvasc) 10 mg PO DAILY [facility] Last Admin: 04/04/17 10:54 Dose: 10 mg Aspirin (Ecotrin) 81 mg PO DAILY [facility] Atorvastatin Calcium (Lipitor) 80 mg PO DIN [facility] Last Admin: 04/04/17 17:34 Dose: 80 mg Budesonide (Pulmicort Respules) 0.5 mg IH BIDRESP [facility] Last Admin: 04/04/17 21:00 Dose: 0.5 mg Famotidine (Pepcid) 20 mg PO BID [facility] Last Admin: 04/04/17 17:34 Dose: 20 mg Furosemide (Lasix) 40 mg IVP Q12 [facility] Last Admin: 04/04/17 21:09 Dose: 40 mg Hydralazine HCl (Apresoline) 10 mg IVP Q6 PRN PRN Reason: for SBP>170 and Diastolic>100 Last Admin: 04/04/17 09:56 Dose: 10 mg Hydralazine HCl (Apresoline) 50 mg PO BID [facility] Last Admin: 04/04/17 17:33 Dose: 50 mg Heparin Sodium/Dextrose (Heparin 25,000 Units/250ml In D5w) 25,000 units in 250 mls @ 10.32 mls/hr IV .Q24H [facility]; 12 UNITS/KG/HR PRN Reason: Protocol Last Admin: 04/02/17 19:46 Dose: 12 units/kg/hr, 10.32 mls/hr Isosorbide Mononitrate (Imdur) 30 mg PO DAILY [facility] Last Admin: 04/04/17 09:03 Dose: 30 mg Levalbuterol HCl (Xopenex) 0.63 mg IH Q6H [facility] Last Admin: 04/05/17 03:00 Dose: 0.63 mg Metoprolol Tartrate (Lopressor) 50 mg PO BID [facility] Nystatin/Triamcinolone Acetonide (Nystatin/Triamcinolone Cream) 0 ea TOP BID PRN PRN Reason: Itching / Pruritus Tiotropium [place] (Spiriva) 18 mcg IH DAILY [facility] - Labs Labs: 04/04/17 05:30 04/04/17 05:30 PT 10.3 Seconds (9.9-11.8) 04/02/17 06:30 INR 0.95 (0.93-1.08) 04/02/17 06:30 APTT 53.4 Seconds (23.7-30.8) H 04/03/17 02:25 - Constitutional Appears: Non-toxic, No Acute Distress - Head Exam Head Exam: NORMAL INSPECTION - Neck Exam Neck Exam: absent: Meningismus - Respiratory Exam Respiratory Exam: Decreased Breath Sounds - Cardiovascular Exam Cardiovascular Exam: +S1, +S2 - GI/Abdominal Exam GI & Abdominal Exam: Soft. absent: Tenderness Assessment and Plan - Assessment and Plan (Free Text) Plan: Assessment Systemic Inflammatory response syndrome with ventilator-dependent respiratory failure, consider due to acute congestive heart failure - no evidence of pneumonia found acute on chronic renal failure HTN COPD hepatitis C GERD CAD S/P PCI Plan cultures have been negative; PCT is elevated at 4.46 but the patient has renal failure; reviewed repeat CXR which showed improvement in the infiltrates and the WBC count has normalized - which points more towards CHF will continue to monitor off antibiotics since he is at risk for hospital- acquired infections
[2017-04-06] MEDS: Tiotropium 18 mcg Cap For Inhalation IH SCH (09:44)
[2017-04-06 09:49] LABS: BASO # 0.01 K/mm3 (0.0-2.0); BASO % 0.2 % (0.0-3.0); EOS # 0.2 (0.0-0.7); EOS % 2.9 % (1.5-5.0); GRAN # 4.58 (1.4-6.5); GRAN % 77.6 % (50.0-68.0); HEMOGLOBIN 10.1 gm/dL (14.0-18.0); LYMPH # 0.8 (1.2-3.4); LYMPH % 13.2 % (22.0-35.0); MEAN CELL VOLUME 92.7 fL (80.0-105.0); MEAN CORPUSCULAR HEMOGLOBIN 28.5 pg (25.0-35.0); MEAN CORPUSCULAR HGB CONC 30.7 g/dl (31.0-37.0); MEAN PLATELET VOLUME 11.3 fl (7.0-11.0); MONO # 0.4 (0.1-0.6); MONO % 6.1 % (1.0-6.0); PLATELET COUNT 124 10^3/uL (120.0-450.0); RBC 3.55 10^6/uL (3.5-6.1); RED CELL DISTRIBUTION WIDTH 16.2 % (11.5-14.5); WHITE BLOOD COUNT 5.9 10^3/ul (4.5-11.0)
[2017-04-06 09:59] LABS: ALB/GLOB RATIO 1.2 (1.1-1.8); ALBUMIN 3.1 g/dL (3.0-4.8); CALCIUM 8.5 mg/dL (8.4-10.5); URIC ACID 10.5 mg/dL (3.5-8.5)
[2017-04-06] MEDS: Ammonium Lactate 12% Cream (140 g) TOP SCH (21:01)
--- NOTE | 2017-04-06 21:09 | PN ---
DATE: 04/06/2017 LOCATION: ICU bed 7. SUBJECTIVE: Mr. Fernando is doing markedly better since his stay in the Intensive Care Unit. He is now awake and alert and feeling markedly better. He is able to carry full conversations and he is anxious to come to my office for further evaluation and treatment plans for his respiratory status. He had been carried with the diagnosis of asthma for sometime treated with many occasions, but not taking into consideration that he probably has some additional air trapping and possibly some restriction as well. He is markedly improved today. He feels great. He is sitting up in bed and awaiting transfer out of the intensive care unit. PHYSICAL EXAMINATION: VITAL SIGNS: Stable. He is afebrile. Oxygen saturations 98% on supplemental 2 liters of nasal cannula. NECK: Supple. No JVD. No lymphadenopathy. No bruits. CARDIOVASCULAR: Regular rhythm, S1, S2. Soft systolic ejection murmur at the lower left sternal border. CHEST: Global decreased breath sounds, prolonged expiratory phase, no wheezing noted today. ABDOMEN: Soft. Bowel sounds normoactive without mass, guarding, rebound or organomegaly. EXTREMITIES: No clubbing, cyanosis or edema. There is no Homans sign. NEUROLOGIC: No focal findings. Motor, sensory, and coordination normal. Babinski downgoing. Deep tendon reflexes normal. Lymphadenopathy is negative. There are no nodes palpated in the supraclavicular notch nor in the cervical, inguinal, axillary areas. LABORATORY DATA: No new laboratory studies are available today. CLINICAL IMPRESSION: 1. Chronic obstructive pulmonary disease. 2. Acute bronchospasm resolved. 3. Chronic air trapping. 4. Smoking history. 5. Hypoxemia. PLAN: Once the patient improves from his myocardial infarction, he will be discharged to home. He will get cardiopulmonary rehabilitation. We would like to do a complete pulmonary function study and adjust his medications for COPD including asthmatic reversible component and air trapping, components of emphysema. Suspected restriction needs to be identified clearly. We will be happy to see him as an outpatient and decide on further intervention as required. Thank you for the opportunity to see this gentleman in evaluation. Que Romeo MD [facility] # [id number]
[2017-04-07] MEDS: Levalbuterol 0.63 MG/3 ML Inhal Soln UD IH SCH ×4 (02:50→19:35)
[2017-04-07] MEDS: Budesonide 0.5 mg/2 ml Inhal Susp UD IH SCH ×2 (08:33→19:36)
[2017-04-07] MEDS: Tiotropium 18 mcg Cap For Inhalation IH SCH (09:21)
[2017-04-07] MEDS: Ammonium Lactate 12% Cream (140 g) TOP SCH ×2 (09:30→22:25)
--- NOTE | 2017-04-07 10:15 | CP.PCM.PN ---
Subjective - Date & Time of Evaluation Date of Evaluation: 04/07/17 Time of Evaluation: 10:00 - Subjective Subjective: Comfortable, no fevers overnight, not in distress. Objective - Vital Signs/Intake and Output Vital Signs (last 24 hours): Temp Pulse Resp BP Pulse Ox 98.2 F 52 L 17 147/45 L 97 04/07/17 03:39 04/07/17 05:00 04/07/17 05:00 04/07/17 04:00 04/07/17 05:00 Intake and Output: 04/07/17 04/07/17 06:59 18:59 Intake Total 240 Output Total 400 Balance -160 - Medications Medications: Current Medications Amlodipine Besylate (Norvasc) 10 mg PO DAILY [facility] Last Admin: 04/06/17 09:44 Dose: 10 mg Aspirin (Ecotrin) 81 mg PO DAILY [facility] Last Admin: 04/06/17 09:43 Dose: 81 mg Atorvastatin Calcium (Lipitor) 20 mg PO DIN [facility] Budesonide (Pulmicort Respules) 0.5 mg IH BIDRESP [facility] Last Admin: 04/06/17 20:51 Dose: 0.5 mg Clonidine HCl (Catapres) 0.1 mg PO BID [facility] Last Admin: 04/06/17 09:42 Dose: 0.1 mg Colchicine (Colocrys) 0.6 mg PO BID [facility] Last Admin: 04/06/17 20:30 Dose: 0.6 mg Famotidine (Pepcid) 20 mg PO BID [facility] Last Admin: 04/06/17 09:44 Dose: 20 mg Furosemide (Lasix) 40 mg IVP Q12 [facility] Last Admin: 04/06/17 21:01 Dose: 40 mg Hydralazine HCl (Apresoline) 10 mg IVP Q6 PRN PRN Reason: for SBP>170 and Diastolic>100 Last Admin: 04/04/17 09:56 Dose: 10 mg Isosorbide Mononitrate (Imdur) 30 mg PO DAILY [facility] Last Admin: 04/06/17 09:43 Dose: 30 mg Lactic Acid (Lac-Hydrin 12% Cream (140 G)) 0 ea TOP Q12 [facility] Last Admin: 04/06/17 21:01 Dose: 1 applic Levalbuterol HCl (Xopenex) 0.63 mg IH [id number] [facility] Last Admin: 04/07/17 02:50 Dose: Not Given Metoprolol Tartrate (Lopressor) 25 mg PO BID [facility] Nystatin/Triamcinolone Acetonide (Nystatin/Triamcinolone Cream) 0 ea TOP BID PRN PRN Reason: Itching / Pruritus Tiotropium [place] (Spiriva) 18 mcg IH DAILY [facility] Last Admin: 04/06/17 09:44 Dose: 18 mcg - Labs Labs: 04/06/17 09:40 04/06/17 09:00 PT 10.3 Seconds (9.9-11.8) 04/02/17 06:30 INR 0.95 (0.93-1.08) 04/02/17 06:30 APTT 53.4 Seconds (23.7-30.8) H 04/03/17 02:25 - Constitutional Appears: Non-toxic, No Acute Distress - Head Exam Head Exam: NORMAL INSPECTION - ENT Exam ENT Exam: Mucous Membranes Moist - Neck Exam Neck Exam: absent: Lymphadenopathy, Meningismus - Respiratory Exam Respiratory Exam: Decreased Breath Sounds - Cardiovascular Exam Cardiovascular Exam: +S1, +S2 - GI/Abdominal Exam GI & Abdominal Exam: Soft. absent: Tenderness Assessment and Plan - Assessment and Plan (Free Text) Plan: Assessment Systemic Inflammatory response syndrome with ventilator-dependent respiratory failure, consider due to acute congestive heart failure - no evidence of pneumonia found acute on chronic renal failure HTN COPD hepatitis C GERD CAD S/P PCI Plan cultures have been negative; PCT is elevated at 4.46 but the patient has renal failure; reviewed repeat CXR which showed improvement in the infiltrates and the WBC count has normalized - which points more towards CHF will continue to monitor off antibiotics since he is at risk for healthcare- associated infections
--- NOTE | 2017-04-07 16:02 | PN ---
DATE: 04/07/2017 LOCATION: 128, Bed 7. SUBJECTIVE: The patient is markedly improved lying flat in bed in the intensive care unit awaiting transfer to the floor. He is healing from an acute myocardial infarction. In addition, he has severe COPD, diagnosed with asthma previously. He is doing very well on the tiotropium added to LAMA and corticosteroid therapy. He also had significant pulmonary congestive heart failure, which is resolved on chest x-ray to some extent. There is residual, however. There is a pneumonic infiltrate also, for which the patient is receiving antibiotics. PHYSICAL EXAMINATION GENERAL: He is comfortable, awake and alert with normal vital signs. VITAL SIGNS: Temperature 98.6, oxygen saturations 98%, heart rate 86. NECK: Supple. No JVD. No lymphadenopathy. No bruits or mass. CARDIOVASCULAR: Regular rhythm, S1, S2 without gallop or rub. There is a soft systolic ejection murmur at the lower left sternal border of the chest. LUNGS: Decrease in breath sounds, scattered rhonchi to left base. Rales throughout. No wheezing appreciated whatsoever. ABDOMEN: Soft bowel sounds normoactive without guarding or rebound. No organomegaly. EXTREMITIES: Reveal no clubbing, cyanosis or edema. There is no Patricia's sign. NEUROLOGIC: Exam reveals no focal findings. No additional abnormalities were noted. LABORATORY FINDINGS: Chest x-ray shows significant improvement in pulmonary vascular congestion, pneumonic infiltrates persists. Laboratory studies have been recorded by the music publisher. I have reviewed the same, but not included in my report. There is little change noted and I will discuss with the music publisher community relations manager, Dr. Lon Gonzalez. DIAGNOSES: 1. Respiratory insufficiency. 2. Chronic obstructive pulmonary disease. 3. Asthma/emphysema. 4. Long smoking history that continues. 5. Hypoxemia. PLAN: No additional plan. Continue antibiotics, bronchodilators, anticholinergics. Must follow the x-ray to complete resolution from CHF and infiltrate point of view and pneumonic point of view. Patient will require a PFT once this is over to adjust his COPD medications. He must start on a no smoking program. This is his essential. We will follow closely with you in this side on the need for further intervention. Thank you for the opportunity. Que Romeo MD [facility] # [id number]
[2017-04-08] MEDS: Levalbuterol 0.63 MG/3 ML Inhal Soln UD IH SCH ×4 (01:11→19:26)
--- NOTE | 2017-04-08 03:58 | PN ---
DATE: 04/07/2017 The patient in ICU 128, bed 7. SUBJECTIVE: The patient denies any chest pain, shortness of breath, or palpitation. PHYSICAL EXAMINATION: VITAL SIGNS: Blood pressure 132/55, respirations 18 and pulse is 57. The patient is afebrile. HEENT: Head is normocephalic. Eyes; pupils normal. Conjunctivae slightly pale. NECK: JVP low, carotid equal. *------* normal. CARDIOVASCULAR: S1 and S2. LUNGS: No significant rales. ABDOMEN: Protuberant. No organomegaly. EXTREMITIES: No clubbing. No cyanosis. LABORATORY DATA: WBC 5.9, hemoglobin 10.1, hematocrit 32.9 and platelets 124. Sodium 142, potassium 4.1, BUN 38, creatinine 1.6 and random glucose 147. AST and ALT normal. Total protein 5.7 and albumin 3.1. Chest x-ray on 04/05/2017 showed improvement in the vascular congestion and perihilar infiltrates. There is persistent infiltrates in the right upper lobe and left lower lung base. DIAGNOSES: Acute pulmonary edema, showing improvement; respiratory tract infection; lung infiltrates. The has a history of coronary artery disease and had bare metal stent in left anterior descending and ramus intermedius 2 to 3 years ago. Recent cardiac catheterization showed stents are open. The patient's right heart cath showed RA pressure of 13, RV 54/19, PA pressure 54/20, suggestive of moderate pulmonary hypertension, pulmonary artery pressure was 20. MUGA scan 12/2016 showed ejection fraction of 69%. The patient was intubated with pulmonary edema, now is extubated and he clinically has improved. Repeat echo done 2 days ago showed ejection fraction of 55%, trace aortic regurgitation, mild aortic stenosis, [id number] mitral regurgitation, mild tricuspid regurgitation, RV systolic pressure 24, which is different then what we got on right heart catheterization. Gastrointestinal bleeding, admitted with hemoglobin of 6.8,status post blood transfusions; thrombocytopenia, which is most likely heparin induced because on admission platelet count was 291. Renal insufficiency and protein-calorie malnutrition. PLAN: The patient is on clonidine 0.1 mg b.i.d., colchicine 0.6 mg b.i.d., aspirin 81 mg daily, isosorbide mononitrate 30 daily, furosemide 40 p.o. daily, Lipitor 20 daily, metoprolol 25 b.i.d., amlodipine 10 mg daily, Pepcid 20 mg b.i.d., Spiriva 18 mcg inhalation daily, Xopenex q.6 hours respiratory treatment. We will continue present therapy and we will follow. Noel Yeung MD
[2017-04-08] MEDS: Budesonide 0.5 mg/2 ml Inhal Susp UD IH SCH ×2 (07:55→19:26)
[2017-04-08] MEDS: Tiotropium 18 mcg Cap For Inhalation IH SCH ×2 (09:39→09:43)
[2017-04-08] MEDS: Ammonium Lactate 12% Cream (140 g) TOP SCH ×2 (09:40→21:38)
[2017-04-09] MEDS: Levalbuterol 0.63 MG/3 ML Inhal Soln UD IH SCH ×4 (01:02→20:19)
--- NOTE | 2017-04-09 03:22 | PN ---
DATE: 04/07/2017 Patient is in room 270, bed 1. SUBJECTIVE: The patient is lying flat in bed without any chest pain, shortness of breath, or palpitations. PHYSICAL EXAMINATION: VITAL SIGNS: Blood pressure 157/66, respirations 20, pulse 54, temperature 98.3. HEENT: Head is normocephalic. Eyes, pupils are normal, conjunctivae are slightly pale. NECK: JVP low. Carotids equal. Thorax AP diameter is normal. LUNGS: Clear. CARDIOVASCULAR: S1 and S2. ABDOMEN: Soft, nontender. No organomegaly. Bowel sounds are normal. EXTREMITIES: No clubbing, no cyanosis. LABORATORY DATA: WBC 5.9, hemoglobin 10.1, hematocrit 32.9, platelets 124,000. Sodium 142, potassium 4.1, BUN 38, creatinine 1.6, random glucose 147. AST and ALT are normal. Total protein 5.7, albumin 3.1. DIAGNOSES: 1. Acute pulmonary edema, showing improvement. 2. Respiratory tract infection. 3. Lung infiltrate. 4. History of coronary artery disease, with patent stents; recent cardiac cath showed that the stents are open. The patient had right heart cath which showed right ventricular pressure of 54/19 and pulmonary artery pressure of 54/20, suggestive of moderate pulmonary hypertension. Pulmonary artery wedge pressure was 20. MUGA scan in 12/2016 showed ejection fracture of 69%. Repeat echo 3 days ago showed ejection fracture of 55%, mild aortic stenosis, cutj-gy-[id number] mitral regurgitation, mild tricuspid regurgitation, right ventricular systolic pressure of 24 mmHg which is different than what we got on the right heart catheterization. 5. Gastrointestinal bleeding, admitted with a hemoglobin of 6.8, status post blood transfusion. 6. Thrombocytopenia, which is most likely heparin-induced. 7. Renal insufficiency. 8. Protein-calorie malnutrition. PLAN: The patient was in the intensive care unit, now he is in telemetry. The patient was told to ambulate. In the meantime, continue metoprolol 25 mg b.i.d., clonidine 0.1 mg b.i.d., colchicine 0.6 b.i.d., aspirin 81 mg daily, isosorbide mononitrate 30 mg, furosemide 40 mg p.o. daily, Lipitor 20 mg daily, Pepcid 20 mg b.i.d., amlodipine 10 mg daily, Xopenex nebulizer therapy. We will continue present therapy. We will follow. Noel Yeung MD
[2017-04-09] MEDS: Budesonide 0.5 mg/2 ml Inhal Susp UD IH SCH ×2 (07:45→20:19)
--- NOTE | 2017-04-09 10:02 | PN ---
DATE: 04/06/2017 REASON FOR CONSULTATION: Acute pulmonary event status post *------*, status post successfully extubated, nonobstructive coronary artery disease. BRIEF CLINICAL HISTORY: This is a 76-year-old male with a past medical history significant for coronary artery status post bare-metal stent, LAD and NATE, recently had a cardiac catheterization, nonspecific coronary artery disease, pulmonary hypertension, renal insufficiency, GI bleed, admitted with respiratory failure, acute pulmonary edema, now successfully extubated, status post 2 units of packed RBC transfusion for GI bleed, lying comfortable, complaining of right ankle pain. Denies any chest pain, shortness of breath. Refused blood work this morning. PHYSICAL EXAMINATION VITAL SIGNS: Temperature afebrile, heart rate 57, blood pressure 156/50. HEENT: PERRLA. Extraocular muscles intact. NECK: Supple. No carotid bruits or thyromegaly. CHEST: Clear to auscultation. HEART: S1 and S2 regular. ABDOMEN: Soft. EXTREMITIES: Clubbing, cyanosis negative. LABORATORY DATA: Blood workup as follows. WBC 6.8, hemoglobin 9, hematocrit 29.5, platelet count 99,000 as of yesterday. Chemistry shows sodium 145, potassium 3.4, chloride 100, carbon dioxide of 14, anion gap of *------*, BUN 42, creatinine 1.7 as of yesterday, albumin 2.7. 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 RECOMMENDATION: Continue beta-fortino. Avoid nephrotoxic medication. Started on clonidine, hydralazine, and Norvasc. Discussed with the patient to give the blood. We will also add uric acid level to rule out precipitation of acute gout. We will add lipid profile and we will decrease the dose of atorvastatin from 80 mg to 20 mg. Follow the lipid profile. Noel Bowling MD
[2017-04-09] MEDS: Tiotropium 18 mcg Cap For Inhalation IH SCH (10:18)
--- NOTE | 2017-04-09 13:41 | CP.PCM.PN ---
Subjective - Date & Time of Evaluation Date of Evaluation: 04/09/17 Time of Evaluation: 10:25 - Subjective Subjective: Comfortable on a chair, not in distress, afebrile and breathing well. Objective - Vital Signs/Intake and Output Vital Signs (last 24 hours): Temp Pulse Resp BP Pulse Ox 97.8 F 57 L 20 145/51 L 96 04/09/17 06:00 04/09/17 06:00 04/09/17 06:00 04/09/17 06:00 04/09/17 06:00 Intake and Output: 04/08/17 04/09/17 18:59 06:59 Intake Total 1160 Output Total 700 Balance 460 - Medications Medications: Current Medications Amlodipine Besylate (Norvasc) 10 mg PO DAILY [facility] Last Admin: 04/08/17 12:08 Dose: 10 mg Aspirin (Ecotrin) 81 mg PO DAILY [facility] Last Admin: 04/08/17 09:39 Dose: 81 mg Atorvastatin Calcium (Lipitor) 20 mg PO DIN [facility] Last Admin: 04/08/17 17:26 Dose: 20 mg Budesonide (Pulmicort Respules) 0.5 mg IH BIDRESP [facility] Last Admin: 04/08/17 19:26 Dose: 0.5 mg Clonidine HCl (Catapres) 0.1 mg PO BID [facility] Last Admin: 04/08/17 17:50 Dose: 0.1 mg Colchicine (Colocrys) 0.6 mg PO BID [facility] Last Admin: 04/08/17 17:26 Dose: 0.6 mg Famotidine (Pepcid) 20 mg PO BID [facility] Last Admin: 04/08/17 17:26 Dose: 20 mg Furosemide (Lasix) 40 mg PO DAILY [facility] Last Admin: 04/08/17 09:39 Dose: 40 mg Hydralazine HCl (Apresoline) 10 mg IVP Q6 PRN PRN Reason: for SBP>170 and Diastolic>100 Last Admin: 04/04/17 09:56 Dose: 10 mg Isosorbide Mononitrate (Imdur) 30 mg PO DAILY [facility] Last Admin: 04/08/17 12:09 Dose: 30 mg Lactic Acid (Lac-Hydrin 12% Cream (140 G)) 0 ea TOP Q12 [facility] Last Admin: 04/08/17 21:38 Dose: 1 applic Levalbuterol HCl (Xopenex) 0.63 mg IH [id number] [facility] Last Admin: 04/09/17 01:02 Dose: 0.63 mg Metoprolol Tartrate (Lopressor) 25 mg PO BID [facility] Last Admin: 04/08/17 17:09 Dose: Not Given Nystatin/Triamcinolone Acetonide (Nystatin/Triamcinolone Cream) 0 ea TOP BID PRN PRN Reason: Itching / Pruritus Tiotropium [place] (Spiriva) 18 mcg IH DAILY [facility] Last Admin: 04/08/17 09:43 Dose: 18 mcg - Labs Labs: 04/06/17 09:40 04/06/17 09:00 PT 10.3 Seconds (9.9-11.8) 04/02/17 06:30 INR 0.95 (0.93-1.08) 04/02/17 06:30 APTT 53.4 Seconds (23.7-30.8) H 04/03/17 02:25 - Constitutional Appears: Non-toxic, No Acute Distress - Head Exam Head Exam: NORMAL INSPECTION - ENT Exam ENT Exam: Mucous Membranes Moist - Neck Exam Neck Exam: absent: Lymphadenopathy, Meningismus - Respiratory Exam Respiratory Exam: Decreased Breath Sounds - Cardiovascular Exam Cardiovascular Exam: +S1, +S2 - GI/Abdominal Exam GI & Abdominal Exam: Soft. absent: Tenderness Assessment and Plan - Assessment and Plan (Free Text) Plan: Assessment S/P Systemic Inflammatory response syndrome S/P ventilator-dependent respiratory failure, consider due to acute congestive heart failure - no evidence of pneumonia found; clinically improving acute on chronic renal failure HTN COPD hepatitis C GERD CAD S/P PCI Plan cultures have been negative; PCT is elevated at 4.46 but the patient has renal failure; reviewed repeat CXR which showed improvement in the infiltrates and the WBC count has normalized - which points more towards CHF will continue to monitor off antibiotics since he is at risk for hospital- acquired infections
[2017-04-09] MEDS: Ammonium Lactate 12% Cream (140 g) TOP SCH ×2 (18:10→22:30)
--- NOTE | 2017-04-09 21:43 | PN ---
DATE: 04/09/2017 TYPE OF NOTE: Pulmonary followup note. SUBJECTIVE: The patient was transferred from the ICU to telemetry. He is markedly improved. He is doing well. He was admitted with acute myocardial infarction. In addition, he has a history of severe COPD previously diagnosed as asthma. He needs a complete pulmonary function study when discharged to confirm my serious suspicions. In addition, the patient now has a pulmonary infiltrate as well receiving antibiotic therapy. PHYSICAL EXAMINATION GENERAL: He is comfortable, in no acute distress. VITAL SIGNS: Stable. He is afebrile 98.6, heart rate is 86,respiratory rate 16, O2 sat 99%. NECK: Supple. No JVD, no lymphadenopathy, no bruit or mass. No thyroid mass. HEART: Regular rhythm S1 and S2 without gallop or rub. There is a soft systolic ejection murmur at the lower left sternal border as before. LUNGS: Decreased breath sounds throughout, intermittent wheeze, but clears with forced cough, minimal rales as well. ABDOMEN: Soft, bowel sounds are normoactive without mass, guarding, rebound or organomegaly. EXTREMITIES: No clubbing, cyanosis, or edema. There is no Homans sign. NEUROLOGICAL: Reveals no focal findings. *------* examination appears to be normal. Lymphadenopathy is not present throughout. LABORATORY DATA: The patient's last x-ray showed significant improvement in the pulmonary vascular congestion and infiltrate. A followup x-ray will be required at this time and has been ordered. We will continue to monitor closely and to decide the need for further intervention. DIAGNOSES: 1. Respiratory insufficiency. 2. Status post respiratory failure. 3. Chronic obstructive pulmonary disease. 4. Asthma/emphysema. 5. Smoking history that continues at this time. 6. Hypoxemia. 7. Pneumonitis. PLAN: Continue antibiotics and bronchodilators, etc. Followup x-ray has been ordered as discussed above. Continue evaluation by cardiology for congestive heart failure and myocardial infarction. PFT will be requested once the patient is stable. Thank you for the opportunity to care for this benjy patient. We will see him as followup in the office. Que Romeo MD [facility] # [id number]
[2017-04-10] MEDS: Levalbuterol 0.63 MG/3 ML Inhal Soln UD IH SCH ×3 (01:40→13:30)
[2017-04-10] MEDS: Budesonide 0.5 mg/2 ml Inhal Susp UD IH SCH (07:23)
[2017-04-10 07:48] LABS: BASO # 0.01 K/mm3 (0.0-2.0); BASO % 0.3 % (0.0-3.0); EOS # 0.1 (0.0-0.7); EOS % 2.5 % (1.5-5.0); GRAN # 2.43 (1.4-6.5); GRAN % 61.7 % (50.0-68.0); HEMOGLOBIN 8.7 gm/dL (14.0-18.0); LYMPH # 0.9 (1.2-3.4); LYMPH % 23.1 % (22.0-35.0); MEAN CELL VOLUME 91.5 fL (80.0-105.0); MEAN CORPUSCULAR HEMOGLOBIN 27.4 pg (25.0-35.0); MEAN PLATELET VOLUME 11.1 fl (7.0-11.0); MONO # 0.5 (0.1-0.6); MONO % 12.4 % (1.0-6.0); PLATELET COUNT 134 10^3/uL (120.0-450.0); RBC 3.17 10^6/uL (3.5-6.1); RED CELL DISTRIBUTION WIDTH 15.6 % (11.5-14.5); WHITE BLOOD COUNT 3.9 10^3/ul (4.5-11.0)
[2017-04-10 08:03] LABS: ALB/GLOB RATIO 1.1 (1.1-1.8); ALBUMIN 2.9 g/dL (3.0-4.8); CALCIUM 8.8 mg/dL (8.4-10.5); MAGNESIUM 1.9 mg/dL (1.7-2.2)
[2017-04-10 08:32] VITALS: PULSE 61; RESP 20; TEMP 98.2; O2SAT 96
[2017-04-10] MEDS: Tiotropium 18 mcg Cap For Inhalation IH SCH (10:14)
[2017-04-10 10:17] VITALS: BP 157/88
[2017-04-10] MEDS: Ammonium Lactate 12% Cream (140 g) TOP SCH (10:17)
--- NOTE | 2017-04-10 10:29 | PN ---
DATE: 04/06/2017 SUBJECTIVE: Kirt remains in CCU bed 7 this Sunday afternoon, extubated, out of bed in chair, and doing very well. PHYSICAL EXAMINATION: GENERAL: He is awake, alert, and answering appropriately. Mental status is back at his usual state. HEAD AND NECK: Unremarkable. SKIN: Shows multiple ecchymosis and frail skin related to steroids and COPD. LUNGS: Good aeration on both right and left side. HEART: Regular, not tachycardic. EXTREMITIES: Show no edema due to the rest of diuresis. IMPRESSION: 1. Myocardial infarction. 2. Pulmonary edema due to #1 above. 3. Chronic obstructive pulmonary disease. 4. Known coronary artery disease. Samm Morales MD
--- NOTE | 2017-04-10 11:47 | PN ---
DATE: 04/08/2017 The patient was seen in room 270, bed #1 this Sunday late evening. He was transferred from intensive care yesterday, spent a day on the floor, was out of bed in the chair and ambulated a bit in the room. He is comfortable and in good spirits, feels well, feels strong, hoping for a discharge to home. I explained to him the importance of being steady on his feet. He explained that his is off from work this week. His son is free on Sunday and that will be the ideal day for him to be discharged to home. I will need to discuss with pulmonary as well as with cardiology, review his medicines for discharge to home. He will need close followup for his cardiac, CHF as well as COPD conditions, all rather severe. Samm Morales MD
--- NOTE | 2017-04-10 11:51 | PN ---
DATE: 04/09/2017 ATTENDING PHYSICIAN: Noel Bowling MD REASON FOR THE CONSULTATION: Followup cardiac evaluation, admitted with intubation, borderline troponin positive. PHYSICAL FINDINGS: The patient denies any chest pain, shortness of breath, any palpitation. PHYSICAL EXAMINATION: VITAL SIGNS: Temperature afebrile, heart 55, blood pressure 147/54. HEENT: PERRLA. Extraocular muscles are intact. NECK: Supple. No carotid bruit or thyromegaly. CHEST: Clear to auscultation. HEART: S1 and S2 regular. ABDOMEN: Soft. EXTREMITIES: Clubbing and cyanosis negative. BLOOD WORKUP: WBC as of 04/06/2017, 5.9; hemoglobin 10.1; hematocrit 32.9; platelet count 124. Chemistry showed sodium 142, potassium 4.0, chloride 97, bicarb 40, anion gap of 9, BUN 30, creatinine 1.8, total protein 5.7, albumin 3.1. IMPRESSION: Status post pulmonary edema, intubated. Renal insufficiency. History of coronary artery disease, status post bare-metal stent placed in ramus and left anterior descending, status post repeat catheterization in November, essentially patent stent. A MUGA scan in 12/24/2016 shows ejection fraction of 59%. Repeat echo 3 days ago showed ejection fraction of 55%, mild aortic stenosis, [id number] mitral regurgitation, mild tricuspid regurgitation, aortic systolic pressure of 24. History of gastrointestinal bleed, status post packed RBC transfusion. Thrombocytopenia. Protein calorie malnutrition, improved, which was not present on admission, had developed during the hospitalization, now he has improved. RECOMMENDATION: Continue gentle diuretics, avoid nephrotoxic medication. Continue clonidine 0.1 mg b.i.d. Continue hydralazine p.r.n. Continue low-dose metoprolol. DC telemetry. We will follow with you. No invasive cardiac workup is planned at this time. Thank you for providing this opportunity in taking care of the patient. We will repeat the blood workup in the morning. Noel Bowling MD
--- NOTE | 2017-04-10 12:43 | PN ---
DATE: 04/05/2017 SUBJECTIVE: The patient was seen this morning in the intensive care unit. He has recently been extubated. He is wearing a CPAP/BiPAP mask. He is in ICU bed 7. Awake, a bit lethargic, uncomfortable. Review of the history reveals that the patient had chest pain prior to coming into the hospital, developed worsening shortness of breath, making this an acute MN, more of a cardiac event then a pulmonary event with CHF, he has been diuresed nicely. Lungs show good aeration, right and left. Extremities were thin. PLAN: We will continue to follow with hospital carbon setter as well as cardiology. I will ask pulmonary to get involved in case as they from before. The patient was less seen in the office approximately 2 weeks ago. We spoke in more detail pulmonary evaluation to ascertain the severity of the COPD by PFTs. Samm Morales MD
--- NOTE | 2017-04-10 13:45 | RAD ---
HISTORY: pneumonia COMPARISON: 04/05/2017 TECHNIQUE: Chest PA and lateral FINDINGS: LUNGS: There is an infiltrate in the right upper lobe unchanged. . Patchy infiltrate at the left lung base. Bilateral pleural effusions PLEURA: No significant pleural effusion identified. No pneumothorax apparent. CARDIOVASCULAR: Normal. OSSEOUS STRUCTURES: No significant abnormalities. VISUALIZED UPPER ABDOMEN: Normal. OTHER FINDINGS: None. IMPRESSION: Patchy infiltrate at the left lung base. Bilateral pleural effusions. Persistent patchy infiltrate in the right upper lobe
--- NOTE | 2017-04-10 15:40 | PN ---
DATE: 04/07/2017 SUBJECTIVE: The patient was seen this Sunday morning in the coronary care unit, CCU bed #7, awaiting transfer to the telemetry floor. He continues to do well without a bed, sitting in the chair and looking forward to physical therapy, ambulation, and cullen discharge to home is what he would hope for. Vital signs are stable and acceptable. LABORATORY DATA: Reviewed. IV access is becoming more of a problem. I spoke with his nurse regarding the possibility of a PICC line versus surgical consultation for IV access, especially in view of transfer to telemetry. PHYSICAL EXAMINATION: Essentially unchanged. PLAN: Transfer to telemetry and continue close monitoring by Cardiology as well as Pulmonary. Case discussed with both consultants and we will follow up closely him as well. Samm Morales MD
--- NOTE | 2017-04-10 15:50 | PN ---
DATE: 04/10/2017 REASON FOR CONSULTATION: Followup cardiac evaluation admitted with respiratory failure intubated, now successfully extubated. The patient is lying flat in the bed. Denies any chest pain, shortness of breath, any palpitation. PHYSICAL EXAMINATION VITAL SIGNS: As follow; temperature afebrile, heart rate 61, blood pressure 153/65. HEENT: PERRLA intact. NECK: Supple. No carotid bruits or thyromegaly. CHEST: Clear to auscultation. HEART: S1, S2. Regular. ABDOMEN: Soft. EXTREMITIES: Clubbing, and cyanosis negative. LABORATORY DATA: Blood workup as follows; WBC 3.9, hemoglobin 8, hematocrit 29.0, platelet count 134. Chemistry shows sodium 140, potassium 4.6, chloride 102, carbon dioxide 34, anion gap of 12, BUN 41, creatinine 1.7, total protein 5.6, albumin 2.9, hemoglobin ratio 1.1. IMPRESSION: Moderate protein calorie malnutrition was not present on admission; renal insufficiency; history of gastrointestinal bleed; anemia; thrombocytopenia, improved; platelet antibody negative; pulmonary infiltrate; respiratory failure; history of coronary artery status post two bare-mental stent in left anterior descending artery and ramus, repeat catheterization in December, patent stent. RECOMMENDATION: Continue gentle diuretics, monitor H and H, history of GI bleed. Repeat echocardiogram showed preserved LV function in 55%, mild aortic stenosis, [id number] mitral regurgitation, mild tricuspid regurgitation, systolic pressure of 24. In the interim, continue metoprolol, continue clonidine, continue quetiapine, continue baby aspirin, continue isosorbide dinitrate, continue Lasix p.o. moderate possible discharge home in a day or two if H&H remain stable. We will repeat the lab in the morning. Thank you for opportunity in taking care of patient Kirt Fernando. We will follow with you. Noel Bowling MD
--- NOTE | 2017-04-10 17:57 | PN ---
DATE: 04/10/2017 SUBJECTIVE: The patient is in bed. No acute distress, nontoxic on exam. Temperature is 98. The patient was seen earlier this morning in room 568, bed 1. PHYSICAL EXAMINATION VITAL SIGNS: Temperature is 98. Blood pressure is 150/70. Respiratory rate of 16. HEENT: Unremarkable. NECK: Supple. CARDIOPULMONARY: Heart sounds are normal S1, S2. LUNGS: Decreased breath sounds. ABDOMEN: Soft, nontender. Dr. Hester *------* note from today is reviewed. LABORATORY DATA: Reveals the patient's white count of 3.9, hemoglobin of 8, and platelets of 134. The chemistries are noted with a creatinine of 1.7. Heparin-induced platelet antibody is negative and urine antigen is negative and urine Streptococus pneumoniae antigen is also negative. Microbiology reveals the blood cultures are negative. Urine culture is negative. Sputum culture is normal ondina. Review of orders reveals the patient to be off of antibiotics and patient had a chest x-ray today. The results are pending. ASSESSMENT AND PLAN: A 76-year-old male with systemic inflammatory response syndrome status post *------*respiratory failure due to acute congestive heart failure. No evidence of pneumonia and currently off of antibiotics, afebrile. The patient is at risk for developing nosocomial infections. Nicolas Alcaraz MD
--- NOTE | 2017-04-11 20:47 | DS ---
HISTORY OF PRESENT ILLNESS: This is a 76-year-old man I have known to many years ____, severe COPD and recently developed coronary artery disease. He lives in home with home oxygen because of his COPD, and on the date of admission had suffered hours of worsening chest pain resulting in shortness of breath. He came to the emergency room and found to have pulmonary edema, was intubated and admitted to Intensive Care Unit. Troponins were positive. He was seen by Cardiology consultation. He was treated with ventilator support, aggressive diuresis, nitrates, beta-blockers, and improved clinically. He was able to be extubated. Pulmonary consultation was called to address the severity of his COPD. He improved clinically and was able to get out of bed in the Intensive Care Unit, ambulate on the telemetry unit. He made arrangements with his family for discharge to home. He was offered physical therapy and in the transitional care unit, but opted to go home instead and told he was ready for discharge today. PHYSICAL EXAMINATION: LUNGS: Clear with good aeration, but decreased breath sounds with severe COPD. EXTREMITIES: Showed no edema. He is instructed in his medicines. I reviewed the list with him. I took a copy for myself and told the patient I am available to him 16/04 and that he can call me anytime if there is a question or problem with medications. New prescriptions were called for Lac-Hydrin cream, as it seems to work well on his dry skin on his legs, as well as for allopurinol to treat his elevated uric acid level. I will follow up with him in the office in a week. All of his other medications including Lasix will continue and were reviewed with the patient. FINAL DISCHARGE DIAGNOSES: 1. Acute myocardial infarction with false positive troponins. 2. Pulmonary edema. 3. Congestive heart failure. 4. Known coronary artery disease. 5. Severe chronic obstructive pulmonary disease. 6. Hypertension. Samm Morales MD
== END 2017-04-10 15:26 | disposition home or self-care (01) | DRG 208 ==
LOC: ED 06:11 → ERH 08:53 → CCU 10:25 → 2RSO 04-07 15:50 → 5RNO 04-09 23:24
PROVIDERS: ADMIT Internal Medicine; ATTEND Internal Medicine
PROC: 5A1945Z Respiratory Ventilation, 24-96 Consecutive Hours (ICD-10-PCS; principal; 2017-04-02)
PROC: 06HY33Z Insertion of Infusion Device into Lower Vein, Percutaneous Approach (ICD-10-PCS; 2017-04-02)
PROC: 30233N1 Transfusion of Nonautologous Red Blood Cells into Peripheral Vein, Percutaneous Approach (ICD-10-PCS; 2017-04-03)
DX: J96.02 Acute respiratory failure with hypercapnia (principal); I21.3 ST elevation (STEMI) myocardial infarction of unspecified site; E44.0 Moderate protein-calorie malnutrition; N18.4 Chronic kidney disease, stage 4 (severe); I27.2 Other secondary pulmonary hypertension; D69.6 Thrombocytopenia, unspecified; N17.9 Acute kidney failure, unspecified; I50.9 Heart failure, unspecified; K92.2 Gastrointestinal hemorrhage, unspecified; Z99.81 Dependence on supplemental oxygen; Z78.1 Physical restraint status; I25.10 Atherosclerotic heart disease of native coronary artery without angina pectoris; K21.9 Gastro-esophageal reflux disease without esophagitis; B19.20 Unspecified viral hepatitis C without hepatic coma; Z87.891 Personal history of nicotine dependence; I12.9 Hypertensive chronic kidney disease with stage 1 through stage 4 chronic kidney disease, or unspecified chronic kidney disease; I25.2 Old myocardial infarction; E78.5 Hyperlipidemia, unspecified; Z95.5 Presence of coronary angioplasty implant and graft; D64.9 Anemia, unspecified; J96.01 Acute respiratory failure with hypoxia; J44.9 Chronic obstructive pulmonary disease, unspecified

== ENCOUNTER 2017-07-05 00:43 | Observation (INO) | payer BC, MEDICARE ==
--- NOTE | 2017-07-05 00:49 | ED PDOC ---
Arrival/HPI - General Time Seen by Provider: 07/05/17 00:45 Historian: Patient - History of Present Illness Narrative History of Present Illness (Text): 07/05/17 00:49 Kirt Fernando is a 76 year old male, whose past medical history includes hypertension, and CAD, COPD s/p PTCA, hepatitis C, and GERD, who presents to the Emergency department complaining of right-sided abdominal pain since yesterday. Patient denies any fever, chills, chest pain, shortness of breath, nausea, vomiting, diarrhea, urinary symptoms, back pain, neck pain, headache, dizziness, or any other complaints. PMD: Dr. Morales Time/Duration: Other (yesterday) Symptom Onset: Gradual Symptom Course: Unchanged Activities at Onset: Light Context: Home Past Medical History - Provider Review Nursing Documentation Reviewed: Yes - Infectious Disease Hx of Infectious Diseases: None - Tetanus Immunization Tetanus Immunization: Unknown - Cardiac Hx Cardiac Disorders: Yes - Pulmonary Hx Chronic Obstructive Pulmonary Disease (COPD): Yes - Neurological Hx Neurological Disorder: No - HEENT Hx HEENT Disorder: No - Renal Hx Renal Disorder: No - Endocrine/Metabolic Hx Endocrine Disorders: No - Hematological/Oncological Hx Blood Disorders: Yes Hx Hepatitis C: Yes - Integumentary Hx Dermatological Disorder: No - Musculoskeletal/Rheumatological Hx Musculoskeletal Disorders: No Hx Falls: Yes - Gastrointestinal Hx Gastrointestinal Disorders: Yes Hx Gastroesophageal Reflux: Yes - Genitourinary/Gynecological Hx Genitourinary Disorders: No - Psychiatric Hx Psychophysiologic Disorder: No Hx Substance Use: No - Surgical History Hx Appendectomy: Yes Hx Cardiac Catheterization: Yes Hx Coronary Stent: Yes - Anesthesia Hx Anesthesia: Yes Hx Anesthesia Reactions: No Hx Malignant Hyperthermia: No - Suicidal Assessment Feels Threatened In Home Enviroment: No Family/Social History - Physician Review Nursing Documentation Reviewed: Yes Family/Social History: Unknown Family HX Smoking Status: Former Smoker Hx Alcohol Use: No Hx Substance Use: No Hx Substance Use Treatment: No Allergies/Home Meds Allergies/Adverse Reactions: Allergies No Known Allergies Allergy (Verified 12/11/16 13:56) Home Medications: Home Meds Medication Instructions Recorded Confirmed Aspirin [Adult Low Dose Aspirin EC] 81 mg PO DAILY 07/05/17 07/05/17 Atorvastatin [Lipitor] 10 mg PO DAILY 07/05/17 07/05/17 Furosemide [Lasix] 40 mg PO BID 07/05/17 07/05/17 Isosorbide Mononitrate ER [Imdur 30 mg PO DAILY 07/05/17 07/05/17 ER] Lisinopril [Zestril] 10 mg PO DAILY 07/05/17 07/05/17 Metoprolol Tartrate [Lopressor] 25 mg PO BID 07/05/17 07/05/17 Pantoprazole Sodium [Protonix] 40 mg PO DAILY 07/05/17 07/05/17 predniSONE [Prednisone] 10 mg PO DAILY 07/05/17 07/05/17 Review of Systems - Physician Review All systems were reviewed & negative as marked: Yes - Review of Systems Constitutional: Normal. absent: Fevers Eyes: Normal ENT: Normal Respiratory: Normal. absent: SOB, Cough Cardiovascular: Normal. absent: Chest Pain Gastrointestinal: Abdominal Pain Genitourinary Male: Normal. absent: Dysuria, Frequency, Hematuria, Urinary Output Changes Musculoskeletal: Normal. absent: Neck Pain Skin: Normal. absent: Rash Neurological: Normal. absent: Headache, Dizziness Endocrine: Normal Hemo/Lymphatic: Normal Psychiatric: Normal Physical Exam Vital Signs Reviewed: Yes Vital Signs Temp Pulse Resp BP Pulse Ox 07/05/17 03:30 65 14 187/66 H 97 07/05/17 03:20 65 207/72 H 07/05/17 02:43 65 14 224/96 H 100 07/05/17 02:15 67 16 184/79 H 98 07/05/17 00:56 98.1 F 62 20 221/86 H 100 Temperature: Afebrile Blood Pressure: Normal Pulse: Regular Respiratory Rate: Normal Appearance: Positive for: Well-Appearing, Non-Toxic, Comfortable Pain Distress: None Mental Status: Positive for: Alert and Oriented X 3 - Systems Exam Head: Present: Atraumatic, Normocephalic Pupils: Present: PERRL Extroacular Muscles: Present: EOMI Conjunctiva: Present: Normal Mouth: Present: Moist Mucous Membranes Neck: Present: Normal Range of Motion Respiratory/Chest: Present: Clear to Auscultation, Good Air Exchange. No: Respiratory Distress, Accessory Muscle Use Cardiovascular: Present: Regular Rate and Rhythm, Normal S1, S2. No: Murmurs Abdomen: Present: Tenderness (RUQ tenderness), Normal Bowel Sounds. No: Distention, Peritoneal Signs Back: Present: Normal Inspection Upper Extremity: Present: Normal Inspection. No: Cyanosis, Edema Lower Extremity: Present: Normal Inspection. No: Edema Neurological: Present: GCS=15, CN II-XII Intact, Speech Normal Skin: Present: Warm, Dry, Normal Color. No: Rashes Psychiatric: Present: Alert, Oriented x 3, Normal Insight, Normal Concentration Medical Decision Making ED Course and Treatment: 07/05/17 00:49 Impression: 76 year old male complaining of right-sided abdominal pain since yesterday. Differential Diagnosis included but are not limited to: pancreatitis vs. abdominal pain Plan: -- CT Abdomen and Pelvis w/o contrast -- EKG -- Labs, cardiac enzymes, amylase, lipase, blood cultures -- Urinalysis -- IV fluids -- Zofran -- Morphine -- Reassess and disposition Prior Visits: Notes and results from previous visits were reviewed. On 04/02/2017, pt was seen in the Emergency department for respiratory distress. Pt was admitted to the ICU for respiratory failure, pulmonary edema. Progress Notes: Reviewed EKG, NSR at [address] bpm[address] Non-specific ST/T wave changes. 07/05/17 02:35 Reviewed radiology, CT Abdomen and Pelvis shows: 1. Findings suggestive of acute pancreatitis. Correlate with amylase/lipase levels. 2. RIGHT pleural effusion. 3. Probable interstitial edema. Clinical correlation is needed. 4. Probable RIGHT middle lobe atelectasis. 5. Probable cirrhosis. 6. Incidental/non-acute findings are described above. 07/05/17 02:[address] Zahra Morales, who is aware and agrees with plan. Accepts pt in to his service. Pt will go to [facility] observation for pancreatitis. Pt is no acute distress. Discussed results and hospital observation plan with pt , who is aware and verbalizes understanding. - Lab Interpretations Microbiology Results: Microbiology Results 07/05/17 01:50 Blood-Venous Blood Culture - Preliminary NO GROWTH AFTER 48 HOURS 07/05/17 01:20 Blood-Venous Blood Culture - Preliminary NO GROWTH AFTER 48 HOURS Lab Results: 07/05/17 01:20 07/05/17 01:20 Lab Results 07/05/17 01:20: Sodium 145, Potassium 3.8, Chloride 99, Carbon Dioxide 39 H, Anion Gap 11, BUN 44 H, Creatinine 1.8 H, Est GFR ( Amer) 44, Est GFR ( Non-Af Amer) 37, Random Glucose 111 H, Calcium 9.3, Total Bilirubin 0.7, AST 32 , ALT 30, Alkaline Phosphatase 51, Lactate Dehydrogenase 595, Total Creatine Kinase 33 L, Troponin I 0.04 D, Total Protein 6.4, Albumin 3.8, Globulin 2.6, Albumin/Globulin Ratio 1.5, Amylase 139 H, Lipase 332 H 07/05/17 01:20: PT 10.2, INR 0.94, APTT 21.2 L 07/05/17 01:20: WBC 8.6 D, RBC 3.27 L, Hgb 9.5 L, Hct 30.4 L, MCV 93.0, MCH 29.1, MCHC 31.3, RDW 15.9 H, Plt Count 148, MPV 10.8, Gran % 81.0 H, Lymph % ( Auto) 12.3 L, [place] % (Auto) 5.8, Eos % (Auto) 0.8 L, Baso % (Auto) 0.1, Gran # 6.92 H, Lymph # 1.1 L, [place] # 0.5, Eos # 0.1, Baso # 0.01 I have reviewed the lab results: Yes - RAD Interpretation Narrative RAD Interpretations (Text): CT Abdomen and Pelvis shows: Lower thorax: Mild peripheral consolidation RIGHT middle lobe with associated volume loss. Mild interlobular septal thickening. Moderate RIGHT pleural effusion. Calcified pleural plaques. ABDOMEN: Liver: Lobulated contour. Gallbladder and bile ducts: Probable gallstones. No ductal dilation. Pancreas: Mild haziness about pancreas. No discrete peripancreatic collection. No ductal dilation. Spleen: No splenomegaly. Adrenals: No mass. Kidneys and ureters: No renal calculi. No hydronephrosis. Stomach and bowel: Probable underdistention of LEFT colon. No definite mural thickening. No obstruction. Appendix: Appendectomy. PELVIS: Bladder: Unremarkable. No stones. Reproductive: Mildly enlarged prostate. ABDOMEN and PELVIS: Intraperitoneal space: No significant fluid collection. No free air. Bones/joints: Degenerative changes of spine. No acute fracture. Soft tissues: Unremarkable. Vasculature: Moderate to extensive atherosclerotic disease. No aneurysm. Lymph nodes: No pathologically enlarged lymph nodes. IMPRESSION: 1. Findings suggestive of acute pancreatitis. Correlate with amylase/lipase levels. 2. RIGHT pleural effusion. 3. Probable interstitial edema. Clinical correlation is needed. 4. Probable RIGHT middle lobe atelectasis. 5. Probable cirrhosis. 6. Incidental/non-acute findings are described above. 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: Radiologist - EKG Interpretation Interpreted by ED Physician: Yes Type: 12 lead EKG - Medication Orders Current Medication Orders: Atorvastatin Calcium (Lipitor) 10 mg PO DAILY [facility] Last Admin: 07/07/17 10:03 Dose: 10 mg Furosemide (Lasix) 40 mg PO BID [facility] Last Admin: 07/07/17 17:10 Dose: 40 mg [facility] Blood Pressure Document 07/07/17 17:10 LMN (Rec: 07/07/17 17:10 LMN [id number] Blood Pressure Blood Pressure (100/60-150/90) 143/62 Heparin Sodium (Porcine) (Heparin) 5,000 units SC Q12 [facility] PRN Reason: Protocol Isosorbide Mononitrate (Imdur Er) 30 mg PO DAILY [facility] Last Admin: 07/07/17 10:05 Dose: 30 mg Lisinopril (Zestril) 10 mg PO DAILY [facility] Last Admin: 07/07/17 10:03 Dose: 10 mg Metoprolol Tartrate (Lopressor) 25 mg PO BID [facility] Last Admin: 07/07/17 17:10 Dose: 25 mg Morphine Sulfate (Morphine) 2 mg IVP Q4H PRN PRN Reason: Pain, moderate (4-7) Last Admin: 07/07/17 07:05 Dose: 2 mg [facility] Pain Assessment Document 07/07/17 07:05 DODIE (Rec: 07/07/17 07:06 [id number]) Pain Reassessment Is this a pain reassessment? No Sleep Is patient sleeping during reassessment? No Presence of Pain Presence of Pain Yes Location Pain Location Body Site Back IVP Administration Document 07/07/17 07:05 DODIE (Rec: 07/07/17 07:06 [facility] [id number] Charges for Administration # of IVP Administrations 1 Re-Assess: INDER Pain Assessment Document 07/07/17 08:05 LMN (Rec: 07/07/17 18:39 LMN [id number]) Pain Reassessment Is this a pain reassessment? Yes Presence of Pain Presence of Pain No Ondansetron HCl (Zofran Inj) 4 mg IVP Q4H PRN PRN Reason: Nausea/Vomiting Pantoprazole Sodium (Protonix Inj) 40 mg IVP DAILY [facility] Last Admin: 07/07/17 10:23 Dose: 40 mg IVP Administration Document 07/07/17 10:23 LMN (Rec: 07/07/17 10:23 LMN [id number] Charges for Administration # of IVP Administrations 1 Prednisone (Prednisone Tab) 10 mg PO DAILY [facility] Last Admin: 07/07/17 10:05 Dose: 10 mg Discontinued Medications Hydralazine HCl (Apresoline) 10 mg IVP STAT [facility] Stop: 07/05/17 03:01 Last Admin: 07/05/17 03:20 Dose: 10 mg IVP Administration Document 07/05/17 03:20 YP (Rec: 07/05/17 03:20 YP [id number]) Charges for Administration # of IVP Administrations 1 MAR Pulse and Blood Pressure Document 07/05/17 03:20 YP (Rec: 07/05/17 03:20 YP [id number]) Pulse Pulse Rate (60-90) 65 Blood Pressure Blood Pressure (100/60-150/90) 207/72 Sodium Chloride (Sodium Chloride 0.9%) 1,000 mls @ 80 mls/hr IV .[id number] [facility] Last Admin: 07/06/17 15:10 Dose: 80 mls/hr eMAR Start Stop Document 07/06/17 15:10 AJ (Rec: 07/06/17 15:11 AJ [id number]) Intravenous Solution Start Date 07/06/17 Start Time 15:10 Sodium Chloride (Sodium Chloride 0.9%) 1,000 mls @ 75 mls/hr IV .[id number] STA Stop: 07/05/17 15:55 Last Admin: 07/05/17 02:40 Dose: 75 mls/hr eMAR Start Stop Document 07/05/17 02:40 YP (Rec: 07/05/17 02:40 YP [id number]) Intravenous Solution Start Date 07/05/17 Start Time 02:40 Lisinopril (Zestril) 10 mg PO DAILY [facility] Last Admin: 07/06/17 10:39 Dose: MAR Pulse and Blood Pressure Document 07/06/17 10:39 (Rec: 07/06/17 10:39 [id number] Pulse Pulse Rate (60-90) 68 Blood Pressure Blood Pressure (100/60-150/90) 179/71 Morphine Sulfate (Morphine) 2 mg IVP Q4H PRN PRN Reason: Pain, moderate (4-7) Last Admin: 07/05/17 10:33 Dose: 2 mg MAR Pain Assessment Document 07/05/17 10:33 AJ (Rec: 07/05/17 10:34 [id number] Pain Reassessment Is this a pain reassessment? Yes Sleep Is patient sleeping during reassessment? No Presence of Pain Presence of Pain Yes Pain Scale Used Pain Scale Used Numeric Location Left, Right or Bilateral Right Upper or Lower Lower Pain Location Body Site Abdomen Description Description Intermittent Intensity of Pain at present 7 Pain Behavior Facial Grimacing Alleviating Factors/Management Medication Techniques Alleviating Factors Medication IVP Administration Document 07/05/17 10:33 AJ (Rec: 07/05/17 10:34 [id number] Charges for Administration # of IVP Administrations 1 Morphine Sulfate (Morphine) 2 mg IVP STAT STA Stop: 07/05/17 02:39 Last Admin: 07/05/17 02:43 Dose: 2 mg MAR Pain Assessment Document 07/05/17 02:43 YP (Rec: 07/05/17 02:43 YP [id number]) Pain Reassessment Is this a pain reassessment? Yes Sleep Is patient sleeping during reassessment? No Presence of Pain Presence of Pain Yes IVP Administration Document 07/05/17 02:43 YP (Rec: 07/05/17 02:43 YP [id number]) Charges for Administration # of IVP Administrations 1 Ondansetron HCl (Zofran Inj) 4 mg IVP STAT STA Stop: 07/05/17 01:04 Last Admin: 07/05/17 01:29 Dose: 4 mg IVP Administration Document 07/05/17 01:29 YP (Rec: 07/05/17 01:29 YP [id number]) Charges for Administration # of IVP Administrations 1 Pantoprazole Sodium (Protonix Ec Tab) 40 mg PO DAILY [facility] Last Admin: 07/06/17 10:54 Dose: Pantoprazole Sodium (Protonix Ec Tab) 40 mg PO STAT STA Stop: 07/07/17 03:18 Last Admin: 07/07/17 03:24 Dose: 40 mg - Scribe Statement The provider has reviewed the documentation as recorded by the Jeremiah Swanson Provider Scribe Attestation: All medical record entries made by the Joseiblucy were at my direction and personally dictated by me. I have reviewed the chart and agree that the record accurately reflects my personal performance of the history, physical exam, medical decision making, and the department course for this patient. I have also personally directed, reviewed, and agree with the discharge instructions and disposition. Disposition/Present on Arrival - Present on Arrival Any Indicators Present on Arrival: No History of DVT/PE: No History of Uncontrolled Diabetes: No Urinary Catheter: No History Surgical Site Infection Following: None - Disposition Have Diagnosis and Disposition been Completed?: Yes Diagnosis: Abdominal pain Disposition: HOSPITALIZED Disposition Time: 03:58 Condition: FAIR
[2017-07-05 00:50] VITALS: BMI 26.6
[2017-07-05] MEDS: Sodium Chloride 0.9% 1,000 ML IV SCH ×2 (01:29→17:15)
[2017-07-05] MEDS: Morphine 2 mg/ml ISec IVP PRN ×5 (01:29→20:15)
[2017-07-05 01:46] LABS: BASO # 0.01 K/mm3 (0.0-2.0); BASO % 0.1 % (0.0-3.0); EOS # 0.1 (0.0-0.7); EOS % 0.8 % (1.5-5.0); GRAN # 6.92 (1.4-6.5); HEMATOCRIT 30.4 % (42.0-52.0); LYMPH # 1.1 (1.2-3.4); LYMPH % 12.3 % (22.0-35.0); MEAN CORPUSCULAR HEMOGLOBIN 29.1 pg (25.0-35.0); MEAN CORPUSCULAR HGB CONC 31.3 g/dl (31.0-37.0); MEAN PLATELET VOLUME 10.8 fl (7.0-11.0); MONO # 0.5 (0.1-0.6); MONO % 5.8 % (1.0-6.0); RED CELL DISTRIBUTION WIDTH 15.9 % (11.5-14.5); WHITE BLOOD COUNT 8.6 10^3/ul (4.5-11.0)
[2017-07-05 01:47] LABS: ALB/GLOB RATIO 1.5 (1.1-1.8); BILIRUBIN,TOTAL 0.7 mg/dL (0.2-1.3); CALCIUM 9.3 mg/dL (8.4-10.5); POTASSIUM 3.8 mmol/L (3.6-5.0); TOTAL PROTEIN 6.4 g/dL (5.8-8.3)
[2017-07-05 01:51] LABS: INR 0.94 (0.93-1.08); PARTIAL THROMBOPLASTIN TIME 21.2 Seconds (23.7-30.8)
[2017-07-05 01:59] LABS: TROPONIN I 0.04 ng/mL
--- NOTE | 2017-07-05 02:28 | CT ---
EXAM: CT Abdomen and Pelvis Without Intravenous Contrast CLINICAL HISTORY: 76 years old, male; Pain; Abdominal pain; Flank; Right upper quadrant (ruq); Prior surgery; Surgery type: Appendectomy; Additional info: Ruq pain TECHNIQUE: Axial computed tomography images of the abdomen and pelvis without intravenous contrast. All CT scans at this facility use one or more dose reduction techniques, viz.: automated exposure control; ma/kV adjustment per patient size (including targeted exams where dose is matched to indication; i.e. head); or iterative reconstruction technique. Coronal and sagittal reformatted images were created and reviewed. COMPARISON: No relevant prior studies available. FINDINGS: Lower thorax: Mild peripheral consolidation RIGHT middle lobe with associated volume loss. Mild interlobular septal thickening. Moderate RIGHT pleural effusion. Calcified pleural plaques. ABDOMEN: Liver: Lobulated contour. Gallbladder and bile ducts: Probable gallstones. No ductal dilation. Pancreas: Mild haziness about pancreas. No discrete peripancreatic collection. No ductal dilation. Spleen: No splenomegaly. Adrenals: No mass. Kidneys and ureters: No renal calculi. No hydronephrosis. Stomach and bowel: Probable underdistention of LEFT colon. No definite mural thickening. No obstruction. Appendix: Appendectomy. PELVIS: Bladder: Unremarkable. No stones. Reproductive: Mildly enlarged prostate. ABDOMEN and PELVIS: Intraperitoneal space: No significant fluid collection. No free air. Bones/joints: Degenerative changes of spine. No acute fracture. Soft tissues: Unremarkable. Vasculature: Moderate to extensive atherosclerotic disease. No aneurysm. Lymph nodes: No pathologically enlarged lymph nodes. IMPRESSION: 1. Findings suggestive of acute pancreatitis. Correlate with amylase/lipase levels. 2. RIGHT pleural effusion. 3. Probable interstitial edema. Clinical correlation is needed. 4. Probable RIGHT middle lobe atelectasis. 5. Probable cirrhosis. 6. Incidental/non-acute findings are described above.
[2017-07-05] MEDS ORDERED: Sodium Chloride 0.9% 1,000 ML IV STA (02:36)
[2017-07-05] MEDS ORDERED: Morphine 2 mg/ml ISec IVP STA (02:38)
[2017-07-05 05:45] LABS: URINE BILIRUBIN NEGATIVE (NEGATIVE); URINE BLOOD LARGE (NEGATIVE); URINE GLUCOSE (UA) NEGATIVE (NEGATIVE); URINE KETONE NEGATIVE (NEGATIVE); URINE LEUKOCYTE ESTERASE NEGATIVE Leu/uL (NEGATIVE); URINE PROTEIN >=300 mg/dL (<30 mg/dL); URINE UROBILINOGEN 0.2 E.U./dL (<1 E.U./dL)
[2017-07-05 05:53] LABS: URINE APPEARANCE SL CLOUDY (CLEAR); URINE COLOR YELLOW (YELLOW)
[2017-07-05 06:09] LABS: URINE EPITHELIAL CELLS 0 - 2 /hpf (0-5)
[2017-07-05 06:10] LABS: URINE BACTERIA RARE (NEG)
[2017-07-05 07:28] VITALS: RESP 20
--- NOTE | 2017-07-05 11:07 | CARD ---
APPROVED REPORT EKG Measurement Heart [id number] <Conclusion> Normal sinus rhythm Minimal voltage criteria for LVH, may be normal variant ST abnormality, possible digitalis effect Abnormal ECG
--- NOTE | 2017-07-05 11:56 | CP.PCM.CON ---
<Betsy Lemus - Last Filed: 07/05/17 11:54> History of Present Illness - History of Present Illness History of Present Illness: Seen and examined at the bedside earlier today, the chart was reviewed. Request for consultation is for pancreatitis. HPI: This is a 76-year-old male with a past medical history of coronary artery disease with PTCA, chronic hepatitis C, hypertension and GERD came to the emergency room with complaints of right-sided abdominal pain that radiates to his back that started on Sunday. He described it as a nagging pain that was getting worse. The patient thought he was constipated and took some Dulcolax, and when he had no relief and was getting ready to go to the ER he had multiple bowel movements. Since the pain did not go away and so he decided to go to the emergency room. He denies nausea, vomiting, Ivar, chills, shortness of breath or chest pain.on admission he had a CT scan of abdomen and pelvis which showed possible gallstones, findings suggestive of pancreatitis, liver cirrhosis, right pleural effusion. 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 Denies any weight loss or loss of appetite. No reports of overt GI bleed. Past medical history: Coronary artery disease status post PTCA, COPD, hepatitis C, GERD, history of peptic ulcer disease, colon polyps Surgical history: Appendectomy, cardiac catheterization and stent Family history: Noncontributory Social history: Former smoker, denies EtOH or substance abuse Allergies: No known drug allergies Medications: Reviewed as per MAR ROS: Systems reviewed are positive finding see HPI Past Patient History - Infectious Disease Hx of Infectious Diseases: None - Tetanus Immunizations Tetanus Immunization: Unknown - Past Medical History & Family History Past Medical History?: Yes - Past Social History Smoking Status: Former Smoker - CARDIAC Hx Congestive Heart Failure: Yes Hx Hypertension: Yes - PULMONARY Hx Bronchitis: Yes Hx Chronic Obstructive Pulmonary Disease (COPD): Yes - NEUROLOGICAL Hx Neurological Disorder: No - HEENT Hx HEENT Problems: No - RENAL Hx Chronic Kidney Disease: No - ENDOCRINE/METABOLIC Hx Endocrine Disorders: No - HEMATOLOGICAL/ONCOLOGICAL Hx Hepatitis C: Yes - INTEGUMENTARY Hx Dermatological Problems: No - MUSCULOSKELETAL/RHEUMATOLOGICAL Hx Falls: No - GASTROINTESTINAL Hx Gastrointestinal Disorders: Yes Hx Gastroesophageal Reflux: Yes - GENITOURINARY/GYNECOLOGICAL Hx Genitourinary Disorders: No - PSYCHIATRIC Hx Psychophysiologic Disorder: No Hx Substance Use: No - SURGICAL HISTORY Hx Appendectomy: Yes Hx Cardiac Catheterization: Yes Hx Coronary Stent: Yes - ANESTHESIA Hx Anesthesia: Yes Hx Anesthesia Reactions: No Hx Malignant Hyperthermia: No Meds Allergies/Adverse Reactions: Allergies Allergy/AdvReac Type Severity Reaction Status Date / Time No Known Allergies Allergy Verified 12/11/16 13:56 - Medications Medications: Current Medications Sodium Chloride (Sodium Chloride 0.9%) 1,000 mls @ 80 mls/hr IV .[id number] [facility] Last Admin: 07/05/17 01:29 Dose: 80 mls/hr Sodium Chloride (Sodium Chloride 0.9%) 1,000 mls @ 75 mls/hr IV .[id number] ST[facility] Stop: 07/05/17 15:55 Last Admin: 07/05/17 02:40 Dose: 75 mls/hr Morphine Sulfate (Morphine) 2 mg IVP Q4H PRN PRN Reason: Pain, moderate (4-7) Last Admin: 07/05/17 10:33 Dose: 2 mg Morphine Sulfate (Morphine) 2 mg IVP Q4H PRN PRN Reason: Pain, moderate (4-7) Ondansetron HCl (Zofran Inj) 4 mg IVP Q4H PRN PRN Reason: Nausea/Vomiting Pantoprazole Sodium (Protonix Inj) 40 mg IVP DAILY [facility] Last Admin: 07/05/17 10:34 Dose: 40 mg Physical Exam - Constitutional Appears: No Acute Distress - Head Exam Head Exam: NORMOCEPHALIC - Eye Exam Eye Exam: Normal appearance. absent: Scleral icterus - ENT Exam ENT Exam: Mucous Membranes Moist - Neck Exam Neck exam: Positive for: Normal Inspection - Respiratory Exam Respiratory Exam: Decreased Breath Sounds, NORMAL BREATHING PATTERN. absent: Respiratory Distress - Cardiovascular Exam Cardiovascular Exam: +S1, +S2 - GI/Abdominal Exam GI & Abdominal Exam: Soft, Tenderness (right upper quadrant). absent: Distended , Guarding, Organomegaly, Rebound - Extremities Exam Extremities exam: Positive for: pedal pulses present. Negative for: calf tenderness, pedal edema - Neurological Exam Neurological exam: Alert, Oriented x3 - Skin Skin Exam: Dry, Warm Results - Vital Signs Recent Vital Signs: Last Vital Signs Temp 97.7 F 10/12/17 07:25 Pulse 80 07/05/17 07:25 Resp 20 07/05/17 07:25 BP 219/81 H 07/05/17 07:25 Pulse Ox 96 07/05/17 07:25 - Labs Result Diagrams: 07/05/17 01:20 07/05/17 01:20 Labs: Laboratory Results - last 24 hr 07/05/17 05:30 Urine Color Yellow Urine Appearance Sl cloudy Urine pH 6.0 Ur Specific [place] 1.020 Urine Protein >=300 H Urine Glucose (UA) Negative Urine Ketones Negative Urine Blood Large H Urine Nitrate Negative Urine Bilirubin Negative Urine Urobilinogen 0.2 Ur Leukocyte Esterase Negative Urine RBC 5 - 10 Urine WBC 1 - 3 Ur Epithelial Cells 0 - 2 Urine Bacteria Rare Assessment & Plan - Assessment and Plan (Free Text) Assessment: Assessment: Right upper quadrant abdominal pain likely secondary to Acute pancreatitis, differentials to consider is gallstone pancreatitis, medication induced Patient had CAT scan reporting gallstones, although LFTs are within normal limits. COPD Chronic hepatitis C CAD status post PTCA Chronic renal failure Anemia History of peptic ulcer disease History of colon polyp Plan: Abdominal ultrasound Request for MRI of the abdomen with MRCP with no contrast Nothing by mouth, continue IV fluids Continue Protonix Pain management Thank you for this consult and for allowing us to participate in your patient care, further recommendations based upon clinical course. Seen and discussed with Dr. Oliver. <Jessika Oliver V - Last Filed: 07/05/17 22:38> Meds - Medications Medications: Current Medications Atorvastatin Calcium (Lipitor) 10 mg PO DAILY [facility] Furosemide (Lasix) 40 mg PO BID [facility] Sodium Chloride (Sodium Chloride 0.9%) 1,000 mls @ 80 mls/hr IV .[id number] [facility] Last Admin: 07/05/17 17:15 Dose: 80 mls/hr Isosorbide Mononitrate (Imdur Er) 30 mg PO DAILY [facility] Lisinopril (Zestril) 10 mg PO DAILY [facility] Last Admin: 07/05/17 17:14 Dose: 10 mg Lisinopril (Zestril) 10 mg PO DAILY [facility] Metoprolol Tartrate (Lopressor) 25 mg PO BID [facility] Last Admin: 07/05/17 20:16 Dose: 25 mg Morphine Sulfate (Morphine) 2 mg IVP Q4H PRN PRN Reason: Pain, moderate (4-7) Last Admin: 07/05/17 20:15 Dose: 2 mg Ondansetron HCl (Zofran Inj) 4 mg IVP Q4H PRN PRN Reason: Nausea/Vomiting Pantoprazole Sodium (Protonix Inj) 40 mg IVP DAILY [facility] Last Admin: 07/05/17 10:34 Dose: 40 mg Pantoprazole Sodium (Protonix Ec Tab) 40 mg PO DAILY [facility] Prednisone (Prednisone Tab) 10 mg PO DAILY [facility] Results - Vital Signs Recent Vital Signs: Last Vital Signs Temp 97.7 F 07/05/17 16:30 Pulse 65 07/05/17 20:16 Resp 20 07/05/17 16:30 BP 203/75 H 07/05/17 20:16 Pulse Ox 99 07/05/17 16:30 - Labs Result Diagrams: 07/05/17 01:20 07/05/17 01:20 Labs: Laboratory Results - last 24 hr 07/05/17 05:30 Urine Color Yellow Urine Appearance Sl cloudy Urine pH 6.0 Ur Specific [place] 1.020 Urine Protein >=300 H Urine Glucose (UA) Negative Urine Ketones Negative Urine Blood Large H Urine Nitrate Negative Urine Bilirubin Negative Urine Urobilinogen 0.2 Ur Leukocyte Esterase Negative Urine RBC 5 - 10 Urine WBC 1 - 3 Ur Epithelial Cells 0 - 2 Urine Bacteria Rare Attending/Attestation - Attestation I have personally seen and examined this patient.: Yes I have fully participated in the care of the patient.: Yes I have reviewed all pertinent clinical information: Yes Notes (Text): This is an addendum to GI progress report dictated by Betsy Lemus APN.The patient was seen and examined earlier. Medical records, lab studies, imagings were reviewed. Last 24 hours events reviewed. Agreed with the above treatment plan as outlined in Betsy Lemus APN's notes the with the addition of the following basis and is mainly in the epigastric and right upper quadrant area MRI scan reviewed no CBD stone Ultrasound showed no gallstones Reason for inhibitor pancreatic enzymes unclear. we have to consider mild pancreatitis would benefit from EGD EUS 07/05/17 22:34
--- NOTE | 2017-07-05 15:42 | MRI ---
PROCEDURE: Magnetic Resonance Cholangiopancreatography HISTORY: Pancreatitis. Right upper quadrant abdominal pain COMPARISON: None available. TECHNIQUE: Multiplanar, multisequence MR images of the abdomen were obtained, including heavily T2 weighted MRCP images of the biliary system. Rotating maximum intensity projection images of the biliary system were generated. FINDINGS: MRCP: The common bile duct is of a normal caliber. No evidence of choledocholithiasis. No intrahepatic biliary ductal dilatation. LIVER: Unremarkable. GALLBLADDER: Unremarkable. SPLEEN: Unremarkable. PANCREAS: Unremarkable. ADRENALS: Unremarkable. KIDNEYS: Unremarkable. AORTA: No aneurysm. ASCITES: None. OTHER FINDINGS: None. IMPRESSION: Negative study
--- NOTE | 2017-07-05 18:53 | US ---
HISTORY: Abdominal pain COMPARISON: 04/02/2013 TECHNIQUE: Sonographic evaluation of the abdomen. FINDINGS: LIVER: Measures 18.1 cm. Hepatopedal blood flow. Fatty infiltration manifest ultrasonographically as increased echogenicity of the liver parenchyma. No mass. No intrahepatic bile duct dilatation. GALLBLADDER: Unremarkable. No gallstones. COMMON BILE DUCT: Measures 5.9 mm. No stones. No dilatation. PANCREAS: Obscured by overlying bowel gas. Non diagnostic assessment of the pancreas RIGHT KIDNEY: Measures 4.6 x 9.4cm. Normal echogenicity. No calculus, mass, or hydronephrosis. LEFT KIDNEY: Measures 10.1 x 5.9cm. Normal echogenicity. No calculus, mass, or hydronephrosis. SPLEEN: Splenomegaly, orthogonal measurements 5.8 x 6.4 x 13.4 AORTA: No aneurysmal dilatation. IVC: Unremarkable. OTHER FINDINGS: Incompletely visualized right pleural effusion. IMPRESSION: No acute findings related to/accounting for the clinical presentation. No significant interval change compared to the prior examination(s). Hepatosplenomegaly. No focal abnormalities. Additional benign and/or incidental findings described above. Limitations of the current examination: Nonvisualization therefore nondiagnostic assessment of the pancreas
[2017-07-06] MEDS: Morphine 2 mg/ml ISec IVP PRN ×3 (01:16→15:04)
[2017-07-06 07:29] LABS: ALB/GLOB RATIO 1.3 (1.1-1.8); BILIRUBIN,TOTAL 0.6 mg/dL (0.2-1.3); CALCIUM 8.7 mg/dL (8.4-10.5); POTASSIUM 4.3 mmol/L (3.6-5.0); TOTAL PROTEIN 6.1 g/dL (5.8-8.3)
[2017-07-06] MEDS ORDERED: Pantoprazole 40 mg EC Tab PO SCH (10:00)
--- NOTE | 2017-07-06 12:12 | CP.PCM.PN ---
<Betsy Lemus - Last Filed: 07/06/17 12:09> Subjective - Date & Time of Evaluation Date of Evaluation: 07/06/17 Time of Evaluation: 09:55 - Subjective Subjective: Seen and examined at the bedside earlier today, the patient abdominal pain is down to 5/10,, yesterday he rates a 7/10. Occasional nausea, no vomiting he is able to tolerate the clear liquid diet, no postprandial pain. He went for an abdominal ultrasound yesterday and that revealed no gallstones or common bile duct was 5.9 mm did show some fatty infiltrations of the liver and hepatosplenomegaly. We also sent him for an MRCP and that was unremarkable and no acute findings in the pancreas, no CBD stones or any other abnormality. He still having the pain to the right upper quadrant that radiates to the back. Objective - Vital Signs/Intake and Output Vital Signs (last 24 hours): Temp Pulse Resp BP Pulse Ox 98.2 F 68 20 175/70 H 98 07/06/17 07:40 07/06/17 10:43 07/06/17 07:40 07/06/17 10:43 07/06/17 07:40 Intake and Output: 07/06/17 07/06/17 06:59 18:59 Intake Total 3280 300 Output Total 1000 200 Balance 2280 100 - Medications Medications: Current Medications Atorvastatin Calcium (Lipitor) 10 mg PO DAILY [facility] Last Admin: 07/06/17 10:37 Dose: 10 mg Furosemide (Lasix) 40 mg PO BID [facility] Last Admin: 07/06/17 10:37 Dose: 40 mg Sodium Chloride (Sodium Chloride 0.9%) 1,000 mls @ 80 mls/hr IV .[id number] [facility] Last Admin: 07/05/17 17:15 Dose: 80 mls/hr Isosorbide Mononitrate (Imdur Er) 30 mg PO DAILY [facility] Last Admin: 07/06/17 10:41 Dose: 30 mg Lisinopril (Zestril) 10 mg PO DAILY [facility] Last Admin: 07/06/17 10:43 Dose: 10 mg Metoprolol Tartrate (Lopressor) 25 mg PO BID [facility] Last Admin: 07/06/17 10:37 Dose: 25 mg Morphine Sulfate (Morphine) 2 mg IVP Q4H PRN PRN Reason: Pain, moderate (4-7) Last Admin: 07/06/17 06:47 Dose: 2 mg Ondansetron HCl (Zofran Inj) 4 mg IVP Q4H PRN PRN Reason: Nausea/Vomiting Pantoprazole Sodium (Protonix Inj) 40 mg IVP DAILY [facility] Last Admin: 07/06/17 10:48 Dose: 40 mg Prednisone (Prednisone Tab) 10 mg PO DAILY [facility] Last Admin: 07/06/17 10:48 Dose: 10 mg - Labs Labs: 07/06/17 06:42 PT 10.2 Seconds (9.9-11.8) 07/05/17 01:20 INR 0.94 (0.93-1.08) 07/05/17 01:20 APTT 21.2 Seconds (23.7-30.8) L 07/05/17 01:20 - Constitutional Appears: No Acute Distress - Eye Exam Eye Exam: Normal appearance. absent: Scleral icterus - ENT Exam ENT Exam: Mucous Membranes Moist - Neck Exam Neck Exam: Normal Inspection - Respiratory Exam Respiratory Exam: Decreased Breath Sounds, NORMAL BREATHING PATTERN. absent: Rales, Wheezes, Respiratory Distress - Cardiovascular Exam Cardiovascular Exam: +S1, +S2 - GI/Abdominal Exam GI & Abdominal Exam: Soft, Tenderness (mild right upper quadrant tenderness, no rebound or guarding), Normal Bowel Sounds. absent: Guarding, Rebound - Extremities Exam Extremities Exam: Normal Capillary Refill. absent: Calf Tenderness, Pedal Edema - Neurological Exam Neurological Exam: Alert, Awake, Oriented x3 - Skin Skin Exam: Dry, Warm Assessment and Plan - Assessment and Plan (Free Text) Assessment: Assessment: Right upper quadrant abdominal pain likely secondary to Acute pancreatitis, etiology is unclear, abdominal ultrasound and MRCP with no contributory findings COPD, on home O2 Right pleural effusion on CT scan Chronic hepatitis C CAD status post PTCA Chronic renal failure Anemia History of peptic ulcer disease History of colon polyp Plan: on clear liquid, nothing by mouth for lunch for possible EGD EUS todaycontinue IV fluids Continue Protonix Pain management stat chest x-ray 2 view Discussed with patient findings on abdominal ultrasound and MRCP, no acute findings, the patient is still having right upper quadrant pain that radiates to the back, discussed with patient regarding further evaluation with endoscopy and endoscopic ultrasound, we will request for a preanesthesia evaluation for history of COPD and on home O2, and request for a chest x-ray to follow up the findings of a right pleural effusion on CAT scan. Seen and discussed with Dr. Oliver. <Jessika Oliver V - Last Filed: 07/06/17 21:07> Objective - Vital Signs/Intake and Output Vital Signs (last 24 hours): Temp Pulse Resp BP Pulse Ox 98 F 55 L 20 139/65 97 07/06/17 16:00 07/06/17 18:18 07/06/17 16:00 07/06/17 18:18 07/06/17 16:00 Intake and Output: 07/06/17 07/07/17 18:59 06:59 Intake Total 300 660 Output Total 200 400 Balance 100 260 - Medications Medications: Current Medications Atorvastatin Calcium (Lipitor) 10 mg PO DAILY [facility] Last Admin: 07/06/17 10:37 Dose: 10 mg Furosemide (Lasix) 40 mg PO BID [facility] Last Admin: 07/06/17 18:18 Dose: 40 mg Isosorbide Mononitrate (Imdur Er) 30 mg PO DAILY [facility] Last Admin: 07/06/17 10:41 Dose: 30 mg Lisinopril (Zestril) 10 mg PO DAILY [facility] Last Admin: 07/06/17 10:43 Dose: 10 mg Metoprolol Tartrate (Lopressor) 25 mg PO BID [facility] Last Admin: 07/06/17 18:18 Dose: Not Given Morphine Sulfate (Morphine) 2 mg IVP Q4H PRN PRN Reason: Pain, moderate (4-7) Last Admin: 07/06/17 15:04 Dose: 2 mg Ondansetron HCl (Zofran Inj) 4 mg IVP Q4H PRN PRN Reason: Nausea/Vomiting Pantoprazole Sodium (Protonix Inj) 40 mg IVP DAILY [facility] Last Admin: 07/06/17 10:48 Dose: 40 mg Prednisone (Prednisone Tab) 10 mg PO DAILY [facility] Last Admin: 07/06/17 10:48 Dose: 10 mg - Labs Labs: 07/06/17 06:42 PT 10.2 Seconds (9.9-11.8) 07/05/17 01:20 INR 0.94 (0.93-1.08) 07/05/17 01:20 APTT 21.2 Seconds (23.7-30.8) L 07/05/17 01:20 Attending/Attestation - Attestation I have personally seen and examined this patient.: Yes I have fully participated in the care of the patient.: Yes I have reviewed all pertinent clinical information, including history, physical exam and plan: Yes Notes (Text): This is an addendum to GI progress report dictated by Betsy Lemus APN.The patient was seen and examined earlier. Medical records, lab studies, imagings were reviewed. Last 24 hours events reviewed. Agreed with the above treatment plan as outlined in Betsy Lemus APN's notes the with the addition of the following This patients repeat chest x-ray was reviewed he has a bilateral lung infiltrates and also in the pleural effusion significant and the right side. EGD EUS was canceled Denies any abdominal pain sees better on examination abdomen soft no tenderness now Patient was very concerned about the tests what he has went through and he wanted a detailed explanation. Patient's family were at bedside I did explain to him at length about every tests what he went through. He would benefit from EUS however in view of this pulmonary status will hold off until he is further optimized will discuss with the Dr. Morales We discontinue the IV fluid and start the patient on low fat diet in a.m. 07/06/17 21:04
--- NOTE | 2017-07-06 13:33 | RAD ---
HISTORY: copd,right pleural effusion on ct scan COMPARISON: 04/10/2017 TECHNIQUE: Chest PA and lateral FINDINGS: LUNGS: Patchy bibasilar infiltrates PLEURA: Small pleural effusions right greater than left CARDIOVASCULAR: Normal. OSSEOUS STRUCTURES: No significant abnormalities. VISUALIZED UPPER ABDOMEN: Normal. OTHER FINDINGS: None. IMPRESSION: Patchy bibasilar infiltrates small pleural effusions
[2017-07-06] MEDS: Sodium Chloride 0.9% 1,000 ML IV SCH (15:10)
[2017-07-07] MEDS ORDERED: Pantoprazole 40 mg EC Tab PO STA (03:17)
--- NOTE | 2017-07-07 03:18 | CP.PCM.PN ---
Subjective - Date & Time of Evaluation Date of Evaluation: 07/07/17 Time of Evaluation: 03:18 - Subjective Subjective: Patient was seen at bedside. States that he has angina or gas pains. States his MD had advised him to take Prilosec which he has not had for days. Feels that he will be okay if he received Prilosec. Denies chest pain, sob, nausea, sweating , palpitations. Medical record was reviewed. This 72 year old white male was admitted Has H of CAD, cardiac catheterization, HTN, HLD, stenotic lesions of multiple coronary vessels,hepatitis C, GERD, PUD, former smoker. Objective - Vital Signs/Intake and Output Vital Signs (last 24 hours): Temp Pulse Resp BP Pulse Ox 98.1 F 54 L 20 153/58 H 97 07/07/17 00:00 07/07/17 00:00 07/07/17 00:00 07/07/17 00:00 07/07/17 00:00 Intake and Output: 07/06/17 07/07/17 18:59 06:59 Intake Total 300 660 Output Total 200 400 Balance 100 260 - Medications Medications: Current Medications Atorvastatin Calcium (Lipitor) 10 mg PO DAILY [facility] Last Admin: 07/06/17 10:37 Dose: 10 mg Furosemide (Lasix) 40 mg PO BID [facility] Last Admin: 07/06/17 18:18 Dose: 40 mg Isosorbide Mononitrate (Imdur Er) 30 mg PO DAILY [facility] Last Admin: 07/06/17 10:41 Dose: 30 mg Lisinopril (Zestril) 10 mg PO DAILY [facility] Last Admin: 07/06/17 10:43 Dose: 10 mg Metoprolol Tartrate (Lopressor) 25 mg PO BID [facility] Last Admin: 07/06/17 18:18 Dose: Not Given Morphine Sulfate (Morphine) 2 mg IVP Q4H PRN PRN Reason: Pain, moderate (4-7) Last Admin: 07/06/17 15:04 Dose: 2 mg Ondansetron HCl (Zofran Inj) 4 mg IVP Q4H PRN PRN Reason: Nausea/Vomiting Pantoprazole Sodium (Protonix Inj) 40 mg IVP DAILY [facility] Last Admin: 07/06/17 10:48 Dose: 40 mg Prednisone (Prednisone Tab) 10 mg PO DAILY [facility] Last Admin: 07/06/17 10:48 Dose: 10 mg - Labs Labs: 07/06/17 06:42 PT 10.2 Seconds (9.9-11.8) 07/05/17 01:20 INR 0.94 (0.93-1.08) 07/05/17 01:20 APTT 21.2 Seconds (23.7-30.8) L 07/05/17 01:20 - Constitutional Appears: Well, No Acute Distress - Head Exam Head Exam: ATRAUMATIC, NORMAL INSPECTION, NORMOCEPHALIC - Eye Exam Eye Exam: Normal appearance - ENT Exam ENT Exam: Normal External Ear Exam - Neck Exam Neck Exam: Normal Inspection - Respiratory Exam Respiratory Exam: NORMAL BREATHING PATTERN - Cardiovascular Exam Cardiovascular Exam: absent: JVD - GI/Abdominal Exam GI & Abdominal Exam: absent: Distended - Rectal Exam Rectal Exam: Deferred - Exam Additional comments: Deferred. - Extremities Exam Extremities Exam: Normal Inspection - Back Exam Back Exam: NORMAL INSPECTION - Neurological Exam Neurological Exam: Alert, Oriented x3 - Psychiatric Exam Psychiatric exam: Normal Affect, Normal Mood - Skin Skin Exam: Normal Color Assessment and Plan - Assessment and Plan (Free Text) Assessment: Dyspepsia. CAD. HLD. Hx Hepaitis C. HTN. GERD. Former smoker. Plan: Protonix 40 mg PO stat. Will get EKG, troponin if no relief. Continue present management as per PMD.
[2017-07-07] MEDS: Morphine 2 mg/ml ISec IVP PRN ×2 (07:05→21:01)
--- NOTE | 2017-07-07 20:05 | HP ---
HISTORY OF PRESENT ILLNESS: The patient is a 76-year-old male who presents to the emergency room complaining of severe abdominal pain describing the pain is mostly in the right upper quadrant, but also running across the upper abdomen. He denies any diarrhea, admits to nauseousness, and reflux symptoms. PAST MEDICAL HISTORY: Positive for hypertension, coronary artery disease, severe COPD. The patient had decompensated and was intubated for overnight his past two hospitalizations. He is also status post PTCA, positive for hepatitis C, and positive for gastroesophageal reflux disease. MEDICATIONS: His medications at the time of admission include aspirin, Lipitor 10 mg, Lasix 40 mg, Imdur 30 mg, lisinopril 10 mg, metoprolol tartrate 25 mg twice a day, Protonix 40 mg, and prednisone 10 mg. ALLERGIES: HE HAS NO KNOWN MEDICAL ALLERGIES. SOCIAL HISTORY: He has a history of cigarette smoking in the distant past. He is a nonalcoholic drinker. PHYSICAL EXAMINATION: GENERAL: When seen, he is awake,alert, and oriented. HEENT: Unremarkable. LUNGS: Clear to auscultation and percussion. HEART: Regular. A murmur is appreciated. ABDOMEN: Positive for right upper quadrant and mid epigastric tenderness. Bowel sounds are normal. EXTREMITIES: Free of cyanosis, clubbing, or edema. NEUROLOGICALLY: The patient is intact. LABORATORY DATA: Laboratory studies shows the blood pressure to be elevated at 191/81. His white blood cell count is 8.6, hemoglobin and hematocrit are 9.5 and 30.4, platelet count is 148. Sodium is 145, potassium is 3.8, blood urea nitrogen is 44, creatinine 1.8. Now fasting glucose is 111. Amylase is elevated at 139, lipase is elevated at 352. EKG shows regular sinus rhythm. Ultrasound showed hepatosplenomegaly. MRCP with Dr. Oliver was performed and this is negative. CAT scan of the abdomen was consistent with pancreatitis, right-sided pleural effusion and cirrhosis of the liver. ASSESSMENT AND PLAN: So the patient is admitted with a diagnosis of pancreatitis and cirrhosis. He is started on intravenous fluids. Dr. Oliver is consulting as a forming department end finder, and the patient is n.p.o. for now. We will slowly increase his recent medications starting tomorrow and we are continuing to follow the patient closely. Baldomero Morales MD
--- NOTE | 2017-07-08 00:06 | PN ---
DATE: 07/07/2017 SUBJECTIVE: This patient was seen and evaluated earlier today. The patient is tolerating the diet. Feels much better. No complaints of any abdominal pain. Able to tolerate the diet. PHYSICAL EXAMINATION: VITAL SIGNS: Temperature is 98.3, blood pressure 152/60, pulse 54, respirations 20 and O2 saturation is 97%. HEENT: Atraumatic. Anicteric. NECK: Supple. HEART: S1 and S2 heard. LUNGS: Bilateral air entry present. Reduced at the bases. ABDOMEN: Soft. There is no tenderness. EXTREMITIES: Mild edema present. NEUROLOGICAL: Alert, oriented, and moves all the extremities. LABORATORY DATA: There are no recent labs today. IMPRESSION: This 76-year-old patient admitted with an upper abdominal pain, has elevated pancreatic enzymes. The patient had a MRI done, which showed normal pancreatic contour. No common bile duct stones. Ultrasound also did not confirm any stones. Initial CT was suggestive of mild haziness. The pancreatic area suggestive of possible acute pancreatitis. The MRI pancreatic contour appeared okay and even the common bile duct appeared normal. The abdominal sonogram did not reveal any gallstones. PLAN: Originally, the patient was advised the plan to have the esophagogastroduodenoscopy to further evaluate, but the patient had coronary artery disease. The CAT scan had showed some lung infiltrate. Subsequently, the lung/chest x-ray also showed patchy basilar infiltrate and a significant right pleural effusion. The patient is already on home oxygen. The plan is to differ the esophagogastroduodenoscopy as it involves anesthesia unless his respiratory status and patient's condition is optimized. As the patient is clinically improving, the reasonable thing is to hold off the workup and hold off the endoscopic ultrasound evaluation. We will discuss with Dr. Morales regarding this and get a medical clearance before considering endoscopic evaluation. We will repeat the labs in a.m. Jessika Oliver MD
[2017-07-08] MEDS: Morphine 2 mg/ml ISec IVP PRN ×4 (01:01→22:59)
[2017-07-08 07:54] LABS: HEMATOCRIT 29.9 % (42.0-52.0); MEAN CELL VOLUME 93.1 fl (80.0-105.0); MEAN CORPUSCULAR HEMOGLOBIN 28.3 pg (25.0-35.0); MEAN CORPUSCULAR HGB CONC 30.4 g/dl (31.0-37.0); MEAN PLATELET VOLUME 12.4 fl (7.0-11.0); RED CELL DISTRIBUTION WIDTH 15.2 % (11.5-14.5)
[2017-07-08 08:05] LABS: ALB/GLOB RATIO 1.3 (1.1-1.8); BILIRUBIN,TOTAL 0.5 mg/dL (0.2-1.3); CALCIUM 9.2 mg/dL (8.4-10.5); TOTAL PROTEIN 6.5 g/dL (5.8-8.3)
[2017-07-08 08:08] LABS: POTASSIUM 5.1 mmol/L (3.6-5.0)
--- NOTE | 2017-07-09 02:24 | PN ---
DATE: 07/08/2017 SUBJECTIVE: This patient was seen and evaluated earlier today. The patient feels comfortable. He did have bowel movements. No abdominal pain. Tolerating the diet. PHYSICAL EXAMINATION: VITAL SIGNS: Temperature is 98, pulse is 76, and blood pressure is 91/56. HEENT: Atraumatic. Anicteric. NECK: Supple. HEART: S1 and S2 heard. LUNGS: Bilateral air entry present. Reduced at the bases. ABDOMEN: Soft. There is no tenderness present. EXTREMITIES: No cyanosis and no clubbing. Mild edema present. LABORATORY DATA: The patient's hemoglobin of 9.1, hematocrit of 29.9, WBC of 6, and platelets of 141. Chemistry showed BUN is 41, creatinine is 2.2, and potassium is 5.1. IMPRESSION: This 76-year-old patient with a past medical history of chronic hepatitic C cirrhosis, admitted with abdominal pain epigastric in right upper quadrant area. The patient was found to have a mildly elevated amylase and lipase level. Initial CT was suggestive of possible mild pancreatitis. The patient had clinically improved with conservative management, feeling much better now. Ultrasound scan did not reveal any gallstones. The magnetic resonance imaging of the pancreas with the magnetic resonance cholangiopancreatography was also negative. Pancreatic contour, otherwise unremarkable. The patient had a CT, also revealed large pleural effusion and bibasilar infiltrate. Clinically, the patient has a history of chronic obstructive pulmonary disease, on home oxygen on examination. PLAN: The patient would benefit from the esophagogastroduodenoscopy , however, the procedure was canceled in view of his respiratory status. The patient is planned to be transferred to TCU for further optimization. We will consider endoscopic evaluation, is medically become further optimized. The concern is as per the anesthesiologist, the patient needs to be intubated if needed for the procedure. The patient is also reluctant to go through the procedure at the present time. I did have a detailed discussion with Dr. Morales. The patient is waiting to be transferred to the TCU. We will continue to closely follow up his care and suggest further management based on the clinical course. Jessika Oliver MD
[2017-07-09 03:41] VITALS: O2SAT 99
[2017-07-09 08:11] VITALS: TEMP 97.8
[2017-07-09 09:57] VITALS: BP 170/68; PULSE 59
--- NOTE | 2017-07-09 12:18 | CP.PCM.PN ---
Subjective - Date & Time of Evaluation Date of Evaluation: 07/09/17 Time of Evaluation: 10:30 - Subjective Subjective: Seen and examined at the bedside this morning, patient denies nausea, vomiting, or abdominal pain. He had a formed bowel movement, denies any GI bleeding. No complaints of shortness of breath or chest pain. Tolerating oral intake. Objective - Vital Signs/Intake and Output Vital Signs (last 24 hours): Temp Pulse Resp BP Pulse Ox 97.8 F 59 L 20 170/68 H 99 07/09/17 08:11 07/09/17 09:53 07/09/17 08:11 07/09/17 09:53 07/09/17 08:11 Intake and Output: 07/09/17 07/09/17 06:59 18:59 Intake Total 480 480 Balance 480 480 - Medications Medications: Current Medications Atorvastatin Calcium (Lipitor) 10 mg PO DAILY [facility] Last Admin: 07/09/17 09:53 Dose: 10 mg Furosemide (Lasix) 40 mg PO BID [facility] Last Admin: 07/09/17 09:52 Dose: 40 mg Heparin Sodium (Porcine) (Heparin) 5,000 units SC Q12 [facility] PRN Reason: Protocol Last Admin: 07/09/17 09:52 Dose: 5,000 units Isosorbide Mononitrate (Imdur Er) 30 mg PO DAILY [facility] Last Admin: 07/09/17 09:52 Dose: 30 mg Lisinopril (Zestril) 10 mg PO DAILY [facility] Last Admin: 07/09/17 09:53 Dose: 10 mg Metoprolol Tartrate (Lopressor) 25 mg PO BID [facility] Last Admin: 07/09/17 09:53 Dose: 25 mg Ondansetron HCl (Zofran Inj) 4 mg IVP Q4H PRN PRN Reason: Nausea/Vomiting Pantoprazole Sodium (Protonix Inj) 40 mg IVP DAILY [facility] Last Admin: 07/09/17 09:54 Dose: 40 mg Prednisone (Prednisone Tab) 10 mg PO DAILY [facility] Last Admin: 07/09/17 09:53 Dose: 10 mg - Labs Labs: 07/08/17 07:41 07/08/17 07:41 PT 10.2 Seconds (9.9-11.8) 07/05/17 01:20 INR 0.94 (0.93-1.08) 07/05/17 01:20 APTT 21.2 Seconds (23.7-30.8) L 07/05/17 01:20 - Constitutional Appears: No Acute Distress - Head Exam Head Exam: NORMOCEPHALIC - Eye Exam Eye Exam: Normal appearance - ENT Exam ENT Exam: Mucous Membranes Moist - Respiratory Exam Respiratory Exam: NORMAL BREATHING PATTERN. absent: Respiratory Distress - Cardiovascular Exam Cardiovascular Exam: +S1, +S2 - GI/Abdominal Exam GI & Abdominal Exam: Soft, Normal Bowel Sounds. absent: Guarding, Tenderness, Rebound - Extremities Exam Extremities Exam: absent: Calf Tenderness - Neurological Exam Neurological Exam: Alert, Awake, Oriented x3 Assessment and Plan - Assessment and Plan (Free Text) Assessment: Assessment: Right upper quadrant abdominal pain likely secondary to Acute pancreatitis, etiology is unclear, abdominal ultrasound and MRCP with no contributory findings COPD, on home O2 Right pleural effusion on CT scan Chronic hepatitis C CAD status post PTCA Chronic renal failure Anemia History of peptic ulcer disease History of colon polyp Plan: continue heart healthy diet Continue Protonix Pain management Reviewed with patient findings on abdominal ultrasound and MRCP, no acute findings, discussed with patient regarding elective outpatient workup on discharge, history of COPD and on home O2, consider after medical clearance. Seen and discussed with Dr. Oliver.
== END 2017-07-09 16:31 | disposition home or self-care (01) ==
LOC: ED 00:43 → ERH 02:35 → 5RNO 04:23
PROVIDERS: ADMIT Internal Medicine; ATTEND Internal Medicine
DX: K85.90 Acute pancreatitis without necrosis or infection, unspecified (principal); K74.60 Unspecified cirrhosis of liver; B18.2 Chronic viral hepatitis C; I13.0 Hypertensive heart and chronic kidney disease with heart failure and stage 1 through stage 4 chronic kidney disease, or unspecified chronic kidney disease; I50.9 Heart failure, unspecified; N18.9 Chronic kidney disease, unspecified; J44.9 Chronic obstructive pulmonary disease, unspecified; I25.119 Atherosclerotic heart disease of native coronary artery with unspecified angina pectoris; K21.9 Gastro-esophageal reflux disease without esophagitis; D64.9 Anemia, unspecified; E78.5 Hyperlipidemia, unspecified; Z86.010 Personal history of colon polyps; Z99.81 Dependence on supplemental oxygen; Z95.5 Presence of coronary angioplasty implant and graft; Z87.891 Personal history of nicotine dependence; Z87.11 Personal history of peptic ulcer disease
CPT/HCPCS: 36415; 71020; 74176; 74181; 76700; 80053; 81001; 82150; 82550; 83615; 83690; 84484; 85025; 85027; 85610; 85730; 87040; 93005; 96360; 96374; 97161; 99284; C9113; G0378; G8978; G8979; G8980; J0360; J1644; J2270; J2405; J7040